=== PATIENT | male | born 1960 | race Caucasian/White ===

== ENCOUNTER 2022-09-03 11:33 | Inpatient (IN) | payer MEDICARE, OTHER ==
[2022-09-03] MEDS ORDERED: IPRATROPIUM-ALBUTEROL 3 ML NEB INHALATION STA (11:47)
--- NOTE | 2022-09-03 11:57 | ED ---
Weakness HPI - General Chief complaint: Weakness Stated complaint: Weakness Time Seen by Provider: 09/03/22 11:39 Source: patient, EMS, RN notes reviewed Mode of arrival: EMS Limitations: no limitations - History of Present Illness Initial comments: This a 61-year-old male presents emergency Department treatment jaundice weakness. Patient states has not felt well for one week. Patient states he's felt short of breath. Patient denies any current chest pain. He is a former smoker history of COPD. Patient states she's also had some mild diarrhea. He states he had constipation prior to that. Denies any localized abdominal pain no focal weakness went headache. - Related Data Home Medications Medication Instructions Recorded Confirmed Aspirin/Acetaminophen/Caffeine 1 - 2 tab PO DAILY PRN 07/04/22 09/03/22 [Excedrin Migraine Caplet] Famotidine [Pepcid] 20 mg PO DAILY 07/04/22 09/03/22 PARoxetine HCL [Paxil] 40 mg PO DAILY 07/04/22 09/03/22 Albuterol Sulfate [Albuterol 2 puff PO RT-TID PRN 09/03/22 09/03/22 Sulfate Hfa] Ezetimibe [Zetia] 10 mg PO DAILY 09/03/22 09/03/22 Naproxen [Naprosyn] 500 mg PO BID PRN 09/03/22 09/03/22 predniSONE 50 mg PO DAILY 09/03/22 09/03/22 Allergies Allergy/AdvReac Type Severity Reaction Status Date / Time No Known Allergies Allergy Verified 09/03/22 13:55 Review of Systems ROS Statement: Those systems with pertinent positive or pertinent negative responses have been documented in the HPI. ROS Other: All systems not noted in ROS Statement are negative. Past Medical History Past Medical History: Hyperlipidemia, Hypertension History of Any Multi-Drug Resistant Organisms: None Reported Past Surgical History: Appendectomy, Cholecystectomy Additional Past Surgical History / Comment(s): left arm, Past Psychological History: No Psychological Hx Reported Smoking Status: Former smoker Past Alcohol Use History: None Reported Past Drug Use History: None Reported General Exam Limitations: no limitations General appearance: alert, in no apparent distress Head exam: Present: atraumatic, normocephalic, normal inspection Eye exam: Present: normal appearance, PERRL, EOMI. Absent: scleral icterus, conjunctival injection, periorbital swelling ENT exam: Present: normal exam, normal oropharynx, mucous membranes moist Neck exam: Present: normal inspection, full ROM. Absent: tenderness, meningismus, lymphadenopathy Respiratory exam: Present: wheezes. Absent: normal lung sounds bilaterally, respiratory distress, rales, rhonchi, stridor Cardiovascular Exam: Present: regular rate, normal rhythm, normal heart sounds. Absent: systolic murmur, diastolic murmur, rubs, gallop, clicks GI/Abdominal exam: Present: soft, normal bowel sounds. Absent: distended, tenderness, guarding, rebound, rigid Neurological exam: Present: alert, oriented X3, CN II-XII intact, reflexes normal. Absent: motor sensory deficit Skin exam: Present: warm, dry, intact, normal color. Absent: rash Course Vital Signs 09/03/22 09/03/22 09/03/22 11:34 12:32 12:41 Temperature 98.4 F Pulse Rate 101 H 96 92 Respiratory 20 Rate Blood Pressure 147/111 O2 Sat by Pulse 97 Oximetry 09/03/22 09/03/22 09/03/22 13:36 13:46 14:00 Temperature 97.4 F L Pulse Rate 96 95 96 Respiratory 18 18 18 Rate Blood Pressure 144/113 147/113 141/112 O2 Sat by Pulse 97 94 L 100 Oximetry 09/03/22 15:00 Temperature Pulse Rate 99 Respiratory 18 Rate Blood Pressure 142/107 O2 Sat by Pulse 100 Oximetry EKG Findings - EKG Comments: EKG Findings:: EKG performed at 11:57 sinus rhythm rate of 97 CT 134 QRS 104 QT/QTC 316/462 - EKG Results: EKG: interpreted by JOSE Medical Decision Making - Medical Decision Making Was pt. sent in by a medical professional or institution (, PA, TRAIN ELECTRONIC TECHNICIAN, urgent care, hospital, or assisted...) When possible be specific @ -[No] Did you speak to anyone other than the patient for history (EMS, parent, family, police, friend...)? What history was obtained from this source @ -[No] Did you review nursing and triage notes (agree or disagree)? Why? @ -[I reviewed and agree with nursing and triage notes] Were old charts reviewed (outside hosp., previous admission, EMS record, old EKG, old radiological studies, urgent care reports/EKG's, assisted records)? Report findings @ -[Reviewed prior to admission included laboratory studies, carotid consult] Differential Diagnosis (chest pain, altered mental status, abdominal pain women, abdominal pain men, vaginal bleeding, weakness, fever, dyspnea, syncope, headache, dizziness, GI bleed, back pain, seizure, CVA, palpatations, mental health, musculoskeletal)? @ -[nDifferential Dyspnea: Coronary syndrome, arrhythmia, tamponade, asthma, COPD, pulmonary embolism, pneumonia, pneumothorax, pulmonary effusion, anaphylaxis, diabetic ketoacidosis, flailed chest, pulmonary contusion, diaphragmatic rupture, anemia, neuromuscular, this is not meant to be an all-inclusive list. licable] EKG interpreted by me (3pts min.). @ -[As above] X-rays interpreted by me (1pt min.). @ -[Chest x-ray shows bilateral effusions] CT interpreted by me (1pt min.). @ -[CT of the chest shows no evidence of PE, there is bilateral pleural effusions noted] U/S interpreted by me (1pt. min.). @ -[None done] What testing was considered but not performed or refused? (CT, X-rays, U/S, labs)? Why? @ -[None] What meds were considered but not given or refused? Why? @ -[None] Did you discuss the management of the patient with other professionals (professionals i.e. , PA, TRAIN ELECTRONIC TECHNICIAN, lab, RT, psych nurse, social work faculty member, dictaphone transcriber, teacher, legal officer, field nurse case manager)? Give summary @ -[Discuss case with Dr. Jamison who recommended admission with IV Lasix, cardiology and pulmonary Was smoking cessation discussed for >3mins.? @ -[No] Was critical care preformed (if so, how long)? @ -[35mins] Were there social determinants of health that impacted care today? How? (Homelessness, low income, unemployed, alcoholism, drug addiction, transportation, low edu. Level, literacy, decrease access to med. care, penitentiary, rehab)? @ -[No] Was there de-escalation of care discussed even if they declined (Discuss DNR or withdrawal of care, Hospice)? DNR status @ -[No] What co-morbidities impacted this encounter? (DM, HTN, Smoking, COPD, CAD, Cancer, CVA, ARF, Chemo, Hep., AIDS, mental health diagnosis, sleep apnea, morbid obesity)? @ -[COPD] Was patient admitted / discharged? Hospital course, mention meds given and route, prescriptions, significant lab abnormalities, going to OR and other pertinent info. @ -[Admitted patient has significant bilateral pleural effusions, metabolic acidosis patient does have a BNP at 19,600 with pulmonary edema type changes. Patient admitted for cardiology and pulmonary patient echocardiogram.] Undiagnosed new problem with uncertain prognosis? @ -[No] Drug Therapy requiring intensive monitoring for toxicity (Heparin, Nitro, Insulin, Cardizem)? @ -[No] Were any procedures done? @ -[No] Diagnosis/symptom? @ -[Pulmonary edema, CHF, bilateral pleural effusions] Acute, or Chronic, or Acute on Chronic? @ -[Acute] Uncomplicated (without systemic symptoms) or Complicated (systemic symptoms)? @ -[ complicated] Side effects of treatment? @ -[No] Exacerbation, Progression, or Severe Exacerbation? @ -[No] Poses a threat to life or bodily function? How? (Chest pain, [place], [place], pneumonia, PE, COPD, DKA, ARF, appy, cholecystitis, CVA, Diverticulitis, Homicidal, Suicidal, threat to staff... and all critical care pts) @ -[yes patient is at risk for respiratory failure] - Lab Data Result diagrams: 09/03/22 12:15 09/03/22 12:15 Lab Results 09/03/22 09/03/22 09/03/22 Range/Units 12:15 12:15 12:15 WBC 11.5 H (3.8-10.6) k/uL RBC 4.28 L (4.30-5.90) m/uL Hgb 12.4 L (13.0-17.5) gm/dL Hct 39.5 (39.0-53.0) % MCV 92.4 (80.0-100.0) fL MCH 29.0 (25.0-35.0) pg MCHC 31.4 (31.0-37.0) g/dL RDW 14.4 (11.5-15.5) % Plt Count 159 (150-450) k/uL MPV 11.0 Neutrophils % 87 % Lymphocytes % 6 % Monocytes % 5 % Eosinophils % 0 % Basophils % 0 % Neutrophils # 10.0 H (1.3-7.7) k/uL Lymphocytes # 0.7 L (1.0-4.8) k/uL Monocytes # 0.6 (0-1.0) k/uL Eosinophils # 0.0 (0-0.7) k/uL Basophils # 0.0 (0-0.2) k/uL Hypochromasia Moderate PT 14.4 H (9.0-12.0) sec INR 1.4 H (<1.2) APTT 24.4 (22.0-30.0) sec D-Dimer 2.20 H (<0.60) mg/L FEU Sodium 136 L (137-145) mmol/L Potassium 4.3 (3.5-5.1) mmol/L Chloride 108 H (98-107) mmol/L Carbon Dioxide 16 L (22-30) mmol/L Anion Gap 12 mmol/L BUN 33 H (9-20) mg/dL Creatinine 1.03 (0.66-1.25) mg/dL Est GFR (CKD-EPI)AfAm 90 (>60 ml/min/1.73 sqM) Est GFR (CKD-EPI)NonAf 78 (>60 ml/min/1.73 sqM) Glucose 113 H (74-99) mg/dL Calcium 7.9 L (8.4-10.2) mg/dL Magnesium 2.0 (1.6-2.3) mg/dL Total Bilirubin 2.6 H (0.2-1.3) mg/dL AST 58 (17-59) U/L ALT 64 H (4-49) U/L Alkaline Phosphatase 80 (38-126) U/L NT-Pro-B Natriuret Pep pg/mL Total Protein 5.7 L (6.3-8.2) g/dL Albumin 3.2 L (3.5-5.0) g/dL 09/03/22 Range/Units 12:15 WBC (3.8-10.6) k/uL RBC (4.30-5.90) m/uL Hgb (13.0-17.5) gm/dL Hct (39.0-53.0) % MCV (80.0-100.0) fL MCH (25.0-35.0) pg MCHC (31.0-37.0) g/dL RDW (11.5-15.5) % Plt Count (150-450) k/uL MPV Neutrophils % % Lymphocytes % % Monocytes % % Eosinophils % % Basophils % % Neutrophils # (1.3-7.7) k/uL Lymphocytes # (1.0-4.8) k/uL Monocytes # (0-1.0) k/uL Eosinophils # (0-0.7) k/uL Basophils # (0-0.2) k/uL Hypochromasia PT (9.0-12.0) sec INR (<1.2) APTT (22.0-30.0) sec D-Dimer (<0.60) mg/L FEU Sodium (137-145) mmol/L Potassium (3.5-5.1) mmol/L Chloride (98-107) mmol/L Carbon Dioxide (22-30) mmol/L Anion Gap mmol/L BUN (9-20) mg/dL Creatinine (0.66-1.25) mg/dL Est GFR (CKD-EPI)AfAm (>60 ml/min/1.73 sqM) Est GFR (CKD-EPI)NonAf (>60 ml/min/1.73 sqM) Glucose (74-99) mg/dL Calcium (8.4-10.2) mg/dL Magnesium (1.6-2.3) mg/dL Total Bilirubin (0.2-1.3) mg/dL AST (17-59) U/L ALT (4-49) U/L Alkaline Phosphatase (38-126) U/L NT-Pro-B Natriuret Pep 68883 pg/mL Total Protein (6.3-8.2) g/dL Albumin (3.5-5.0) g/dL Critical Care Time Critical Care Time: Yes Total Critical Care Time: 35 Disposition Clinical Impression: CHF (congestive heart failure), Pulmonary edema, Bilateral pleural effusion Disposition: ADMITTED IP TO THIS HOSP Condition: Poor Referrals: Bita Parrish MD [Primary Care Provider] - 1-2 days Time of Disposition: 15:15
[2022-09-03 12:29] LABS: Basophils % (A) 0 %; Eosinophils % (A) 0 %; HCT 39.5 % (39.0-53.0); HGB 12.4 gm/dL (13.0-17.5); Hypochromasia Moderate; Lymphocytes # (A) 0.7 k/uL (1.0-4.8); Lymphocytes % (A) 6 %; MCHC 31.4 g/dL (31.0-37.0); MCV 92.4 fL (80.0-100.0); Monocytes # (A) 0.6 k/uL (0-1.0); Monocytes % (A) 5 %; Neutrophils % (A) 87 %; Platelet Count 159 k/uL (150-450); RBC 4.28 m/uL (4.30-5.90); RDW 14.4 % (11.5-15.5); WBC 11.5 k/uL (3.8-10.6)
[2022-09-03 12:36] LABS: ALT 64 U/L (4-49); AST 58 U/L (17-59); African American GFR (CKD) 90 (>60 ml/min/1.73 sqM); Albumin 3.2 g/dL (3.5-5.0); Alkaline Phosphatase 80 U/L (38-126); Anion Gap 12 mmol/L; Blood Urea Nitrogen 33 mg/dL (9-20); Calcium 7.9 mg/dL (8.4-10.2); Carbon Dioxide 16 mmol/L (22-30); Chloride 108 mmol/L (98-107); Glucose 113 mg/dL (74-99); Non-African American GFR(CKD) 78 (>60 ml/min/1.73 sqM); Potassium 4.3 mmol/L (3.5-5.1); Sodium 136 mmol/L (137-145); Total Bilirubin 2.6 mg/dL (0.2-1.3); Total Protein 5.7 g/dL (6.3-8.2)
[2022-09-03 12:38] LABS: INR 1.4 (<1.2); Partial Thromboplastin Time 24.4 sec (22.0-30.0); Prothrombin Time 14.4 sec (9.0-12.0)
--- NOTE | 2022-09-03 12:50 | XR ---
EXAMINATION TYPE: XR chest 2V DATE OF EXAM: 09/03/2022 COMPARISON: 07/04/2022 INDICATION: Weakness TECHNIQUE: Frontal and lateral views of the chest are obtained. FINDINGS: The heart size is normal. The pulmonary vasculature is normal. Bilateral posterior pleural effusions are present.. IMPRESSION: 1. Posterior pleural effusions.
[2022-09-03] MEDS ORDERED: guaiFENesin-Coden 100-10MG/5ML 10 ML CUP PO STA (12:55)
[2022-09-03] MEDS ORDERED: FUROSEMIDE 10 MG/ML 4 ML VIAL IV STA (14:02)
--- NOTE | 2022-09-03 14:28 | CT ---
CT CHEST FOR PULMONARY EMBOLISM. EXAMINATION TYPE: CT chest angio for PE DATE OF EXAM: 09/03/2022 INDICATION: KRYSTAL, elevated dimer CT DLP: 307.6 mGycm, Automated exposure control for dose reduction was used. CONTRAST: Patient injected with 100 mL of Isovue 370. COMPARISON: None TECHNIQUE: CT of the chest is performed on a spiral scan at 2 mm thick sections. Study is performed with intravenous contrast timed for evaluation for pulmonary embolism. This will limit additional po rtions of the evaluation. FINDINGS: No persistent filling defects are evident to suggest an acute pulmonary embolism. No mediastinal or hilar adenopathy enlarged by CT criteria is evident. The ascending aorta diameter at the level of the main pulmonary artery is 3.4 cm. The main pulmonary artery diameter at the bifur cation is 3.2 cm. Reflux into the inferior vena cava is evident. No septal deviation is appreciated. Small left and [id number] right pleural fluid is present. Limited CT section through the upper abdomen are unremarkable. IMPRESSIONS: 1. No acute pulmonary embolism. 2. Bilateral pleural fluid collections
[2022-09-03] MEDS: FUROSEMIDE 10 MG/ML 4 ML VIAL IV SCH (18:33)
[2022-09-03] MEDS ORDERED: LABETALOL 5 MG/ML VIAL MDV IVP STA (21:29)
[2022-09-04] MEDS: FUROSEMIDE 10 MG/ML 4 ML VIAL IV SCH ×2 (03:18→17:16)
[2022-09-04] MEDS ORDERED: IPRATROPIUM-ALBUTEROL 3 ML NEB INHALATION PRN (05:02)
--- NOTE | 2022-09-04 05:12 | P.CNPUL ---
History of Present Illness Consult date: 09/04/22 Requesting physician: Dar Shannon Reason for consult: dyspnea, pleural effusion Chief complaint: Shortness of breath History of present illness: I am seeing this patient in consultation today 09/14/2022 in the emergency room for possible acute CHF exacerbation and bilateral pleural effusions. Patient is a 61-year-old white male with past medical history significant for asthma, hypertension, hyperlipidemia, and is an ex-smoker. He does reportedly follow with his primary care provider Dr. Sunshine. Patient did have a recent hospital stay back in Jul, 2022. He was found to be in acute congestive heart failure, and was diuresed with Lasix. He also was started on a combination of antihype rtensives and lipid lowering medications. He ended up leaving AGAINST MEDICAL ADVICE. Patient presented back to the emergency room yesterday morning complaining of exertional shortness of breath with associated chest pain over the last week. The chest pain was substernal, and subsides with rest. Denies any heart palpitations, syncope, orthopnea, or lower extremity edema. He denies any significant fever, chills, productive cough, hemoptysis. He does report a chronic nonproductive cough worse in the morning. He denies sick contacts. He is currently sitting up in bed, on room air, in no acute distress. Initial chest x-ray showed bilateral small pleural effusions. Follow-up chest CTA drew wed no pulmonary embolism. It did redemonstrated the small to moderate-sized bilateral pleural effusions. CBC on arrival shows a WBC count 11.5, hemoglobin 12.4, hematocrit 39.5, platelets 159. BMP shows sodium 136, potassium 4.3, chloride 108, serum bicarb 16, BUN 33, creatinine 1.03, glucose 113. Troponins have been trending and are elevated at 1.2, 1.14, and then 1.2. NT proBNP was elevated at 19,600. Patient was started on Lasix 40 mg twice a day. He states that he is voiding a lot. There is a documented -3.4 L output over the last 24 hours. Vital signs are stable. Patient will be admitted to cardiac stepdown unit once bed available.. Review of Systems REVIEW OF SYSTEMS: CONSTITUTIONAL: Denies any recent significant weight loss or weight gain. EYES: Denies change in vision. EARS, NOSE, MOUTH, THROAT: Denies headaches, denies sore throat. CARDIOVASCULAR: See HPI RESPIRATORY: See HPI GASTROINTESTINAL: Denies change in appetite, abdominal pain, nausea and vomiting, or diarrhea GENITOURINARY: Denies hematuria, denies infections. MUSKULOSKELETAL: Denies pain, denies swelling. INTEGUMENTARY: Denies rash, denies eczema. NEUROLOGICAL: Denies recent memory loss, no recent seizure activity. PSYCHIATRIC: Denies anxiety, denies depression. HEMATOLOGIC/LYMPHATIC: Denies anemia, denies enlarged lymph node Past Medical History Past Medical History: Hyperlipidemia, Hypertension History of Any Multi-Drug Resistant Organisms: None Reported Past Surgical History: Appendectomy, Cholecystectomy Additional Past Surgical History / Comment(s): left arm, Past Psychological History: No Psychological Hx Reported Smoking Status: Former smoker Past Alcohol Use History: None Reported Past Drug Use History: None Reported Medications and Allergies Home Medications Medication Instructions Recorded Confirmed Type Aspirin/Acetaminophen/Caffeine 1 - 2 tab PO DAILY PRN 07/04/22 09/03/22 History [Excedrin Migraine Caplet] Famotidine [Pepcid] 20 mg PO DAILY 07/04/22 09/03/22 History PARoxetine HCL [Paxil] 40 mg PO DAILY 07/04/22 09/03/22 History Albuterol Sulfate [Albuterol 2 puff PO RT-TID PRN 09/03/22 09/03/22 History Sulfate Hfa] Ezetimibe [Zetia] 10 mg PO DAILY 09/03/22 09/03/22 History Naproxen [Naprosyn] 500 mg PO BID PRN 09/03/22 09/03/22 History predniSONE 50 mg PO DAILY 09/03/22 09/03/22 History Allergies Allergy/AdvReac Type Severity Reaction Status Date / Time No Known Allergies Allergy Verified 09/03/22 13:55 Physical Exam Vitals: Vital Signs Temp Pulse Resp BP Pulse Ox 09/04/22 03:30 82 21 120/99 97 09/04/22 02:30 89 17 122/96 98 09/04/22 02:00 87 18 122/96 09/04/22 00:30 96 14 127/93 09/03/22 23:30 87 17 125/90 97 09/03/22 23:00 87 21 123/91 96 09/03/22 22:30 84 22 127/100 09/03/22 22:00 87 20 140/106 09/03/22 21:43 90 18 98 09/03/22 21:37 107 H 18 150/115 98 09/03/22 21:30 104 H 21 152/115 09/03/22 21:00 101 H 20 159/110 09/03/22 20:30 96 18 152/118 09/03/22 20:00 101 H 17 165/113 09/03/22 19:38 100 18 142/113 09/03/22 19:00 96 20 142/113 09/03/22 18:00 99 20 142/119 99 09/03/22 17:00 99 18 142/119 97 09/03/22 16:00 101 H 18 154/94 99 09/03/22 15:00 99 18 142/107 100 09/03/22 14:00 96 18 141/112 100 09/03/22 13:46 97.4 F L 95 18 147/113 94 L 09/03/22 13:36 96 18 144/113 97 09/03/22 12:41 92 09/03/22 12:32 96 09/03/22 11:34 98.4 F 101 H 20 147/111 97 Intake and Output 09/03/22 09/03/22 09/04/22 14:59 22:59 06:59 Output Total 2430 1000 Balance -2430 -1000 Output: Urine 2430 1000 Other: Weight 58.967 kg GENERAL EXAM: Alert, 61-year-old white male appearing stated age, comfortable in no apparent distress. HEAD: Normocephalic and atraumatic EYES: Normal reaction of pupils, equal size. NOSE: Clear with pink turbinates. THROAT: No erythema or exudates. NECK: No masses, no JVD. CHEST: No chest wall deformity. LUNGS: Equal air entry with diminished bibasilar lung sounds. No crackles, wheezes, rhonchi. On room air. No conversational dyspnea or accessory muscle use.. CVS: S1 and S2 normal with no audible murmur, regular rhythm. No extra heart sounds ABDOMEN: No hepatosplenomegaly, active bowel sounds, no guarding or rigidity. SPINE: No scoliosis or deformity SKIN: No rashes CENTRAL NERVOUS SYSTEM: No focal deficits, tone is normal in all 4 extremities. EXTREMITIES: There is no peripheral edema, clubbing, or cyanosis. Peripheral pulses are intact. Results - Laboratory Findings CBC and BMP: 09/03/22 12:15 09/03/22 12:15 PT/INR, D-dimer PT 14.4 sec (9.0-12.0) H 09/03/22 12:15 INR 1.4 (<1.2) H 09/03/22 12:15 D-Dimer 2.20 mg/L FEU (<0.60) H 09/03/22 12:15 Abnormal lab findings: Abnormal Labs 09/03/22 09/03/22 09/03/22 12:15 12:15 12:15 WBC 11.5 H RBC 4.28 L Hgb 12.4 L Neutrophils # 10.0 H Lymphocytes # 0.7 L PT 14.4 H INR 1.4 H D-Dimer 2.20 H Sodium 136 L Chloride 108 H Carbon Dioxide 16 L BUN 33 H Glucose 113 H Calcium 7.9 L Total Bilirubin 2.6 H ALT 64 H Troponin I Total Protein 5.7 L Albumin 3.2 L 09/03/22 09/03/22 09/03/22 12:15 16:34 19:45 WBC RBC Hgb Neutrophils # Lymphocytes # PT INR D-Dimer Sodium Chloride Carbon Dioxide BUN Glucose Calcium Total Bilirubin ALT Troponin I 1.210 H* 1.140 H* 1.200 H* Total Protein Albumin - Diagnostic Findings Chest x-ray: image reviewed CT scan - chest: image reviewed Assessment and Plan Assessment: Suspected mild CHF exacerbation, chest CTA shows small to moderate size bilateral pleural effusions greater on the right. There is no cardiomegaly or significant pulmonary vascular congestion. NT proBNP was elevated at 19,600. Elevated troponins, possible NSTEMI Benign essential hypertension Hyperlipidemia Reported history of asthma, clinically stable Ex-smoker, quitting approximately 3 years ago Plan: Patient's medications, labs, chest x-ray, chest CTA reviewed On room air Echocardiogram pending for the morning Cardiology was consulted Currently being diuresed with Lasix 40 mg twice a day Documented 3.4 L urinary output over last 24 hours Doubt the need for thoracentesis We will continue to follow I have personally seen and examined the patient, performed the documentation and the assessment and plan as written. Number of minutes spent on the visit:20 Time with Patient: Greater than 30
[2022-09-04] MEDS ORDERED: HEPARIN SODIUM 1,000 UN/ML (10ML VL) IV PRN (08:45)
[2022-09-04] MEDS ORDERED: HEPARIN SODIUM 1,000 UN/ML (10ML VL) IV ONE (08:45)
--- NOTE | 2022-09-04 09:38 | P.CRDCN ---
History of Present Illness Consult date: 09/04/22 Consult reason: congestive heart failure History of present illness: HISTORY OF PRESENT ILLNESS: This is a 61-year-old male with a past medical history significant for former nicotine dependence. 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 We have been asked to see the patient in consultation for CHF. Patient had a recent hospitalization in July at which time his troponins were elevated and he was seen by cardiology but ended up signing out AMA. He did not have any follow-up with cardiology following that. Patient now presents with shortness of breath it's been going on for a couple weeks. He complains of cough with sputum production, no fever or chills. No lower extremity edema. He is complaining of constipation. His initial blood pressure 147/111.Patient is status post 1 dose of IV Lasix. He is seen in the emergency center waiting for a bed on the cardiac stepdown unit. Patient states he quit smoking. He denies alcohol use, illicit drug use. EKG reveals ectopic atrial rhythm, poor R-wave progression,. Chest xray posterior pleural effusions Chest CTA: Negative for pulmonary embolism. Bilateral pleural fluid colle ctions. Laboratory data: WBC 11.5, hemoglobin 12.4, platelets at 159. INR 1.4. D-dimer 2.2. Sodium 136, potassium 4.3, chloride 108, CO2 27, BUN 33, creatinine 1.03. Glucose 113. Magnesium 2. ALT 64. Troponin 1.21, 1.14, 1.2. ProBNP 19,600. Current home cardiac medications include Zetia 10 mg daily REVIEW OF SYSTEMS: At the time of my exam: CONSTITUTIONAL: Denies fever or chills. HEENT: Denies blurred vision, vision changes, or eye pain. Denies hemoptysis CARDIOVASCULAR: Denies chest pain. Denies orthopnea. Denies PND. Denies palpitations RESPIRATORY: Reports shortness of breath. GASTROINTESTINAL: Denies abdominal pain. Denies nausea or vomiting. HEMATOLOGIC: Denies bleeding disorders. GENITOURINARY: Denies any blood in urine. SKIN: Denies pruitis. Denies rash. PHYSICAL EXAM: VITAL SIGNS: Reviewed. 147/108, heart rate in the 80s, pulse ox 90% on room air GENERAL: Well-developed in no acute distress. HEENT: Head is normocephalic. Pupils are equal, round. Sclerae anicteric. Mucous membranes of the mouth are moist. Neck supple. No JVD or thyromegaly LUNGS: Respirations even and unlabored. Lungs diminished bilaterally HEART: Regular rate and rhythm. S1 and S2 heard. ABDOMEN: Soft. Nondistended. Nontender. EXTREMITIES: No clubbing or cyanosis. Peripheral pulses intact. No lower extremity edema NEUROLOGIC: Awake and alert. Oriented x 3. ASSESSMENT: Acute heart failure, type unknown, echo pending Elevated troponins, possible Non-STEMI Hypertension, uncontrolled History of migraines Former nicotine dependence PLAN: Obtain 2-D echo to assess cardiac structure and function Start patient on IV heparin Start patient on aspirin 81 mg daily, Lipitor 80 mg daily, Coreg 6.25 mg twice daily Continue Lasix 40 mg IV every 12 hours, monitor I&O, daily weights electrolytes and renal function Further recommendations pending patient's course Nurse practitioner note has been reviewed by physician. Signing provider agrees with the documented findings, assessment, and plan of care. Past Medical History Past Medical History: Hyperlipidemia, Hypertension History of Any Multi-Drug Resistant Organisms: None Reported Past Surgical History: Appendectomy, Cholecystectomy Additional Past Surgical History / Comment(s): left arm, Past Psychological History: No Psychological Hx Reported Smoking Status: Former smoker Past Alcohol Use History: None Reported Past Drug Use History: None Reported Medications and Allergies Home Medications Medication Instructions Recorded Confirmed Type Aspirin/Acetaminophen/Caffeine 1 - 2 tab PO DAILY PRN 07/04/22 09/03/22 History [Excedrin Migraine Caplet] Famotidine [Pepcid] 20 mg PO DAILY 07/04/22 09/03/22 History PARoxetine HCL [Paxil] 40 mg PO DAILY 07/04/22 09/03/22 History Albuterol Sulfate [Albuterol 2 puff PO RT-TID PRN 09/03/22 09/03/22 History Sulfate Hfa] Ezetimibe [Zetia] 10 mg PO DAILY 09/03/22 09/03/22 History Naproxen [Naprosyn] 500 mg PO BID PRN 09/03/22 09/03/22 History predniSONE 50 mg PO DAILY 09/03/22 09/03/22 History Allergies Allergy/AdvReac Type Severity Reaction Status Date / Time No Known Allergies Allergy Verified 09/03/22 13:55 Physical Exam Vitals: Vital Signs Temp Pulse Resp BP Pulse Ox 09/04/22 07:46 85 18 147/108 98 09/04/22 03:30 82 21 120/99 97 09/04/22 02:30 89 17 122/96 98 09/04/22 02:00 87 18 122/96 09/04/22 00:30 96 14 127/93 09/03/22 23:30 87 17 125/90 97 09/03/22 23:00 87 21 123/91 96 09/03/22 22:30 84 22 127/100 09/03/22 22:00 87 20 140/106 09/03/22 21:43 90 18 98 09/03/22 21:37 107 H 18 150/115 98 09/03/22 21:30 104 H 21 152/115 09/03/22 21:00 101 H 20 159/110 09/03/22 20:30 96 18 152/118 09/03/22 20:00 101 H 17 165/113 09/03/22 19:38 100 18 142/113 09/03/22 19:00 96 20 142/113 09/03/22 18:00 99 20 142/119 99 09/03/22 17:00 99 18 142/119 97 09/03/22 16:00 101 H 18 154/94 99 09/03/22 15:00 99 18 142/107 100 09/03/22 14:00 96 18 141/112 100 09/03/22 13:46 97.4 F L 95 18 147/113 94 L 09/03/22 13:36 96 18 144/113 97 09/03/22 12:41 92 09/03/22 12:32 96 09/03/22 11:34 98.4 F 101 H 20 147/111 97 Intake and Output 09/03/22 09/04/22 09/04/22 22:59 06:59 14:59 Output Total 2429 2049 Balance -2429 -2049 Output: Urine 2429 2049 Results 09/03/22 12:15 09/03/22 12:15 Cardiac Enzymes 09/03/22 09/03/22 09/03/22 Range/Units 12:15 12:15 16:34 AST 58 (17-59) U/L Troponin I 1.210 H* 1.140 H* (0.000-0.034) ng/mL 09/03/22 Range/Units 19:45 AST (17-59) U/L Troponin I 1.200 H* (0.000-0.034) ng/mL Coagulation 09/03/22 Range/Units 12:15 PT 14.4 H (9.0-12.0) sec APTT 24.4 (22.0-30.0) sec CBC 09/03/22 Range/Units 12:15 WBC 11.5 H (3.8-10.6) k/uL RBC 4.28 L (4.30-5.90) m/uL Hgb 12.4 L (13.0-17.5) gm/dL Hct 39.5 (39.0-53.0) % Plt Count 159 (150-450) k/uL Comprehensive Metabolic Panel 09/03/22 Range/Units 12:15 Sodium 136 L (137-145) mmol/L Potassium 4.3 (3.5-5.1) mmol/L Chloride 108 H (98-107) mmol/L Carbon Dioxide 16 L (22-30) mmol/L BUN 33 H (9-20) mg/dL Creatinine 1.03 (0.66-1.25) mg/dL Glucose 113 H (74-99) mg/dL Calcium 7.9 L (8.4-10.2) mg/dL AST 58 (17-59) U/L ALT 64 H (4-49) U/L Alkaline Phosphatase 80 (38-126) U/L Total Protein 5.7 L (6.3-8.2) g/dL Albumin 3.2 L (3.5-5.0) g/dL Current Medications Generic Name Dose Route Start Last Admin Trade Name Freq PRN Reason Stop Dose Admin Albuterol/Ipratropium 3 ml 09/04/22 05:02 Ipratropium-Albuterol 3 Ml Neb INHALATION RT-Q4H PRN Shortness Of Breath Or Wheezing Furosemide 40 mg 09/03/22 15:30 09/04/22 03:18 Furosemide 10 Mg/Ml 4 Ml Vial IV 40 mg Q12H JORGE ALBERTO Administration Intake and Output 09/03/22 09/04/22 09/04/22 22:59 06:59 14:59 Output Total 2429 2049 Balance -2429 Output: Urine 2430 204909/03/22 12:15 09/03/22 12:15
[2022-09-04] MEDS: ATORVASTATIN 80 MG TAB PO SCH (09:52)
[2022-09-04] MEDS: ASPIRIN 81 MG PO SCH (09:52)
[2022-09-04] MEDS: carvediloL 6.25 MG TAB PO SCH ×2 (09:56→17:16)
[2022-09-04] MEDS: HEPARIN SOD,PORK IN 0.45% NACL 25,000 UNIT in 0.45% NACL 1 250ML.BAG IV SCH (10:00)
--- NOTE | 2022-09-04 11:49 | CA ---
Transthoracic Echo Report Name: Smith Zhou Age: 61 Gender: M : 1960 Exam Date: 09/04/2022 07:56 Exam Location: [facility] Ht (in): 66 Wt (lb): 130 Ordering Physician: Dar Shannon Attending/Referring Phys: [id number], Mirtha Senior Analyst Developer Vero Carrillo, LUCAS Procedure CPT: Indications: Heart failure Cardiac Hx: Technical Quality: Good Contrast 1: Total Dose (mL): Contrast 2: Total Dose (mL): MEASUREMENTS (Male / Female) Normal Values 2D ECHO LV Diastolic Diameter PLAX 5.5 cm 4.2 - 5.9 / 3.9 - 5.3 cm LV Systolic Diameter PLAX 5.3 cm IVS Diastolic Thickness 1.3 cm 0.6 - 1.0 / 0.6 - 0.9 cm LVPW Diastolic Thickness 1.2 cm 0.6 - 1.0 / 0.6 - 0.9 cm LV Relative Wall Thickness 0.4 RV Internal Dim ED PLAX 3.4 cm LA Systolic Diameter LX 4.4 cm 3.0 - 4.0 / 2.7 - 3.8 cm LV Diastolic Volume MOD 4C 78.0 cm??? LV Systolic Volume MOD 4C 91.0 cm??? LV Ejection Fraction MOD 4C -16.6 % LV Cardiac Index MOD 4C -719.9 cm???/min???m??? LV Diastolic Length 4C 7.3 cm LV Systolic Length 4C 7.7 cm LA Volume 73.8 cm??? 18 - 58 / 22 - 52 cm??? M-MODE Aortic Root Diameter MM 3.3 cm MV E Point Septal Separation 2.1 cm AV Cusp Separation MM 2.1 cm DOPPLER AV Peak Velocity 120.4 cm/s AV Peak Gradient 5.8 mmHg MV Area PHT 5.4 cm??? Mitral E Point Velocity 120.1 cm/s Mitral A Point Velocity 52.9 cm/s Mitral E to A Ratio 2.3 MV Deceleration Time 139.9 ms TR Peak Velocity 343.2 cm/s TR Peak Gradient 47.1 mmHg Right Ventricular Systolic Press 52.1 mmHg FINDINGS Left Ventricle Left ventricular ejection fraction is estimated at 15-20 %. Left ventricular cavity size normal. Mildly increased septal wall thickness. Severely reduced global left ventricular systolic function. Right Ventricle Mild right ventricular dilatation. Moderate pulmonary hypertension. Right ventricular systolic pressure estimated at 52 mm hg. Moderately reduced right ventricular global systolic function. Right Atrium Normal right atrial size. Left Atrium Mildly increased left atrial diameter. Moderately increased left atrial volume. Mildly increased left atrial area. Mitral Valve Mitral valve thickened. Mild mitral annular calcification. Fbdguxio-be-lvrkxt mitral regurgitation. Aortic Valve Trileaflet aortic valve. Thickened aortic valve without stenosis. Tricuspid Valve Structurally normal tricuspid valve. Mild tricuspid regurgitation. Pulmonic Valve Structurally normal pulmonic valve. Trace to mild pulmonic regurgitation. Pericardium Normal pericardium. No pericardial effusion. Aorta Normal size aortic root and proximal ascending aorta. CONCLUSIONS Severe LV dysfunction Severe RV dysfunction Elevated RVSP Severe mitral regurgitation Dilated IVC Thickened pericardium Previewed by: Dr. Taz Meneses MD (Electronically Signed) Final Date: 04 September 2022 11:48
[2022-09-04 12:00] LABS: Basophils % (A) 0 %; Eosinophils % (A) 0 %; HCT 42.4 % (39.0-53.0); HGB 13.2 gm/dL (13.0-17.5); Hypochromasia Slight; Lymphocytes % (A) 12 %; MCH 28.2 pg (25.0-35.0); MCHC 31.2 g/dL (31.0-37.0); MCV 90.5 fL (80.0-100.0); Mean Platelet Volume 11.3; Monocytes # (A) 0.7 k/uL (0-1.0); Monocytes % (A) 8 %; Neutrophils # (A) 6.9 k/uL (1.3-7.7); Neutrophils % (A) 78 %; Platelet Count 147 k/uL (150-450); RBC 4.69 m/uL (4.30-5.90); RDW 14.5 % (11.5-15.5); WBC 8.8 k/uL (3.8-10.6)
[2022-09-04 12:25] LABS: INR 1.4 (<1.2); Partial Thromboplastin Time 80.9 sec (22.0-30.0); Prothrombin Time 14.3 sec (9.0-12.0)
--- NOTE | 2022-09-04 13:35 | CT ---
EXAMINATION TYPE: CT brain wo con CT DLP: 1099.4 mGycm, Automated exposure control for dose reduction was used. DATE OF EXAM: 09/04/2022 1:30 PM COMPARISON: None. CLINICAL INDICATION:Male, 61 years old with history of stroke??, Change in mentation, Altered mental status TECHNIQUE: Brain: Axial CT images of the brain were obtained with coronal and sagittal reformats created and rev iewed. Contrast used: None. Oral contrast used: None. FINDINGS: Brain: Extra-axial spaces: No abnormal extra-axial fluid collections. Ventricular system: Dilatation in proportion to cerebral atrophy. Cerebral parenchyma: Cerebral atrophy. No acute intraparenchymal hemorrhage or mass effect. The diaz -white junction is well differentiated. Scattered hypoattenuating areas are seen within the white mat ter. Cerebellum: Unremarkable. Mass effect: No evidence of midline shift. Intracranial vasculature: Atherosclerotic calcifications of the intracranial vessels. Soft tissues: Normal. Calvarium/osseous structures: No depressed skull fracture. Paranasal sinuses and mastoid air cells: Mild scattered paranasal sinus disease. Visualized orbits: Orbital contents are intact. IMPRESSION: 1. No acute intracranial process. 2. Nonspecific white matter changes, likely secondary to chronic small vessel ischemic disease.
--- NOTE | 2022-09-04 14:30 | HP ---
HISTORY AND PHYSICAL CHIEF COMPLAINT: Weakness and shortness of breath. HISTORY OF PRESENT ILLNESS: This is a 61-year-old gentleman with a past medical history of multiple medical problems, who was previously admitted to the hospital with shortness of breath and being evaluated for CHF, but apparently, the patient left the hospital against medical advice. Currently, the patient is complaining of lethargy, weakness, and shortness of breath, and the patient had features of possible COPD with some shortness of breath. Troponin is elevated up to 1.2 indicating acute lkz-HS-gfmjsgl-elevation myocardial infarction, and CTA is negative for pulmonary embolism. A 2D echo with Doppler showed severe LV dysfunction and severe RV dysfunction. There is no history of any fever, rigor, or chills at this time. The patient is rather drowsy and unable to give a coherent history. Most of the history is taken by discussion with staff and also review of the chart. PAST MEDICAL HISTORY: History of hypertension. Rest of the history and rest of the chart are also reviewed. HOME MEDICATIONS: Reviewed include Naprosyn. Doses and rest of the medications are noted. ALLERGIES: None. FAMILY HISTORY: Could not be taken because of the patient's change in mental status. SOCIAL HISTORY: Could not be taken because of the patient's change in mental status. REVIEW OF SYSTEMS: Could not be taken because of the patient's change in mental status. PHYSICAL EXAMINATION: VITAL SIGNS: Pulse is 85, blood pressure 147/108, respirations 18. HEENT: Conjunctivae are normal. NECK: No jugular venous distention. CARDIOVASCULAR: S1 and S2 muffled. RESPIRATORY: Few scattered rhonchi and crackles. ABDOMEN: Soft and nontender. LEGS: No edema. NERVOUS SYSTEM: Diffusely weak. SKIN: No ulcers or rashes. JOINTS: No active deforming arthropathy. LABORATORY DATA: Reviewed. IMAGING STUDIES: Chest x-ray reviewed. ASSESSMENT: 1. Shortness of breath, possible congestive heart failure acute exacerbation with feoiw-rr-rvyafqv systolic dysfunction. 2. Possible underlying cardiomyopathy. 3. Troponin of 1.210 indicating possible acute fze-GW-yidddkn-elevation myocardial infarction. 4. Hyponatremia. 5. Increased WBC. 6. Hypertension. 7. Hyperlipidemia. 8. Multiple medical issues. RECOMMENDATIONS AND DISCUSSION: In this 61-year-old gentleman presented with multiple complex medical issues, we will monitor the patient closely. I would recommend to continue the current medications and continue the symptomatic treatment. I would recommend diuretics. Closely follow with Cardiology and Pulmonology. I would also recommend CT of the brain and neuro checks as well. Otherwise, we will monitor the patient closely. There is no evidence of any primary source of infection. The white count is normal. I would obtain cultures and continue to monitor. Prognosis is extremely guarded. Further recommendations to follow. See orders for details. We will check a UA with micro. MMODL / IJN: [id number] /
[2022-09-04 18:14] LABS: Appearance,Urine Clear (Clear); Bilirubin,Urine Negative (Negative); Blood,Urine Negative (Negative); Color,Urine Yellow; Glucose,Urine (UA) Negative (Negative); Ketones,Urine Negative (Negative); Leukocyte Esterase,Urine Negative (Negative); Nitrite,Urine Negative (Negative); Protein,Urine Negative (Negative); Specific Gravity,Urine 1.017 (1.001-1.035)
[2022-09-05 03:05] LABS: Basophils % (A) 0 %; Eosinophils # (A) 0.2 k/uL (0-0.7); Eosinophils % (A) 3 %; HCT 43.3 % (39.0-53.0); HGB 13.7 gm/dL (13.0-17.5); Hypochromasia Slight; Lymphocytes % (A) 11 %; MCH 28.4 pg (25.0-35.0); MCHC 31.6 g/dL (31.0-37.0); MCV 89.9 fL (80.0-100.0); Mean Platelet Volume 11.1; Monocytes # (A) 0.7 k/uL (0-1.0); Monocytes % (A) 8 %; Neutrophils # (A) 7.1 k/uL (1.3-7.7); Neutrophils % (A) 77 %; Platelet Count 153 k/uL (150-450); RBC 4.82 m/uL (4.30-5.90); RDW 14.2 % (11.5-15.5); WBC 9.2 k/uL (3.8-10.6)
[2022-09-05 03:19] LABS: INR 1.3 (<1.2); Partial Thromboplastin Time 43.1 sec (22.0-30.0); Prothrombin Time 12.8 sec (9.0-12.0)
[2022-09-05] MEDS: FUROSEMIDE 10 MG/ML 4 ML VIAL IV SCH ×2 (03:50→16:23)
[2022-09-05] MEDS: carvediloL 6.25 MG TAB PO SCH ×2 (06:31→17:40)
--- NOTE | 2022-09-05 06:45 | P.PN ---
Subjective Progress Note Date: 09/05/22 Principal diagnosis: CHF The patient is a pleasant 59-year-old gentleman with history of smoking who was admitted to the hospital with increasing shortness of breath and bilateral lower extremities edema as well as feeling weak and tired and fatigued. He was ruled in for acute coronary event. The echo revealed severe cardiomyopathy with severe mitral regurgitation. 09/05/2022 The patient was seen and evaluated this morning. He stated that he is feeling better. He is not hypoxic at this point. The edema has improved. Currently he is on Lasix IV and he is on heparin IV. The echo revealed severe cardiomyopathy with EF of 15-20% with severe mitral regurgitation which could be related to cardiomyopathy. He reports no pain in the chest. The patient need to undergo transesophageal echocardiogram and heart catheterization to evaluate the mitral valve apparatus and rule out severe CAD. He is willing to undergo that. We'll consider doing that the next 24 hours. Beside that he is on aspirin and statin and heparin which we will continue and he is on beta paris as well. Beside that point to HEAVEN inhibitor with lisinopril and add Aldactone to the current medical regimen On examination he is euvolemic with stable vital signs and initial breathing sounds bilaterally and regular rate and rhythm and no lower extremity edema Assessment Acute coronary syndrome Severe cardiomyopathy of unknown etiology Severe mitral regurgitation History of smoking Heart failure exacerbation secondary to heart failure with reduced ejection fraction Plan Continue the current medical regimen Continue monitor the kidney function and electrolytes Proceed with DANNY and heart catheterization At HEAVEN inhibitor and Aldactone to the current medical regimen Objective - Vital Signs Vital signs: Vital Signs Temp 97.8 F 09/05/22 03:54 Pulse 70 09/05/22 03:54 Resp 17 09/05/22 03:54 BP 115/80 09/05/22 03:54 Pulse Ox 95 09/05/22 03:54 FiO2 Intake & Output 09/04/22 09/04/22 09/05/22 06:59 18:59 06:59 Intake Total 118 135.129 Output Total 2049 618 1450 Balance -2049 -487 -1314.871 Weight 59.1 kg Intake: Intake, IV Titration 135.129 Amount Heparin Sod,Pork in 0.45% 135.129 NaCl 25,000 unit In 0.45 % NaCl 1 250ml.bag @ 12 UNITS/KG/HR 7.076 mls/hr IV .Q24H JORGE ALBERTO Rx#: [id number] Oral 118 Output: Urine 2050 900 1450 - Labs CBC & Chem 7: 09/05/22 02:14 09/03/22 12:15 Labs: Abnormal Lab Results - Last 24 Hours (Table) 09/04/22 09/04/22 09/04/22 Range/Units 11:41 11:41 15:32 Plt Count 147 L (150-450) k/uL PT 14.3 H (9.0-12.0) sec INR 1.4 H (<1.2) APTT 80.9 H 39.9 H (22.0-30.0) sec 09/05/22 Range/Units 02:14 Plt Count (150-450) k/uL PT 12.8 H (9.0-12.0) sec INR 1.3 H (<1.2) APTT 43.1 H (22.0-30.0) sec
[2022-09-05] MEDS: SPIRONOLACTONE 25 MG TAB PO SCH (09:08)
[2022-09-05] MEDS: ATORVASTATIN 80 MG TAB PO SCH (09:08)
[2022-09-05] MEDS: ASPIRIN 81 MG PO SCH (09:08)
[2022-09-05 12:10] VITALS: BMI 21.0
[2022-09-05 12:24] LABS: African American GFR (CKD) >90 (>60 ml/min/1.73 sqM); Anion Gap 8 mmol/L; Blood Urea Nitrogen 40 mg/dL (9-20); Calcium 8.4 mg/dL (8.4-10.2); Carbon Dioxide 31 mmol/L (22-30); Chloride 92 mmol/L (98-107); Glucose 85 mg/dL (74-99); Non-African American GFR(CKD) 86 (>60 ml/min/1.73 sqM); Potassium 2.9 mmol/L (3.5-5.1); Sodium 131 mmol/L (137-145)
[2022-09-05] MEDS ORDERED: Potassium Replacement Protocol 1 EACH MISC MISCELLANE PRN (12:38)
[2022-09-05] MEDS: HEPARIN SOD,PORK IN 0.45% NACL 25,000 UNIT in 0.45% NACL 1 250ML.BAG IV SCH ×2 (12:51→16:24)
[2022-09-05] MEDS: POTASSIUM CHLORIDE ER 20 MEQ TAB.ER PO SCH ×3 (12:52→17:40)
--- NOTE | 2022-09-05 12:59 | P.PN ---
Subjective Progress Note Date: 09/05/22 Principal diagnosis: Shortness of breath. I am seeing this patient in consultation today 09/14/2022 in the emergency room for possible acute CHF exacerbation and bilateral pleural effusions. Patient is a 61-year-old white male with past medical history significant for asthma, h ypertension, hyperlipidemia, and is an ex-smoker. He does reportedly follow with his primary care provider Dr. Sunshine. Patient did have a recent hospital stay back in Jul, 2022. He was found to be in acute congestive heart failure, and was diuresed with Lasix. He also was started on a combination of antihypertensives and lipid lowering medications. He ended up leaving AGAINST MEDICAL ADVICE. Patient presented back to the emergency room yesterday morning complaining of exertional shortness of breath with associated chest pain over the last week. The chest pain was substernal, and subsides with rest. Denies any heart palpitations, syncope, orthopnea, or lower extremity edema. He denies any significant fever, chills, productive cough, hemoptysis. He does report a chronic nonproductive cough worse in the morning. He denies sick contacts. He is currently sitting up in bed, on room air, in no acute distress. Initial chest x-ray showed bilateral small pleural effusions. Follow-up chest CTA showed no pulmonary embolism. It did redemonstrated the small to moderate-sized bilateral pleural effusions. CBC on arrival shows a WBC count 11.5, hemoglobin 12.4, hematocrit 39.5, platelets 159. BMP shows sodium 136, potassium 4.3, chloride 108, serum bicarb 16, BUN 33, creatinine 1.03, glucose 113. Troponins have been trending and are elevated at 1.2, 1.14, and then 1.2. NT proBNP was elevated at 19,600. Patient was started on Lasix 40 mg twice a day. He states that he is voiding a lot. There is a documented -3.4 L output over the last 24 hours. Vital signs are stable. Patient will be admitted to cardiac stepdown unit once bed available.. Progress note dated 09/05/2022. The patient is seen today in room 374. The patient's currently on room air. He's getting saline at KVO. The patient is also on IV heparin. The patient may be going for a cardiac catheterization, later today, or tomorrow. He denies any worsening chest pain or shortness of breath. Clinically, he appears stable. He is not manifesting any signs or symptoms of respiratory distress, or failure. White count 9.2, hemoglobin 13.7, hematocrit 43.3, and platelet count was normal. PT 12.8, INR 1.3, and PTT is 43.1. Sodium 131, potassium 2.9, chlorides 92, CO2 31, BUN 40, creatinine 0.95. Objective - Vital Signs Vital signs: Vital Signs Temp 97.6 F 09/05/22 08:00 Pulse 67 09/05/22 08:00 Resp 16 09/05/22 08:00 BP 117/69 09/05/22 08:00 Pulse Ox 95 09/05/22 08:00 FiO2 Intake & Output 09/04/22 09/05/22 09/05/22 18:59 06:59 18:59 Intake Total 118 135.129 86.173 Output Total 900 1450 500 Balance -782 -1314.871 -413.827 Weight 59.1 kg 59.1 kg Intake: Intake, IV Titration 135.129 86.173 Amount Heparin Sod,Pork in 0.45% 135.129 86.173 NaCl 25,000 unit In 0.45 % NaCl 1 250ml.bag @ 12 UNITS/KG/HR 7.076 mls/hr IV .Q24H [facility] Rx#: [id number] Oral 118 Output: Urine 900 1450 500 - Exam No acute distress, oriented 3. Currently on room air. Saturations are in the mid 90s. HEENT examination is grossly unremarkable. Mucous membranes are moist. No oral lesions. Neck supple. Full range of motion. No adenopathy thyromegaly or neck vein distention. Cardiovascular examination reveals regular rhythm rate. S1-S2 normal. No S3 or S4. No discernible murmur noted. Heart rate 72 bpm. Lungs reveal clear breath sounds. Breath sounds are equal bilaterally. No adventitious lung sounds including wheezes rhonchi or crackles. Saturations are 95-96%. Abdomen soft bowel sounds are heard. No masses or tenderness. Extremities are intact. No cyanosis clubbing or edema. Skin is without rash or lesion. Neurologic examination is brief but nonfocal. - Labs CBC & Chem 7: 09/05/22 02:14 09/05/22 11:40 Labs: Abnormal Lab Results - Last 24 Hours (Table) 09/04/22 09/05/22 09/05/22 Range/Units 15:32 02:14 11:40 PT 12.8 H (9.0-12.0) sec INR 1.3 H (<1.2) APTT 39.9 H 43.1 H (22.0-30.0) sec Sodium 131 L (137-145) mmol/L Potassium 2.9 L (3.5-5.1) mmol/L Chloride 92 L (98-107) mmol/L Carbon Dioxide 31 H (22-30) mmol/L BUN 40 H (9-20) mg/dL Assessment and Plan Assessment: Suspected mild CHF exacerbation, chest CTA shows small to moderate size bilateral pleural effusions greater on the right. There is no cardiomegaly or significant pulmonary vascular congestion. NT proBNP was elevated at 19,600. Elevated troponins, possible NSTEMI. Benign essential hypertension. Hyperlipidemia. Reported history of asthma, clinically stable. Ex-smoker, quitting approximately 3 years ago. Plan: Plan dated 09/05/2022. The patient may be going for heart catheterization. Apparently there has not yet been determined. He's currently on room air. In addition, he is on IV heparin. Labs, x-rays, and medications are reviewed. Overall prognosis remains guarded. The patient's pleural effusions are small, and did not require thorac entesis. We will continue to follow the patient and make recommendations along the way. Prognosis is guarded. Time with Patient: Less than 30
[2022-09-05] MEDS ORDERED: ALPRAZolam 0.25 MG TAB PO PRN (16:33)
[2022-09-05] MEDS ORDERED: NITROGLYCERIN SL TABS 0.4 MG TAB SUBLINGUAL PRN (16:33)
[2022-09-05] MEDS ORDERED: ALPRAZolam 0.5 MG TAB PO PRN (16:33)
[2022-09-05] MEDS: SODIUM CHLORIDE 0.9% 1,000 ML in EMPTY BAG 1 BAG IV SCH (22:54)
[2022-09-06] MEDS: FUROSEMIDE 10 MG/ML 4 ML VIAL IV SCH (04:12)
[2022-09-06] MEDS: ATORVASTATIN 80 MG TAB PO SCH (06:01)
[2022-09-06] MEDS: carvediloL 6.25 MG TAB PO SCH ×2 (06:01→17:19)
--- NOTE | 2022-09-06 06:39 | P.PN ---
Subjective Progress Note Date: 09/06/22 Principal diagnosis: CHF The patient is a pleasant 59-year-old gentleman with history of smoking who was admitted to the hospital with increasing shortness of breath and bilateral lower extremities edema as well as feeling weak and tired and fatigued. He was ruled in for acute coronary event. The echo revealed severe cardiomyopathy with severe mitral regurgitation. 09/05/2022 The patient was seen and evaluated this morning. He stated that he is feeling better. He is not hypoxic at this point. The edema has improved. Currently he is on Lasix IV and he is on heparin IV. The echo revealed severe cardiomyopathy with EF of 15-20% with severe mitral regurgitation which could be related to cardiomyopathy. He reports no pain in the chest. The patient need to undergo transesophageal echocardiogram and heart catheterization to evaluate the mitral valve apparatus and rule out severe CAD. He is willing to undergo that. We'll consider doing that the next 24 hours. Beside that he is on aspirin and statin and heparin which we will continue and he is on beta paris as well. Beside that point to HEAVEN inhibitor with lisinopril and add Aldactone to the current medical regimen September [id number] The patient was seen and evaluated this morning. He seems to be view point. He is asymptomatic and hemodynamically stable. I'm going to stop the heparin and stop Lasix IV and put him on Lasix by mouth. Beside that he is on beta paris and HEAVEN inhibitor and Aldactone. The echo as a mentioned earlier showed severe cardiomyopathy with severe mitral regurgitation. I'm going to pursue a transesophageal echocardiogram to check the mitral valve apparatus and assess if the mitral regurgitation is primary or secondary and also a heart catheterization. That to be performed later on today. On examination he is euvolemic with stable vital signs and initial breathing s ounds bilaterally and regular rate and rhythm and no lower extremity edema Assessment Acute coronary syndrome Severe cardiomyopathy of unknown etiology Severe mitral regurgitation History of smoking Heart failure exacerbation secondary to heart failure with reduced ejection fraction Plan Continue the current medical regimen Continue monitor the kidney function and electrolytes Proceed with DANNY and heart catheterization Further recommendation to follow Objective - Vital Signs Vital signs: Vital Signs Temp 98.1 F 09/06/22 04:00 Pulse 78 09/06/22 04:00 Resp 19 09/06/22 04:00 BP 132/71 09/06/22 04:00 Pulse Ox 96 09/06/22 04:00 FiO2 Intake & Output 09/05/22 09/05/22 09/06/22 06:59 18:59 06:59 Intake Total 135.129 123.853 38.918 Output Total 1450 500 200 Balance -1314.871 -376.147 -161.082 Weight 59.1 kg 59.1 kg 53.5 kg Intake: Intake, IV Titration 135.129 123.853 38.918 Amount Heparin Sod,Pork in 0.45% 135.129 123.853 38.918 NaCl 25,000 unit In 0.45 % NaCl 1 250ml.bag @ 12 UNITS/KG/HR 7.076 mls/hr IV .Q24H JORGE ALBERTO Rx#: [id number] Output: Urine 1450 500 200 Other: # Voids 2 - Labs CBC & Chem 7: 09/05/22 02:14 09/05/22 19:18 Labs: Abnormal Lab Results - Last 24 Hours (Table) 09/05/22 09/05/22 09/05/22 Range/Units 11:40 11:40 19:18 APTT 59.3 H 94.0 H (22.0-30.0) sec Sodium 131 L (137-145) mmol/L Potassium 2.9 L (3.5-5.1) mmol/L Chloride 92 L (98-107) mmol/L Carbon Dioxide 31 H (22-30) mmol/L BUN 40 H (9-20) mg/dL 09/06/22 Range/Units 01:33 APTT 70.2 H (22.0-30.0) sec Sodium (137-145) mmol/L Potassium (3.5-5.1) mmol/L Chloride (98-107) mmol/L Carbon Dioxide (22-30) mmol/L BUN (9-20) mg/dL Microbiology - Last 24 Hours (Table) 09/04/22 15:32 Blood Culture - Preliminary Blood
[2022-09-06] MEDS ORDERED: HEPARIN SODIUM,PORCINE 2,500 UNIT in SODIUM CHLORIDE 0.9% 250 ML IRRIGATION PRN (07:00)
[2022-09-06] MEDS ORDERED: HEPARIN SODIUM,PORCINE 10,000 UNIT in SODIUM CHLORIDE 0.9% 1,000 ML IRRIGATION PRN (07:00)
[2022-09-06] MEDS: ASPIRIN 81 MG PO SCH (08:09)
[2022-09-06 08:16] LABS: Basophils % (A) 0 %; Eosinophils # (A) 0.2 k/uL (0-0.7); Eosinophils % (A) 3 %; HCT 46.3 % (39.0-53.0); HGB 14.4 gm/dL (13.0-17.5); Hypochromasia Slight; Lymphocytes # (A) 0.8 k/uL (1.0-4.8); Lymphocytes % (A) 11 %; MCH 28.6 pg (25.0-35.0); MCHC 31.1 g/dL (31.0-37.0); MCV 91.9 fL (80.0-100.0); Mean Platelet Volume 10.8; Monocytes # (A) 0.8 k/uL (0-1.0); Monocytes % (A) 11 %; Neutrophils # (A) 5.2 k/uL (1.3-7.7); Neutrophils % (A) 73 %; Platelet Count 162 k/uL (150-450); RBC 5.03 m/uL (4.30-5.90); WBC 7.1 k/uL (3.8-10.6)
[2022-09-06 08:30] LABS: African American GFR (CKD) >90 (>60 ml/min/1.73 sqM); Anion Gap 5 mmol/L; Blood Urea Nitrogen 43 mg/dL (9-20); Calcium 8.3 mg/dL (8.4-10.2); Carbon Dioxide 29 mmol/L (22-30); Chloride 98 mmol/L (98-107); Glucose 94 mg/dL (74-99); Non-African American GFR(CKD) >90 (>60 ml/min/1.73 sqM); Potassium 3.8 mmol/L (3.5-5.1); Sodium 132 mmol/L (137-145)
[2022-09-06] MEDS ORDERED: VERAPAMIL 2.5 MG/ML 2 ML AMP ONE (08:51)
[2022-09-06] MEDS ORDERED: HEPARIN SODIUM 1,000 UN/ML (10ML VL) ONE (08:51)
[2022-09-06] MEDS ORDERED: SODIUM CHLORIDE 0.9% 1,000 ML IV ONE ×2 (09:10→09:20)
[2022-09-06] MEDS ORDERED: BENZOCAINE SPRAY 1 CAN TOPICAL ONE ×3 (09:14→09:23)
[2022-09-06] MEDS ORDERED: fentaNYL (PF) 50 MCG/ML 2 ML AMP ONE (09:22)
[2022-09-06] MEDS: fentaNYL (PF) 50 MCG/ML 2 ML AMP IVP ONE ×4 (09:24→09:26)
[2022-09-06] MEDS ORDERED: MIDAZOLAM 2 MG/2 ML VIAL IVP ONE ×6 (09:24→09:28)
[2022-09-06] MEDS ORDERED: LIDOCAINE 1% INJ 10MG/ML (5 ML VIAL-PF) SQ ONE (09:52)
[2022-09-06] MEDS ORDERED: VERAPAMIL SYRINGE (5 MG/10 ML) INTRAARTER ONE (09:53)
[2022-09-06] MEDS ORDERED: HEPARIN SODIUM 1,000 UN/ML (10ML VL) IVP ONE (09:56)
[2022-09-06] MEDS ORDERED: RX INFO: IV CONTRAST WAS GIVEN 1 EACH MISC MISCELLANE PRN (10:10)
[2022-09-06] MEDS ORDERED: IOPAMIDOL-370 100ML BTL INJ ONE (10:12)
[2022-09-06] MEDS ORDERED: SODIUM CHLORIDE 0.9% 1,000 ML IV SCH (10:15)
--- NOTE | 2022-09-06 10:15 | P.PCN ---
Date of Procedure: 09/06/22 Operative Findings: TRANSESOPHAGEAL ECHOCARDIOGRAM FLOOR WAXER: KEN COATS MD, RPVI INDICATION: Mitral regurgitation SEDATION: Conscious sedation COMPLICATION: None LEVEL OF SEDATION Moderate to sedation length of 8 minutes PROCEDURE DESCRIPTION: After obtaining an informed consent, the patient was brought to transesophageal echocardiogram room. Pulse oximetry and heart monitors were attached to the patient. The patient throat was sprayed using lidocaine. The patient was turned into left lateral position. After that a bite guard was placed. After an appropriate conscious sedation was initiated, the transesophageal echocardiogram was advanced through a bite guard into the mid esophagus. A 2-D echocardiogram images, color Doppler images, continuous wave images, pulse-wave images, of various cardiac structure were performed. After that the transesophageal echocardiogram probe was advanced into the stomach and fixed to obtain transgastric view was. The probe was brought into the mid esophagus. Inter-atrial septum was interrogated using 2D images, color Doppler images, and then contrast study. After that transesophageal echocardiogram was withdrawn out and upon withdrawing the descending thoracic aorta all the way up to the arch was evaluated. FINDING: The left ventricle appeared to be severely dilated. The left ventricular systolic function is severely impaired with EF around 20-25% with global hypokinesia. The right ventricle appeared to be also severely dilated. The left atrium and right atrium are dilated as well. The left atrial appendage appeared to be intact. The interatrial septum appeared to be intact. The aortic valve is trileaflet valve with no stenosis or regurgitation. The mitral valve leaflets appeared to be intact but the annulus appeared to be dilated was evidence of severe mitral regurgitation by quantitative measurements. The proximal eyes a velocity surface area radius was 1 cm and the vena contract also was more than 1 cm in width. The tricuspid valve appears to be severely regurgitant as well. There is a small circumferential pericardial effusion identified CONCLUSION: 1. Dilated LV with severely impaired function and ejection fraction of 20-25% with global hypokinesia 2. Dilated right ventricle as well with global hypokinesia 3. Intact mitral valve leaflets with failure of complication and evidence of severe MR. The PISA radius was 1 cm and the vena contractor with was 1 cm as well. Reversal flow was seen in the left upper pulmonary vein 4. Severe tricuspid regurgitation was identified as well 5. Trileaflet valve was no stenosis or regurgitation 6. Small circumferential pericardial effusion
--- NOTE | 2022-09-06 10:17 | P.PCN ---
Date of Procedure: 09/06/22 Operative Findings: CARDIAC CATHETERIZATION PERFORMING PHYSICIAN: Farshad Manuel MD, RPVI PROCEDURE PERFORMED: 1. Selective right and left coronary angiogram 2. Left heart catheterization 3. Ultrasound-guided access of the right radial artery INDICATION: Cardiomyopathy of unknown etiology COMPLICATION: None APPROACH: Right radial artery LEVEL OF SEDATION: Moderate with a sedation length of 12 minutes PROCEDURE DESCRIPTION: After obtaining an informed consent, the patient was brought to cardiac labor and employment paralegal. Local anesthesia was performed using lidocaine subcutaneously. The right radial artery was cannulated using Seldinger technique, the guidewire passed easily, following that we advanced a 5-Kenyan sheath dilator assembly, the wire and dilator were removed and sheath was flushed. Following that, 2 mg of verapamil along with 5000 unit heparin were given. Selective right and left coronary angiogram using a 6-Kenyan JR4 and JL 3.5 catheters. Following that we did left heart catheterization using 6-Kenyan pigtail catheter. The procedure was completed there was no complication. SELECTIVE CORONARY ANGIOGRAM: The right coronary artery: Is chronically occluded in the proximal portion and fills by collateral from the left coronary system. The RCA is a dominant vessel Left main: Has mild disease only. Bifurcates into an LCx and LAD The left circumflex: Large caliber vessel nondominant vessel. The LCx proximity gives rise into an OM1 which has critical lesion in the proximal portion The left anterior descending artery: Large caliber vessel. The LAD proximally as long tubular lesion appears to be complex involving the bifurcation of a large diagonal branch and the lesion appears to be in the range of 99.9%. HEMODYNAMICS: The LVEDP was 10 mmHg was no significant gradient across aortic valve CONCLUSION: 1. Critical triple-vessel coronary artery disease 2. Normal left-sided filling pressure POSTPROCEDURE MANAGEMENT: Consult surgery for the evaluation of CABG
--- NOTE | 2022-09-06 13:21 | P.GSCN ---
History of Present Illness Consult date: 09/06/22 Reason for Consult: Multivessel coronary artery disease, severe mitral valve and tricuspid valve regurgitation Requesting physician: Farshad Manuel History of present illness: This is a 61-year-old gentleman who follows on an outpatient basis for his primary care service with Dr. Bita Parrish. The patient is a poor historian and is oriented 1 to person at this time. He states that the year is 1982 and he is unsure of where he is at this time. The patient has a past medical history significant for acute on chronic congestive heart failure, uncontrolled hypertension, hyperlipidemia, migraines, asthma, noncompliance with medical care and a remote history of nicotine dependence in which he quit smoking 3 years ago. According to the patient's chart he presented to the emergency department here at [facility] on 07/04/2022 with complaints of difficulty breathing, which was worse with exertion. In July 2022 the patient was treated with Lasix and subsequently left the hospital AGAINST MEDICAL ADVICE. On 09/03/2022 the patient presented back to the emergency department here at [facility] with complaints of shortness of breath, weakness, diarrhea and not feeling well. He denies any recent fever, chills, nausea, vomiting, palpitations, chest pain/pressure, headache, presyncope or syncope. A 12-lead EKG was completed which showed normal sinus rhythm with a heart rate of 97 BPM. Initial laboratory results showed a WBC count of 11.5, hemoglobin 12.4, hematocrit 39.5, platelets 159, PT 14.4, INR 1.4, PTT 24.4, d-dimer 2.20, sodium 136, potassium 4.3, chloride 108, CO2 16, BUN 33, creatinine 1.03, glucose 113, calcium 7.9, magnesium 2.0, total bilirubin 2.6, proBNP 19,600, and elevated serial troponins 1.210, 1.140 and 1.200. A chest x-ray was completed which sh owed posterior pleural effusions and for further evaluation a CTA of the chest was completed which demonstrated no acute pulmonary embolism, and bilateral pleural fluid collections. Subsequently due to the patient's presenting symptoms a consult was placed to cardiology and the patient underwent a transthoracic 2-D echocardiogram which showed a left ventricular ejection fraction estimated at 15-20%, severely reduced global left ventricular systolic function, moderately reduced right ventricular global systolic function, moderate to severe mitral valve regurgitation, a thickened aortic valve without stenosis, mild tricuspid valve regurgitation, trace to mild pulmonic valve regurgitation, no pericardial effusion and a normal size aortic root and proximal ascending aorta. The patient was recommended by cardiology to undergo a transesophageal echocardiogram and cardiac catheterization which were completed today. The transesophageal echocardiogram demonstrated his left ventricular systolic function to be severely impaired with an ejection fraction around 20-25% with global hypokinesis, a dilated right ventricle as well with global hypokinesis, intact mitral valve leaflets, severe mitral valve regurgitation, a PISA radius of 1 cm, severe tricuspid valve regurgitation, a trileaflet aortic valve with no stenosis or regurgitation and a small circumferential pericardial effusion. The patient's heart catheterization demonstrated critical triple vessel coronary artery disease with a chronically occluded right coronary artery proximal portion which fills by collaterals from the left coronary system, his left circumflex coronary artery proximally gives rise to an OM 1 which has a critical lesion in the proximal portion and the LAD proximally has a long tubular lesion which appeared to be complex involving the bifurcation of a large diagonal branch and the lesion appears to be in the range of 99.9%. The LVEDP was 10 mmHg with no significant gradient across the aortic valve. The patient also had a computed tomography scan of the brain without contrast due to his altered mental status which showed no acute intracranial process, nonspecific white matter changes, likely secondary to chronic small vessel ischemic disease. Subsequently, due to the patient's presenting sympt oms, elevated troponins, and findings on his transesophageal echocardiogram and cardiac catheterization results a consult was placed to Dr. Rodrigo Jeronimo from cardiothoracic surgery for further evaluation and treatment recommendations including cardiac surgery. Review of Systems A 14 point review of systems was completed and was negative except as mentioned in the HPI. Past Medical History Past Medical History: Heart Failure, Hyperlipidemia, Hypertension History of Any Multi-Drug Resistant Organisms: None Reported Past Surgical History: Appendectomy, Cholecystectomy Additional Past Surgical History / Comment(s): left arm, Past Anesthesia/Blood Transfusion Reactions: No Reported Reaction Past Psychological History: No Psychological Hx Reported Smoking Status: Former smoker (Quit smoking 3 years ago) Past Alcohol Use History: None Reported Past Drug Use History: None Reported - Past Family History Father Family Medical History: No Reported History Additional Family Medical History / Comment(s): States his dad from old age in his 80s Mother Family Medical History: No Reported History Additional Family Medical History / Comment(s): States his mother at age 101 from old age Medications and Allergies Home Medications Medication Instructions Recorded Confirmed Type Aspirin/Acetaminophen/Caffeine 1 - 2 tab PO DAILY PRN 07/04/22 09/03/22 History [Excedrin Migraine Caplet] Famotidine [Pepcid] 20 mg PO DAILY 07/04/22 09/03/22 History PARoxetine HCL [Paxil] 40 mg PO DAILY 07/04/22 09/03/22 History Albuterol Sulfate [Albuterol 2 puff PO RT-TID PRN 09/03/22 09/03/22 History Sulfate Hfa] Ezetimibe [Zetia] 10 mg PO DAILY 09/03/22 09/03/22 History Naproxen [Naprosyn] 500 mg PO BID PRN 09/03/22 09/03/22 History predniSONE 50 mg PO DAILY 09/03/22 09/03/22 History Allergies Allergy/AdvReac Type Severity Reaction Status Date / Time No Known Allergies Allergy Verified 09/03/22 13:55 Surgical - Exam Vital Signs Temp Pulse Resp BP Pulse Ox 98.4 F 101 H 20 147/111 97 09/03/22 11:34 09/03/22 11:34 09/03/22 11:34 09/03/22 11:34 09/03/22 11:34 The patient was seen and examined at his bedside on the cardiac stepdown unit. The patient is a poor historian, is alert and oriented 1 to person. Denies any complaints of pain or shortness of breath and is in no acute distress. - General no distress, no pain, cachectic - Eyes PERRL, normal ocular movement, no pale, no icteric - ENT Edentulous normal pinna, normal nares, normal mucosa, no hearing loss, no congestion - Neck Neck is supple, no lymphadenopathy. no masses, no bruits, trachea midline, no venous distension - Respiratory Lungs essentially clear throughout, diminished to his bilateral bases. No wheezes, rhonchi or crackles. Respirations are symmetrical and nonlabored. Oxygen saturation is 91% on room air. - Cardiovascular Regular rhythm and rate. S1 and S2 present, negative for S3, gallop or murmur. No edema present. - Abdomen Abdomen is soft, nontender and nondistended. Active bowel sounds present in all 4 abdominal quadrants. No guarding or rigidity. - Genitourinary Deferred - Rectum Deferred - Integumentary Skin is warm and dry. No clubbing or cyanosis is present. no rash, no growths, no abnormal pigmentation - Neurologic No focal deficits. Awake and alert. - Musculoskeletal Moves all 4 extremities with equal strength bilateral. - Psychiatric Disoriented to place and time oriented to person, no memory intact Results - Labs 09/06/22 07:45 09/06/22 07:45 Abnormal Lab Results - Last 24 Hours (Table) 09/05/22 09/05/22 09/06/22 Range/Units 11:40 19:18 01:33 Lymphocytes # (1.0-4.8) k/uL APTT 59.3 H 94.0 H 70.2 H (22.0-30.0) sec Sodium (137-145) mmol/L BUN (9-20) mg/dL Calcium (8.4-10.2) mg/dL 09/06/22 09/06/22 Range/Units 07:45 07:45 Lymphocytes # 0.8 L (1.0-4.8) k/uL APTT (22.0-30.0) sec Sodium 132 L (137-145) mmol/L BUN 43 H (9-20) mg/dL Calcium 8.3 L (8.4-10.2) mg/dL Microbiology - Last 24 Hours (Table) 09/04/22 15:32 Blood Culture - Preliminary Blood Diabetes panel 09/05/22 09/06/22 Range/Units 19:18 07:45 Sodium 132 L (137-145) mmol/L Potassium 3.5 3.8 (3.5-5.1) mmol/L Chloride 98 (98-107) mmol/L Carbon Dioxide 29 (22-30) mmol/L BUN 43 H (9-20) mg/dL Creatinine 0.85 (0.66-1.25) mg/dL Glucose 94 (74-99) mg/dL Calcium 8.3 L (8.4-10.2) mg/dL Calcium panel 09/06/22 Range/Units 07:45 Calcium 8.3 L (8.4-10.2) mg/dL Pituitary panel 09/05/22 09/06/22 Range/Units 19:18 07:45 Sodium 132 L (137-145) mmol/L Potassium 3.5 3.8 (3.5-5.1) mmol/L Chloride 98 (98-107) mmol/L Carbon Dioxide 29 (22-30) mmol/L BUN 43 H (9-20) mg/dL Creatinine 0.85 (0.66-1.25) mg/dL Glucose 94 (74-99) mg/dL Calcium 8.3 L (8.4-10.2) mg/dL Adrenal panel 09/05/22 09/06/22 Range/Units 19:18 07:45 Sodium 132 L (137-145) mmol/L Potassium 3.5 3.8 (3.5-5.1) mmol/L Chloride 98 (98-107) mmol/L Carbon Dioxide 29 (22-30) mmol/L BUN 43 H (9-20) mg/dL Creatinine 0.85 (0.66-1.25) mg/dL Glucose 94 (74-99) mg/dL Calcium 8.3 L (8.4-10.2) mg/dL - Imaging Chest x-ray: report reviewed, image reviewed CT scan - chest: report reviewed, image reviewed EKG: image reviewed Assessment and Plan Assessment: Multivessel coronary artery disease Severe mitral valve regurgitation and severe tricuspid valve regurgitation on transesophageal echocardiogram Acute on chronic congestive heart failure with impaired left ventricular ejection fraction on DANNY showing an ejection fraction of 20-25%, proBNP on admission was 19,600 Non-ST elevated myocardial infarction on admission, elevated serial troponins Shortness of breath on admission, likely secondary to above History of hypertension Hyperlipidemia History of asthma History of migraines History of medical noncompliance Remote history of nicotine dependence quit smoking 3 years ago Altered mental status, alert and oriented 1 to person, CT of the brain shows no acute process Plan: The patient was seen and examined at his bedside on the cardiac stepdown unit. His chart in diagnostics reviewed. His case was discussed in detail with Dr. Rodrigo Jeronimo from cardiothoracic surgery. The patient is a poor historian and has a poor understanding of his chest disease process and is oriented 1 to person at this time. Preoperative teaching and a preoperative testing has been initiated. Once the patient is able to ambulate we will complete a 5 minute walk test. Once this preoperative testing has been obtained with a calculated STS risk score and discussed with the patient. Continue to optimize medical management with aspirin, statin, HEAVEN inhibitor and beta paris. Heparin drip and diuretic management per cardiology recommendations. Medical management and other comorbidities per primary care service. More recommendations to follow based on patient's clinical course and as his preoperative testing has been obtained. Thank you Dr. Manuel for this consult and we look forward to working with you in the care of this patient. I have personally seen and examined the patient, performed the documentation and the assessment and plan as written. 30 minutes spent on the visit . Neil BETHEA Time with Patient: Greater than 30
[2022-09-06 13:36] LABS: ALT 50 U/L (4-49); AST 28 U/L (17-59); African American GFR (CKD) >90 (>60 ml/min/1.73 sqM); Alkaline Phosphatase 63 U/L (38-126); Anion Gap 3 mmol/L; Blood Urea Nitrogen 31 mg/dL (9-20); Carbon Dioxide 24 mmol/L (22-30); Chloride 109 mmol/L (98-107); Glucose 82 mg/dL (74-99); Magnesium 1.7 mg/dL (1.6-2.3); Non-African American GFR(CKD) >90 (>60 ml/min/1.73 sqM); Sodium 136 mmol/L (137-145); Total Protein 4.1 g/dL (6.3-8.2)
[2022-09-06 13:37] LABS: Calcium 5.7 mg/dL (8.4-10.2); Potassium 2.7 mmol/L (3.5-5.1)
[2022-09-06 13:51] LABS: INR 1.5 (<1.2); Prothrombin Time 15.1 sec (9.0-12.0)
[2022-09-06 14:08] LABS: Partial Thromboplastin Time >200.0 sec (22.0-30.0)
--- NOTE | 2022-09-06 14:25 | P.PN ---
Subjective Progress Note Date: 09/06/22 Principal diagnosis: Shortness of breath. I am seeing this patient in consultation today 09/14/2022 in the emergency room for possible acute CHF exacerbation and bilateral pleural effusions. Patient is a 61-year-old white male with past medical history significant for asthma, h ypertension, hyperlipidemia, and is an ex-smoker. He does reportedly follow with his primary care provider Dr. Sunshine. Patient did have a recent hospital stay back in Jul, 2022. He was found to be in acute congestive heart failure, and was diuresed with Lasix. He also was started on a combination of antihypertensives and lipid lowering medications. He ended up leaving AGAINST MEDICAL ADVICE. Patient presented back to the emergency room yesterday morning complaining of exertional shortness of breath with associated chest pain over the last week. The chest pain was substernal, and subsides with rest. Denies any heart palpitations, syncope, orthopnea, or lower extremity edema. He denies any significant fever, chills, productive cough, hemoptysis. He does report a chronic nonproductive cough worse in the morning. He denies sick contacts. He is currently sitting up in bed, on room air, in no acute distress. Initial chest x-ray showed bilateral small pleural effusions. Follow-up chest CTA showed no pulmonary embolism. It did redemonstrated the small to moderate-sized bilateral pleural effusions. CBC on arrival shows a WBC count 11.5, hemoglobin 12.4, hematocrit 39.5, platelets 159. BMP shows sodium 136, potassium 4.3, chloride 108, serum bicarb 16, BUN 33, creatinine 1.03, glucose 113. Troponins have been trending and are elevated at 1.2, 1.14, and then 1.2. NT proBNP was elevated at 19,600. Patient was started on Lasix 40 mg twice a day. He states that he is voiding a lot. There is a documented -3.4 L output over the last 24 hours. Vital signs are stable. Patient will be admitted to cardiac stepdown unit once bed available.. Progress note dated 09/05/2022. The patient is seen today in room 374. The patient's currently on room air. He's getting saline at KVO. The patient is also on IV heparin. The patient may be going for a cardiac catheterization, later today, or tomorrow. He denies any worsening chest pain or shortness of breath. Clinically, he appears stable. He is not manifesting any signs or symptoms of respiratory distress, or failure. White count 9.2, hemoglobin 13.7, hematocrit 43.3, and platelet count was normal. PT 12.8, INR 1.3, and PTT is 43.1. Sodium 131, potassium 2.9, chlorides 92, CO2 31, BUN 40, creatinine 0.95. Progress note dated 09/06/2022. 61-year-old male seen today in room 374. The patient was on a simple mask, at 6 L. He was also receiving IV heparin. He was very lethargic and somnolent, because he just got back from the cardiac catheterization laboratory. There, he was found to have severe triple-vessel coronary disease, and a consult was placed cardiothoracic surgery, for possible bypass grafting. White count was 7.1, with a normal hemoglobin, hematocrit, and platelet count. The patient's P TT was greater than 200. Sodium 136, potassium 2.7, chlorides 109, CO2 24, BUN 31, creatinine 0.75. His calcium was 5.7. TSH was normal. Objective - Vital Signs Vital signs: Vital Signs Temp 97.8 F 09/06/22 08:00 Pulse 69 09/06/22 12:56 Resp 18 09/06/22 12:56 BP 118/68 09/06/22 12:56 Pulse Ox 97 09/06/22 12:56 FiO2 Intake & Output 09/05/22 09/06/22 09/06/22 18:59 06:59 18:59 Intake Total 123.853 38.918 900 Output Total 500 200 500 Balance -376.147 -161.082 400 Weight 59.1 kg 53.5 kg Intake: IV 900 Intake, IV Titration 123.853 38.918 Amount Heparin Sod,Pork in 0.45% 123.853 38.918 NaCl 25,000 unit In 0.45 % NaCl 1 250ml.bag @ 12 UNITS/KG/HR 7.076 mls/hr IV .Q24H [facility] Rx#: [id number] Output: Urine 500 200 500 Other: # Voids 2 - Exam No acute distress, oriented 3. Currently on a simple mask, at 6 L, with saturations of 97%. HEENT examination is grossly unremarkable. Mucous membranes are moist. No oral lesions. Neck supple. Full range of motion. No adenopathy thyromegaly or neck vein distention. Cardiovascular examination reveals regular rhythm rate. S1-S2 normal. No S3 or S4. No discernible murmur noted. Heart rate 69 bpm. Lungs reveal clear breath sounds. Breath sounds are equal bilaterally. No adventitious lung sounds including wheezes rhonchi or crackles. Saturations are 97%. Abdomen soft bowel sounds are heard. No masses or tenderness. Extremities are intact. No cyanosis clubbing or edema. Skin is without rash or lesion. Neurologic examination is brief but nonfocal. - Labs CBC & Chem 7: 09/06/22 07:45 09/06/22 13:03 Labs: Abnormal Lab Results - Last 24 Hours (Table) 09/05/22 09/06/22 09/06/22 Range/Units 19:18 01:33 07:45 Lymphocytes # 0.8 L (1.0-4.8) k/uL PT (9.0-12.0) sec INR (<1.2) APTT 94.0 H 70.2 H (22.0-30.0) sec Sodium (137-145) mmol/L Potassium (3.5-5.1) mmol/L Chloride (98-107) mmol/L BUN (9-20) mg/dL Calcium (8.4-10.2) mg/dL ALT (4-49) U/L Total Protein (6.3-8.2) g/dL Albumin (3.5-5.0) g/dL 09/06/22 09/06/22 09/06/22 Range/Units 07:45 13:03 13:03 Lymphocytes # (1.0-4.8) k/uL PT 15.1 H (9.0-12.0) sec INR 1.5 H (<1.2) APTT >200.0 H* (22.0-30.0) sec Sodium 132 L 136 L (137-145) mmol/L Potassium 2.7 L* (3.5-5.1) mmol/L Chloride 109 H (98-107) mmol/L BUN 43 H 31 H (9-20) mg/dL Calcium 8.3 L 5.7 L* (8.4-10.2) mg/dL ALT 50 H (4-49) U/L Total Protein 4.1 L (6.3-8.2) g/dL Albumin 2.0 L (3.5-5.0) g/dL Microbiology - Last 24 Hours (Table) 09/04/22 15:32 Blood Culture - Preliminary Blood Assessment and Plan Assessment: Suspected mild CHF exacerbation, chest CTA shows small to moderate size bilateral pleural effusions greater on the right. There is no cardiomegaly or significant pulmonary vascular congestion. NT proBNP was elevated at 19,600. Status post cardiac catheterization, 09/06/2022, with severe triple-vessel coronary disease. Elevated troponins, possible NSTEMI. Benign essential hypertension. Hyperlipidemia. Reported history of asthma, clinically stable. Ex-smoker, quitting approximately 3 years ago. Plan: Plan dated 09/05/2022. The patient may be going for heart catheterization. Apparently there has not yet been determined. He's currently on room air. In addition, he is on IV heparin. Labs, x-rays, and medications are reviewed. Overall prognosis remains guarded. The patient's pleural effusions are small, and did not require thoracentesis. We will continue to follow the patient and make recommendations along the way. Prognosis is guarded. Plan dated 09/06/2022. The patient had a cardiac catheterization today which shows severe three-vessel coronary disease. A referral was made to cardiothoracic surgery, for consideration of bypass grafting. The patient was seen by Dr. Jeronimo. Labs, x- rays, and medications are reviewed. The patient's overall prognosis is guarded. We will continue to follow the patient and make recommendations along the way. The patient will need spirometry, before any surgery. Time with Patient: Less than 30
--- NOTE | 2022-09-06 14:35 | US ---
EXAMINATION TYPE: US carotid duplex BILAT DATE OF EXAM: 09/06/2022 Exam done portable COMPARISON: NONE CLINICAL INDICATION: Male, 61 years old with history of Pre-Op Cardiac Surgery; TECHNIQUE: Carotid duplex ultrasound examination. Indirect Doppler criteria was utilized. FINDINGS: EXAM MEASUREMENTS: RIGHT: Peak Systolic Velocity (PSV) cm/sec ----- Right CCA: 55.7 ----- Right ICA: 52.9 ----- Right ECA: 64.1 ICA/CCA ratio: 0.9 RIGHT: End Diastole cm/sec ----- Right CCA: 12.1 ----- Right ICA: 19.6 ----- Right ECA: 8.0 LEFT: Peak Systolic Velocity (PSV) cm/sec ----- Left CCA: 68.0 ----- Left ICA: 61.8 ----- Left ECA: 62.2 ICA/CCA ratio: 0.9 LEFT: End Diastole cm/sec ----- Left CCA: 14.1 ----- Left ICA: 19.3 ----- Left ECA: 7.3 VERTEBRALS (direction of flow): Right Vertebral: Antegrade Left Vertebral: Antegrade Rhythm: Normal No significant stenosis IMPRESSION: Less than 50% stenosis of the bilateral carotid bifurcations. Criteria for Assigning % of Stenosis / Diameter reduction (Estimation based on the indirect measurements of the internal carotid artery velocities (ICA PSV). 1. Normal (no stenosis)=ICA PSV < 125 cm/s: ratio < 2.0: ICA EDV<40 cm/s. 2. Less than 50% stenosis=ICA PSV < 125 cm/s: ratio < 2.0: ICA EDV<40 cm/s. 3. 50 to 69% stenosis=ICA PSV of 125 to 230 cm/s: ration 2.0 ? 4.0: ICA EDV 40-100 cm/s. 4. Greater than 70% stenosis to near occlusion= ICA PSV > 230 cm/s: ratio > 4.0: ICA EDV > 100 cm/s. 5. Near occlusion= ICA PSV velocities may be low or undetectable: variable ratio and ICA EDV. 6. Total occlusion=unable to detect flow.
--- NOTE | 2022-09-06 14:37 | US ---
EXAMINATION TYPE: Pre-Operative Non-Invasive Evaluation of the hand for Potential Radial Artery Herbert wood, Measurements only DATE OF EXAM: 09/06/2022 2:26 PM Exam done portable CLINICAL INDICATION: Male, 61 years old with history of Pre-Op Cardiac Surgery; SIDE PERFORMED: Left TECHNIQUE: Radial artery is measured utilizing real time linear array sonography. Duplex Findings: Radial Artery: Color flow seen Measurements in mm, transverse view: Left Radial: Proximal: 3.4 x 3.6 mm Mid: 2.8 x 3.0 mm Distal: 2.6 x 3.0 mm IMPRESSION: 1. Bilateral GSV measurements listed above. 2. Performing surgeon to determine viability as conduit.
--- NOTE | 2022-09-06 14:39 | US ---
EXAMINATION TYPE: US vein mapping BILAT DATE OF EXAM: 09/06/2022 2:20 PM Exam done portable COMPARISON: NONE CLINICAL INDICATION: Male, 61 years old with history of PreOp Cardiac Surgery; SIDE PERFORMED: Bilateral TECHNIQUE: Lower extremity saphenous vein is examined and measured utilizing real time linear array sonography. DUPLEX FINDINGS: Greater Saphenous: Color flow seen Measurements in mm: Right Greater Saphenous: Groin: 3.7 x 4.6 mm High Thigh: 3.3 x 4.0 mm Mid Thigh: 2.8 x 2.9 mm Above Knee: 2.6 x 2.8 mm Knee: 2.4 x 2.3 mm Below Knee: 2.4 x 2.8 mm Mid Calf: 2.2 x 2.6 mm At Ankle: 2.9 x 3.1 mm Left Greater Saphenous: Groin: 4.9 x 5.3 mm High Thigh: 3.8 x 4.5 mm Mid Thigh: 2.3 x 3.2 mm Above Knee: 2.3 x 2.7 mm Knee: 2.5 x 2.9 mm Below Knee: 2.2 x 2.6 mm Mid Calf: 2.4 x 3.0 mm At Ankle: 2.9 x 3.7 mm IMPRESSION: 1. Bilateral GSV measurements listed above. 2. Performing surgeon to determine viability as conduit.
[2022-09-06 15:32] LABS: African American GFR (CKD) >90 (>60 ml/min/1.73 sqM); Anion Gap 6 mmol/L; Blood Urea Nitrogen 40 mg/dL (9-20); Calcium 7.9 mg/dL (8.4-10.2); Carbon Dioxide 29 mmol/L (22-30); Chloride 100 mmol/L (98-107); Glucose 75 mg/dL (74-99); Non-African American GFR(CKD) 88 (>60 ml/min/1.73 sqM); Potassium 3.5 mmol/L (3.5-5.1); Sodium 135 mmol/L (137-145)
[2022-09-06] MEDS: SPIRONOLACTONE 25 MG TAB PO SCH (17:18)
[2022-09-06] MEDS: FUROSEMIDE 40 MG TAB PO SCH (17:19)
[2022-09-06 17:41] LABS: Hepatitis A Antibody IgM Nonreactive; Hepatitis B Core IgM Nonreactive; Hepatitis B Surface Antigen Nonreactive; Hepatitis C IgG Antibody Nonreactive
--- NOTE | 2022-09-06 17:54 | US ---
EXAMINATION TYPE: US arterial LE multi level DATE OF EXAM: 09/06/2022 3:33 PM CLINICAL INDICATION: Male, 61 years old with history of Ankle Brachial Index (RC) ; open heart surge ry. History of: Smoker: No Hypertension: No Diabetic: No Hyperlipidemia: No TIA/CVA: No Previous Vascular Surgery: No CAD: No [place]: No Vascular Ulcers: No Claudication: No Gangrene: No Multi phasic waveforms throughout the lower extremities. Monophasic within the digits of the feet. Ankle-Brachial Indices: Right: 1.07 Left: 1.06 Toe Brachial Indices: Right: 0.78 Left: 0.73 Vessel hardening > 1.4; Normal 0.9 - 1.4, Moderate 0.7 - 0.9, Severe 0.5-0.7) IMPRESSION: Moderate peripheral vascular disease bilaterally.
[2022-09-06] MEDS: SODIUM CHLORIDE 0.9% 1,000 ML in EMPTY BAG 1 BAG IV SCH (20:41)
--- NOTE | 2022-09-06 21:47 | P.PN ---
Subjective Progress Note Date: 09/05/22 Patient is a 61-year-old male with a past medical history of hypertension, hyperlipidemia, chronic asthma and prior history of smoking presents to ER with complaints of exertional dyspnea and chest pain. Patient has been having symptoms for the past 1 week. Patient does have substernal intermittent chest pain. Denies any leg swelling. No orthopnea no PND. No fever no chills. No cough or sputum production. Chest x-ray showed bilateral pleural small effusions. CTA chest showed no PE. Showed small to moderate sized bilateral pleural effusions. Troponin 1.2, 1.14 and 1.2. proBNP 19,600. 09/05/2022 Patient is currently lying in the bed. Awake alert and oriented but poor historian. No complaints of chest pain. Shortness of breath did improve. No fever no chills. No cough or sputum production. Patient is scheduled for cardiac catheterization tomorrow. Neck remains on Lasix 40 mg twice daily. Laboratory data showed WBC 9.2 hemoglobin 13.7 platelets 153, sodium 131 potassium 2.9 which has been replaced, chloride 92 bicarb is 31 BUN 14 creatinine 0.95 Urinalysis is negative for infection. Current medications reviewed. Objective - Vital Signs Vital signs: Vital Signs Temp 97.6 F 09/05/22 08:00 Pulse 67 09/05/22 08:00 Resp 16 09/05/22 08:00 BP 117/69 09/05/22 08:00 Pulse Ox 95 09/05/22 08:00 FiO2 Intake & Output 09/04/22 09/05/22 09/05/22 18:59 06:59 18:59 Intake Total 118 135.129 86.173 Output Total 900 1450 500 Balance -782 -1314.871 -413.827 Weight 59.1 kg 59.1 kg Intake: Intake, IV Titration 135.129 86.173 Amount Heparin Sod,Pork in 0.45% 135.129 86.173 NaCl 25,000 unit In 0.45 % NaCl 1 250ml.bag @ 12 UNITS/KG/HR 7.076 mls/hr IV .Q24H [facility] Rx#: [id number] Oral 118 Output: Urine 900 1450 500 - Exam PHYSICAL EXAMINATION: Patient is lying in the bed comfortably, no acute distress, awake alert and oriented.. HEENT: Normocephalic. Neck is supple. Pupils reactive. Nostrils clear. Oral cavity is moist. Neck reveals no JVD, carotid bruits, or thyromegaly. CHEST EXAMINATION: Trachea is central. Symmetrical expansion. Lung burger clear to auscultation and percussion. CARDIAC: Normal S1, S2 with no gallops. No murmurs ABDOMEN: Soft. Bowel sounds present. Nontender. No organomegaly. No abdominal bruits. Extremities: reveal no edema. No clubbing or cyanosis Neurologically awake, alert, oriented x3 with well-coordinated movements. No focal deficits noted Skin: No rash or skin lesions. Psychiatric: Coperative. Nonsuicidal, Musculoskeletal: No joint swelling or deformity. Normal range of motion. - Labs CBC & Chem 7: 09/06/22 07:45 09/06/22 14:08 Labs: Abnormal Lab Results - Last 24 Hours (Table) 09/04/22 09/05/22 09/05/22 Range/Units 15:32 02:14 11:40 PT 12.8 H (9.0-12.0) sec INR 1.3 H (<1.2) APTT 39.9 H 43.1 H (22.0-30.0) sec Sodium 131 L (137-145) mmol/L Potassium 2.9 L (3.5-5.1) mmol/L Chloride 92 L (98-107) mmol/L Carbon Dioxide 31 H (22-30) mmol/L BUN 40 H (9-20) mg/dL Assessment and Plan Assessment: Acute CHF. Ejection fraction not known. Patient does have bilateral small pleural effusions and pulmonary vascular congestion. proBNP 19,600. Acute non-ST wave FL with elevated troponin level Hypertension Hyperlipidemia History of asthma Prior history of smoking DVT prophylaxis. Patient is on heparin drip Plan: Patient is being current on telemetry monitoring. Continue with Lasix IV and monitor renal function. Patient is on heparin drip and cardiology is planning for cardiac catheterization tomorrow. Continue with aspirin, statin and Coreg. Spironolactone was added. Cardiology and pulmonary is on board. Time with Patient: Greater than 30
[2022-09-06 22:54] LABS: Chol/HDL Ratio 2.09 Ratio; LDL Cholesterol,Calculated 20.9 mg/dL (0.0-131.0); VLDL Calculation 9.86 mg/dL (5.00-40.00)
[2022-09-07] MEDS: HEPARIN SOD,PORK IN 0.45% NACL 25,000 UNIT in 0.45% NACL 1 250ML.BAG IV SCH (03:44)
[2022-09-07 06:12] LABS: Appearance,Urine Clear (Clear); Bilirubin,Urine Negative (Negative); Blood,Urine Negative (Negative); Color,Urine Yellow; Glucose,Urine (UA) Negative (Negative); Ketones,Urine Negative (Negative); Leukocyte Esterase,Urine Negative (Negative); Nitrite,Urine Negative (Negative); PH, Urine 7.5 (5.0-8.0); Protein,Urine Negative (Negative); Specific Gravity,Urine 1.015 (1.001-1.035)
[2022-09-07] MEDS: carvediloL 6.25 MG TAB PO SCH ×2 (06:29→16:54)
--- NOTE | 2022-09-07 07:12 | P.PN ---
Subjective Progress Note Date: 09/07/22 Principal diagnosis: CHF The patient is a pleasant 59-year-old gentleman with history of smoking who was admitted to the hospital with increasing shortness of breath and bilateral lower extremities edema as well as feeling weak and tired and fatigued. He was ruled in for acute coronary event. The echo revealed severe cardiomyopathy with severe mitral regurgitation. 09/05/2022 The patient was seen and evaluated this morning. He stated that he is feeling better. He is not hypoxic at this point. The edema has improved. Currently he is on Lasix IV and he is on heparin IV. The echo revealed severe cardiomyopathy with EF of 15-20% with severe mitral regurgitation which could be related to cardiomyopathy. He reports no pain in the chest. The patient need to undergo transesophageal echocardiogram and heart catheterization to evaluate the mitral valve apparatus and rule out severe CAD. He is willing to undergo that. We'll consider doing that the next 24 hours. Beside that he is on aspirin and statin and heparin which we will continue and he is on beta paris as well. Beside that point to HEAVEN inhibitor with lisinopril and add Aldactone to the current medical regimen September 062022 The patient was seen and evaluated this morning. He seems to be view point. He is asymptomatic and hemodynamically stable. I'm going to stop the heparin and stop Lasix IV and put him on Lasix by mouth. Beside that he is on beta paris and HEAVEN inhibitor and Aldactone. The echo as a mentioned earlier showed severe cardiomyopathy with severe mitral regurgitation. I'm going to pursue a transesophageal echocardiogram to check the mitral valve apparatus and assess if the mitral regurgitation is primary or secondary and also a heart catheterization. That to be performed later on today. September 072022 The patient was seen and evaluated this morning. He underwent yesterday transesophageal echocardiogram and a heart catheterization. The transesophageal echocardiogram showed evidence of severe mitral regurgitation documented by quantitative measurements as well as by evidence of reversal flow in the pulmonary veins. Beside that he underwent a heart catheterization which revealed severe triple-vessel coronary artery disease with normal left-sided filling pressure. With that I consulted the cardiothoracic surgery service and the patient was seen by Dr. Jeronimo. Today he seems to be asymptomatic and seems to be euvolemic as well. He has been maintaining normal sinus mechanism. He is on maximize medical treatment consistent of aspirin and statin and beta paris and HEAVEN inhibitor as well as aldosterone antagonist. The pressure appeared to be under good control. From a cardiovascular standpoint of view, the patient potentially can be discharged home in the next 24 hours. Also please note that the patient underwent carotid duplex study which showed intermediate disease bilaterally On examination he is euvolemic with stable vital signs and initial breathing sounds bilaterally and regular rate and rhythm and no lower extremity edema Assessment Acute coronary syndrome Severe cardiomyopathy of unknown etiology Severe mitral regurgitation Severe triple-vessel coronary artery disease History of smoking Heart failure exacerbation secondary to heart failure with reduced ejection fraction Plan Continue the current medical regimen The patient is on maximize medical treatment for CAD and cardiomyopathy Follow-up with the patient Objective - Vital Signs Vital signs: Vital Signs Temp 97.9 F 09/07/22 05:00 Pulse 89 09/07/22 05:00 Resp 19 09/07/22 05:00 BP 126/87 09/07/22 05:00 Pulse Ox 96 09/07/22 05:00 FiO2 Intake & Output 09/06/22 09/07/22 09/07/22 18:59 06:59 18:59 Intake Total 1111.082 Output Total 500 2350 Balance 611.082 -2350 Intake: IV 900 Intake, IV Titration 211.082 Amount Heparin Sod,Pork in 0.45% 211.082 NaCl 25,000 unit In 0.45 % NaCl 1 250ml.bag @ 12 UNITS/KG/HR 7.076 mls/hr IV .Q24H [facility] Rx#: [id number] Output: Urine 500 2350 Other: Voiding Method Urinal - Labs CBC & Chem 7: 09/06/22 07:45 09/06/22 14:08 Labs: Abnormal Lab Results - Last 24 Hours (Table) 09/06/22 09/06/22 09/06/22 Range/Units 07:45 07:45 13:03 Lymphocytes # 0.8 L (1.0-4.8) k/uL PT (9.0-12.0) sec INR (<1.2) APTT (22.0-30.0) sec Sodium 132 L 136 L (137-145) mmol/L Potassium 2.7 L* (3.5-5.1) mmol/L Chloride 109 H (98-107) mmol/L BUN 43 H 31 H (9-20) mg/dL Calcium 8.3 L 5.7 L* (8.4-10.2) mg/dL ALT 50 H (4-49) U/L Total Protein 4.1 L (6.3-8.2) g/dL Albumin 2.0 L (3.5-5.0) g/dL HDL Cholesterol 28.20 L (40.00-60.00) mg/dL 09/06/22 09/06/22 09/06/22 Range/Units 13:03 14:08 22:32 Lymphocytes # (1.0-4.8) k/uL PT 15.1 H (9.0-12.0) sec INR 1.5 H (<1.2) APTT >200.0 H* 50.6 H (22.0-30.0) sec Sodium 135 L (137-145) mmol/L Potassium (3.5-5.1) mmol/L Chloride (98-107) mmol/L BUN 40 H (9-20) mg/dL Calcium 7.9 L (8.4-10.2) mg/dL ALT (4-49) U/L Total Protein (6.3-8.2) g/dL Albumin (3.5-5.0) g/dL HDL Cholesterol (40.00-60.00) mg/dL Microbiology - Last 24 Hours (Table) 09/04/22 15:32 Blood Culture - Preliminary Blood
--- NOTE | 2022-09-07 07:16 | XR ---
EXAMINATION TYPE: XR chest 1V portable DATE OF EXAM: 09/07/2022 6:24 AM COMPARISON: Chest radiographs from 09/03/2022 TECHNIQUE: XR chest 1V portable Portable AP radiograph of the chest. CLINICAL INDICATION:Male, 61 years old with history of Preoperative cardiac surgery; FINDINGS: Lungs/Pleura: Similar blunting of the right costophrenic angle with associated atelectasis. Pulmonary vascularity: Unremarkable. Heart/mediastinum: Cardiomediastinal silhouette is unremarkable. Atherosclerotic calcifications are seen in the aorta. Musculoskeletal: No acute osseous pathology. IMPRESSION: Small right pleural effusion with associated atelectasis. Overall similar to prior examination.
--- NOTE | 2022-09-07 09:03 | P.PN ---
Subjective Progress Note Date: 09/07/22 Principal diagnosis: Multivessel coronary artery disease, severe mitral valve and tricuspid valve regurgitation, severe cardiomyopathy of unknown etiology with an ejection fraction per DANNY of 20-25% and acute on chronic congestive heart failure. Past medical history significant for uncontrolled hypertension, hyperlipidemia, migraines, asthma, noncompliance with medical care and a remote history of nicotine dependence in which he quit smoking 3 years ago. The patient was seen and examined in follow-up today 09/07/2022 at his bedside on the third floor cardiac stepdown unit. Currently is lying in bed, is awake, alert, oriented [address]. He reports the year is 2029 in the month is October. A 5 m walk test was completed with the patient with time 1: 4.58 seconds, time 2: 4.70 seconds and time 3: 4.68 seconds. The patient tolerated the walk test well and denied any complaints of shortness of breath or chest pain/pressure. An STS risk score was calculated and discussed with the patient. Preoperative testing has been ordered and a bedside FEV1 was completed yesterday which showed an 87% of predicted value with a base volume of 2.65. A carotid duplex was completed which showed less than 50% stenosis of his bilateral carotid bifurcations. The patient is currently on room air with oxygen saturations 96% and he is achieving 2500 mL on his incentive spirometry with encouragement. Remote telemetry showing normal sinus rhythm heart rate 77 BPM. He has been afebrile the last 24 hours. Preoperative teaching has been reinforced with the patient. Objective - Vital Signs Vital signs: Vital Signs Temp 97.9 F 09/07/22 05:00 Pulse 89 09/07/22 05:00 Resp 19 09/07/22 05:00 BP 126/87 09/07/22 05:00 Pulse Ox 96 09/07/22 05:00 FiO2 Intake & Output 09/06/22 09/07/22 09/07/22 18:59 06:59 18:59 Intake Total 1111.082 Output Total 500 2350 Balance 611.082 -2350 Intake: IV 900 Intake, IV Titration 211.082 Amount Heparin Sod,Pork in 0.45% 211.082 NaCl 25,000 unit In 0.45 % NaCl 1 250ml.bag @ 12 UNITS/KG/HR 7.076 mls/hr IV .Q24H [facility] Rx#: [id number] Output: Urine 500 2350 Other: Voiding Method Urinal - Exam CONSTITUTIONAL: Laying in bed on the cardiac stepdown unit, appears comfortable, cooperative, no apparent acute distress. HEENT: Neck is supple, no JVD, no lymphadenopathy. RESPIRATORY: Lungs sounds essentially clear throughout, diminished to his bilateral bases, few scattered crackles to his bilateral bases. Respirations are symmetrical and nonlabored. Currently on room air with oxygen saturations 96%. Able to achieve 2500 mL on his incentive spirometry. Strong cough. CARDIOVASCULAR: Regular rhythm and rate. S1 and S2 present, negative for S3, gallop or murmur. GASTROINTESTINAL: Abdomen soft, nontender, nondistended. Active bowel sounds present 4 quadrants. Tolerating diet. Passing flatus. No guarding or rigidity. GENITOURINARY: Continues to void. INTEGUMENTARY: Skin is warm and dry with no evidence of clubbing or cyanosis. NEUROLOGIC: Cranial nerves II through XII intact. No focal deficits. MUSKULOSKELETAL: Able to move all extremities, strength equal bilaterally, generalized weakness. PSYCHIATRIC: Alert and oriented to person and place, disoriented to time, states it is the year 2029 and the month is October. Appropriate affect, intact judgment and insight. Periods of forgetfulness - Allied health notes Allied health notes reviewed: nursing - Labs CBC & Chem 7: 09/06/22 07:45 09/06/22 14:08 Labs: Abnormal Lab Results - Last 24 Hours (Table) 09/06/22 09/06/22 09/06/22 Range/Units 13:03 13:03 14:08 PT 15.1 H (9.0-12.0) sec INR 1.5 H (<1.2) APTT >200.0 H* (22.0-30.0) sec Sodium 136 L 135 L (137-145) mmol/L Potassium 2.7 L* (3.5-5.1) mmol/L Chloride 109 H (98-107) mmol/L BUN 31 H 40 H (9-20) mg/dL Calcium 5.7 L* 7.9 L (8.4-10.2) mg/dL ALT 50 H (4-49) U/L Total Protein 4.1 L (6.3-8.2) g/dL Albumin 2.0 L (3.5-5.0) g/dL HDL Cholesterol 28.20 L (40.00-60.00) mg/dL 09/06/22 Range/Units 22:32 PT (9.0-12.0) sec INR (<1.2) APTT 50.6 H (22.0-30.0) sec Sodium (137-145) mmol/L Potassium (3.5-5.1) mmol/L Chloride (98-107) mmol/L BUN (9-20) mg/dL Calcium (8.4-10.2) mg/dL ALT (4-49) U/L Total Protein (6.3-8.2) g/dL Albumin (3.5-5.0) g/dL HDL Cholesterol (40.00-60.00) mg/dL Microbiology - Last 24 Hours (Table) 09/04/22 15:32 Blood Culture - Preliminary Blood Assessment and Plan Assessment: Multivessel coronary artery disease Severe mitral valve regurgitation and severe tricuspid valve regurgitation on transesophageal echocardiogram Acute on chronic congestive heart failure with impaired left ventricular ejection fraction on DANNY showing an ejection fraction of 20-25%, proBNP on admission was 19,600 Non-ST elevated myocardial infarction on admission, elevated serial troponins Shortness of breath on admission, likely secondary to above History of hypertension Hyperlipidemia History of asthma History of migraines History of medical noncompliance Remote history of nicotine dependence quit smoking 3 years ago Altered mental status, alert and oriented 1 to person, CT of the brain shows no acute process Plan: Preoperative testing and teaching in progress. Encourage use of incentive spirometry 10 times every hour while awake. A 5 m walk test was completed with the patient time 1: 4.58 seconds, time 2: 4.70 seconds and time 3: 4.68 seconds. An STS risk score was calculated in a discussed with the patient. Continue to optimize medical management with aspirin, statin, beta paris and HEAVEN inhibitor. Medical management and other comorbidities per primary care service and cardiology service. More recommendations to follow based on patient's clinical course. Time with Patient: Greater than 30
[2022-09-07] MEDS: ASPIRIN 81 MG PO SCH (09:29)
[2022-09-07] MEDS: ATORVASTATIN 80 MG TAB PO SCH (09:29)
[2022-09-07] MEDS: SPIRONOLACTONE 25 MG TAB PO SCH (09:29)
[2022-09-07] MEDS: FUROSEMIDE 40 MG TAB PO SCH (09:29)
[2022-09-07 09:59] LABS: Basophils % (A) 0 %; Eosinophils # (A) 0.3 k/uL (0-0.7); Eosinophils % (A) 4 %; HCT 43.1 % (39.0-53.0); HGB 13.6 gm/dL (13.0-17.5); Hypochromasia Marked; Lymphocytes # (A) 0.7 k/uL (1.0-4.8); Lymphocytes % (A) 9 %; MCH 29.6 pg (25.0-35.0); MCHC 31.6 g/dL (31.0-37.0); MCV 93.8 fL (80.0-100.0); Mean Platelet Volume 10.4; Monocytes # (A) 0.6 k/uL (0-1.0); Monocytes % (A) 8 %; Neutrophils # (A) 5.6 k/uL (1.3-7.7); Neutrophils % (A) 76 %; Platelet Count 155 k/uL (150-450); WBC 7.3 k/uL (3.8-10.6)
[2022-09-07 10:15] LABS: ALT 54 U/L (4-49); AST 34 U/L (17-59); African American GFR (CKD) >90 (>60 ml/min/1.73 sqM); Albumin 2.7 g/dL (3.5-5.0); Alkaline Phosphatase 87 U/L (38-126); Anion Gap 6 mmol/L; Blood Urea Nitrogen 33 mg/dL (9-20); Calcium 8.1 mg/dL (8.4-10.2); Carbon Dioxide 25 mmol/L (22-30); Chloride 101 mmol/L (98-107); Glucose 122 mg/dL (74-99); Magnesium 1.9 mg/dL (1.6-2.3); Non-African American GFR(CKD) >90 (>60 ml/min/1.73 sqM); Potassium 4.2 mmol/L (3.5-5.1); Sodium 132 mmol/L (137-145); Total Bilirubin 0.7 mg/dL (0.2-1.3)
[2022-09-07 10:20] LABS: NT-Pro-B-Type Natriuretic Pept 3330 pg/mL
--- NOTE | 2022-09-07 11:58 | P.PN ---
Subjective Progress Note Date: 09/07/22 Principal diagnosis: Shortness of breath. I am seeing this patient in consultation today 09/14/2022 in the emergency room for possible acute CHF exacerbation and bilateral pleural effusions. Patient is a 61-year-old white male with past medical history significant for asthma, h ypertension, hyperlipidemia, and is an ex-smoker. He does reportedly follow with his primary care provider Dr. Sunshine. Patient did have a recent hospital stay back in Jul, 2022. He was found to be in acute congestive heart failure, and was diuresed with Lasix. He also was started on a combination of antihypertensives and lipid lowering medications. He ended up leaving AGAINST MEDICAL ADVICE. Patient presented back to the emergency room yesterday morning complaining of exertional shortness of breath with associated chest pain over the last week. The chest pain was substernal, and subsides with rest. Denies any heart palpitations, syncope, orthopnea, or lower extremity edema. He denies any significant fever, chills, productive cough, hemoptysis. He does report a chronic nonproductive cough worse in the morning. He denies sick contacts. He is currently sitting up in bed, on room air, in no acute distress. Initial chest x-ray showed bilateral small pleural effusions. Follow-up chest CTA showed no pulmonary embolism. It did redemonstrated the small to moderate-sized bilateral pleural effusions. CBC on arrival shows a WBC count 11.5, hemoglobin 12.4, hematocrit 39.5, platelets 159. BMP shows sodium 136, potassium 4.3, chloride 108, serum bicarb 16, BUN 33, creatinine 1.03, glucose 113. Troponins have been trending and are elevated at 1.2, 1.14, and then 1.2. NT proBNP was elevated at 19,600. Patient was started on Lasix 40 mg twice a day. He states that he is voiding a lot. There is a documented -3.4 L output over the last 24 hours. Vital signs are stable. Patient will be admitted to cardiac stepdown unit once bed available.. Progress note dated 09/05/2022. The patient is seen today in room 374. The patient's currently on room air. He's getting saline at KVO. The patient is also on IV heparin. The patient may be going for a cardiac catheterization, later today, or tomorrow. He denies any worsening chest pain or shortness of breath. Clinically, he appears stable. He is not manifesting any signs or symptoms of respiratory distress, or failure. White count 9.2, hemoglobin 13.7, hematocrit 43.3, and platelet count was normal. PT 12.8, INR 1.3, and PTT is 43.1. Sodium 131, potassium 2.9, chlorides 92, CO2 31, BUN 40, creatinine 0.95. Progress note dated 09/06/2022. 61-year-old male seen today in room 374. The patient was on a simple mask, at 6 L. He was also receiving IV heparin. He was very lethargic and somnolent, because he just got back from the cardiac catheterization laboratory. There, he was found to have severe triple-vessel coronary disease, and a consult was placed cardiothoracic surgery, for possible bypass grafting. White count was 7.1, with a normal hemoglobin, hematocrit, and platelet count. The patient's P TT was greater than 200. Sodium 136, potassium 2.7, chlorides 109, CO2 24, BUN 31, creatinine 0.75. His calcium was 5.7. TSH was normal. Progress note dated 09/07/2022. 61-year-old male seen in room 374. Currently, the patient's on room air. He's not receiving any IV fluids. Cardiac catheterization revealed severe three- vessel coronary disease. The patient is scheduled to meet with cardiothoracic surgery, for consideration of bypass grafting. Clinically he is stable without complaints. White count 7.3, hemoglobin 13.6, hematocrit 43.1, with a normal platelet count. Sodium 132, potassium 4.2, chlorides 101, CO2 25, BUN 33, creatinine 0.72. Chest x-ray shows a very small right-sided pleural effusion. Objective - Vital Signs Vital signs: Vital Signs Temp 98.1 F 09/07/22 09:36 Pulse 74 09/07/22 09:36 Resp 18 09/07/22 09:36 BP 94/53 09/07/22 09:36 Pulse Ox 97 09/07/22 09:36 FiO2 Intake & Output 09/06/22 09/07/22 09/07/22 18:59 06:59 18:59 Intake Total 1111.082 370 Output Total 500 2350 300 Balance 611.082 -2350 70 Intake: IV 900 10 Invasive Line 2 10 Intake, IV Titration 211.082 Amount Heparin Sod,Pork in 0.45% 211.082 NaCl 25,000 unit In 0.45 % NaCl 1 250ml.bag @ 12 UNITS/KG/HR 7.076 mls/hr IV .Q24H [facility] Rx#: [id number] Oral 360 Output: Urine 500 2350 300 Other: Voiding Method Urinal Urinal - Exam No acute distress, oriented 3. Currently on room air with saturations at 97%. HEENT examination is grossly unremarkable. Mucous membranes are moist. No oral lesions. Neck supple. Full range of motion. No adenopathy thyromegaly or neck vein distention. Cardiovascular examination reveals regular rhythm rate. S1-S2 normal. No S3 or S4. No discernible murmur noted. Heart rate 74 bpm. Lungs reveal clear breath sounds. Breath sounds are equal bilaterally. No adventitious lung sounds including wheezes rhonchi or crackles. Saturations are 97%. Abdomen soft bowel sounds are heard. No masses or tenderness. Extremities are intact. No cyanosis clubbing or edema. Skin is without rash or lesion. Neurologic examination is brief but nonfocal. - Labs CBC & Chem 7: 09/07/22 09:31 09/07/22 09:31 Labs: Abnormal Lab Results - Last 24 Hours (Table) 09/06/22 09/06/22 09/06/22 Range/Units 13:03 13:03 14:08 Lymphocytes # (1.0-4.8) k/uL PT 15.1 H (9.0-12.0) sec INR 1.5 H (<1.2) APTT >200.0 H* (22.0-30.0) sec Sodium 136 L 135 L (137-145) mmol/L Potassium 2.7 L* (3.5-5.1) mmol/L Chloride 109 H (98-107) mmol/L BUN 31 H 40 H (9-20) mg/dL Glucose (74-99) mg/dL Calcium 5.7 L* 7.9 L (8.4-10.2) mg/dL ALT 50 H (4-49) U/L Total Protein 4.1 L (6.3-8.2) g/dL Albumin 2.0 L (3.5-5.0) g/dL HDL Cholesterol 28.20 L (40.00-60.00) mg/dL 09/06/22 09/07/22 09/07/22 Range/Units 22:32 09:31 09:31 Lymphocytes # 0.7 L (1.0-4.8) k/uL PT (9.0-12.0) sec INR (<1.2) APTT 50.6 H (22.0-30.0) sec Sodium 132 L (137-145) mmol/L Potassium (3.5-5.1) mmol/L Chloride (98-107) mmol/L BUN 33 H (9-20) mg/dL Glucose 122 H (74-99) mg/dL Calcium 8.1 L (8.4-10.2) mg/dL ALT 54 H (4-49) U/L Total Protein 5.0 L (6.3-8.2) g/dL Albumin 2.7 L (3.5-5.0) g/dL HDL Cholesterol (40.00-60.00) mg/dL Microbiology - Last 24 Hours (Table) 09/04/22 15:32 Blood Culture - Preliminary Blood Assessment and Plan Assessment: Suspected mild CHF exacerbation, chest CTA shows small to moderate size bilateral pleural effusions greater on the right. There is no cardiomegaly or significant pulmonary vascular congestion. NT proBNP was elevated at 19,600. Status post cardiac catheterization, 09/06/2022, with severe triple-vessel coronary disease. Elevated troponins, possible NSTEMI. Benign essential hypertension. Hyperlipidemia. Reported history of asthma, clinically stable. Ex-smoker, quitting approximately 3 years ago. Plan: Plan dated 09/05/2022. The patient may be going for heart catheterization. Apparently there has not yet been determined. He's currently on room air. In addition, he is on IV heparin. Labs, x-rays, and medications are reviewed. Overall prognosis remains guarded. The patient's pleural effusions are small, and did not require thoracentesis. We will continue to follow the patient and make recommendations along the way. Prognosis is guarded. Plan dated 09/06/2022. The patient had a cardiac catheterization today which shows severe three-vessel coronary disease. A referral was made to cardiothoracic surgery, for consideration of bypass grafting. The patient was seen by Dr. Jeronimo. Labs, x- rays, and medications are reviewed. The patient's overall prognosis is guarded. We will continue to follow the patient and make recommendations along the way. The patient will need spirometry, before any surgery. Plan dated 09/07/2022. The patient is awake and alert. The patient's on room air. The patient is not receiving any IV fluids. Labs, x-rays, and medications are all reviewed. The patient was found have significant triple vessel coronary disease, and is being referred to cardiothoracic surgery for possible bypass grafting. The patient's overall prognosis remains guarded. We will continue to follow. Time with Patient: Less than 30
--- NOTE | 2022-09-07 19:40 | P.PN ---
Subjective Progress Note Date: 09/06/22 Patient is a 61-year-old male with a past medical history of hypertension, hyperlipidemia, chronic asthma and prior history of smoking presents to ER with complaints of exertional dyspnea and chest pain. Patient has been having symptoms for the past 1 week. Patient does have substernal intermittent chest pain. Denies any leg swelling. No orthopnea no PND. No fever no chills. No cough or sputum production. Chest x-ray showed bilateral pleural small effusions. CTA chest showed no PE. Showed small to moderate sized bilateral pleural effusions. Troponin 1.2, 1.14 and 1.2. proBNP 19,600. 09/05/2022 Patient is currently lying in the bed. Awake alert and oriented but poor historian. No complaints of chest pain. Shortness of breath did improve. No fever no chills. No cough or sputum production. Patient is scheduled for cardiac catheterization tomorrow. Neck remains on Lasix 40 mg twice daily. Laboratory data showed WBC 9.2 hemoglobin 13.7 platelets 153, sodium 131 potassium 2.9 which has been replaced, chloride 92 bicarb is 31 BUN 14 creatinine 0.95 Urinalysis is negative for infection. 09/06/2022 Patient is currently lying in the bed. Awake and alert. Status post cardiac catheterization showed critical triple-vessel coronary artery disease. Normal left-sided filling pressure. CT surgery was consulted to evaluate for coronary artery bypass graft. Patient was continued on IV Lasix changed to by mouth. Laboratory data showed sodium 132 potassium 3.8 chloride 98 bicarb is 29 BUN 43 and creatinine 0.85 and calcium 8.3 WBC 7.1 hemoglobin 14.4 and platelets 162. Cardiology and pulmonary is on board. Current medications reviewed. Objective - Vital Signs Vital signs: Vital Signs Temp 97.8 F 09/06/22 08:00 Pulse 70 09/06/22 17:12 Resp 18 09/06/22 17:12 BP 119/56 09/06/22 17:12 Pulse Ox 97 09/06/22 17:12 FiO2 Intake & Output 09/06/22 09/06/22 09/07/22 06:59 18:59 06:59 Intake Total 38.918 900 Output Total 200 500 Balance -161.082 400 Weight 53.5 kg Intake: IV 900 Intake, IV Titration 38.918 Amount Heparin Sod,Pork in 0.45% 38.918 NaCl 25,000 unit In 0.45 % NaCl 1 250ml.bag @ 12 UNITS/KG/HR 7.076 mls/hr IV .Q24H [facility] Rx#: [id number] Output: Urine 200 500 - Exam PHYSICAL EXAMINATION: Patient is lying in the bed comfortably, no acute distress, awake alert and oriented.. HEENT: Normocephalic. Neck is supple. Pupils reactive. Nostrils clear. Oral cavity is moist. Neck reveals no JVD, carotid bruits, or thyromegaly. CHEST EXAMINATION: Trachea is central. Symmetrical expansion. Lung burger clear to auscultation and percussion. CARDIAC: Normal S1, S2 with no gallops. No murmurs ABDOMEN: Soft. Bowel sounds present. Nontender. No organomegaly. No abdominal bruits. Extremities: reveal no edema. No clubbing or cyanosis Neurologically awake, alert, oriented x3 with well-coordinated movements. No focal deficits noted Skin: No rash or skin lesions. Psychiatric: Coperative. Nonsuicidal, Musculoskeletal: No joint swelling or deformity. Normal range of motion. - Labs CBC & Chem 7: 09/07/22 09:31 09/07/22 09:31 Labs: Abnormal Lab Results - Last 24 Hours (Table) 09/06/22 09/06/22 09/06/22 Range/Units 01:33 07:45 07:45 Lymphocytes # 0.8 L (1.0-4.8) k/uL PT (9.0-12.0) sec INR (<1.2) APTT 70.2 H (22.0-30.0) sec Sodium 132 L (137-145) mmol/L Potassium (3.5-5.1) mmol/L Chloride (98-107) mmol/L BUN 43 H (9-20) mg/dL Calcium 8.3 L (8.4-10.2) mg/dL ALT (4-49) U/L Total Protein (6.3-8.2) g/dL Albumin (3.5-5.0) g/dL 09/06/22 09/06/22 09/06/22 Range/Units 13:03 13:03 14:08 Lymphocytes # (1.0-4.8) k/uL PT 15.1 H (9.0-12.0) sec INR 1.5 H (<1.2) APTT >200.0 H* (22.0-30.0) sec Sodium 136 L 135 L (137-145) mmol/L Potassium 2.7 L* (3.5-5.1) mmol/L Chloride 109 H (98-107) mmol/L BUN 31 H 40 H (9-20) mg/dL Calcium 5.7 L* 7.9 L (8.4-10.2) mg/dL ALT 50 H (4-49) U/L Total Protein 4.1 L (6.3-8.2) g/dL Albumin 2.0 L (3.5-5.0) g/dL Microbiology - Last 24 Hours (Table) 09/04/22 15:32 Blood Culture - Preliminary Blood Assessment and Plan Assessment: Acute CHF. Ejection fraction 15 to 20%. Severe LV and RV dysfunction. Elevated RVSP. Severe MR. Dilated IVC.. Patient does have bilateral small pleural effusions and pulmonary vascular congestion. proBNP 19,600. Acute non-ST wave WI with elevated troponin level.Status post cardiac catheterization showed critical triple-vessel coronary disease. Hypertension Hyperlipidemia History of asthma Prior history of smoking DVT prophylaxis. Patient is on heparin drip Plan: Patient is being current on telemetry monitoring. Patient was continued on IV Lasix changed to by mouth 40 mg p.o. daily. Continue to monitor renal function. Patient is status post cardiac catheterization which showed critical triple- vessel disease. CT surgery was consulted. Continue with aspirin, statin and Coreg. Spironolactone was added. Cardiology and pulmonary is on board. Time with Patient: Greater than 30
[2022-09-07] MEDS: MUPIROCIN 2% OINT 22 GM TUBE NASAL SCH (21:36)
[2022-09-07] MEDS: SODIUM CHLORIDE 0.9% 1,000 ML in EMPTY BAG 1 BAG IV SCH (22:15)
[2022-09-08] MEDS: carvediloL 6.25 MG TAB PO SCH ×2 (06:56→16:52)
--- NOTE | 2022-09-08 07:30 | P.PN ---
Subjective Progress Note Date: 09/08/22 Principal diagnosis: CHF The patient is a pleasant 59-year-old gentleman with history of smoking who was admitted to the hospital with increasing shortness of breath and bilateral lower extremities edema as well as feeling weak and tired and fatigued. He was ruled in for acute coronary event. The echo revealed severe cardiomyopathy with severe mitral regurgitation. 09/05/2022 The patient was seen and evaluated this morning. He stated that he is feeling better. He is not hypoxic at this point. The edema has improved. Currently he is on Lasix IV and he is on heparin IV. The echo revealed severe cardiomyopathy with EF of 15-20% with severe mitral regurgitation which could be related to cardiomyopathy. He reports no pain in the chest. The patient need to undergo transesophageal echocardiogram and heart catheterization to evaluate the mitral valve apparatus and rule out severe CAD. He is willing to undergo that. We'll consider doing that the next 24 hours. Beside that he is on aspirin and statin and heparin which we will continue and he is on beta paris as well. Beside that point to HEAVEN inhibitor with lisinopril and add Aldactone to the current medical regimen September 062022 The patient was seen and evaluated this morning. He seems to be view point. He is asymptomatic and hemodynamically stable. I'm going to stop the heparin and stop Lasix IV and put him on Lasix by mouth. Beside that he is on beta paris and HEAVEN inhibitor and Aldactone. The echo as a mentioned earlier showed severe cardiomyopathy with severe mitral regurgitation. I'm going to pursue a transesophageal echocardiogram to check the mitral valve apparatus and assess if the mitral regurgitation is primary or secondary and also a heart catheterization. That to be performed later on today. September 072022 The patient was seen and evaluated this morning. He underwent yesterday transesophageal echocardiogram and a heart catheterization. The transesophageal echocardiogram showed evidence of severe mitral regurgitation documented by quantitative measurements as well as by evidence of reversal flow in the pulmonary veins. Beside that he underwent a heart catheterization which revealed severe triple-vessel coronary artery disease with normal left-sided filling pressure. With that I consulted the cardiothoracic surgery service and the patient was seen by Dr. Jeronimo. Today he seems to be asymptomatic and seems to be euvolemic as well. He has been maintaining normal sinus mechanism. He is on maximize medical treatment consistent of aspirin and statin and beta paris and HEAVEN inhibitor as well as aldosterone antagonist. The pressure appeared to be under good control. From a cardiovascular standpoint of view, the patient potentially can be discharged home in the next 24 hours. Also please note that the patient underwent carotid duplex study which showed intermediate disease bilaterally September 082022 The patient was seen and evaluated this morning. He is feeling better. The shortness of breath has improved. No pain in the chest. He is euvolemic on examination. He was seen by the cardiothoracic surgical team and the plan for the patient to be seen as an outpatient for surgery to be done in the next few weeks. Currently the patient is on maximize medical treatment for CAD and cardiomyopathy. The patient would like to go home. On examination he is euvolemic with stable vital signs and initial breathing sounds bilaterally and regular rate and rhythm and no lower extremity edema Assessment Acute coronary syndrome Severe cardiomyopathy of unknown etiology Severe mitral regurgitation Severe triple-vessel coronary artery disease History of smoking Heart failure exacerbation secondary to heart failure with reduced ejection fraction Plan Continue the current medical regimen The patient is on maximize medical treatment for CAD and cardiomyopathy Follow-up with the patient Objective - Vital Signs Vital signs: Vital Signs Temp 98.1 F 09/08/22 04:49 Pulse 76 09/08/22 04:49 Resp 15 09/08/22 04:49 BP 118/72 09/08/22 04:47 Pulse Ox 97 09/08/22 04:49 FiO2 Intake & Output 09/07/22 09/08/22 09/08/22 18:59 06:59 18:59 Intake Total 1640 780 Output Total 2350 1750 Balance -710 -970 Intake: IV 20 Invasive Line 2 20 Oral 1620 780 Output: Urine 2350 1750 Other: Voiding Method Urinal Urinal - Labs CBC & Chem 7: 09/07/22 09:31 09/07/22 09:31 Labs: Abnormal Lab Results - Last 24 Hours (Table) 09/07/22 09/07/22 Range/Units 09:31 09:31 Lymphocytes # 0.7 L (1.0-4.8) k/uL Sodium 132 L (137-145) mmol/L BUN 33 H (9-20) mg/dL Glucose 122 H (74-99) mg/dL Calcium 8.1 L (8.4-10.2) mg/dL ALT 54 H (4-49) U/L Total Protein 5.0 L (6.3-8.2) g/dL Albumin 2.7 L (3.5-5.0) g/dL Microbiology - Last 24 Hours (Table) 09/04/22 15:32 Blood Culture - Preliminary Blood
[2022-09-08] MEDS: ASPIRIN 81 MG PO SCH (08:55)
[2022-09-08] MEDS: ATORVASTATIN 80 MG TAB PO SCH (08:55)
[2022-09-08] MEDS: SPIRONOLACTONE 25 MG TAB PO SCH (08:55)
[2022-09-08] MEDS: FUROSEMIDE 40 MG TAB PO SCH (08:55)
[2022-09-08 08:56] VITALS: TEMP 97.8
--- NOTE | 2022-09-08 11:35 | P.PN ---
Subjective Progress Note Date: 09/08/22 Principal diagnosis: Shortness of breath. I am seeing this patient in consultation today 09/14/2022 in the emergency room for possible acute CHF exacerbation and bilateral pleural effusions. Patient is a 61-year-old white male with past medical history significant for asthma, h ypertension, hyperlipidemia, and is an ex-smoker. He does reportedly follow with his primary care provider Dr. Sunshine. Patient did have a recent hospital stay back in Jul, 2022. He was found to be in acute congestive heart failure, and was diuresed with Lasix. He also was started on a combination of antihypertensives and lipid lowering medications. He ended up leaving AGAINST MEDICAL ADVICE. Patient presented back to the emergency room yesterday morning complaining of exertional shortness of breath with associated chest pain over the last week. The chest pain was substernal, and subsides with rest. Denies any heart palpitations, syncope, orthopnea, or lower extremity edema. He denies any significant fever, chills, productive cough, hemoptysis. He does report a chronic nonproductive cough worse in the morning. He denies sick contacts. He is currently sitting up in bed, on room air, in no acute distress. Initial chest x-ray showed bilateral small pleural effusions. Follow-up chest CTA showed no pulmonary embolism. It did redemonstrated the small to moderate-sized bilateral pleural effusions. CBC on arrival shows a WBC count 11.5, hemoglobin 12.4, hematocrit 39.5, platelets 159. BMP shows sodium 136, potassium 4.3, chloride 108, serum bicarb 16, BUN 33, creatinine 1.03, glucose 113. Troponins have been trending and are elevated at 1.2, 1.14, and then 1.2. NT proBNP was elevated at 19,600. Patient was started on Lasix 40 mg twice a day. He states that he is voiding a lot. There is a documented -3.4 L output over the last 24 hours. Vital signs are stable. Patient will be admitted to cardiac stepdown unit once bed available.. Progress note dated 09/05/2022. The patient is seen today in room 374. The patient's currently on room air. He's getting saline at KVO. The patient is also on IV heparin. The patient may be going for a cardiac catheterization, later today, or tomorrow. He denies any worsening chest pain or shortness of breath. Clinically, he appears stable. He is not manifesting any signs or symptoms of respiratory distress, or failure. White count 9.2, hemoglobin 13.7, hematocrit 43.3, and platelet count was normal. PT 12.8, INR 1.3, and PTT is 43.1. Sodium 131, potassium 2.9, chlorides 92, CO2 31, BUN 40, creatinine 0.95. Progress note dated 09/06/2022. 61-year-old male seen today in room 374. The patient was on a simple mask, at 6 L. He was also receiving IV heparin. He was very lethargic and somnolent, because he just got back from the cardiac catheterization laboratory. There, he was found to have severe triple-vessel coronary disease, and a consult was placed cardiothoracic surgery, for possible bypass grafting. White count was 7.1, with a normal hemoglobin, hematocrit, and platelet count. The patient's P TT was greater than 200. Sodium 136, potassium 2.7, chlorides 109, CO2 24, BUN 31, creatinine 0.75. His calcium was 5.7. TSH was normal. Progress note dated 09/07/2022. 61-year-old male seen in room 374. Currently, the patient's on room air. He's not receiving any IV fluids. Cardiac catheterization revealed severe three- vessel coronary disease. The patient is scheduled to meet with cardiothoracic surgery, for consideration of bypass grafting. Clinically he is stable without complaints. White count 7.3, hemoglobin 13.6, hematocrit 43.1, with a normal platelet count. Sodium 132, potassium 4.2, chlorides 101, CO2 25, BUN 33, creatinine 0.72. Chest x-ray shows a very small right-sided pleural effusion. Progress note dated 09/08/2022. 61-year-old male seen today in room 374. He is currently on room air. He's not receiving any IV fluids. Cardiac catheterization revealed severe three-vessel coronary disease. He is currently being evaluated by cardiothoracic surgery, or bypass. Clinically he stable. No new labs today. No new x-rays today. Objective - Vital Signs Vital signs: Vital Signs Temp 97.8 F 09/08/22 08:55 Pulse 80 09/08/22 08:55 Resp 18 09/08/22 08:55 BP 112/66 09/08/22 08:55 Pulse Ox 97 09/08/22 08:55 FiO2 Intake & Output 09/07/22 09/08/22 09/08/22 18:59 06:59 18:59 Intake Total 1640 780 Output Total 2350 1750 Balance -710 -970 Intake: IV 20 Invasive Line 2 20 Oral 1620 780 Output: Urine 2350 1750 Other: Voiding Method Urinal Urinal Urinal - Exam No acute distress, oriented 3. Currently on room air with saturations at 97%. HEENT examination is grossly unremarkable. Mucous membranes are moist. No oral lesions. Neck supple. Full range of motion. No adenopathy thyromegaly or neck vein distention. Cardiovascular examination reveals regular rhythm rate. S1-S2 normal. No S3 or S4. No discernible murmur noted. Heart rate 80 bpm. Lungs reveal clear breath sounds. Breath sounds are equal bilaterally. No adventitious lung sounds including wheezes rhonchi or crackles. Saturations are 97%. Abdomen soft bowel sounds are heard. No masses or tenderness. Extremities are intact. No cyanosis clubbing or edema. Skin is without rash or lesion. Neurologic examination is brief but nonfocal. - Labs CBC & Chem 7: 09/07/22 09:31 09/07/22 09:31 Labs: Microbiology - Last 24 Hours (Table) 09/04/22 15:32 Blood Culture - Preliminary Blood Assessment and Plan Assessment: Suspected mild CHF exacerbation, chest CTA shows small to moderate size bilateral pleural effusions greater on the right. There is no cardiomegaly or significant pulmonary vascular congestion. NT proBNP was elevated at 19,600. Status post cardiac catheterization, 09/06/2022, with severe triple-vessel coronary disease. Elevated troponins, possible NSTEMI. Benign essential hypertension. Hyperlipidemia. Reported history of asthma, clinically stable. Ex-smoker, quitting approximately 3 years ago. Plan: Plan dated 09/05/2022. The patient may be going for heart catheterization. Apparently there has not yet been determined. He's currently on room air. In addition, he is on IV heparin. Labs, x-rays, and medications are reviewed. Overall prognosis remains guarded. The patient's pleural effusions are small, and did not require thoracentesis. We will continue to follow the patient and make recommendations along the way. Prognosis is guarded. Plan dated 09/06/2022. The patient had a cardiac catheterization today which shows severe three-vessel coronary disease. A referral was made to cardiothoracic surgery, for consideration of bypass grafting. The patient was seen by Dr. Jeronimo. Labs, x- rays, and medications are reviewed. The patient's overall prognosis is guarded. We will continue to follow the patient and make recommendations along the way. The patient will need spirometry, before any surgery. Plan dated 09/07/2022. The patient is awake and alert. The patient's on room air. The patient is not receiving any IV fluids. Labs, x-rays, and medications are all reviewed. The patient was found have significant triple vessel coronary disease, and is being referred to cardiothoracic surgery for possible bypass grafting. The patient's overall prognosis remains guarded. We will continue to follow. Plan dated 09/08/2022. The patient's doing well. He is on room air. He's not on any IV fluids. Labs, x-rays, and medications are reviewed. Cardiac catheterization revealed severe three-vessel coronary disease. He is currently being evaluated by [facility] surgery, for possible bypass. No additional recommendations are made. Time with Patient: Less than 30
[2022-09-08 11:39] LABS: African American GFR (CKD) >90 (>60 ml/min/1.73 sqM); Anion Gap 7 mmol/L; Blood Urea Nitrogen 32 mg/dL (9-20); Calcium 9.1 mg/dL (8.4-10.2); Carbon Dioxide 26 mmol/L (22-30); Chloride 98 mmol/L (98-107); Glucose 70 mg/dL (74-99); Non-African American GFR(CKD) >90 (>60 ml/min/1.73 sqM); Potassium 4.7 mmol/L (3.5-5.1); Sodium 131 mmol/L (137-145)
[2022-09-08 11:41] VITALS: BP 114/70; PULSE 73; RESP 16
[2022-09-08] MEDS: MUPIROCIN 2% OINT 22 GM TUBE NASAL SCH (12:01)
--- NOTE | 2022-09-14 02:30 | P.PN ---
Subjective Progress Note Date: 09/07/22 Patient is a 61-year-old male with a past medical history of hypertension, hyperlipidemia, chronic asthma and prior history of smoking presents to ER with complaints of exertional dyspnea and chest pain. Patient has been having symptoms for the past 1 week. Patient does have substernal intermittent chest pain. Denies any leg swelling. No orthopnea no PND. No fever no chills. No cough or sputum production. Chest x-ray showed bilateral pleural small effusions. CTA chest showed no PE. Showed small to moderate sized bilateral pleural effusions. Troponin 1.2, 1.14 and 1.2. proBNP 19,600. 09/05/2022 Patient is currently lying in the bed. Awake alert and oriented but poor historian. No complaints of chest pain. Shortness of breath did improve. No fever no chills. No cough or sputum production. Patient is scheduled for cardiac catheterization tomorrow. Neck remains on Lasix 40 mg twice daily. Laboratory data showed WBC 9.2 hemoglobin 13.7 platelets 153, sodium 131 potassium 2.9 which has been replaced, chloride 92 bicarb is 31 BUN 14 creatinine 0.95 Urinalysis is negative for infection. 09/06/2022 Patient is currently lying in the bed. Awake and alert. Status post cardiac catheterization showed critical triple-vessel coronary artery disease. Normal left-sided filling pressure. CT surgery was consulted to evaluate for coronary artery bypass graft. Patient was continued on IV Lasix changed to by mouth. Laboratory data showed sodium 132 potassium 3.8 chloride 98 bicarb is 29 BUN 43 and creatinine 0.85 and calcium 8.3 WBC 7.1 hemoglobin 14.4 and platelets 162. Cardiology and pulmonary is on board. 09/07/2022 Patient is currently resting in the bed. Awake alert and oriented. Currently on room air. Patient underwent cardiac catheterization yesterday showing severe triple-vessel coronary artery disease. CT surgery was consulted for possible bypass grafting. Patient underwent lower extremity and upper extremity duplex scan. Carotid duplex study was done as well. Otherwise laboratory data showed WBC 7.3 hemoglobin 13.6 and platelets 145 Sodium 132 potassium 4.2 chloride 101 bicarb is 25 BUN 33 and creatinine 0.72 and blood sugar 122 proBNP is 3330. Current medications reviewed. Objective - Vital Signs Vital signs: Vital Signs Temp 97.8 F 09/07/22 16:55 Pulse 76 09/07/22 16:55 Resp 15 09/07/22 16:55 BP 104/67 09/07/22 16:55 Pulse Ox 96 09/07/22 16:55 FiO2 Intake & Output 09/07/22 09/07/22 09/08/22 06:59 18:59 06:59 Intake Total 1640 Output Total 2350 2350 Balance -2350 -710 Intake: IV 20 Invasive Line 2 20 Oral 1620 Output: Urine 2350 2350 Other: Voiding Method Urinal Urinal - Exam PHYSICAL EXAMINATION: Patient is lying in the bed comfortably, no acute distress, awake alert and oriented.. HEENT: Normocephalic. Neck is supple. Pupils reactive. Nostrils clear. Oral cavity is moist. Neck reveals no JVD, carotid bruits, or thyromegaly. CHEST EXAMINATION: Trachea is central. Symmetrical expansion. Lung burger clear to auscultation and percussion. CARDIAC: Normal S1, S2 with no gallops. No murmurs ABDOMEN: Soft. Bowel sounds present. Nontender. No organomegaly. No abdominal bruits. Extremities: reveal no edema. No clubbing or cyanosis Neurologically awake, alert, oriented x3 with well-coordinated movements. No focal deficits noted Skin: No rash or skin lesions. Psychiatric: Coperative. Nonsuicidal, Musculoskeletal: No joint swelling or deformity. Normal range of motion. - Labs CBC & Chem 7: 09/07/22 09:31 09/08/22 10:50 Labs: Abnormal Lab Results - Last 24 Hours (Table) 09/06/22 09/06/22 09/07/22 Range/Units 13:03 22:32 09:31 Lymphocytes # 0.7 L (1.0-4.8) k/uL APTT 50.6 H (22.0-30.0) sec Sodium (137-145) mmol/L BUN (9-20) mg/dL Glucose (74-99) mg/dL Calcium (8.4-10.2) mg/dL ALT (4-49) U/L Total Protein (6.3-8.2) g/dL Albumin (3.5-5.0) g/dL HDL Cholesterol 28.20 L (40.00-60.00) mg/dL 09/07/22 Range/Units 09:31 Lymphocytes # (1.0-4.8) k/uL APTT (22.0-30.0) sec Sodium 132 L (137-145) mmol/L BUN 33 H (9-20) mg/dL Glucose 122 H (74-99) mg/dL Calcium 8.1 L (8.4-10.2) mg/dL ALT 54 H (4-49) U/L Total Protein 5.0 L (6.3-8.2) g/dL Albumin 2.7 L (3.5-5.0) g/dL HDL Cholesterol (40.00-60.00) mg/dL Microbiology - Last 24 Hours (Table) 09/04/22 15:32 Blood Culture - Preliminary Blood Assessment and Plan Assessment: Acute CHF. Ejection fraction 15 to 20%. Severe LV and RV dysfunction. Elevated RVSP. Severe MR. Dilated IVC.. Patient does have bilateral small pleural effusions and pulmonary vascular congestion. proBNP 19,600-->3330. Acute non-ST wave TX with elevated troponin level.Status post cardiac catheter ization showed critical triple-vessel coronary disease. Hypertension Hyperlipidemia History of asthma Prior history of smoking DVT prophylaxis. Patient is on heparin sq Plan: Patient is being current on telemetry monitoring. Patient was continued on IV Lasix changed to by mouth 40 mg p.o. daily. Continue to monitor renal function. Patient is status post cardiac catheterization which showed critical triple- vessel disease. CT surgery is following. Continue with aspirin, statin and Coreg. Spironolactone was added. Cardiology and pulmonary is on board. Time with Patient: Greater than 30
--- NOTE | 2022-09-14 02:39 | P.DS ---
Providers Date of admission: 09/03/22 15:37 Expected date of discharge: 09/08/22 Attending physician: Mari Jamison Consults: 09/03/22 15:26 Consult Physician Routine Consulting Provider: Elias Curran Consult Reason/Comments: Bilateral pleural effusions Do you want consulting provider notified?: Yes Consult Physician Routine Consulting Provider: Farshad Manuel Consult Reason/Comments: CHF Do you want consulting provider notified?: Yes 09/06/22 10:27 Consult Physician Routine Consulting Provider: Rodrigo Jeronimo Consult Reason/Comments: CAD,severe MVR Do you want consulting provider notified?: Already Contacted Primary care physician: [facility] Course: Discharge diagnosis Acute CHF. Ejection fraction 15 to 20%. Severe LV and RV dysfunction. Elevat ed RVSP. Severe MR. Dilated IVC.. Patient does have bilateral small pleural effusions and pulmonary vascular congestion. proBNP 19,600-->3330. Acute non-ST wave ID with elevated troponin level.Status post cardiac catheterization showed critical triple-vessel coronary disease.Patient was seen by CT surgery. Follow-up outpatient and maximal medical therapy prior to CABG. Hypertension Hyperlipidemia History of asthma Prior history of smoking DVT prophylaxis. Patient is on heparin sq Hospital course Patient is a 61-year-old male with a past medical history of hypertension, hyperlipidemia, chronic asthma and prior history of smoking presents to ER with complaints of exertional dyspnea and chest pain. Patient has been having symptoms for the past 1 week. Patient does have substernal intermittent chest pain. Denies any leg swelling. No orthopnea no PND. No fever no chills. No cough or sputum production. Chest x-ray showed bilateral pleural small effusions. CTA chest showed no PE. Showed small to moderate sized bilateral pleural effusions. Troponin 1.2, 1.14 and 1.2. proBNP 19,600. 09/05/2022 Patient is currently lying in the bed. Awake alert and oriented but poor historian. No complaints of chest pain. Shortness of breath did improve. No fever no chills. No cough or sputum production. Patient is scheduled for cardiac catheterization tomorrow. Neck remains on Las ix 40 mg twice daily. Laboratory data showed WBC 9.2 hemoglobin 13.7 platelets 153, sodium 131 potassium 2.9 which has been replaced, chloride 92 bicarb is 31 BUN 14 creatinine 0.95 Urinalysis is negative for infection. 09/06/2022 Patient is currently lying in the bed. Awake and alert. Status post cardiac catheterization showed critical triple-vessel coronary artery disease. Normal left-sided filling pressure. CT surgery was consulted to evaluate for coronary artery bypass graft. Patient was continued on IV Lasix changed to by mouth. Laboratory data showed sodium 132 potassium 3.8 chloride 98 bicarb is 29 BUN 43 and creatinine 0.85 and calcium 8.3 WBC 7.1 hemoglobin 14.4 and platelets 162. Cardiology and pulmonary is on board. 09/07/2022 Patient is currently resting in the bed. Awake alert and oriented. Currently on room air. Patient underwent cardiac catheterization yesterday showing severe triple-vessel coronary artery disease. CT surgery was consulted for possible bypass grafting. Patient underwent lower extremity and upper extremity duplex scan. Carotid duplex study was done as well. Otherwise laboratory data showed WBC 7.3 hemoglobin 13.6 and platelets 145 Sodium 132 potassium 4.2 chloride 101 bicarb is 25 BUN 33 and creatinine 0.72 and blood sugar 122 proBNP is 3330. 09/08/2022 Patient is currently resting in bed. Awake alert and oriented x3. No complaints of chest pain or shortness of breath. No nausea vomiting abdominal pain or diarrhea. Blood pressure is also controlled. Patient wants to be discharged home today. Currently on room air. Cleared from CT surgery and cardiology standpoint and recommended to follow-up with CV surgery as an outpatient for preoperative work-up. Recommends maximize medical therapy for cardiomyopathy. Patient is being discharged home today. Discharge medications were sent to pharmacy. PHYSICAL EXAMINATION: Patient is lying in the bed comfortably, no acute distress, awake alert and oriented.. HEENT: Normocephalic. Neck is supple. Pupils reactive. Nostrils clear. Oral cavity is moist. Neck reveals no JVD, carotid bruits, or thyromegaly. CHEST EXAMINATION: Trachea is central. Symmetrical expansion. Lung burger clear to auscultation and percussion. CARDIAC: Normal S1, S2 with no gallops. systolic murmur + ABDOMEN: Soft. Bowel sounds present. Nontender. No organomegaly. No abdominal bruits. Extremities: reveal no edema. No clubbing or cyanosis Neurologically awake, alert, oriented x3 with well-coordinated movements. No focal deficits noted Skin: No rash or skin lesions. Psychiatric: Coperative. Nonsuicidal, Musculoskeletal: No joint swelling or deformity. Normal range of motion. Vital signs: Vital Signs Temp 97.8 F 09/08/22 08:55 Pulse 80 09/08/22 08:55 Resp 18 09/08/22 08:55 BP 112/66 09/08/22 08:55 Pulse Ox 97 09/08/22 08:55 FiO2 Intake & Output 09/07/22 09/08/22 09/08/22 18:59 06:59 18:59 Intake Total 1640 780 Output Total 2350 1750 Balance -710 -970 Intake: IV 20 Invasive Line 2 20 Oral 1620 780 Output: Urine 2350 1750 Other: Voiding Method Urinal Urinal Urinal Patient Condition at Discharge: Poor Plan - Discharge Summary Discharge Rx Participant: No New Discharge Prescriptions: New Spironolactone [Aldactone] 25 mg PO DAILY #30 tab Aspirin 81 mg PO DAILY #30 tab Furosemide [Lasix] 40 mg PO DAILY #30 tab Atorvastatin [Lipitor] 80 mg PO DAILY #30 tab lisinopriL [Zestril] 2.5 mg PO DAILY #30 tab carvediloL [Coreg] 6.25 mg PO BID-W/MEALS #60 tab Nitroglycerin Sl Tabs [Nitrostat] 0.4 mg SUBLINGUAL Q5M PRN #30 tab PRN Reason: Chest Pain Continue Ezetimibe [Zetia] 10 mg PO DAILY Albuterol Sulfate [Albuterol Sulfate Hfa] 2 puff PO RT-TID PRN PRN Reason: Shortness Of Breath PARoxetine HCL [Paxil] 40 mg PO DAILY Famotidine [Pepcid] 20 mg PO DAILY Discontinued Aspirin/Acetaminophen/Caffeine [Excedrin Migraine Caplet] 1 - 2 tab PO DAILY PRN PRN Reason: Migraine Headache Naproxen [Naprosyn] 500 mg PO BID PRN PRN Reason: Pain predniSONE 50 mg PO DAILY Discharge Medication List Famotidine [Pepcid] 20 mg PO DAILY 07/04/22 [History] PARoxetine HCL [Paxil] 40 mg PO DAILY 07/04/22 [History] Albuterol Sulfate [Albuterol Sulfate Hfa] 2 puff PO RT-TID PRN 09/03/22 [History] Ezetimibe [Zetia] 10 mg PO DAILY 09/03/22 [History] Aspirin 81 mg PO DAILY #30 tab 09/08/22 [Rx] Atorvastatin [Lipitor] 80 mg PO DAILY #30 tab 09/08/22 [Rx] Furosemide [Lasix] 40 mg PO DAILY #30 tab 09/08/22 [Rx] Nitroglycerin Sl Tabs [Nitrostat] 0.4 mg SUBLINGUAL Q5M PRN #30 tab 09/08/22 [Rx] Spironolactone [Aldactone] 25 mg PO DAILY #30 tab 09/08/22 [Rx] carvediloL [Coreg] 6.25 mg PO BID-W/MEALS #60 tab 09/08/22 [Rx] lisinopriL [Zestril] 2.5 mg PO DAILY #30 tab 09/08/22 [Rx] Follow up Appointment(s)/Referral(s): Rodrigo Jeronimo MD [STAFF PHYSICIAN] - 2 Weeks (Dr. Jeronimo's office will call the patient with a follow-up appointment.) Bita Parrish MD [Primary Care Provider] - 1-2 days (Please call tomorrow to schedule follow up appoitment) Patient Instructions/Handouts: *Surgery [facility] - After Heart Catheterization - [employer] Instructions, Heart Attack (DC), Heart Failure (IP) Discharge Disposition: HOME SELF-CARE
== END 2022-09-08 16:56 | disposition home or self-care (01) | DRG 280 ==
LOC: EC 11:33 → 3SCARD 15:37
PROVIDERS: ADMIT Hospitalist; ATTEND Hospitalist
PROC: B2111ZZ Fluoroscopy of Multiple Coronary Arteries using Low Osmolar Contrast (ICD-10-PCS; 2022-09-06)
PROC: 4A023N7 Measurement of Cardiac Sampling and Pressure, Left Heart, Percutaneous Approach (ICD-10-PCS; 2022-09-06)
PROC: B2111ZZ Fluoroscopy of Multiple Coronary Arteries using Low Osmolar Contrast (ICD-10-PCS; 2022-09-06)
PROC: B24BZZ4 Ultrasonography of Heart with Aorta, Transesophageal (ICD-10-PCS; principal; 2022-09-06 07:30)
PROC: 4A023N7 Measurement of Cardiac Sampling and Pressure, Left Heart, Percutaneous Approach (ICD-10-PCS; 2022-09-06 07:30)
DX: I11.0 Hypertensive heart disease with heart failure (principal); I50.23 Acute on chronic systolic (congestive) heart failure; I21.4 Non-ST elevation (NSTEMI) myocardial infarction; E87.1 Hypo-osmolality and hyponatremia; I42.9 Cardiomyopathy, unspecified; J44.9 Chronic obstructive pulmonary disease, unspecified; I08.1 Rheumatic disorders of both mitral and tricuspid valves; I25.10 Atherosclerotic heart disease of native coronary artery without angina pectoris; E78.5 Hyperlipidemia, unspecified; Z87.891 Personal history of nicotine dependence; Z79.899 Other long term (current) drug therapy; Z91.199 Patient's noncompliance with other medical treatment and regimen due to unspecified reason
CPT/HCPCS: 36415; 70450; 71045; 71046; 71275; 76937; 80048; 80053; 80061; 80074; 81003; 83036; 83735; 83880; 84132; 84443; 84484; 85025; 85379; 85610; 85730; 87040; 87070; 93005; 93306; 93312; 93320; 93325; 93458; 93880; 93923; 93970; 94150; 94640; 94760; 96365; 96366; 96375; 96376; 99291

== ENCOUNTER → 2023-01-28 | Outpatient (CLI) | payer MEDICARE, OTHER ==
[2023-01-28 10:38] LABS: Prothrombin Time 10.6 sec (10.0-12.5)
[2023-01-28 15:58] LABS: HCT 46.5 % (39.6-50.0); HGB 15.3 g/dL (13.0-17.0); MCHC 32.9 g/dL (32.0-37.0); MCV 91.2 FL (80.0-97.0); Mean Platelet Volume 11.6 FL (9.5-12.2); NRBC Per 100 WBC 0 X 10*3/uL (0.00-0.01); Platelet Count 188 X 10*3/uL (140-440); RDW 12.9 % (11.5-14.5)
[2023-01-28 16:07] LABS: ALT 76 U/L (10-49); AST 43 U/L (14-35); Albumin 4.7 g/dL (3.8-4.9); Albumin/Globulin Ratio 1.81 Ratio (1.60-3.17); Alkaline Phosphatase 109 U/L (41-126); BUN/Creat Ratio 20.91 Ratio (12.00-20.00); Calcium 10.1 mg/dL (8.7-10.3); Carbon Dioxide 26.9 mmol/L (21.6-31.8); Chloride 101 mmol/L (96-109); Chol/HDL Ratio 3.32 Ratio; Globulin 2.6 g/dL (1.6-3.3); Glucose 111 mg/dL (70-110); Potassium 4.3 mmol/L (3.5-5.5); Sodium 141 mmol/L (135-145); Total Bilirubin 0.5 mg/dL (0.3-1.2); Total Protein 7.3 g/dL (6.2-8.2)
[2023-01-28 16:39] LABS: Hepatitis A Antibody IgM Nonreactive; Hepatitis B Core IgM Nonreactive; Hepatitis B Surface Antigen Nonreactive; Hepatitis C IgG Antibody Nonreactive
[2023-01-28 17:08] LABS: Appearance,Urine Clear (Clear); Bilirubin,Urine Negative (Negative); Blood,Urine Negative (Negative); Color,Urine Yellow (Yellow); Ketones,Urine Negative (Negative); Nitrite,Urine Negative (Negative); Specific Gravity,Urine 1.008 (1.001-1.030); Urobilinogen,Urine 0.2 E.U./DL
--- NOTE | 2023-01-28 19:53 | XR ---
EXAMINATION TYPE: XR chest 2V DATE OF EXAM: 01/28/2023 COMPARISON: 09/07/2022 INDICATION: Open heart surgery presurgical clearance TECHNIQUE: Frontal and lateral views of the chest are obtained. FINDINGS: The heart size is normal. The pulmonary vasculature is normal. The lungs are clear. There is some hyperinflation in the lateral projection. Some emphysematous spencer e be considered. Mediastinum is visualized is normal. IMPRESSION: 1. No acute pulmonary process. 2. Hyperinflation with some flattening of the diaphragms. Mild emphysematous change be considered.
== END | disposition home or self-care (01) ==
LOC: LABWHC1 09:24
PROVIDERS: ATTEND Thoracic Surgery (Cardiothoracic Vascular Surgery)
DX: I25.10 Atherosclerotic heart disease of native coronary artery without angina pectoris (principal); I34.0 Nonrheumatic mitral (valve) insufficiency
CPT/HCPCS: 36415; 71046; 80053; 80061; 80074; 81003; 83036; 83735; 84443; 85027; 85610; 85730; 86850; 86900; 86901; 86920; 87070; 87086; 93005

== ENCOUNTER 2023-02-06 05:33 | Inpatient (IN) | payer MEDICARE, OTHER ==
[~2023-02-06 05:33] MED LIST: ALBUMIN HUMAN 25% 50 ML IV ONE; ALBUMIN HUMAN 5% 500 ML IVPB ONE; ASPIRIN 325 MG TAB PO ONE; ATORVASTATIN 10 MG TAB PO ONE; CALCIUM CHLORIDE 100 MG/ML 10 ML SYRINGE IV ONE; CARDIOPLEGIC SOLN (K+ 16 MEQ/L 1,000 ML with SODIUM BICARB (1 MEQ/ML) 20 ML, LIDOCAINE ... PERFUSION ONE; CHLORHEXIDINE GLUCONATE 15 ML CUP MUCOUS MEM ONE; CLEVIDIPINE BUTYRATE 25 MG in EMPTY BAG 1 BAG IV ONE; DILTIAZEM 125 MG in SODIUM CHLORIDE 0.9% 100 ML IV ONE; HEPARIN SODIUM 1,000 UN/ML (10ML VL) IV ONE; HEPARIN SODIUM,PORCINE (1 ML) 5,000 UNIT in SODIUM CHLORIDE 0.9% 500 ML 500 ML IV ONE; INSULIN REGULAR 100 UNIT in SODIUM CHLORIDE 0.9% 100 ML IV ONE; LACTATED RINGERS 1,000 ML IV ONE; MAGNESIUM SULFATE 16.24 MEQ in EMPTY SYRINGE 1 SYR IV ONE; MANNITOL 25% 12.5 GM/50 ML VIAL IV ONE; METOPROLOL TARTRATE 12.5 MG TAB PO ONE; NITROGLYCERIN SL TABS 0.4 MG TAB SUBLINGUAL ONE; NITROGLYCERIN-D5W PMX 25 MG/250 ML BTL IV ONE; NITROGLYCERIN-D5W PMX 50 MG in DEXTROSE/WATER 1 250ML.BAG IV ONE; NOREPINEPHRINE 4 MG in SODIUM CHLORIDE 0.9% 250 ML IV ONE; PAPAVERINE 360 MG in SODIUM CHLORIDE 0.9% 90 ML IV ONE; PHENYLEPHRINE 10 MG/ML VIAL IV ONE; PHENYLEPHRINE 40 MG in SODIUM CHLORIDE 0.9% 250 ML IV ONE; PROTAMINE SULFATE 10 MG/ML 25 ML VIAL IV ONE; PROTAMINE SULFATE 250 MG in EMPTY BAG 1 BAG IV ONE; SODIUM BICARB 8.4% 50 ML SYR (1 MEQ/ML) IV ONE; SODIUM CHLORIDE 0.9% 1,000 ML IV ONE; TRANEXAMIC ACID 2,000 MG in SODIUM CHLORIDE 0.9% 80 ML IV ONE; ceFAZolin 1,000 MG in SODIUM CHLORIDE 0.9% IRRIGATIO 1,000 ML IRRIGATION ONE; propofoL 1,000 MG/100 ML VIAL IV ONE
[2023-02-06] MEDS ORDERED: LIDOCAINE 1% (10MG/ML) FOR IV START INTRADERMA ONE (06:10)
[2023-02-06] MEDS ORDERED: MAGNESIUM SULFATE 4 MEQ/ML 10ML VIAL ONE (07:45)
[2023-02-06] MEDS ORDERED: MIDAZOLAM HCL 10 MG/10 ML VIAL ONE (07:45)
[2023-02-06] MEDS ORDERED: MILRINONE 1 MG/ML 20 ML VIAL IV ONE (07:45)
[2023-02-06] MEDS ORDERED: ALBUMIN HUMAN 5% (25gm) 500 ML VIAL IVPB ONE (07:45)
[2023-02-06] MEDS ORDERED: SODIUM CHLORIDE 0.9% IRRIG 1,000 ML BTL IRRIGATION ONE (07:45)
[2023-02-06] MEDS ORDERED: fentaNYL (PF) 50 MCG/ML 50 ML VIAL ONE (07:45)
[2023-02-06] MEDS ORDERED: PROPOFOL 10 MG/ML 20 ML VIAL IV ONE (07:45)
[2023-02-06] MEDS ORDERED: ELECTROLYTE-R (PH 7.4) 1,000 ML IV.SOLN IV ONE (07:45)
[2023-02-06] MEDS ORDERED: ROCURONIUM 10 MG/ML (5 ML VIAL) IV ONE (07:45)
[2023-02-06] MEDS ORDERED: PROTAMINE SULFATE 10 MG/ML 25 ML VIAL IV ONE (07:45)
[2023-02-06] MEDS ORDERED: POTASSIUM CHLORIDE OPEN HEART 20 MEQ/50 ML BAG IVPB ONE (07:45)
[2023-02-06] MEDS ORDERED: TRANEXAMIC 1,000 MG/100ML-NACL PREMIX BAG ONE (07:45)
[2023-02-06] MEDS ORDERED: EPINEPHrine 10 ML SYRINGE (0.1 MG/ML) ONE (07:45)
[2023-02-06] MEDS ORDERED: HEPARIN SODIUM,PORCINE 5,000 UNIT/ML 1 ML VIAL ONE (07:45)
[2023-02-06] MEDS ORDERED: NITROGLYCERIN-D5W PMX 50 MG/250 ML BOTTLE IV ONE (07:45)
[2023-02-06] MEDS ORDERED: PROTAMINE SULFATE 10 MG/ML 5 ML VIAL ONE (07:45)
[2023-02-06] MEDS ORDERED: LIDOCAINE 2% SYG (PF) 100 MG/5 ML ONE (07:45)
[2023-02-06 08:42] LABS: ABG Glucose Whole Blood 52 mg/dL (75-99); ABG HCO3 27 mmol/L (21-25); ABG Hematocrit 39 % (34.0-46.0); ABG Ionized Calcium 4.9 mg/dL (4.5-5.3); ABG Lactic Acid Whole Blood 0.7 mmol/L (0.5-1.6); ABG PCO2 48 mmHg (35-45); ABG PH 7.36 (7.35-7.45); ABG PO2 377 mmHg (83-108); ABG Potassium Whole Blood 3.8 mmol/L (3.4-4.5); ABG Sodium Whole Blood 141 mmol/L (135-146); ABG TCO2 29 mmol/L (19-24)
[2023-02-06 09:00] LABS: Glucose,Whole Blood 47 mg/dL (70-110)
[2023-02-06 09:22] LABS: Glucose,Whole Blood 64 mg/dL (70-110)
[2023-02-06 10:14] LABS: ABG Base Excess 1.2 mmol/L; ABG Glucose Whole Blood 70 mg/dL (75-99); ABG HCO3 27 mmol/L (21-25); ABG Hematocrit 34 % (34.0-46.0); ABG Ionized Calcium 4.8 mg/dL (4.5-5.3); ABG Lactic Acid Whole Blood 1.1 mmol/L (0.5-1.6); ABG Oxygen Saturation 99.4 % (94-97); ABG PCO2 46 mmHg (35-45); ABG PH 7.38 (7.35-7.45); ABG PO2 128 mmHg (83-108); ABG Potassium Whole Blood 3.6 mmol/L (3.4-4.5); ABG Sodium Whole Blood 140 mmol/L (135-146); ABG TCO2 28 mmol/L (19-24)
[2023-02-06] MEDS ORDERED: SODIUM CHLORIDE 0.9% 500 ML 500 ML with HEPARIN SODIUM,PORCINE (1 ML) 5,000 UNIT IV ONE ×2 (10:47)
[2023-02-06 10:48] LABS: ABG Base Excess 1.8 mmol/L; ABG Glucose Whole Blood 73 mg/dL (75-99); ABG HCO3 26 mmol/L (21-25); ABG Ionized Calcium 4.1 mg/dL (4.5-5.3); ABG PCO2 37 mmHg (35-45); ABG PH 7.45 (7.35-7.45); ABG Potassium Whole Blood 4.7 mmol/L (3.4-4.5); ABG Sodium Whole Blood 138 mmol/L (135-146); ABG TCO2 27 mmol/L (19-24)
[2023-02-06] MEDS ORDERED: PAPAVERINE 360 MG in SODIUM CHLORIDE 0.9% 90 ML IV ONE (10:49)
[2023-02-06] MEDS ORDERED: ceFAZolin 1,000 MG in SODIUM CHLORIDE 0.9% 1,000 ML IRRIGATION ONE (10:49)
[2023-02-06 11:11] LABS: ABG Base Excess 2.1 mmol/L; ABG Glucose Whole Blood 100 mg/dL (75-99); ABG HCO3 26 mmol/L (21-25); ABG Ionized Calcium 4.3 mg/dL (4.5-5.3); ABG Lactic Acid Whole Blood 1.9 mmol/L (0.5-1.6); ABG PCO2 35 mmHg (35-45); ABG PH 7.47 (7.35-7.45); ABG Potassium Whole Blood 4.3 mmol/L (3.4-4.5); ABG Sodium Whole Blood 137 mmol/L (135-146); ABG TCO2 27 mmol/L (19-24)
[2023-02-06 11:37] LABS: ABG Hematocrit 24 % (34.0-46.0); ABG PO2 >420 mmHg (83-108)
[2023-02-06 11:38] LABS: ABG Hematocrit 24 % (34.0-46.0); ABG PO2 >420 mmHg (83-108)
[2023-02-06 11:48] LABS: ABG Base Excess 1.6 mmol/L; ABG Glucose Whole Blood 143 mg/dL (75-99); ABG HCO3 26 mmol/L (21-25); ABG Ionized Calcium 4.4 mg/dL (4.5-5.3); ABG Lactic Acid Whole Blood 1.6 mmol/L (0.5-1.6); ABG PCO2 36 mmHg (35-45); ABG PH 7.46 (7.35-7.45); ABG Potassium Whole Blood 4.7 mmol/L (3.4-4.5); ABG Sodium Whole Blood 137 mmol/L (135-146); ABG TCO2 27 mmol/L (19-24)
[2023-02-06 12:18] LABS: ABG Base Excess 1.4 mmol/L; ABG Glucose Whole Blood 135 mg/dL (75-99); ABG HCO3 25 mmol/L (21-25); ABG Ionized Calcium 4.4 mg/dL (4.5-5.3); ABG Lactic Acid Whole Blood 1.3 mmol/L (0.5-1.6); ABG PCO2 34 mmHg (35-45); ABG PH 7.48 (7.35-7.45); ABG PO2 418 mmHg (83-108); ABG Sodium Whole Blood 139 mmol/L (135-146); ABG TCO2 26 mmol/L (19-24)
[2023-02-06 12:28] LABS: ABG Hematocrit 23 % (34.0-46.0); ABG PO2 >420 mmHg (83-108)
[2023-02-06 12:30] LABS: ABG Hematocrit 24 % (34.0-46.0)
[2023-02-06] MEDS ORDERED: NITROGLYCERIN-D5W PMX 50 MG in DEXTROSE/WATER 1 250ML.BAG IV SCH (13:36)
[2023-02-06] MEDS ORDERED: AMIODARONE 360 MG in DEXTROSE 5% IN WATER 200 ML IV PRN ×2 (13:36)
[2023-02-06] MEDS ORDERED: Potassium Replacement Protocol 1 EACH MISC MISCELLANE PRN (13:36)
[2023-02-06] MEDS ORDERED: Phosphorus Replacement Protoco 1 EACH MISC MISCELLANE PRN (13:36)
[2023-02-06] MEDS ORDERED: DEXTROSE 50% SYRINGE 50 ML IVP PRN ×2 (13:36)
[2023-02-06] MEDS ORDERED: AMIODARONE 450 MG in DEXTROSE 5% IN WATER 250 ML IV PRN ×2 (13:36)
[2023-02-06] MEDS ORDERED: ONDANSETRON 4 MG/2 ML VIAL IVP PRN (13:36)
[2023-02-06] MEDS ORDERED: CALCIUM GLUCONATE IN NACL 2 GM in SALINE 1 100ML.BAG IVPB PRN (13:36)
[2023-02-06] MEDS ORDERED: DEXMEDETOMIDINE/0.9% NACL(PMX) 400 MCG in EMPTY BAG 1 BAG IV SCH (13:36)
[2023-02-06] MEDS ORDERED: Magnesium Replacement Protocol 1 EACH MISC MISCELLANE PRN (13:36)
[2023-02-06] MEDS ORDERED: DEXTROSE 5% IN WATER 100 ML with AMIODARONE 150 MG IV PRN (13:36)
[2023-02-06] MEDS ORDERED: BENZOCAINE/MENTHOL LOZENG 1 EACH LOZENGE MUCOUS MEM PRN (13:36)
[2023-02-06] MEDS ORDERED: METOCLOPRAMIDE 5 MG/ML 2 ML VIAL IVP PRN (13:36)
[2023-02-06] MEDS ORDERED: IPRATROPIUM-ALBUTEROL 3 ML NEB INHALATION PRN (13:36)
[2023-02-06] MEDS ORDERED: DILTIAZEM 125 MG in SODIUM CHLORIDE 0.9% 100 ML IV SCH (14:15)
[2023-02-06] MEDS: LACTATED RINGERS 1,000 ML IV SCH (14:20)
[2023-02-06] MEDS ORDERED: INSULIN REGULAR 100 UNIT in SODIUM CHLORIDE 0.9% 100 ML IV SCH (14:30)
--- NOTE | 2023-02-06 14:37 | P.OP ---
Date of Procedure: 02/06/23 Preoperative Diagnosis: Coronary artery disease, mitral regurgitation, tricuspid regurgitation, history of severe heart failure with decreased ejection fraction. Postoperative Diagnosis: Coronary artery disease, mitral regurgitation, history of congestive heart failure with decreased left ventricular ejection fraction Procedure(s) Performed: Coronary artery bypass grafting 4 with sequential SHAFER to diagonal and LAD, left radial artery graft obtuse marginal coronary artery, saphenous vein graft to posterior descending coronary artery, mitral valve annuloplasty with a 26 mm physio-2 ring, ligation of left atrial appendage, endovascular vein harvest of the left greater saphenous vein, endovascular left radial artery harvest, DANNY by anesthesia Implants: 26 mm physio-2 ring Anesthesia: GETA Surgeon: Rodrigo Jeronimo Proof Plate Maker #1: Cosme Thomas Proof Plate Maker #2: Aleksey Acharya Estimated Blood Loss (ml): 500 IV fluids (ml): 2,500 Urine output (ml): 500 Pathology: none sent Condition: stable Disposition: ICU Indications for Procedure: 62-year-old male who initially presented with severe heart failure. Cardiac catheterization showed 2 vessel coronary artery disease. Echocardiography demonstrated severe biventricular failure with significant mitral and tricuspid regurgitation. Surgery was consulted but the patient was felt to be extremely high risk due to his severe biventricular failure. It was decided to give him a course of medical management and then see if his ventricular function would improve. Patient was managed medically and repeat echocardiography demonstrated normal right ventricular function with improved left ventricular ejection fraction of up to 35%. This time it was felt reasonable to consider the patient is a candidate for surgery and elective surgery was scheduled. This time the patient was essentially asymptomatic. Operative Findings: DANNY demonstrated diminished left ventricular ejection fraction of around 35% with inferior wall hypo-kinesis. There was 2-3+ central mitral regurgitation and essentially no tricuspid regurgitation under the loading conditions of general anesthesia in the operating room. Based on this it was decided to proceed with mitral repair and forego tricuspid valve repair. Coronary targets were good as noted below. Patient from cardiopulmonary bypass easily with minimal inotropic requirement an excellent cardiac output. Ventricular ejection fraction appeared improved although the inferior wall still remained somewhat hypokinetic. Description of Procedure: Patient was brought to the operating room and placed supine on the operating table. General anesthesia was induced. Preoperative monitoring lines of been placed in preop holding area including right radial arterial line and a right IJ central line with [place]-Malaika catheter access. Following induction of general anesthesia intubation, the patient was appropriately positioned and Cleaning catheter was placed. Anterior torso and bilateral lower extremities and left upper extremity were sterilely prepped and draped in standard fashion. Left radial artery was harvested with endovascular technique and prepared on the back table. The left greater saphenous vein was harvested from mid calf to groin and was of good quality. It was also prepared on the back table. A right femoral arterial line was placed. Midline sternotomy was performed left hemisternum retracted upwards. The left internal mammary artery was harvested on a vascularized pedicle, left intact on its origin from the subclavian and divided distally. Left pleural space was drained with 32-Cambodian chest tube. Completion of the radial artery harvest the arm was tucked at the side and standard sternal retractor was placed. Midline pericardiotomy was performed. Heart was exposed with pericardial sutures. Epi-aortic ultrasonography was performed in the ascending aorta was noted to be relatively free of atherosclerotic her calcific disease. Patient was systemically heparinized and cannulated for cardiopulmonary bypass. Antegrade and retrograde cardioplegia lines were placed in standard fashion. Patient was placed on cardiopulmonary bypass and stabilized. Aorta was crossclamped and the heart was arrested with a liter of cold crystalloid antegrade cardioplegia followed by retrograde cardioplegia. Inferior wall was exposed and the posterior descending coronary artery was dissected out fairly proximally. It was a relatively small best vessel. It was opened longitudi kayli and accepted a 1.5 mm probe. Saphenous vein was anastomosed in end-to-side fashion with running 7-0 Prolene suture. Please the anastomosis it was tested with cold blood cardioplegia and noted to be patent and to flow well. The vein was cut to appropriately to reach the ascending aorta. The lateral wall the heart was exposed. The obtuse marginal coronary artery was dissected out and opened fairly proximally. It was a large 2 mm plus vessel. Left radial artery was anastomosed in end-to-side fashion with running 7-0 Prolene suture. On completion anastomosis was probed and noted to be patent. Suture was tied with good result and hemostasis and the graft flushed with cold blood cardioplegia and very easily. Next a sequential mammary to diagonal and SHAFER was planned and weight out. Was tunneled into the pericardium through from the pleural space. Coya-bs-bumn anastomosis was first performed from the SHAFER to the diagonal. The diagonal was a 1.5 mm vessel of good quality. The anastomosis was constructed with running 7-0 Prolene suture. On completion anastomosis it was probed and noted to be patent, suture was tied with good result and hemostasis and attention was directed to the distal distal anastomosis of the end of the SHAFER to the side of the LAD was next performed. The LAD was a 2.5 mm vessel. Was opened in the midportion of the LAD and anastomosis performed with running 7-0 Prolene suture. On completion anastomosis it was probed with a 2 mm probe and noted to be patent. Suture was tied the inflow was opened briefly and good hemostasis was noted. The TAMMY pedicle was tacked surrounding epicardium at both anastomoses with 6-0 silk sutures. Next the interatrial groove was developed with electrocautery. The left atrium was opened and the mitral valve exposed with the Stephanie retractor. Base of the left atrial appendage was oversewn with a 2 layer running closure of 3-0 Prolene suture. As we were doing this another 500 mL of retrograde cardioplegia was given. Mitral valve was tested and noted to have central leak. There was no obvious structural abnormality of the leaflets and subvalvular apparatus. Circumferential valve sutures of 2-0 Tycron were placed. Anterior leaflet was sized and a 26 mm physio-2 ring was brought up onto the field. Valve sutures were placed through the ring the ring was seated and the sutures tied and cut. The valve was then tested and noted to be appropriately functional with no evidence of leak. CO2 had been infused into the chest during the open-heart portion of the procedure. Left atrium was closed with running 3- 0 Prolene suture in a single layer. 24 mm punch holes were created in the ascending aorta and the proximal anastomosis constructed with running 6-0 Prolene suture. Completion of proximal anastomoses, patient was placed in steep Trendelenburg and the cross-clamp was removed. Contrast was de-aired with needle holes and the inflow open. The inflow of the SHAFER was also opened. Hem ostasis was checked and all surgical sites and noted to be good. Retrograde cardioplegia line was removed and atrial and ventricular pacing wires were placed and the patient was paced. Heart was reperfused eventually returned to slow sinus rhythm. It was first degree AV block with good AV conduction. After assuring good hemostasis and appropriate de-airing of the heart to the apex of the ventricle and through the aortic vent line, patient was weaned from cardiopulmonary bypass. Half loading dose of Primacor was given and some low- dose epinephrine was used. Patient easily from bypass and his ventricular function appeared improved from preop I DANNY. Cardiac indices started around 2 but improved to well over 3 over the course of time. Patient remained hemodynamically stable throughout. Heparin was reversed with protamine and the stasis was obtained. The patient was decannulated in standard fashion. With good hemostasis and and stable hemodynamics have been verified throughout mediastinum was drained with a 36-Cambodian chest tube, irrigated with antibiotic solution and the sternum was closed with 8 sternal wires. The fascia was closed with 0 Ethibond. Subcutaneous and subcuticular layers in the leg and chest and arm were closed with layers of Vicryl suture. Dry sterile dressings were applied. Patient was transferred to CV ICU in stable hemodynamic condition. He was on low-dose epinephrine and nitroglycerin and had received no blood transfusions.
[2023-02-06 14:41] LABS: Glucose,Whole Blood 141 mg/dL (70-110)
[2023-02-06 14:59] LABS: INR 1.1 (<1.2); Partial Thromboplastin Time 27.7 sec (22.0-30.0); Prothrombin Time 12.2 sec (10.0-12.5)
[2023-02-06 15:01] LABS: Ionized Calcium 4.7 mg/dL (4.5-5.3)
[2023-02-06 15:02] LABS: Basophils % (A) 0 %; Eosinophils # (A) 0.1 k/uL (0-0.7); Eosinophils % (A) 1 %; HCT 29.6 % (39.0-53.0); HGB 10.2 gm/dL (13.0-17.5); Lymphocytes # (A) 0.9 k/uL (1.0-4.8); Lymphocytes % (A) 11 %; MCH 31.4 pg (25.0-35.0); MCHC 34.3 g/dL (31.0-37.0); MCV 91.8 fL (80.0-100.0); Mean Platelet Volume 10.4; Monocytes # (A) 0.7 k/uL (0-1.0); Monocytes % (A) 8 %; Neutrophils # (A) 6.4 k/uL (1.3-7.7); Neutrophils % (A) 79 %; RBC 3.23 m/uL (4.30-5.90); RDW 13.3 % (11.5-15.5); WBC 8.1 k/uL (3.8-10.6)
[2023-02-06 15:04] LABS: ABG Base Excess -0.6 mmol/L; ABG HCO3 25 mmol/L (21-25); ABG Oxygen Saturation >100.0 % (94-97); ABG PCO2 46 mmHg (35-45); ABG PH 7.35 (7.35-7.45); ABG PO2 365 mmHg (83-108); Allen Test Performed? Yes
--- NOTE | 2023-02-06 15:21 | XR ---
EXAMINATION TYPE: XR chest 1V portable DATE OF EXAM: 02/06/2023 HISTORY: Post Op CABG COMPARISON: 01/28/2023 TECHNIQUE: Single view of the chest is submitted. FINDINGS: Endotracheal tube, NG tube, SG catheter, mediastinal drains and chest tubes are appropriately placed. Post operative changes of CABG. Cardiac valvular prosthesis. No sizeable pneumothorax. Scattered Pleural-parenchymal opacities may reflect atelectasis. The heart is not enlarged. IMPRESSION: 1. Post operative changes of CABG.
[2023-02-06 15:25] LABS: ALT 83 U/L (4-49); African American GFR (CKD) >90 (>60 ml/min/1.73 sqM); Anion Gap 6 mmol/L; Blood Urea Nitrogen 22 mg/dL (9-20); Calcium 7.9 mg/dL (8.4-10.2); Carbon Dioxide 23 mmol/L (22-30); Chloride 108 mmol/L (98-107); Glucose 123 mg/dL (74-99); Non-African American GFR(CKD) >90 (>60 ml/min/1.73 sqM); Sodium 137 mmol/L (137-145); Total Bilirubin 1.1 mg/dL (0.2-1.3); Total Protein 4.9 g/dL (6.3-8.2)
[2023-02-06 15:35] LABS: AST 174 U/L (17-59); Alkaline Phosphatase 91 U/L (38-126); Magnesium 3.8 mg/dL (1.6-2.3); Potassium 4.5 mmol/L (3.5-5.1)
[2023-02-06 15:52] LABS: Glucose,Whole Blood 124 mg/dL (70-110)
[2023-02-06] MEDS: CLEVIDIPINE BUTYRATE 25 MG in EMPTY BAG 1 BAG IV SCH (15:52)
[2023-02-06] MEDS ORDERED: IPRATROPIUM-ALBUTEROL 3 ML NEB INHALATION SCH (16:00)
[2023-02-06 16:02] LABS: Platelet Count 76 k/uL (150-450)
[2023-02-06] MEDS: HEPARIN SODIUM,PORCINE 5,000 UNIT/ML 1 ML VIAL SQ SCH (16:53)
[2023-02-06 17:00] LABS: Glucose,Whole Blood 125 mg/dL (70-110)
--- NOTE | 2023-02-06 17:14 | P.CNPUL ---
History of Present Illness Consult date: 02/06/23 Chief complaint: Thoracotomy and bypass surgery and mitral valve repair History of present illness: 59-year-old male patient who underwent a four-vessel coronary artery bypass surgery and mitral valve repair. The patient has a significant history of chronic systolic heart failure, hypertension, hyperlipidemia, asthma, and is a chronic ex-smoker and he quit smoking approximately 3 years ago. The patient was having issues with shortness of breath then he has had previous hospitalizations. Cardiology ventilator the patient. Transthoracic echocardiogram showed a ejection fraction of 15-20% and the patient had a reduced global LV function with moderately reduced RV global systolic function, moderate to severe mitral regurgitation, a thickened aortic valve without stenosis, mild tricuspid regurgitation, no pericardial effusion and normal aortic root. The patient also underwent a DANNY and it showed impairment of LV function with an ejection fraction of 20-25% and global hypokinesis. The patient had dilated RV as well. The patient underwent a cardiac catheterization that showed critical triple-vessel disease with occluded RCA proximal portion and filling by collaterals from the left coronary system along with circumflex giving rise to OM1 with a critical lesion in the proximal vessel and LAD had a proximal long tubular lesion that was in the range of 99%. Based on that, surgery was decided. The patient underwent a four-vessel bypass surgery with SHAFER to LAD and diagonal, left radial graft to obtuse marginal, saphenous vein graft to PDA and the patient also underwent a mitral valve repair. I saw the patient needs after he got today intensive care unit. The patient was sedated on propofol which is running at 30 microvascular kilogram per minute. The patient was on assist-control mode of mechanical ventilation at the rate of 14, tidal volume of 500, FiO2 of 50% with a PEEP of 5. The patient had a blood gas that showed a pH of 7.35 with episodes of 47 and pO2 of 365 and this was done on FiO2 of 100%. Chest x-ray showed some atelectatic change in her left lung. The patient had a adequate positioning of the orotracheal tube. [place]- Malaika catheter had to be pushed him. The patient has a mediastinal and left pleural chest tube. No evidence of any air leak and the output from the mediastinal chest tube is minimal, from the left pleural chest tube is in order of 200 mL. The patient is currently on Cardizem drip at 5 mg an hour, nitroglycerin drip at 5 microvascular minute and the patient is also on clev iprex Drip at 1 mg/h. The patient had a cardiac output of 4 with an index of 2.2. The patient has a pulmonary artery pressures of 40/20. The patient is producing adequate amount of urine output. The patient is afebrile. No blood product has been given. The underlying cardiac rhythm is sinus bradycardia and the patient is currently paced at the rate of 80. Review of Systems ROS unobtainable: due to endotracheal tube Past Medical History Past Medical History: Heart Failure, Hyperlipidemia, Hypertension Additional Past Medical History / Comment(s): Mitral valve regurgitation, multivessel coronary artery disease, systolic heart failure with impaired ejection fraction was up to 35% History of Any Multi-Drug Resistant Organisms: None Reported Past Surgical History: Appendectomy, Cholecystectomy Additional Past Surgical History / Comment(s): left arm, Past Anesthesia/Blood Transfusion Reactions: No Reported Reaction Past Psychological History: No Psychological Hx Reported Smoking Status: Former smoker Past Alcohol Use History: None Reported Past Drug Use History: None Reported - Past Family History Father Family Medical History: No Reported History Additional Family Medical History / Comment(s): States his dad from old age in his 80s. Mother Family Medical History: No Reported History Additional Family Medical History / Comment(s): States his mother at age 101 from old age. Medications and Allergies Home Medications Medication Instructions Recorded Confirmed Type Famotidine [Pepcid] 20 mg PO QAM 07/04/22 01/29/23 History PARoxetine HCL [Paxil] 40 mg PO QAM 07/04/22 01/29/23 History Ezetimibe [Zetia] 10 mg PO QAM 09/03/22 01/29/23 History Aspirin 81 mg PO QAM 01/29/23 01/29/23 History Atorvastatin [Lipitor] 80 mg PO QAM 01/29/23 01/29/23 History Furosemide [Lasix] 40 mg PO QAM 01/29/23 01/29/23 History Mupirocin 2% Oint [Bactroban 2% 1 applic NASAL BID 01/29/23 01/29/23 History Oint] Spironolactone [Aldactone] 25 mg PO QAM 01/29/23 01/29/23 History carvediloL [Coreg] 6.25 mg PO BID 01/29/23 01/29/23 History lisinopriL [Zestril] 2.5 mg PO QAM 01/29/23 01/29/23 History Allergies Allergy/AdvReac Type Severity Reaction Status Date / Time No Known Allergies Allergy Verified 02/06/23 05:51 Physical Exam Vitals: Vital Signs Temp Pulse Pulse Resp BP BP Pulse Ox 02/06/23 17:00 96.8 F L 79 14 100 02/06/23 16:45 79 18 100 02/06/23 16:30 79 14 100 02/06/23 16:15 79 14 100 02/06/23 16:00 97.2 F L 79 14 100 02/06/23 15:45 79 14 100 02/06/23 15:30 75 14 100 02/06/23 15:15 69 14 100 02/06/23 15:11 02/06/23 15:00 66 14 100 02/06/23 14:45 96.1 F L 63 14 100 02/06/23 14:31 81 15 02/06/23 14:30 02/06/23 13:38 02/06/23 06:10 97.9 F 61 16 139/72 128/71 100 FiO2 02/06/23 17:00 50 02/06/23 16:45 02/06/23 16:30 02/06/23 16:15 02/06/23 16:00 50 02/06/23 15:45 02/06/23 15:30 02/06/23 15:15 02/06/23 15:11 50 02/06/23 15:00 100 02/06/23 14:45 100 02/06/23 14:31 02/06/23 14:30 100 02/06/23 13:38 100 02/06/23 06:10 Intake and Output 02/06/23 02/06/23 02/06/23 06:59 14:59 22:59 Intake Total 100 149.5 210.527 Output Total 1215 1100 Balance 100 -1065.5 -889.473 Intake: IV 100 149.5 187.5 Diltiazem 125 mg In 5 15 Sodium Chloride 0.9% 100 ml @ 5 MG/HR 5 mls/hr IV .Q24H [facility] Rx#:[id number] Lactated Ringers 1,000 ml 50 150 @ 50 mls/hr IV .Q20H [facility] Rx#:[id number] Nitroglycerin-D5w Pmx 50 1.5 4.5 mg In Dextrose/Water 1 250ml.bag @ Per Protocol IV ONCE ONE Rx#:[id number] Pressure bag/CO (0.9 39 18 sodium Chloride) Intake, IV Titration 23.027 Amount propofoL 1,000 mg In 23.027 Empty Bag 1 bag @ Titrate IV .Q0M [facility] Rx#: [id number] Output: Chest Tube Drainage 115 225 Chest Tube Left Lateral 5 45 Chest Chest Tube Mediastinal 110 180 Urine 600 875 Estimated Blood Loss 500 Other: Voiding Method Indwelling Catheter Weight 73.1 kg ABP, PAP, CO, CI - Last 8 Hours Arterial Blood Pressure 124/64 Arterial Blood Pressure 140/72 Arterial Blood Pressure 116/59 Arterial Blood Pressure 114/60 Arterial Blood Pressure 116/60 Arterial Blood Pressure 128/67 Arterial Blood Pressure 126/70 Arterial Blood Pressure 147/75 Arterial Blood Pressure 133/72 Arterial Blood Pressure 117/64 Pulmonary Artery Pressure 40/4 Pulmonary Artery Pressure 43/5 Pulmonary Artery Pressure 38/21 Pulmonary Artery Pressure 37/20 Pulmonary Artery Pressure 35/18 Pulmonary Artery Pressure 38/21 Pulmonary Artery Pressure 41/23 Pulmonary Artery Pressure 41/19 Pulmonary Artery Pressure 41/23 Pulmonary Artery Pressure 35/19 Cardiac Output 4.3 Cardiac Output 4 Cardiac Index 2.3 Cardiac Index 2.2 Patient is currently intubated on mechanical ventilator. Orogastric and orotracheal tube are both in place. Head exam was generally normal. There was no scleral icterus or corneal arcus. Mucous membranes were moist. Neck was supple and without jugular venous distension, thyromegaly, or carotid bruits. Carotids were easily palpable bilaterally. There was no adenopathy. The patient has a right IJ Cordis and a [place]-Malaika catheter is also in place. Lungs were clear to auscultation and percussion, and with normal diaphragmatic excursion. No wheezes or rales were noted. Heart sounds are within normal limits. Positive S1 and S2 and the patient's heart Rhythm. Sternum is stable clean and intact. The patient has a med iastinal and left lower chest tube. No evidence of any air leak. Abdominal exam revealed normal bowel sounds. The abdomen was soft, non-tender, and without masses, organomegaly, or appreciable enlargement of the abdominal aorta. Examination of the extremities revealed easily palpable radial, femoral and pedal pulses. There was no cyanosis, clubbing or edema. Examination of the skin revealed no evidence of significant rashes, suspicious appearing nevi or other concerning lesions. Neurologically, the patient is sedated at this point in time Results - Laboratory Findings CBC and BMP: 02/06/23 14:39 02/06/23 14:39 ABG ABG pH 7.35 (7.35-7.45) 02/06/23 14:59 ABG pCO2 46 mmHg (35-45) H 02/06/23 14:59 ABG pO2 365 mmHg (83-108) H 02/06/23 14:59 ABG O2 Saturation >100.0 % (94-97) H 02/06/23 14:59 PT/INR, D-dimer PT 12.2 sec (10.0-12.5) 02/06/23 14:39 INR 1.1 (<1.2) 02/06/23 14:39 Abnormal lab findings: Abnormal Labs 01/28/23 02/06/23 02/06/23 10:04 08:42 08:54 RBC Hgb Hct Plt Count Lymphocytes # ABG pH ABG pCO2 48 H ABG pO2 377 H ABG HCO3 27 H ABG Total CO2 29 H ABG O2 Saturation 100.0 H ABG Hematocrit ABG Potassium ABG Ionized Calcium ABG Glucose 52 L ABG Lactic Acid Hemoglobin 12.8 L Chloride BUN Glucose POC Glucose (mg/dL) 47 L Calcium Magnesium AST ALT Total Protein Albumin Arterial Blood Potassium Arterial Blood Glucose 52 L Crossmatch See Detail 02/06/23 02/06/23 02/06/23 09:21 10:13 10:47 RBC Hgb Hct Plt Count Lymphocytes # ABG pH ABG pCO2 46 H ABG pO2 128 H >420 H ABG HCO3 27 H 26 H ABG Total CO2 28 H 27 H ABG O2 Saturation 99.4 H 100.0 H ABG Hematocrit 24 L ABG Potassium 4.7 H ABG Ionized Calcium 4.1 L ABG Glucose 70 L 73 L ABG Lactic Acid Hemoglobin 11.2 L 7.7 L Chloride BUN Glucose POC Glucose (mg/dL) 64 L Calcium Magnesium AST ALT Total Protein Albumin Arterial Blood Potassium 4.7 H Arterial Blood Glucose 70 L 73 L Crossmatch 02/06/23 02/06/23 02/06/23 11:11 11:48 12:17 RBC Hgb Hct Plt Count Lymphocytes # ABG pH 7.47 H 7.46 H 7.48 H ABG pCO2 34 L ABG pO2 >420 H >420 H 418 H ABG HCO3 26 H 26 H ABG Total CO2 27 H 27 H 26 H ABG O2 Saturation 100.0 H 100.0 H 100.0 H ABG Hematocrit 24 L 23 L 24 L ABG Potassium 4.7 H ABG Ionized Calcium 4.3 L 4.4 L 4.4 L ABG Glucose 100 H 143 H 135 H ABG Lactic Acid 1.9 H Hemoglobin 7.7 L 7.6 L 7.8 L Chloride BUN Glucose POC Glucose (mg/dL) Calcium Magnesium AST ALT Total Protein Albumin Arterial Blood Potassium 4.7 H Arterial Blood Glucose 100 H 143 H 135 H Crossmatch 02/06/23 02/06/23 02/06/23 14:39 14:39 14:39 RBC 3.23 L Hgb 10.2 L Hct 29.6 L Plt Count 76 L Lymphocytes # 0.9 L ABG pH ABG pCO2 ABG pO2 ABG HCO3 ABG Total CO2 ABG O2 Saturation ABG Hematocrit ABG Potassium ABG Ionized Calcium ABG Glucose ABG Lactic Acid Hemoglobin Chloride 108 H BUN 22 H Glucose 123 H POC Glucose (mg/dL) 141 H Calcium 7.9 L Magnesium 3.8 H AST 174 H ALT 83 H Total Protein 4.9 L Albumin 3.0 L Arterial Blood Potassium Arterial Blood Glucose Crossmatch 02/06/23 02/06/23 02/06/23 14:59 15:50 16:58 RBC Hgb Hct Plt Count Lymphocytes # ABG pH ABG pCO2 46 H ABG pO2 365 H ABG HCO3 ABG Total CO2 ABG O2 Saturation >100.0 H ABG Hematocrit ABG Potassium ABG Ionized Calcium ABG Glucose ABG Lactic Acid Hemoglobin Chloride BUN Glucose POC Glucose (mg/dL) 124 H 125 H Calcium Magnesium AST ALT Total Protein Albumin Arterial Blood Potassium Arterial Blood Glucose Crossmatch - Diagnostic Findings Chest x-ray: image reviewed Assessment and Plan Plan: Coronary artery disease and mitral valve regurgitation along with systolic heart failure with decreased ejection fraction. The patient is post 4 vessel bypass surgery and mitral valve repair. The patient is currently postop day #0 the patient is currently on a combination of Cardizem drip and nitroglycerin drip. The patient is also on Cleviprex drip for blood pressure control. The patient is hemodynamically stable at this point in time with adequate cardiac output and index and adequate urine output. Postthoracotomy, currently intubated on a mechanical ventilator. Chest tubes are in place. The patient remains intubated on a mechanical ventilator. Chest x-ray showing atelectatic changes in the left lung base. Adequate blood gases. Sinus bradycardia, currently paced at the rate of 80 Chronic systolic heart failure with impaired ejection fraction of 35% Hypertension, currently on Cleviprex drip for blood pressure control Hyperlipidemia History of migraines History of bronchial asthma History of smoking quit approximately 3 years ago Plan Continue ventilator support Wean down FiO2 to maintain saturation above 90% Monitor the blood gases Monitor the output from the chest tube Continue the drips including Cardizem and nitroglycerin Hemodynamically stable. Likely will get extubated over the next few hours We'll check blood work Keep the patient paced at the rate of 80 this point in time We'll collaborate with the surgical team regarding postoperative care
[2023-02-06 17:24] LABS: Basophils % (A) 0 %; Eosinophils # (A) 0.1 k/uL (0-0.7); Eosinophils % (A) 1 %; HGB 10.9 gm/dL (13.0-17.5); Lymphocytes # (A) 0.7 k/uL (1.0-4.8); Lymphocytes % (A) 8 %; MCH 31.7 pg (25.0-35.0); MCHC 34.1 g/dL (31.0-37.0); MCV 92.9 fL (80.0-100.0); Mean Platelet Volume 9.8; Monocytes # (A) 0.7 k/uL (0-1.0); Monocytes % (A) 9 %; Neutrophils # (A) 6.8 k/uL (1.3-7.7); Neutrophils % (A) 81 %; RBC 3.44 m/uL (4.30-5.90); RDW 13.1 % (11.5-15.5); WBC 8.4 k/uL (3.8-10.6)
[2023-02-06 17:34] LABS: Platelet Count 87 k/uL (150-450)
[2023-02-06] MEDS: ACETAMINOPHEN IV (For NPO) 1,000 MG in EMPTY BAG 1 BAG IVPB SCH ×2 (17:36→23:31)
[2023-02-06 17:58] LABS: Glucose,Whole Blood 128 mg/dL (70-110)
[2023-02-06 18:58] LABS: ABG Base Excess 1.7 mmol/L; ABG HCO3 27 mmol/L (21-25); ABG Oxygen Saturation 99.9 % (94-97); ABG PCO2 49 mmHg (35-45); ABG PH 7.35 (7.35-7.45); ABG PO2 182 mmHg (83-108); ABG TCO2 29 mmol/L (19-24)
[2023-02-06 18:59] LABS: Allen Test Performed? no
--- NOTE | 2023-02-06 19:01 | P.ANPRN ---
Procedure Note - Anesthesia - Invasive Line Right Dolores Malaika Time Out Performed: Yes Date of Procedure: 02/06/23 Time of Procedure: 07:42 Location of Patient: PreOp Preparation: Sterile Prep, Sterile Dressing Central Line Location: Internal Jugular Ultrasound Used: No Purpose - Visualization and Identification of Vasculature: No Image Stored and Saved: No Narrative: Central line placement per sterile protocol utilized.
--- NOTE | 2023-02-06 19:01 | P.ANPRN ---
Procedure Note - Anesthesia - Invasive Line Right Central Line Time Out Performed: Yes Date of Procedure: 02/06/23 Time of Procedure: 07:37 Location of Patient: PreOp Preparation: Sterile Prep, Sterile Dressing Central Line Location: Internal Jugular Ultrasound Used: No Purpose - Visualization and Identification of Vasculature: No Narrative: Central line placement per sterile protocol utilized.
[2023-02-06 19:07] LABS: Glucose,Whole Blood 123 mg/dL (70-110)
[2023-02-06] MEDS: IPRATROPIUM-ALBUTEROL 3 ML NEB INHALATION SCH (19:25)
[2023-02-06] MEDS ORDERED: MUPIROCIN 2% OINT 22 GM TUBE NASAL ONE (19:45)
[2023-02-06 19:55] LABS: ABG Base Excess 0.6 mmol/L; ABG HCO3 27 mmol/L (21-25); ABG Oxygen Saturation 96.9 % (94-97); ABG PCO2 53 mmHg (35-45); ABG PH 7.31 (7.35-7.45); ABG PO2 91 mmHg (83-108); ABG TCO2 29 mmol/L (19-24); Allen Test Performed? Yes
[2023-02-06 19:57] LABS: Glucose,Whole Blood 127 mg/dL (70-110)
[2023-02-06 20:15] LABS: Basophils % (A) 0 %; Eosinophils # (A) 0.1 k/uL (0-0.7); Eosinophils % (A) 1 %; HCT 30.6 % (39.0-53.0); HGB 10.2 gm/dL (13.0-17.5); Lymphocytes # (A) 0.6 k/uL (1.0-4.8); Lymphocytes % (A) 7 %; MCH 31.1 pg (25.0-35.0); MCHC 33.3 g/dL (31.0-37.0); MCV 93.4 fL (80.0-100.0); Mean Platelet Volume 10.1; Monocytes # (A) 0.6 k/uL (0-1.0); Monocytes % (A) 7 %; Neutrophils % (A) 84 %; Platelet Count 100 k/uL (150-450); RBC 3.28 m/uL (4.30-5.90); RDW 13.1 % (11.5-15.5); WBC 8.3 k/uL (3.8-10.6)
[2023-02-06] MEDS: ALBUMIN HUMAN 5% 250 ML in EMPTY BAG 1 BAG IVPB PRN ×2 (20:22→20:55)
[2023-02-06 21:01] LABS: Glucose,Whole Blood 132 mg/dL (70-110)
[2023-02-06 21:01] LABS: ABG Base Excess 0.2 mmol/L; ABG HCO3 26 mmol/L (21-25); ABG Oxygen Saturation 96.6 % (94-97); ABG PCO2 47 mmHg (35-45); ABG PH 7.35 (7.35-7.45); ABG PO2 81 mmHg (83-108); ABG TCO2 27 mmol/L (19-24); Allen Test Performed? Yes
[2023-02-06 22:12] LABS: Glucose,Whole Blood 132 mg/dL (70-110)
[2023-02-06 23:05] LABS: Glucose,Whole Blood 132 mg/dL (70-110)
[2023-02-07] MEDS: HEPARIN SODIUM,PORCINE 5,000 UNIT/ML 1 ML VIAL SQ SCH ×4 (00:03→23:55)
[2023-02-07 00:56] LABS: Glucose,Whole Blood 126 mg/dL (70-110)
[2023-02-07 02:05] LABS: ABG HCO3 26 mmol/L (21-25); ABG Oxygen Saturation 99.2 % (94-97); ABG PCO2 46 mmHg (35-45); ABG PH 7.37 (7.35-7.45); ABG PO2 148 mmHg (83-108); ABG TCO2 28 mmol/L (19-24); Allen Test Performed? Yes
[2023-02-07 02:07] LABS: Glucose,Whole Blood 124 mg/dL (70-110)
[2023-02-07 04:09] LABS: Glucose,Whole Blood 124 mg/dL (70-110)
[2023-02-07 04:58] LABS: Glucose,Whole Blood 123 mg/dL (70-110)
[2023-02-07] MEDS: HYDROcodone/APAP 5-325MG 1 EACH TAB PO PRN ×5 (05:05→23:55)
[2023-02-07 05:28] LABS: Basophils % (A) 0 %; Eosinophils % (A) 0 %; HCT 26.7 % (39.0-53.0); HGB 9.1 gm/dL (13.0-17.5); Lymphocytes # (A) 0.6 k/uL (1.0-4.8); Lymphocytes % (A) 9 %; MCH 31.8 pg (25.0-35.0); MCV 93.5 fL (80.0-100.0); Mean Platelet Volume 9.7; Monocytes # (A) 0.6 k/uL (0-1.0); Monocytes % (A) 9 %; Neutrophils # (A) 5.8 k/uL (1.3-7.7); Neutrophils % (A) 80 %; RBC 2.86 m/uL (4.30-5.90); RDW 13.1 % (11.5-15.5); WBC 7.2 k/uL (3.8-10.6)
[2023-02-07 05:34] LABS: Ionized Calcium 4.5 mg/dL (4.5-5.3)
[2023-02-07 05:35] LABS: Platelet Count 88 k/uL (150-450)
[2023-02-07 05:43] LABS: ALT 58 U/L (4-49); AST 106 U/L (17-59); African American GFR (CKD) >90 (>60 ml/min/1.73 sqM); Albumin 3.2 g/dL (3.5-5.0); Alkaline Phosphatase 69 U/L (38-126); Anion Gap 6 mmol/L; Blood Urea Nitrogen 23 mg/dL (9-20); Calcium 7.8 mg/dL (8.4-10.2); Carbon Dioxide 25 mmol/L (22-30); Chloride 106 mmol/L (98-107); Glucose 103 mg/dL (74-99); Magnesium 2.6 mg/dL (1.6-2.3); Non-African American GFR(CKD) >90 (>60 ml/min/1.73 sqM); Potassium 4.3 mmol/L (3.5-5.1); Sodium 137 mmol/L (137-145); Total Bilirubin 0.9 mg/dL (0.2-1.3)
[2023-02-07 06:03] LABS: Glucose,Whole Blood 135 mg/dL (70-110)
[2023-02-07 06:59] LABS: Glucose,Whole Blood 137 mg/dL (70-110)
[2023-02-07 08:11] LABS: Glucose,Whole Blood 146 mg/dL (70-110)
--- NOTE | 2023-02-07 08:20 | XR ---
EXAMINATION TYPE: XR chest 1V portable DATE OF EXAM: 02/07/2023 Comparison: 02/06/2023 Clinical History: 62-year-old male Post Operative Cardiac Surgery Findings: [place]-Malaika catheter tip at the main pulmonary outflow tract. Mediastinal drain is noted as well as lef t-sided chest tube. No appreciable pneumothorax. Median sternotomy wires with annuloplasty ring. Hear t upper limits of normal in size. Interstitial density persists. Patchy retrocardiac opacity slightly increased. Impression: Postoperative changes. There may be mild pulmonary vascular congestion. Patchy retrocardiac atelectas is slightly increased.
[2023-02-07] MEDS ORDERED: MAGNESIUM HYDROXIDE 2,400 MG/30 ML CUP PO PRN (09:00)
[2023-02-07] MEDS ORDERED: bisacodyL 10 MG SUPP RECTAL PRN (09:00)
[2023-02-07] MEDS: EZETIMIBE 10 MG TAB PO SCH (09:01)
[2023-02-07] MEDS: PARoxetine 20 MG TAB PO SCH (09:01)
[2023-02-07] MEDS: ASPIRIN 325 MG TAB PO SCH (09:01)
[2023-02-07] MEDS: METOPROLOL TARTRATE 12.5 MG TAB PO SCH ×2 (09:01→20:02)
[2023-02-07] MEDS: CLOPIDOGREL 75 MG TAB PO SCH (09:01)
[2023-02-07] MEDS: PANTOPRAZOLE 40 MG/10 ML VIAL IVP SCH (09:01)
[2023-02-07] MEDS: ATORVASTATIN 40 MG TAB PO SCH (09:01)
[2023-02-07] MEDS: KETOROLAC 15 MG/ML 1 ML VIAL IVP SCH ×4 (09:19→23:54)
[2023-02-07] MEDS: LACTATED RINGERS 1,000 ML IV SCH (09:29)
[2023-02-07 09:34] LABS: Glucose,Whole Blood 177 mg/dL (70-110)
[2023-02-07] MEDS: IPRATROPIUM-ALBUTEROL 3 ML NEB INHALATION SCH ×4 (09:35→21:36)
[2023-02-07 10:14] LABS: Glucose,Whole Blood 187 mg/dL (70-110)
--- NOTE | 2023-02-07 10:22 | P.PN ---
Subjective Progress Note Date: 02/07/23 59-year-old male patient who underwent a four-vessel coronary artery bypass surgery and mitral valve repair. The patient has a significant history of chronic systolic heart failure, hypertension, hyperlipidemia, asthma, and is a chronic ex-smoker and he quit smoking approximately 3 years ago. The patient was having issues with shortness of breath then he has had previous hospitalizations. Cardiology ventilator the patient. Transthoracic echocardiogram showed a ejection fraction of 15-20% and the patient had a reduced global LV function with moderately reduced RV global systolic function, moderate to severe mitral regurgitation, a thickened aortic valve without stenosis, mild tricuspid regurgitation, no pericardial effusion and normal aortic root. The patient also underwent a DANNY and it showed impairment of LV function with an ejection fraction of 20-25% and global hypokinesis. The patie nt had dilated RV as well. The patient underwent a cardiac catheterization that showed critical triple-vessel disease with occluded RCA proximal portion and filling by collaterals from the left coronary system along with circumflex giving rise to OM1 with a critical lesion in the proximal vessel and LAD had a proximal long tubular lesion that was in the range of 99%. Based on that, surgery was decided. The patient underwent a four-vessel bypass surgery with SHAFER to LAD and diagonal, left radial graft to obtuse marginal, saphenous vein graft to PDA and the patient also underwent a mitral valve repair. I saw the patient needs after he got today intensive care unit. The patient was sedated on propofol which is running at 30 microvascular kilogram per minute. The patient was on assist-control mode of mechanical ventilation at the rate of 14, tidal volume of 500, FiO2 of 50% with a PEEP of 5. The patient had a blood gas that showed a pH of 7.35 with episodes of 47 and pO2 of 365 and this was done on FiO2 of 100%. Chest x-ray showed some atelectatic change in her left lung. The patient had a adequate positioning of the orotracheal tube. [place] catheter had to be pushed him. The patient has a mediastinal and left pleural chest tube. No evidence of any air leak and the output from the mediastinal chest tube is minimal, from the left pleural chest tube is in order of 200 mL. The patient is currently on Cardizem drip at 5 mg an hour, nitroglycerin drip at 5 microvascular minute and the patient is also on cleviprex Drip at 1 mg/h. The patient had a cardiac output of 4 with an index of 2.2. The patient has a pulmonary artery pressures of 40/20. The patient is producing adequate amount of urine output. The patient is afebrile. No blood product has been given. The underlying cardiac rhythm is sinus bradycardia and the patient is currently paced at the rate of 80. On today's evaluation of 02/07/2023, the patient is being seen for a follow-up. The patient was weaned off the mechanical ventilator and he was extubated. Post extubation, the patient was felt to be lethargic with diminished level of consciousness. He was taken off the sedation. He was placed on a BiPAP at a pressure of 10/5 cm of water. He was kept on a BiPAP throughout the night and earlier this morning while on the BiPAP with an FiO2 of 40%, his speech was at 7.37 with a pCO2 of 46 and pO2 of 148. He was taken off the BiPAP and he was switched to oxygen by nasal cannula 2 L. His chest x-ray from today showing some atelectatic changes in the left lung base. No evidence of any pneumothorax. The [place] catheter obviously is not a good location. This will be removed. There is a mediastinal left pleural chest tube. Some atelectatic changes in the left lung base. The patient otherwise is awake and alert. He is following commands and answering questions. He is aware of time and place. His cardiac output is at 4.9 with an index of 2.7. PA pressures are 33/12. His cardiac rhythm is improved and the patient is currently has an intrinsic normal sinus rhythm. He is on no pressors for now. He is off the nitroglycerin drip. He is off the Cardizem drip. As for the Cleviprex, this was also discontinued. His chest tubes are in good location. No evidence of a [place] air leak. Output from the chest tube is minimal. The lab shows a sodium level CXXXVII, BUN is at 23 with a creatinine of 0.87. The meniscal 7.2, hemoglobin is 9.1 and a platelet count of 88. He is currently on aspirin. Is also on Plavix. Metoprolol was also started at a dose of 12.5 mg by mouth twice a day. He is on insulin drip which is running at 3 units an hour. Objective - Vital Signs Vital signs: Vital Signs Temp 99.9 F H 02/07/23 08:30 Pulse 74 02/07/23 10:00 Resp 14 02/07/23 10:00 BP 104/56 02/07/23 10:00 Pulse Ox 94 L 02/07/23 10:00 FiO2 40 02/07/23 09:36 Intake & Output 02/06/23 02/07/23 02/07/23 18:59 06:59 18:59 Intake Total 446.259 850.301 686.808 Output Total 2635 1030 243 Balance -2188.741 -179.699 443.808 Weight 74.3 kg Intake: IV 422.5 814.5 426 CO/CI 100 Diltiazem 125 mg In 25 5 Sodium Chloride 0.9% 100 ml @ 5 MG/HR 5 mls/hr IV .Q24H [facility] Rx#:[id number] Lactated Ringers 1,000 ml 250 600 190 @ 20 mls/hr IV .Q24H [facility] Rx#:[id number] Nitroglycerin-D5w Pmx 50 7.5 1.5 mg In Dextrose/Water 1 250ml.bag @ Per Protocol IV ONCE ONE Rx#:[id number] ceFAZolin 2 gm In Sodium 200 Chloride 0.9% 50 ml @ 100 mls/hr IVPB Q8HR [facility] Rx# :[id number] pressure bags 86 108 36 Intake, IV Titration 23.759 35.801 10.808 Amount Diltiazem 125 mg In 31.5 Sodium Chloride 0.9% 100 ml @ 5 MG/HR 5 mls/hr IV .Q24H [facility] Rx#:[id number] Insulin Regular 100 unit 0.732 4.301 10.808 In Sodium Chloride 0.9% 100 ml @ Per Protocol IV .Q0M [facility] Rx#:[id number] propofoL 1,000 mg In 23.027 Empty Bag 1 bag @ Titrate IV .Q0M [facility] Rx#: [id number] Oral 250 Output: Chest Tube Drainage 380 510 60 Chest Tube Left Lateral 60 200 10 Chest Chest Tube Mediastinal 320 310 50 Urine 1755 520 183 Estimated Blood Loss 500 Other: Voiding Method Indwelling Catheter Indwelling Catheter Indwelling Catheter ABP, PAP, CO, CI - Last Documented Arterial Blood Pressure 90/44 Pulmonary Artery Pressure 30/14 Cardiac Output 4.9 Cardiac Index 2.7 - Exam Patient is currently on oxygen by nasal cannula, awake and alert and communicating. Head exam was generally normal. There was no scleral icterus or corneal arcus. Mucous membranes were moist. Neck was supple and without jugular venous distension, thyromegaly, or carotid bruits. Carotids were easily palpable bilaterally. There was no adenopathy. The patient has a right IJ Cordis and a [place] catheter is also in place. Lungs were clear to auscultation and percussion, and with normal diaphragmatic excursion. No wheezes or rales were noted. Heart sounds are within normal limits. Positive S1 and S2 and the patient's heart Rhythm. Sternum is stable clean and intact. The patient has a mediastinal and left lower chest tube. No evidence of any air leak. Abdominal exam revealed normal bowel sounds. The abdomen was soft, non-tender, and without masses, organomegaly, or appreciable enlargement of the abdominal aorta. Examination of the extremities revealed easily palpable radial, femoral and pedal pulses. There was no cyanosis, clubbing or edema. Examination of the skin revealed no evidence of significant rashes, suspicious appearing nevi or other concerning lesions. Neurologically, the patient is sedated at this point in time - Labs CBC & Chem 7: 02/07/23 04:58 02/07/23 04:58 Labs: Abnormal Lab Results - Last 24 Hours (Table) 01/28/23 02/06/23 02/06/23 Range/Units 10:04 08:42 10:13 RBC (4.30-5.90) m/uL Hgb (13.0-17.5) gm/dL Hct (39.0-53.0) % Plt Count (150-450) k/uL Lymphocytes # (1.0-4.8) k/uL ABG pH (7.35-7.45) ABG pCO2 48 H 46 H (35-45) mmHg ABG pO2 377 H 128 H (83-108) mmHg ABG HCO3 27 H 27 H (21-25) mmol/L ABG Total CO2 29 H 28 H (19-24) mmol/L ABG O2 Saturation 100.0 H 99.4 H (94-97) % ABG Hematocrit (34.0-46.0) % ABG Potassium (3.4-4.5) mmol/L ABG Ionized Calcium (4.5-5.3) mg/dL ABG Glucose 52 L 70 L (75-99) mg/dL ABG Lactic Acid (0.5-1.6) mmol/L Hemoglobin 12.8 L 11.2 L (13.0-17.5) gm/dL Chloride (98-107) mmol/L BUN (9-20) mg/dL Glucose (74-99) mg/dL POC Glucose (mg/dL) (70-110) mg/dL Calcium (8.4-10.2) mg/dL Magnesium (1.6-2.3) mg/dL AST (17-59) U/L ALT (4-49) U/L Total Protein (6.3-8.2) g/dL Albumin (3.5-5.0) g/dL Arterial Blood Potassium (3.4-4.5) mmol/L Arterial Blood Glucose 52 L 70 L (75-99) mg/dL Crossmatch See Detail 02/06/23 02/06/23 02/06/23 Range/Units 10:47 11:11 11:48 RBC (4.30-5.90) m/uL Hgb (13.0-17.5) gm/dL Hct (39.0-53.0) % Plt Count (150-450) k/uL Lymphocytes # (1.0-4.8) k/uL ABG pH 7.47 H 7.46 H (7.35-7.45) ABG pCO2 (35-45) mmHg ABG pO2 >420 H >420 H >420 H (83-108) mmHg ABG HCO3 26 H 26 H 26 H (21-25) mmol/L ABG Total CO2 27 H 27 H 27 H (19-24) mmol/L ABG O2 Saturation 100.0 H 100.0 H 100.0 H (94-97) % ABG Hematocrit 24 L 24 L 23 L (34.0-46.0) % ABG Potassium 4.7 H 4.7 H (3.4-4.5) mmol/L ABG Ionized Calcium 4.1 L 4.3 L 4.4 L (4.5-5.3) mg/dL ABG Glucose 73 L 100 H 143 H (75-99) mg/dL ABG Lactic Acid 1.9 H (0.5-1.6) mmol/L Hemoglobin 7.7 L 7.7 L 7.6 L (13.0-17.5) gm/dL Chloride (98-107) mmol/L BUN (9-20) mg/dL Glucose (74-99) mg/dL POC Glucose (mg/dL) (70-110) mg/dL Calcium (8.4-10.2) mg/dL Magnesium (1.6-2.3) mg/dL AST (17-59) U/L ALT (4-49) U/L Total Protein (6.3-8.2) g/dL Albumin (3.5-5.0) g/dL Arterial Blood Potassium 4.7 H 4.7 H (3.4-4.5) mmol/L Arterial Blood Glucose 73 L 100 H 143 H (75-99) mg/dL Crossmatch 02/06/23 02/06/23 02/06/23 Range/Units 12:17 14:39 14:39 RBC 3.23 L (4.30-5.90) m/uL Hgb 10.2 L (13.0-17.5) gm/dL Hct 29.6 L (39.0-53.0) % Plt Count 76 L (150-450) k/uL Lymphocytes # 0.9 L (1.0-4.8) k/uL ABG pH 7.48 H (7.35-7.45) ABG pCO2 34 L (35-45) mmHg ABG pO2 418 H (83-108) mmHg ABG HCO3 (21-25) mmol/L ABG Total CO2 26 H (19-24) mmol/L ABG O2 Saturation 100.0 H (94-97) % ABG Hematocrit 24 L (34.0-46.0) % ABG Potassium (3.4-4.5) mmol/L ABG Ionized Calcium 4.4 L (4.5-5.3) mg/dL ABG Glucose 135 H (75-99) mg/dL ABG Lactic Acid (0.5-1.6) mmol/L Hemoglobin 7.8 L (13.0-17.5) gm/dL Chloride 108 H (98-107) mmol/L BUN 22 H (9-20) mg/dL Glucose 123 H (74-99) mg/dL POC Glucose (mg/dL) (70-110) mg/dL Calcium 7.9 L (8.4-10.2) mg/dL Magnesium 3.8 H (1.6-2.3) mg/dL AST 174 H (17-59) U/L ALT 83 H (4-49) U/L Total Protein 4.9 L (6.3-8.2) g/dL Albumin 3.0 L (3.5-5.0) g/dL Arterial Blood Potassium (3.4-4.5) mmol/L Arterial Blood Glucose 135 H (75-99) mg/dL Crossmatch 02/06/23 02/06/23 02/06/23 Range/Units 14:39 14:59 15:50 RBC (4.30-5.90) m/uL Hgb (13.0-17.5) gm/dL Hct (39.0-53.0) % Plt Count (150-450) k/uL Lymphocytes # (1.0-4.8) k/uL ABG pH (7.35-7.45) ABG pCO2 46 H (35-45) mmHg ABG pO2 365 H (83-108) mmHg ABG HCO3 (21-25) mmol/L ABG Total CO2 (19-24) mmol/L ABG O2 Saturation >100.0 H (94-97) % ABG Hematocrit (34.0-46.0) % ABG Potassium (3.4-4.5) mmol/L ABG Ionized Calcium (4.5-5.3) mg/dL ABG Glucose (75-99) mg/dL ABG Lactic Acid (0.5-1.6) mmol/L Hemoglobin (13.0-17.5) gm/dL Chloride (98-107) mmol/L BUN (9-20) mg/dL Glucose (74-99) mg/dL POC Glucose (mg/dL) 141 H 124 H (70-110) mg/dL Calcium (8.4-10.2) mg/dL Magnesium (1.6-2.3) mg/dL AST (17-59) U/L ALT (4-49) U/L Total Protein (6.3-8.2) g/dL Albumin (3.5-5.0) g/dL Arterial Blood Potassium (3.4-4.5) mmol/L Arterial Blood Glucose (75-99) mg/dL Crossmatch 02/06/23 02/06/23 02/06/23 Range/Units 16:58 16:59 17:57 RBC 3.44 L (4.30-5.90) m/uL Hgb 10.9 L (13.0-17.5) gm/dL Hct 32.0 L (39.0-53.0) % Plt Count 87 L (150-450) k/uL Lymphocytes # 0.7 L (1.0-4.8) k/uL ABG pH (7.35-7.45) ABG pCO2 (35-45) mmHg ABG pO2 (83-108) mmHg ABG HCO3 (21-25) mmol/L ABG Total CO2 (19-24) mmol/L ABG O2 Saturation (94-97) % ABG Hematocrit (34.0-46.0) % ABG Potassium (3.4-4.5) mmol/L ABG Ionized Calcium (4.5-5.3) mg/dL ABG Glucose (75-99) mg/dL ABG Lactic Acid (0.5-1.6) mmol/L Hemoglobin (13.0-17.5) gm/dL Chloride (98-107) mmol/L BUN (9-20) mg/dL Glucose (74-99) mg/dL POC Glucose (mg/dL) 125 H 128 H (70-110) mg/dL Calcium (8.4-10.2) mg/dL Magnesium (1.6-2.3) mg/dL AST (17-59) U/L ALT (4-49) U/L Total Protein (6.3-8.2) g/dL Albumin (3.5-5.0) g/dL Arterial Blood Potassium (3.4-4.5) mmol/L Arterial Blood Glucose (75-99) mg/dL Crossmatch 02/06/23 02/06/23 02/06/23 Range/Units 18:54 19:06 19:53 RBC (4.30-5.90) m/uL Hgb (13.0-17.5) gm/dL Hct (39.0-53.0) % Plt Count (150-450) k/uL Lymphocytes # (1.0-4.8) k/uL ABG pH 7.31 L (7.35-7.45) ABG pCO2 49 H 53 H (35-45) mmHg ABG pO2 182 H (83-108) mmHg ABG HCO3 27 H 27 H (21-25) mmol/L ABG Total CO2 29 H 29 H (19-24) mmol/L ABG O2 Saturation 99.9 H (94-97) % ABG Hematocrit (34.0-46.0) % ABG Potassium (3.4-4.5) mmol/L ABG Ionized Calcium (4.5-5.3) mg/dL ABG Glucose (75-99) mg/dL ABG Lactic Acid (0.5-1.6) mmol/L Hemoglobin (13.0-17.5) gm/dL Chloride (98-107) mmol/L BUN (9-20) mg/dL Glucose (74-99) mg/dL POC Glucose (mg/dL) 123 H (70-110) mg/dL Calcium (8.4-10.2) mg/dL Magnesium (1.6-2.3) mg/dL AST (17-59) U/L ALT (4-49) U/L Total Protein (6.3-8.2) g/dL Albumin (3.5-5.0) g/dL Arterial Blood Potassium (3.4-4.5) mmol/L Arterial Blood Glucose (75-99) mg/dL Crossmatch 02/06/23 02/06/23 02/06/23 Range/Units 19:55 20:03 20:59 RBC 3.28 L (4.30-5.90) m/uL Hgb 10.2 L (13.0-17.5) gm/dL Hct 30.6 L (39.0-53.0) % Plt Count 100 L (150-450) k/uL Lymphocytes # 0.6 L (1.0-4.8) k/uL ABG pH (7.35-7.45) ABG pCO2 47 H (35-45) mmHg ABG pO2 81 L (83-108) mmHg ABG HCO3 26 H (21-25) mmol/L ABG Total CO2 27 H (19-24) mmol/L ABG O2 Saturation (94-97) % ABG Hematocrit (34.0-46.0) % ABG Potassium (3.4-4.5) mmol/L ABG Ionized Calcium (4.5-5.3) mg/dL ABG Glucose (75-99) mg/dL ABG Lactic Acid (0.5-1.6) mmol/L Hemoglobin (13.0-17.5) gm/dL Chloride (98-107) mmol/L BUN (9-20) mg/dL Glucose (74-99) mg/dL POC Glucose (mg/dL) 127 H (70-110) mg/dL Calcium (8.4-10.2) mg/dL Magnesium (1.6-2.3) mg/dL AST (17-59) U/L ALT (4-49) U/L Total Protein (6.3-8.2) g/dL Albumin (3.5-5.0) g/dL Arterial Blood Potassium (3.4-4.5) mmol/L Arterial Blood Glucose (75-99) mg/dL Crossmatch 02/06/23 02/06/23 02/06/23 Range/Units 21:00 22:11 23:04 RBC (4.30-5.90) m/uL Hgb (13.0-17.5) gm/dL Hct (39.0-53.0) % Plt Count (150-450) k/uL Lymphocytes # (1.0-4.8) k/uL ABG pH (7.35-7.45) ABG pCO2 (35-45) mmHg ABG pO2 (83-108) mmHg ABG HCO3 (21-25) mmol/L ABG Total CO2 (19-24) mmol/L ABG O2 Saturation (94-97) % ABG Hematocrit (34.0-46.0) % ABG Potassium (3.4-4.5) mmol/L ABG Ionized Calcium (4.5-5.3) mg/dL ABG Glucose (75-99) mg/dL ABG Lactic Acid (0.5-1.6) mmol/L Hemoglobin (13.0-17.5) gm/dL Chloride (98-107) mmol/L BUN (9-20) mg/dL Glucose (74-99) mg/dL POC Glucose (mg/dL) 132 H 132 H 132 H (70-110) mg/dL Calcium (8.4-10.2) mg/dL Magnesium (1.6-2.3) mg/dL AST (17-59) U/L ALT (4-49) U/L Total Protein (6.3-8.2) g/dL Albumin (3.5-5.0) g/dL Arterial Blood Potassium (3.4-4.5) mmol/L Arterial Blood Glucose (75-99) mg/dL Crossmatch 02/07/23 02/07/23 02/07/23 Range/Units 00:54 02:01 02:04 RBC (4.30-5.90) m/uL Hgb (13.0-17.5) gm/dL Hct (39.0-53.0) % Plt Count (150-450) k/uL Lymphocytes # (1.0-4.8) k/uL ABG pH (7.35-7.45) ABG pCO2 46 H (35-45) mmHg ABG pO2 148 H (83-108) mmHg ABG HCO3 26 H (21-25) mmol/L ABG Total CO2 28 H (19-24) mmol/L ABG O2 Saturation 99.2 H (94-97) % ABG Hematocrit (34.0-46.0) % ABG Potassium (3.4-4.5) mmol/L ABG Ionized Calcium (4.5-5.3) mg/dL ABG Glucose (75-99) mg/dL ABG Lactic Acid (0.5-1.6) mmol/L Hemoglobin (13.0-17.5) gm/dL Chloride (98-107) mmol/L BUN (9-20) mg/dL Glucose (74-99) mg/dL POC Glucose (mg/dL) 126 H 124 H (70-110) mg/dL Calcium (8.4-10.2) mg/dL Magnesium (1.6-2.3) mg/dL AST (17-59) U/L ALT (4-49) U/L Total Protein (6.3-8.2) g/dL Albumin (3.5-5.0) g/dL Arterial Blood Potassium (3.4-4.5) mmol/L Arterial Blood Glucose (75-99) mg/dL Crossmatch 02/07/23 02/07/23 02/07/23 Range/Units 04:08 04:56 04:58 RBC 2.86 L (4.30-5.90) m/uL Hgb 9.1 L (13.0-17.5) gm/dL Hct 26.7 L (39.0-53.0) % Plt Count 88 L (150-450) k/uL Lymphocytes # 0.6 L (1.0-4.8) k/uL ABG pH (7.35-7.45) ABG pCO2 (35-45) mmHg ABG pO2 (83-108) mmHg ABG HCO3 (21-25) mmol/L ABG Total CO2 (19-24) mmol/L ABG O2 Saturation (94-97) % ABG Hematocrit (34.0-46.0) % ABG Potassium (3.4-4.5) mmol/L ABG Ionized Calcium (4.5-5.3) mg/dL ABG Glucose (75-99) mg/dL ABG Lactic Acid (0.5-1.6) mmol/L Hemoglobin (13.0-17.5) gm/dL Chloride (98-107) mmol/L BUN (9-20) mg/dL Glucose (74-99) mg/dL POC Glucose (mg/dL) 124 H 123 H (70-110) mg/dL Calcium (8.4-10.2) mg/dL Magnesium (1.6-2.3) mg/dL AST (17-59) U/L ALT (4-49) U/L Total Protein (6.3-8.2) g/dL Albumin (3.5-5.0) g/dL Arterial Blood Potassium (3.4-4.5) mmol/L Arterial Blood Glucose (75-99) mg/dL Crossmatch 02/07/23 02/07/23 02/07/23 Range/Units 04:58 06:02 06:58 RBC (4.30-5.90) m/uL Hgb (13.0-17.5) gm/dL Hct (39.0-53.0) % Plt Count (150-450) k/uL Lymphocytes # (1.0-4.8) k/uL ABG pH (7.35-7.45) ABG pCO2 (35-45) mmHg ABG pO2 (83-108) mmHg ABG HCO3 (21-25) mmol/L ABG Total CO2 (19-24) mmol/L ABG O2 Saturation (94-97) % ABG Hematocrit (34.0-46.0) % ABG Potassium (3.4-4.5) mmol/L ABG Ionized Calcium (4.5-5.3) mg/dL ABG Glucose (75-99) mg/dL ABG Lactic Acid (0.5-1.6) mmol/L Hemoglobin (13.0-17.5) gm/dL Chloride (98-107) mmol/L BUN 23 H (9-20) mg/dL Glucose 103 H (74-99) mg/dL POC Glucose (mg/dL) 135 H 137 H (70-110) mg/dL Calcium 7.8 L (8.4-10.2) mg/dL Magnesium 2.6 H (1.6-2.3) mg/dL AST 106 H (17-59) U/L ALT 58 H (4-49) U/L Total Protein 5.0 L (6.3-8.2) g/dL Albumin 3.2 L (3.5-5.0) g/dL Arterial Blood Potassium (3.4-4.5) mmol/L Arterial Blood Glucose (75-99) mg/dL Crossmatch 02/07/23 02/07/23 02/07/23 Range/Units 08:09 09:33 10:13 RBC (4.30-5.90) m/uL Hgb (13.0-17.5) gm/dL Hct (39.0-53.0) % Plt Count (150-450) k/uL Lymphocytes # (1.0-4.8) k/uL ABG pH (7.35-7.45) ABG pCO2 (35-45) mmHg ABG pO2 (83-108) mmHg ABG HCO3 (21-25) mmol/L ABG Total CO2 (19-24) mmol/L ABG O2 Saturation (94-97) % ABG Hematocrit (34.0-46.0) % ABG Potassium (3.4-4.5) mmol/L ABG Ionized Calcium (4.5-5.3) mg/dL ABG Glucose (75-99) mg/dL ABG Lactic Acid (0.5-1.6) mmol/L Hemoglobin (13.0-17.5) gm/dL Chloride (98-107) mmol/L BUN (9-20) mg/dL Glucose (74-99) mg/dL POC Glucose (mg/dL) 146 H 177 H 187 H (70-110) mg/dL Calcium (8.4-10.2) mg/dL Magnesium (1.6-2.3) mg/dL AST (17-59) U/L ALT (4-49) U/L Total Protein (6.3-8.2) g/dL Albumin (3.5-5.0) g/dL Arterial Blood Potassium (3.4-4.5) mmol/L Arterial Blood Glucose (75-99) mg/dL Crossmatch Assessment and Plan Plan: Coronary artery disease and mitral valve regurgitation along with systolic heart failure with decreased ejection fraction. The patient is post 4 vessel bypass surgery and mitral valve repair. The patient is currently postop day #1 The patient is hemodynamically stable at this point in time with adequate cardiac output and index and adequate urine output. The patient is currently off nitroglycerin, Cardizem and he is also off the Cleviprex drip. Postthoracotomy, currently extubated on 2 L of oxygen by nasal cannula. Chest tubes are in place. No pneumothorax Sinus bradycardia, improved and the patient is an interesting cardiac rhythm which is normal sinus at this point in time Chronic systolic heart failure with impaired ejection fraction of 35% Hypertension, currently off Cleviprex drip Hyperlipidemia History of migraines History of bronchial asthma History of smoking quit approximately 3 years ago Plan Incentive spirometer Wean down FiO2 to maintain saturation above 90%, currently on 2 L Remote the [place] catheter Keep the chest tube in place Off Cardizem and nitroglycerin Hemodynamically stable. Chest x-ray was reviewed Blood work was reviewed monitor the hemoglobin We'll collaborate with the surgical team regarding postoperative care
[2023-02-07] MEDS: ALBUMIN HUMAN 5% 250 ML in EMPTY BAG 1 BAG IVPB PRN ×3 (11:06→19:56)
[2023-02-07 11:19] LABS: Glucose,Whole Blood 156 mg/dL (70-110)
[2023-02-07 11:26] VITALS: BMI 26.4
[2023-02-07 12:02] LABS: Glucose,Whole Blood 115 mg/dL (70-110)
[2023-02-07 13:14] LABS: Glucose,Whole Blood 98 mg/dL (70-110)
--- NOTE | 2023-02-07 13:47 | P.CRDCN ---
History of Present Illness Consult date: 02/07/23 History of present illness: History of Present Illness: The patient is a 62-year-old male who underwent mitral valve repair and coronary bypass grafting yesterday. He has a known history of ischemic cardiac myopathy, severe mitral regurgitation and severe obstructive disease. His cardiac catheterization has shown occluded RCA, severe LAD and left circumflex obstruct weston disease. His echocardiogram showed severe impairment in the systolic function with severe mitral regurgitation. He underwent surgery yesterday by Dr. Jeronimo and received a SHAFER to the LAD and left radial to the OM and SVG to the PDA with occlusion of the left atrial appendage and mitral valve annuloplasty, size 26. He has underwent cardiac catheterization in August of this year but because of his severe CHF his medical regimen was optimized and stabilized to undergo intervention. He is extubated, sitting up in the chair, complaining of soreness in the chest. He is mildly dyspneic in sinus mechanism and hemodynamically stable. He has no episodes of atrial fibrillation or ventricular tachycardia. He has a prior history of hyper-lipidemia, prior history of smoking he is nondiabetic. Medications: As an outpatient he was on Lipitor 80 mg daily, aspirin, carvedilol 6.25 mg twice a day, spironolactone 25 mg daily, Lasix 40 mg daily, Paxil, Ezetimibe 10 milligrams daily. Review of Systems: Respiratory: He has dyspnea on exertion but no recent wheezing GI: No nausea or vomiting . No history of peptic ulcer disease. No recent GI bleed. : No hematuria or dysuria. Nervous System: No stroke or seizure. Physical Examination: 62-year-old male, alert oriented no apparent distress ,Blood pressure 103/50, Heart rate 70 Head: Normocephalic. Eyes: Sclerae nonicteric. Neck: Good carotid upstroke, no bruit, no jugular venous distention. [place] catheter noted in the right IJ Lungs: Decreased breath sounds at the bases Heart: Regular rate and rhythm, S1-S2, no S3, no rub. Systolic murmur at the base, rub noted. Abdomen: Soft nontender, positive bowel sounds no organomegaly. Extremities: No edema, intact distal pulses. Labs: Hemoglobin 9.1, BUN 23, creatinine 0.87 EKG: Sinus mechanism with LVH and nonspecific ST-T wave changes Impression: 1. Status post CABG and mitral valve repair with occlusion of the left atrial appendage 2. History of severe cardiomyopathy preoperatively 3. History of hyperlipidemia 4. Prior history of smoking Plan: 1. Continue present therapy 2. Incentive spirometry 3. Follow blood pressure and adjust treatment for the cardiomyopathy 4. Follow renal functions 5. Thank you for this consult we will follow with you Past Medical History Past Medical History: Heart Failure, Hyperlipidemia, Hypertension Additional Past Medical History / Comment(s): Mitral valve regurgitation, multivessel coronary artery disease, systolic heart failure with impaired ejection fraction was up to 35% History of Any Multi-Drug Resistant Organisms: None Reported Past Surgical History: Appendectomy, Cholecystectomy Additional Past Surgical History / Comment(s): left arm, Past Anesthesia/Blood Transfusion Reactions: No Reported Reaction Past Psychological History: No Psychological Hx Reported Smoking Status: Former smoker Past Alcohol Use History: None Reported Past Drug Use History: None Reported - Past Family History Father Family Medical History: No Reported History Additional Family Medical History / Comment(s): States his dad from old age in his 80s. Mother Family Medical History: No Reported History Additional Family Medical History / Comment(s): States his mother at age 101 from old age. Medications and Allergies Home Medications Medication Instructions Recorded Confirmed Type Famotidine [Pepcid] 20 mg PO QAM 07/04/22 01/29/23 History PARoxetine HCL [Paxil] 40 mg PO QAM 07/04/22 01/29/23 History Ezetimibe [Zetia] 10 mg PO QAM 09/03/22 01/29/23 History Aspirin 81 mg PO QAM 01/29/23 01/29/23 History Atorvastatin [Lipitor] 80 mg PO QAM 01/29/23 01/29/23 History Furosemide [Lasix] 40 mg PO QAM 01/29/23 01/29/23 History Mupirocin 2% Oint [Bactroban 2% 1 applic NASAL BID 01/29/23 01/29/23 History Oint] Spironolactone [Aldactone] 25 mg PO QAM 01/29/23 01/29/23 History carvediloL [Coreg] 6.25 mg PO BID 01/29/23 01/29/23 History lisinopriL [Zestril] 2.5 mg PO QAM 01/29/23 01/29/23 History Allergies Allergy/AdvReac Type Severity Reaction Status Date / Time No Known Allergies Allergy Verified 02/06/23 05:51 Physical Exam Vitals: Vital Signs Temp Pulse Resp BP Pulse Ox FiO2 02/07/23 13:00 74 12 96 02/07/23 12:30 98.8 F 75 10 L 97/56 95 02/07/23 12:00 76 19 96 02/07/23 11:57 79 16 02/07/23 11:43 77 16 02/07/23 11:31 80 20 99/55 98 02/07/23 11:00 73 18 96 02/07/23 10:30 75 14 104/56 97 02/07/23 10:00 74 14 104/56 94 L 02/07/23 09:48 77 16 02/07/23 09:36 75 16 96 40 02/07/23 09:30 76 14 96 02/07/23 09:00 75 15 96 02/07/23 08:30 99.9 F H 76 24 98 02/07/23 08:00 76 14 115/71 92 L 02/07/23 07:30 74 12 103/67 96 02/07/23 07:00 76 13 114/67 97 02/07/23 06:30 75 12 114/67 95 02/07/23 06:00 77 16 105/66 94 L 02/07/23 05:30 81 35 H 105/66 98 02/07/23 05:00 79 88 H 02/07/23 04:30 79 25 H 02/07/23 04:00 99.3 F 79 27 H 95/64 96 02/07/23 03:30 79 10 L 95/64 02/07/23 03:00 79 7 L 91/36 97 02/07/23 02:30 79 5 L 91/36 97 02/07/23 02:00 79 11 L 100/68 98 02/07/23 01:30 79 26 H 100/68 97 02/07/23 01:00 79 13 99/59 97 02/07/23 00:53 40 02/07/23 00:30 79 9 L 99/59 97 02/07/23 00:00 98.4 F 76 9 L 97 40 02/06/23 23:30 79 28 H 97 02/06/23 23:07 79 22 103/64 97 02/06/23 23:00 79 9 L 103/64 97 02/06/23 22:30 79 8 L 99/63 98 02/06/23 22:00 79 11 L 95/57 98 02/06/23 21:30 79 9 L 95/57 98 02/06/23 21:03 40 02/06/23 21:00 79 10 L 91/63 95 40 02/06/23 20:30 79 9 L 93/65 91 L 02/06/23 20:15 79 10 L 97/64 92 L 28 02/06/23 20:01 28 02/06/23 20:00 98.1 F 75 9 L 93/62 95 02/06/23 19:45 79 9 L 96 02/06/23 19:30 79 11 L 101/72 100 02/06/23 19:28 79 02/06/23 19:15 79 10 L 97 02/06/23 19:00 70 12 99 50 02/06/23 18:30 79 16 118/76 100 02/06/23 18:20 100 20 02/06/23 18:00 98.1 F 79 16 99 50 02/06/23 17:30 77 14 106/72 100 100 02/06/23 17:00 96.8 F L 79 14 100 50 02/06/23 16:45 79 18 100 02/06/23 16:30 79 14 100 02/06/23 16:15 79 14 100 02/06/23 16:00 97.2 F L 79 14 100 50 02/06/23 15:45 79 14 100 02/06/23 15:30 75 14 100 02/06/23 15:15 69 14 100 02/06/23 15:11 50 02/06/23 15:00 66 14 100 100 02/06/23 14:45 96.1 F L 63 14 100 100 02/06/23 14:31 81 15 02/06/23 14:30 100 Intake and Output 02/06/23 02/07/23 02/07/23 22:59 06:59 14:59 Intake Total 623.385 523.675 999.842 Output Total 1215 565 363 Balance -1261.615 -41.325 636.842 Intake: IV 565.5 522 723 Albumin Human 5% 250 ml 250 In Empty Bag 1 bag @ 250 mls/hr IVPB Q1HR PRN Rx#: [id number] CO/CI 50 50 Diltiazem 125 mg In 25 Sodium Chloride 0.9% 100 ml @ 5 MG/HR 5 mls/hr IV .Q24H [facility] Rx#:[id number] Lactated Ringers 1,000 ml 400 400 310 @ 20 mls/hr IV .Q24H [facility] Rx#:[id number] Nitroglycerin-D5w Pmx 50 7.5 mg In Dextrose/Water 1 250ml.bag @ Per Protocol IV ONCE ONE Rx#:[id number] ceFAZolin 2 gm In Sodium 100 Chloride 0.9% 50 ml @ 100 mls/hr IVPB Q8HR [facility] Rx# :[id number] pressure bags 83 72 63 Intake, IV Titration 57.885 1.675 26.842 Amount Diltiazem 125 mg In 31.5 Sodium Chloride 0.9% 100 ml @ 5 MG/HR 5 mls/hr IV .Q24H [facility] Rx#:[id number] Insulin Regular 100 unit 3.358 1.675 26.842 In Sodium Chloride 0.9% 100 ml @ Per Protocol IV .Q0M [facility] Rx#:[id number] propofoL 1,000 mg In 23.027 Empty Bag 1 bag @ Titrate IV .Q0M [facility] Rx#: [id number] Oral 250 Output: Chest Tube Drainage 495 280 140 Chest Tube Left Lateral 105 150 40 Chest Chest Tube Mediastinal 390 130 100 Urine 1390 285 223 Other: Voiding Method Indwelling Catheter Indwelling Catheter Indwelling Catheter Weight 74.3 kg 74.3 kg ABP, PAP, CO, CI - Last 8 Hours Arterial Blood Pressure 93/43 Arterial Blood Pressure 103/44 Arterial Blood Pressure 82/38 Arterial Blood Pressure 120/60 Arterial Blood Pressure 82/42 Arterial Blood Pressure 102/48 Arterial Blood Pressure 90/44 Arterial Blood Pressure 111/52 Arterial Blood Pressure 115/55 Arterial Blood Pressure 127/60 Arterial Blood Pressure 119/56 Arterial Blood Pressure 104/51 Arterial Blood Pressure 111/54 Arterial Blood Pressure 110/53 Arterial Blood Pressure 118/50 Pulmonary Artery Pressure 30/14 Pulmonary Artery Pressure 36/8 Pulmonary Artery Pressure 34/14 Pulmonary Artery Pressure 37/15 Pulmonary Artery Pressure 36/15 Pulmonary Artery Pressure 32/13 Pulmonary Artery Pressure 32/11 Pulmonary Artery Pressure 32/14 Pulmonary Artery Pressure 24/9 Cardiac Output 4.9 Cardiac Output 4.9 Cardiac Output 4.9 Cardiac Output 4.8 Cardiac Index 2.7 Cardiac Index 2.7 Cardiac Index 2.7 Cardiac Index 2.6 Results 02/07/23 04:58 02/07/23 04:58 Cardiac Enzymes 02/06/23 02/07/23 Range/Units 14:39 04:58 AST 174 H 106 H (17-59) U/L Coagulation 02/06/23 Range/Units 14:39 PT 12.2 (10.0-12.5) sec APTT 27.7 (22.0-30.0) sec CBC 02/06/23 02/06/23 02/06/23 Range/Units 14:39 16:59 20:03 WBC 8.1 8.4 8.3 (3.8-10.6) k/uL RBC 3.23 L 3.44 L 3.28 L (4.30-5.90) m/uL Hgb 10.2 L 10.9 L 10.2 L (13.0-17.5) gm/dL Hct 29.6 L 32.0 L 30.6 L (39.0-53.0) % Plt Count 76 L 87 L 100 L (150-450) k/uL 02/07/23 Range/Units 04:58 WBC 7.2 (3.8-10.6) k/uL RBC 2.86 L (4.30-5.90) m/uL Hgb 9.1 L (13.0-17.5) gm/dL Hct 26.7 L (39.0-53.0) % Plt Count 88 L (150-450) k/uL Comprehensive Metabolic Panel 02/06/23 02/07/23 Range/Units 14:39 04:58 Sodium 137 137 (137-145) mmol/L Potassium 4.5 4.3 (3.5-5.1) mmol/L Chloride 108 H 106 (98-107) mmol/L Carbon Dioxide 23 25 (22-30) mmol/L BUN 22 H 23 H (9-20) mg/dL Creatinine 0.69 0.87 (0.66-1.25) mg/dL Glucose 123 H 103 H (74-99) mg/dL Calcium 7.9 L 7.8 L (8.4-10.2) mg/dL AST 174 H 106 H (17-59) U/L ALT 83 H 58 H (4-49) U/L Alkaline Phosphatase 91 69 (38-126) U/L Total Protein 4.9 L 5.0 L (6.3-8.2) g/dL Albumin 3.0 L 3.2 L (3.5-5.0) g/dL Current Medications Generic Name Dose Route Start Last Admin Trade Name Freq PRN Reason Stop Dose Admin Hydrocodone Bitart/Acetaminophen 1 each 02/07/23 04:00 02/07/23 09:00 Hydrocodone/Apap 5-325mg 1 Each Tab PO 1 each Q4HR PRN Administration Moderate Pain (Scale 4 to 6) Albuterol/Ipratropium 3 ml 02/06/23 13:36 Ipratropium-Albuterol 3 Ml Neb INHALATION RT-Q2H PRN Shortness Of Breath Or Wheezing Albuterol/Ipratropium 3 ml 02/06/23 20:00 02/07/23 11:43 Ipratropium-Albuterol 3 Ml Neb INHALATION 3 ml RT-QID [facility] Administration Aspirin 325 mg 02/07/23 09:00 02/07/23 09:01 Aspirin 325 Mg Tab PO 325 mg DAILY [facility] Administration Atorvastatin Calcium 40 mg 02/07/23 09:00 02/07/23 09:01 Atorvastatin 40 Mg Tab PO 40 mg DAILY [facility] Administration Benzocaine/Menthol 1 each 02/06/23 13:36 Benzocaine/Menthol Lozeng 1 Each Lozenge MUCOUS MEM Q2H PRN Sore Throat Bisacodyl 10 mg 02/07/23 09:00 Bisacodyl 10 Mg Supp RECTAL DAILY PRN Constipation Clopidogrel Bisulfate 75 mg 02/07/23 09:00 02/07/23 09:01 Clopidogrel 75 Mg Tab PO 75 mg DAILY [facility] Administration Dextrose/Water 25 ml 02/06/23 13:36 Dextrose 50% Syringe 50 Ml IVP PER PROTOCOL PRN Hypoglycemia Protocol Dextrose/Water 50 ml 02/06/23 13:36 Dextrose 50% Syringe 50 Ml IVP PER PROTOCOL PRN Hypoglycemia Protocol Ezetimibe 10 mg 02/07/23 09:00 02/07/23 09:01 Ezetimibe 10 Mg Tab PO 10 mg QAM [facility] Administration Heparin Sodium (Porcine) 5,000 unit 02/06/23 16:00 02/07/23 09:01 Heparin Sodium,Porcine 5,000 Unit/Ml 1 Ml Vial SQ 5,000 unit Q8HR [facility] Administration Albumin Human 250 ml/ IV 250 mls @ 250 mls/hr 02/06/23 13:36 02/07/23 13:23 Solution IVPB 02/08/23 13:37 250 mls/hr Q1HR PRN Administration For Volume Protocol Lactated Ringer's 1,000 mls @ 20 mls/hr 02/06/23 13:36 02/07/23 09:29 Lactated Ringers IV 20 mls/hr .Q24H [facility] Administration Propofol 1,000 mg/ IV Solution 100 mls @ 0 mls/hr 02/06/23 13:36 02/06/23 16:30 IV 0 mcg/kg/min .Q0M [facility] 0 mls/hr Titration Protocol Titrate Calcium Gluconate/Sodium 100 mls @ 100 mls/hr 02/06/23 13:36 Chloride 2 gm/ IV Solution IVPB 02/08/23 13:37 ONCE PRN Ionized Calcium less than 4.4 Amiodarone HCl 150 mg/ 103 mls @ 618 mls/hr 02/06/23 13:36 Dextrose/Water IV .Q10M PRN A.FIB/FLUTTER Protocol Amiodarone HCl 360 mg/ 207.2 mls @ 34.533 mls/hr 02/06/23 13:36 Dextrose/Water IV .Q6H PRN A.FIB/FLUTTER Protocol 1 MG/MIN Amiodarone HCl 450 mg/ 250 mls @ 16.667 mls/hr 02/06/23 13:36 Dextrose/Water IV .Q15H PRN A.FIB/FLUTTER Protocol 0.5 MG/MIN Insulin Human Regular 100 unit 101 mls @ 0 mls/hr 02/06/23 14:30 02/07/23 13:20 / Sodium Chloride IV 0 unit/hr .Q0M [facility] 0 mls/hr Titration Protocol Per Protocol Clevidipine 25 mg/ IV Solution 50 mls @ 2 mls/hr 02/06/23 15:30 02/06/23 15:52 IV Not Given .Q24H [facility] Protocol 1 MG/HR Ketorolac Tromethamine 15 mg 12/08/23 08:00 02/07/23 13:00 Ketorolac 15 Mg/Ml 1 Ml Vial IVP 02/12/23 07:53 15 mg Q6HR [facility] Administration Magnesium Hydroxide 2,400 mg 02/07/23 09:00 Magnesium Hydroxide 2,400 Mg/30 Ml Cup PO BID PRN Constipation Metoclopramide HCl 10 mg 02/06/23 13:36 Metoclopramide 5 Mg/Ml 2 Ml Vial IVP Q4H PRN Nausea And Vomiting Metoprolol Tartrate 12.5 mg 02/07/23 09:00 02/07/23 09:01 Metoprolol Tartrate 12.5 Mg Tab PO 12.5 mg BID [facility] Administration Miscellaneous Information 1 each 02/06/23 13:36 Potassium Replacement Protocol 1 Each Mis MISCELLANE DAILY PRN Per Protocol Protocol Miscellaneous Information 1 each 02/06/23 13:36 Magnesium Replacement Protocol 1 Each Mis MISCELLANE DAILY PRN Per Protocol Protocol Miscellaneous Information 1 each 02/06/23 13:36 Phosphorus Replacement Protoco 1 Each Misc MISCELLANE DAILY PRN Per Protocol Protocol Ondansetron HCl 4 mg 02/06/23 13:36 Ondansetron 4 Mg/2 Ml Vial IVP Q6HR PRN Nausea And Vomiting Pantoprazole Sodium 40 mg 02/07/23 09:00 02/07/23 09:01 Pantoprazole 40 Mg/10 Ml Vial IVP 40 mg DAILY [facility] Administration Paroxetine HCl 40 mg 02/07/23 09:00 02/07/23 09:01 Paroxetine 20 Mg Tab PO 40 mg QAM [facility] Administration Senna/Docusate Sodium 2 each 02/07/23 21:00 Sennosides-Docusate Sodium 1 Each Tab PO HS [facility] Sodium Chloride 10 ml 02/06/23 21:00 02/07/23 10:39 Sodium Chloride 0.9% Flush 10 Ml Syringe IV Not Given BID [facility] Intake and Output 02/06/23 02/07/23 02/07/23 22:59 06:59 14:59 Intake Total 623.385 523.675 999.842 Output Total 6015 565 363 Balance -1261.615 -41.325 636.842 Intake: IV 565.5 522 723 Albumin Human 5% 250 ml 250 In Empty Bag 1 bag @ 250 mls/hr IVPB Q1HR PRN Rx#: [id number] CO/CI 50 50 Diltiazem 125 mg In 25 Sodium Chloride 0.9% 100 ml @ 5 MG/HR 5 mls/hr IV .Q24H [facility] Rx#:[id number] Lactated Ringers 1,000 ml 400 400 310 @ 20 mls/hr IV .Q24H [facility] Rx#:[id number] Nitroglycerin-D5w Pmx 50 7.5 mg In Dextrose/Water 1 250ml.bag @ Per Protocol IV ONCE ONE Rx#:[id number] ceFAZolin 2 gm In Sodium 100 Chloride 0.9% 50 ml @ 100 mls/hr IVPB Q8HR [facility] Rx# :[id number] pressure bags 83 72 63 Intake, IV Titration 57.885 1.675 26.842 Amount Diltiazem 125 mg In 31.5 Sodium Chloride 0.9% 100 ml @ 5 MG/HR 5 mls/hr IV .Q24H [facility] Rx#:[id number] Insulin Regular 100 unit 3.358 1.675 26.842 In Sodium Chloride 0.9% 100 ml @ Per Protocol IV .Q0M [facility] Rx#:[id number] propofoL 1,000 mg In 23.027 Empty Bag 1 bag @ Titrate IV .Q0M [facility] Rx#: [id number] Oral 250 Output: Chest Tube Drainage 495 280 140 Chest Tube Left Lateral 105 150 40 Chest Chest Tube Mediastinal 390 130 100 Urine 1390 285 223 Other: Voiding Method Indwelling Catheter Indwelling Catheter Indwelling Catheter Weight 74.3 kg 74.3 kg Patient Weight 02/08/23 06:59 Weight 74.3 kg 02/07/23 04:58 02/07/23 04:58
[2023-02-07 14:10] LABS: Glucose,Whole Blood 159 mg/dL (70-110)
[2023-02-07] MEDS: CLEVIDIPINE BUTYRATE 25 MG in EMPTY BAG 1 BAG IV SCH (14:24)
[2023-02-07 15:12] LABS: Glucose,Whole Blood 187 mg/dL (70-110)
--- NOTE | 2023-02-07 15:34 | P.CONS ---
History of Present Illness - Reason for Consult Consult date: 02/07/23 Medical management - Chief Complaint Four-vessel coronary artery disease - History of Present Illness 59-year-old male patient with history of vessel coronary artery disease, CHF, hypertension, hyperlipidemia, asthma, Transthoracic echocardiogram showed a ejection fraction of 15-20% and the patient had a reduced global LV function with moderately reduced RV global systolic function, moderate to severe mitral regurgitation, a thickened aortic valve without stenosis, mild tricuspid regurgitation, no pericardial effusion and normal aortic root. The patient also underwent a DANNY and it showed impairment of LV function with an ejection fraction of 20-25% and global hypokinesis. The patient had dilated RV as well. The patient underwent a cardiac catheterization that showed critical triple-v essel disease with occluded RCA proximal portion and filling by collaterals from the left coronary system along with circumflex giving rise to OM1 with a critical lesion in the proximal vessel and LAD had a proximal long tubular lesion that was in the range of 99%. --The patient underwent a four-vessel bypass surgery with SHAFER to LAD and diagonal, left radial graft to obtuse marginal, saphenous vein graft to PDA and the patient also underwent a mitral valve repair. Post surgery patient was intubated and mechanically ventilated; stabilized in ICU and extubated. The lab shows a sodium level 137, BUN is at 23 with a creatinine of 0.87. The WBC 7.2, hemoglobin is 9.1 and a platelet count of 88. He is currently on aspirin. Is also on Plavix. Metoprolol was also started at a dose of 12.5 mg by mouth twice a day. He is on insulin drip which is running at 3 units an hour. Review of Systems REVIEW OF SYSTEMS: CONSTITUTIONAL: No fever, no malaise, no fatigue. HEENT: No recent visual problems or hearing problems. Denied any sore throat. CARDIOVASCULAR: No chest pain, orthopnea, PND, no palpitations, no syncope. PULMONARY: No shortness of breath, no cough, no hemoptysis. GASTROINTESTINAL: No diarrhea, no nausea, no vomiting, no abdominal pain. NEUROLOGICAL: No headaches, no weakness, no numbness. HEMATOLOGICAL: Denies any bleeding or petechiae. GENITOURINARY: Denies any burning micturition, frequency, or urgency. MUSCULOSKELETAL/RHEUMATOLOGICAL: Denies any joint pain, swelling, or any muscle pain. ENDOCRINE: Denies any polyuria or polydipsia. The rest of the 14-point review of systems is negative. Past Medical History Past Medical History: Heart Failure, Hyperlipidemia, Hypertension Additional Past Medical History / Comment(s): Mitral valve regurgitation, multivessel coronary artery disease, systolic heart failure with impaired ejec tion fraction was up to 35% History of Any Multi-Drug Resistant Organisms: None Reported Past Surgical History: Appendectomy, Cholecystectomy Additional Past Surgical History / Comment(s): left arm, Past Anesthesia/Blood Transfusion Reactions: No Reported Reaction Past Psychological History: No Psychological Hx Reported Smoking Status: Former smoker Past Alcohol Use History: None Reported Past Drug Use History: None Reported - Past Family History Father Family Medical History: No Reported History Additional Family Medical History / Comment(s): States his dad from old age in his 80s. Mother Family Medical History: No Reported History Additional Family Medical History / Comment(s): States his mother at age 101 from old age. Medications and Allergies Home Medications Medication Instructions Recorded Confirmed Type Famotidine [Pepcid] 20 mg PO QAM 07/04/22 01/29/23 History PARoxetine HCL [Paxil] 40 mg PO QAM 07/04/22 01/29/23 History Ezetimibe [Zetia] 10 mg PO QAM 09/03/22 01/29/23 History Aspirin 81 mg PO QAM 01/29/23 01/29/23 History Atorvastatin [Lipitor] 80 mg PO QAM 01/29/23 01/29/23 History Furosemide [Lasix] 40 mg PO QAM 01/29/23 01/29/23 History Mupirocin 2% Oint [Bactroban 2% 1 applic NASAL BID 01/29/23 01/29/23 History Oint] Spironolactone [Aldactone] 25 mg PO QAM 01/29/23 01/29/23 History carvediloL [Coreg] 6.25 mg PO BID 01/29/23 01/29/23 History lisinopriL [Zestril] 2.5 mg PO QAM 01/29/23 01/29/23 History Allergies Allergy/AdvReac Type Severity Reaction Status Date / Time No Known Allergies Allergy Verified 02/06/23 05:51 Physical Exam Vitals: Vital Signs Temp Pulse Resp BP Pulse Ox FiO2 02/07/23 12:00 76 19 96 02/07/23 11:57 79 16 02/07/23 11:43 77 16 02/07/23 11:31 80 20 99/55 98 02/07/23 11:00 73 18 96 02/07/23 10:30 75 14 104/56 97 02/07/23 10:00 74 14 104/56 94 L 02/07/23 09:48 77 16 02/07/23 09:36 75 16 96 40 02/07/23 09:30 76 14 96 02/07/23 09:00 75 15 96 02/07/23 08:30 99.9 F H 76 24 98 02/07/23 08:00 76 14 115/71 92 L 02/07/23 07:30 74 12 103/67 96 02/07/23 07:00 76 13 114/67 97 02/07/23 06:30 75 12 114/67 95 02/07/23 06:00 77 16 105/66 94 L 02/07/23 05:30 81 35 H 105/66 98 02/07/23 05:00 79 88 H 02/07/23 04:30 79 25 H 02/07/23 04:00 99.3 F 79 27 H 95/64 96 02/07/23 03:30 79 10 L 95/64 02/07/23 03:00 79 7 L 91/36 97 02/07/23 02:30 79 5 L 91/36 97 02/07/23 02:00 79 11 L 100/68 98 02/07/23 01:30 79 26 H 100/68 97 02/07/23 01:00 79 13 99/59 97 02/07/23 00:53 40 02/07/23 00:30 79 9 L 99/59 97 02/07/23 00:00 98.4 F 76 9 L 97 40 02/06/23 23:30 79 28 H 97 02/06/23 23:07 79 22 103/64 97 02/06/23 23:00 79 9 L 103/64 97 02/06/23 22:30 79 8 L 99/63 98 02/06/23 22:00 79 11 L 95/57 98 02/06/23 21:30 79 9 L 95/57 98 02/06/23 21:03 40 02/06/23 21:00 79 10 L 91/63 95 40 02/06/23 20:30 79 9 L 93/65 91 L 02/06/23 20:15 79 10 L 97/64 92 L 28 02/06/23 20:01 28 02/06/23 20:00 98.1 F 75 9 L 93/62 95 02/06/23 19:45 79 9 L 96 02/06/23 19:30 79 11 L 101/72 100 02/06/23 19:28 79 02/06/23 19:15 79 10 L 97 02/06/23 19:00 70 12 99 50 02/06/23 18:30 79 16 118/76 100 02/06/23 18:20 100 20 02/06/23 18:00 98.1 F 79 16 99 50 02/06/23 17:30 77 14 106/72 100 100 02/06/23 17:00 96.8 F L 79 14 100 50 02/06/23 16:45 79 18 100 02/06/23 16:30 79 14 100 02/06/23 16:15 79 14 100 02/06/23 16:00 97.2 F L 79 14 100 50 02/06/23 15:45 79 14 100 02/06/23 15:30 75 14 100 02/06/23 15:15 69 14 100 02/06/23 15:11 50 02/06/23 15:00 66 14 100 100 02/06/23 14:45 96.1 F L 63 14 100 100 02/06/23 14:31 81 15 02/06/23 14:30 100 02/06/23 13:38 100 Intake and Output 02/06/23 02/07/23 02/07/23 22:59 06:59 14:59 Intake Total 623.385 523.675 936.980 Output Total 1885 565 348 Balance -1261.615 -41.325 588.980 Intake: IV 565.5 522 674 Albumin Human 5% 250 ml 250 In Empty Bag 1 bag @ 250 mls/hr IVPB Q1HR PRN Rx#: [id number] CO/CI 50 50 Diltiazem 125 mg In 25 Sodium Chloride 0.9% 100 ml @ 5 MG/HR 5 mls/hr IV .Q24H [facility] Rx#:[id number] Lactated Ringers 1,000 ml 400 400 270 @ 20 mls/hr IV .Q24H [facility] Rx#:[id number] Nitroglycerin-D5w Pmx 50 7.5 mg In Dextrose/Water 1 250ml.bag @ Per Protocol IV ONCE ONE Rx#:[id number] ceFAZolin 2 gm In Sodium 100 Chloride 0.9% 50 ml @ 100 mls/hr IVPB Q8HR [facility] Rx# :[id number] pressure bags 83 72 54 Intake, IV Titration 57.885 1.675 12.980 Amount Diltiazem 125 mg In 31.5 Sodium Chloride 0.9% 100 ml @ 5 MG/HR 5 mls/hr IV .Q24H [facility] Rx#:[id number] Insulin Regular 100 unit 3.358 1.675 12.980 In Sodium Chloride 0.9% 100 ml @ Per Protocol IV .Q0M [facility] Rx#:[id number] propofoL 1,000 mg In 23.027 Empty Bag 1 bag @ Titrate IV .Q0M [facility] Rx#: [id number] Oral 250 Output: Chest Tube Drainage 495 280 140 Chest Tube Left Lateral 105 150 40 Chest Chest Tube Mediastinal 390 130 100 Urine 1390 285 208 Other: Voiding Method Indwelling Catheter Indwelling Catheter Indwelling Catheter Weight 74.3 kg 74.3 kg ABP, PAP, CO, CI - Last 8 Hours Arterial Blood Pressure 82/38 Arterial Blood Pressure 120/60 Arterial Blood Pressure 82/42 Arterial Blood Pressure 102/48 Arterial Blood Pressure 90/44 Arterial Blood Pressure 111/52 Arterial Blood Pressure 115/55 Arterial Blood Pressure 127/60 Arterial Blood Pressure 119/56 Arterial Blood Pressure 104/51 Arterial Blood Pressure 111/54 Arterial Blood Pressure 110/53 Arterial Blood Pressure 118/50 Arterial Blood Pressure 147/70 Arterial Blood Pressure 105/48 Pulmonary Artery Pressure 30/14 Pulmonary Artery Pressure 36/8 Pulmonary Artery Pressure 34/14 Pulmonary Artery Pressure 37/15 Pulmonary Artery Pressure 36/15 Pulmonary Artery Pressure 32/13 Pulmonary Artery Pressure 32/11 Pulmonary Artery Pressure 32/14 Pulmonary Artery Pressure 24/9 Pulmonary Artery Pressure 54/16 Pulmonary Artery Pressure 38/14 Cardiac Output 4.9 Cardiac Output 4.9 Cardiac Output 4.9 Cardiac Output 4.8 Cardiac Index 2.7 Cardiac Index 2.7 Cardiac Index 2.7 Cardiac Index 2.6 Patient is currently on oxygen by nasal cannula, awake and alert and communicating. Head exam was generally normal. There was no scleral icterus or corneal arcus. Mucous membranes were moist. Neck was supple and without jugular venous distension, thyromegaly, or carotid bruits. Carotids were easily palpable bilaterally. There was no adenopathy. The patient has a right IJ Cordis and a [place] catheter is also in place. Lungs were clear to auscultation and percussion, and with normal diaphragmatic excursion. No wheezes or rales were noted. Heart sounds are within normal limits. Positive S1 and S2 and the patient's heart Rhythm. Sternum is stable clean and intact. The patient has a mediastinal and left lower chest tube. No evidence of any air leak. Abdominal exam revealed normal bowel sounds. The abdomen was soft, non-tender, and without masses, organomegaly, or appreciable enlargement of the abdominal aorta. Extremities revealed easily palpable radial, femoral and pedal pulses. There was no cyanosis, clubbing or edema. Results CBC & Chem 7: 02/07/23 04:58 02/07/23 04:58 Labs: Abnormal Lab Results - Last 24 Hours (Table) 01/28/23 02/06/23 02/06/23 Range/Units 10:04 14:39 14:39 RBC 3.23 L (4.30-5.90) m/uL Hgb 10.2 L (13.0-17.5) gm/dL Hct 29.6 L (39.0-53.0) % Plt Count 76 L (150-450) k/uL Lymphocytes # 0.9 L (1.0-4.8) k/uL ABG pH (7.35-7.45) ABG pCO2 (35-45) mmHg ABG pO2 (83-108) mmHg ABG HCO3 (21-25) mmol/L ABG Total CO2 (19-24) mmol/L ABG O2 Saturation (94-97) % Chloride 108 H (98-107) mmol/L BUN 22 H (9-20) mg/dL Glucose 123 H (74-99) mg/dL POC Glucose (mg/dL) (70-110) mg/dL Calcium 7.9 L (8.4-10.2) mg/dL Magnesium 3.8 H (1.6-2.3) mg/dL AST 174 H (17-59) U/L ALT 83 H (4-49) U/L Total Protein 4.9 L (6.3-8.2) g/dL Albumin 3.0 L (3.5-5.0) g/dL Crossmatch See Detail 02/06/23 02/06/23 02/06/23 Range/Units 14:39 14:59 15:50 RBC (4.30-5.90) m/uL Hgb (13.0-17.5) gm/dL Hct (39.0-53.0) % Plt Count (150-450) k/uL Lymphocytes # (1.0-4.8) k/uL ABG pH (7.35-7.45) ABG pCO2 46 H (35-45) mmHg ABG pO2 365 H (83-108) mmHg ABG HCO3 (21-25) mmol/L ABG Total CO2 (19-24) mmol/L ABG O2 Saturation >100.0 H (94-97) % Chloride (98-107) mmol/L BUN (9-20) mg/dL Glucose (74-99) mg/dL POC Glucose (mg/dL) 141 H 124 H (70-110) mg/dL Calcium (8.4-10.2) mg/dL Magnesium (1.6-2.3) mg/dL AST (17-59) U/L ALT (4-49) U/L Total Protein (6.3-8.2) g/dL Albumin (3.5-5.0) g/dL Crossmatch 02/06/23 02/06/23 02/06/23 Range/Units 16:58 16:59 17:57 RBC 3.44 L (4.30-5.90) m/uL Hgb 10.9 L (13.0-17.5) gm/dL Hct 32.0 L (39.0-53.0) % Plt Count 87 L (150-450) k/uL Lymphocytes # 0.7 L (1.0-4.8) k/uL ABG pH (7.35-7.45) ABG pCO2 (35-45) mmHg ABG pO2 (83-108) mmHg ABG HCO3 (21-25) mmol/L ABG Total CO2 (19-24) mmol/L ABG O2 Saturation (94-97) % Chloride (98-107) mmol/L BUN (9-20) mg/dL Glucose (74-99) mg/dL POC Glucose (mg/dL) 125 H 128 H (70-110) mg/dL Calcium (8.4-10.2) mg/dL Magnesium (1.6-2.3) mg/dL AST (17-59) U/L ALT (4-49) U/L Total Protein (6.3-8.2) g/dL Albumin (3.5-5.0) g/dL Crossmatch 02/06/23 02/06/23 02/06/23 Range/Units 18:54 19:06 19:53 RBC (4.30-5.90) m/uL Hgb (13.0-17.5) gm/dL Hct (39.0-53.0) % Plt Count (150-450) k/uL Lymphocytes # (1.0-4.8) k/uL ABG pH 7.31 L (7.35-7.45) ABG pCO2 49 H 53 H (35-45) mmHg ABG pO2 182 H (83-108) mmHg ABG HCO3 27 H 27 H (21-25) mmol/L ABG Total CO2 29 H 29 H (19-24) mmol/L ABG O2 Saturation 99.9 H (94-97) % Chloride (98-107) mmol/L BUN (9-20) mg/dL Glucose (74-99) mg/dL POC Glucose (mg/dL) 123 H (70-110) mg/dL Calcium (8.4-10.2) mg/dL Magnesium (1.6-2.3) mg/dL AST (17-59) U/L ALT (4-49) U/L Total Protein (6.3-8.2) g/dL Albumin (3.5-5.0) g/dL Crossmatch 02/06/23 02/06/23 02/06/23 Range/Units 19:55 20:03 20:59 RBC 3.28 L (4.30-5.90) m/uL Hgb 10.2 L (13.0-17.5) gm/dL Hct 30.6 L (39.0-53.0) % Plt Count 100 L (150-450) k/uL Lymphocytes # 0.6 L (1.0-4.8) k/uL ABG pH (7.35-7.45) ABG pCO2 47 H (35-45) mmHg ABG pO2 81 L (83-108) mmHg ABG HCO3 26 H (21-25) mmol/L ABG Total CO2 27 H (19-24) mmol/L ABG O2 Saturation (94-97) % Chloride (98-107) mmol/L BUN (9-20) mg/dL Glucose (74-99) mg/dL POC Glucose (mg/dL) 127 H (70-110) mg/dL Calcium (8.4-10.2) mg/dL Magnesium (1.6-2.3) mg/dL AST (17-59) U/L ALT (4-49) U/L Total Protein (6.3-8.2) g/dL Albumin (3.5-5.0) g/dL Crossmatch 02/06/23 02/06/23 02/06/23 Range/Units 21:00 22:11 23:04 RBC (4.30-5.90) m/uL Hgb (13.0-17.5) gm/dL Hct (39.0-53.0) % Plt Count (150-450) k/uL Lymphocytes # (1.0-4.8) k/uL ABG pH (7.35-7.45) ABG pCO2 (35-45) mmHg ABG pO2 (83-108) mmHg ABG HCO3 (21-25) mmol/L ABG Total CO2 (19-24) mmol/L ABG O2 Saturation (94-97) % Chloride (98-107) mmol/L BUN (9-20) mg/dL Glucose (74-99) mg/dL POC Glucose (mg/dL) 132 H 132 H 132 H (70-110) mg/dL Calcium (8.4-10.2) mg/dL Magnesium (1.6-2.3) mg/dL AST (17-59) U/L ALT (4-49) U/L Total Protein (6.3-8.2) g/dL Albumin (3.5-5.0) g/dL Crossmatch 02/07/23 02/07/23 02/07/23 Range/Units 00:54 02:01 02:04 RBC (4.30-5.90) m/uL Hgb (13.0-17.5) gm/dL Hct (39.0-53.0) % Plt Count (150-450) k/uL Lymphocytes # (1.0-4.8) k/uL ABG pH (7.35-7.45) ABG pCO2 46 H (35-45) mmHg ABG pO2 148 H (83-108) mmHg ABG HCO3 26 H (21-25) mmol/L ABG Total CO2 28 H (19-24) mmol/L ABG O2 Saturation 99.2 H (94-97) % Chloride (98-107) mmol/L BUN (9-20) mg/dL Glucose (74-99) mg/dL POC Glucose (mg/dL) 126 H 124 H (70-110) mg/dL Calcium (8.4-10.2) mg/dL Magnesium (1.6-2.3) mg/dL AST (17-59) U/L ALT (4-49) U/L Total Protein (6.3-8.2) g/dL Albumin (3.5-5.0) g/dL Crossmatch 02/07/23 02/07/23 02/07/23 Range/Units 04:08 04:56 04:58 RBC 2.86 L (4.30-5.90) m/uL Hgb 9.1 L (13.0-17.5) gm/dL Hct 26.7 L (39.0-53.0) % Plt Count 88 L (150-450) k/uL Lymphocytes # 0.6 L (1.0-4.8) k/uL ABG pH (7.35-7.45) ABG pCO2 (35-45) mmHg ABG pO2 (83-108) mmHg ABG HCO3 (21-25) mmol/L ABG Total CO2 (19-24) mmol/L ABG O2 Saturation (94-97) % Chloride (98-107) mmol/L BUN (9-20) mg/dL Glucose (74-99) mg/dL POC Glucose (mg/dL) 124 H 123 H (70-110) mg/dL Calcium (8.4-10.2) mg/dL Magnesium (1.6-2.3) mg/dL AST (17-59) U/L ALT (4-49) U/L Total Protein (6.3-8.2) g/dL Albumin (3.5-5.0) g/dL Crossmatch 02/07/23 02/07/23 02/07/23 Range/Units 04:58 06:02 06:58 RBC (4.30-5.90) m/uL Hgb (13.0-17.5) gm/dL Hct (39.0-53.0) % Plt Count (150-450) k/uL Lymphocytes # (1.0-4.8) k/uL ABG pH (7.35-7.45) ABG pCO2 (35-45) mmHg ABG pO2 (83-108) mmHg ABG HCO3 (21-25) mmol/L ABG Total CO2 (19-24) mmol/L ABG O2 Saturation (94-97) % Chloride (98-107) mmol/L BUN 23 H (9-20) mg/dL Glucose 103 H (74-99) mg/dL POC Glucose (mg/dL) 135 H 137 H (70-110) mg/dL Calcium 7.8 L (8.4-10.2) mg/dL Magnesium 2.6 H (1.6-2.3) mg/dL AST 106 H (17-59) U/L ALT 58 H (4-49) U/L Total Protein 5.0 L (6.3-8.2) g/dL Albumin 3.2 L (3.5-5.0) g/dL Crossmatch 02/07/23 02/07/23 02/07/23 Range/Units 08:09 09:33 10:13 RBC (4.30-5.90) m/uL Hgb (13.0-17.5) gm/dL Hct (39.0-53.0) % Plt Count (150-450) k/uL Lymphocytes # (1.0-4.8) k/uL ABG pH (7.35-7.45) ABG pCO2 (35-45) mmHg ABG pO2 (83-108) mmHg ABG HCO3 (21-25) mmol/L ABG Total CO2 (19-24) mmol/L ABG O2 Saturation (94-97) % Chloride (98-107) mmol/L BUN (9-20) mg/dL Glucose (74-99) mg/dL POC Glucose (mg/dL) 146 H 177 H 187 H (70-110) mg/dL Calcium (8.4-10.2) mg/dL Magnesium (1.6-2.3) mg/dL AST (17-59) U/L ALT (4-49) U/L Total Protein (6.3-8.2) g/dL Albumin (3.5-5.0) g/dL Crossmatch 02/07/23 02/07/23 Range/Units 11:17 12:01 RBC (4.30-5.90) m/uL Hgb (13.0-17.5) gm/dL Hct (39.0-53.0) % Plt Count (150-450) k/uL Lymphocytes # (1.0-4.8) k/uL ABG pH (7.35-7.45) ABG pCO2 (35-45) mmHg ABG pO2 (83-108) mmHg ABG HCO3 (21-25) mmol/L ABG Total CO2 (19-24) mmol/L ABG O2 Saturation (94-97) % Chloride (98-107) mmol/L BUN (9-20) mg/dL Glucose (74-99) mg/dL POC Glucose (mg/dL) 156 H 115 H (70-110) mg/dL Calcium (8.4-10.2) mg/dL Magnesium (1.6-2.3) mg/dL AST (17-59) U/L ALT (4-49) U/L Total Protein (6.3-8.2) g/dL Albumin (3.5-5.0) g/dL Crossmatch Assessment and Plan Assessment: 1. Four-vessel coronary artery disease and mitral valve regurgitation; patient is status post four-vessel bypass surgery and mitral valve repair; POD #1 - Patient has been extubated and remains hemodynamically stable - Patient is currently on aspirin and Plavix 2. Sinus bradycardia; resolved; currently normal sinus rhythm 3. Chronic systolic CHF; echocardiogram reveals LVEF of 35% 4. Hypertension; treated with Cleviprex which has now been discontinued and patient is placed on metoprolol 12.5 mg twice a day 5. Hyperlipidemia; Lipitor 40 mg daily, Zetia 10 mg daily 6. Asthma; not in exacerbation; continue with home inhaler therapy 7. History of migraine headaches DVT prophylaxis; subcu heparin CODE STATUS; full code
[2023-02-07 16:14] LABS: Glucose,Whole Blood 136 mg/dL (70-110)
--- NOTE | 2023-02-07 16:41 | P.PN ---
Subjective Progress Note Date: 02/07/23 Principal diagnosis: Coronary artery disease, 2-3+ central mitral valve regurgitation, tricuspid regurgitation, history of severe heart failure with decreased ejection fraction. Past medical history significant for acute on chronic congestive heart failure, hypertension, hyperlipidemia, migraine headaches, asthma, noncompliance with medical care and a remote history of nicotine dependence and which he quit smoking 3 years ago. POD #1 Coronary artery bypass grafting 4 with sequential SHAFER to diagonal and LAD, left radial artery graft obtuse marginal coronary artery, saphenous vein graft to posterior descending coronary artery, mitral valve annuloplasty with a 26 mm physio-2 ring, ligation of left atrial appendage, endovascular vein harvest of the left greater saphenous vein, endovascular left radial artery harvest, DANNY by anesthesia Postoperative acute blood loss anemia, expected given hemodilution and cardiopulmonary bypass. The patient was seen and examined in follow-up today 02/07/2023 at his bedside in the intensive care unit. The patient was successfully extubated at 7:05 PM last evening, is currently on 2 L nasal cannula with oxygen saturations 98% and is achieving 1500 mL on her incentive spirometry. He remains hemodynamically stable and is currently on no inotropic or pressor support. Bedside telemetry showing normal sinus rhythm heart rate 74 BPM. Right IJ cordis and [place]-Malaika cath remains in place with current hemodynamic showing cardiac output of 4.8, cardiac index 2.6, PA pressures 33/13 and CVP of 6 mmHg. Mediastinal left pleural chest tubes remain in place to low continuous wall suction -20 cm H2O. No air leak is present. Chest tubes are draining thin serosanguineous drainage. Denies any complaints of shortness of breath at this time although is complaining of some surgical type pain to his chest tube insertion sites, alth ough reports pain is controlled with current pain medication regimen. Laboratory and chest x-ray results reviewed. Currently sitting up to the bedside chair, is awake, alert, oriented 3 and is in no acute apparent distress. Objective - Vital Signs Vital signs: Vital Signs Temp 98.8 F 02/07/23 12:30 Pulse 74 02/07/23 15:00 Resp 19 02/07/23 15:00 BP 89/51 02/07/23 15:00 Pulse Ox 97 02/07/23 15:00 FiO2 40 02/07/23 09:36 Intake & Output 12/09/2202/07/23 02/07/23 18:59 06:59 18:59 Intake Total 446.259 572.450 7525.535 Output Total 2635 1030 443 Balance -2188.741 -179.699 892.535 Weight 74.3 kg 74.3 kg Intake: IV 422.5 814.5 1056 Albumin Human 5% 250 ml 500 In Empty Bag 1 bag @ 250 mls/hr IVPB Q1HR PRN Rx#: [id number] CO/CI 100 Diltiazem 125 mg In 25 5 Sodium Chloride 0.9% 100 ml @ 5 MG/HR 5 mls/hr IV .Q24H [facility] Rx#:[id number] Lactated Ringers 1,000 ml 250 600 390 @ 20 mls/hr IV .Q24H [facility] Rx#:[id number] Nitroglycerin-D5w Pmx 50 7.5 1.5 mg In Dextrose/Water 1 250ml.bag @ Per Protocol IV ONCE ONE Rx#:[id number] ceFAZolin 2 gm In Sodium 100 Chloride 0.9% 50 ml @ 100 mls/hr IVPB Q8HR [facility] Rx# :[id number] pressure bags 86 108 66 Intake, IV Titration 23.759 35.801 29.535 Amount Diltiazem 125 mg In 31.5 Sodium Chloride 0.9% 100 ml @ 5 MG/HR 5 mls/hr IV .Q24H [facility] Rx#:[id number] Insulin Regular 100 unit 0.732 4.301 29.535 In Sodium Chloride 0.9% 100 ml @ Per Protocol IV .Q0M [facility] Rx#:[id number] propofoL 1,000 mg In 23.027 Empty Bag 1 bag @ Titrate IV .Q0M [facility] Rx#: [id number] Oral 250 Output: Chest Tube Drainage 380 510 190 Chest Tube Left Lateral 60 200 40 Chest Chest Tube Mediastinal 320 310 150 Urine 1755 520 253 Estimated Blood Loss 500 Other: Voiding Method Indwelling Catheter Indwelling Catheter Indwelling Catheter ABP, PAP, CO, CI - Last Documented Arterial Blood Pressure 101/45 Pulmonary Artery Pressure 30/14 Cardiac Output 4.9 Cardiac Index 2.7 - Exam CONSTITUTIONAL: Sitting up to the bedside chair in the intensive care unit, appears comfortable, cooperative, no apparent acute distress. HEENT: Neck is supple, no JVD, no lymphadenopathy. Right IJ Cordis and [place]- Malaika catheter in place and functioning. RESPIRATORY: Lungs sounds essentially clear throughout, diminished to his bilateral bases. Respirations are symmetrical and nonlabored. Currently on 2 L nasal cannula with oxygen saturations 98%. Able to achieve 1500 mL on his incentive spirometry. Strong cough. CARDIOVASCULAR: Regular rhythm and rate. S1 and S2 present, negative for S3, gallop or murmur. Sternum is stable. Palpable peripheral pulses bilaterally, trace edema to his bilateral lower extremities. No calf pain or tenderness noted. Heart hugger in place with patient demonstrating appropriate use. Knee- high MARISOL hose and sequential compression devices in place to his bilateral lower extremities. GASTROINTESTINAL: Abdomen soft, nontender, nondistended. Hypoactive bowel sounds present 4 quadrants. Tolerating diet. Passing flatus. No guarding or rigidity. GENITOURINARY: Cleaning present draining clear, yellow urine. Urine output 335 mL in the last 8 hours INTEGUMENTARY: Skin is warm and dry with no evidence of clubbing or cyanosis. Midline sternal incision clean dry and well approximated, covered with dry intact dressing. Left lower extremity EVH sites well approximated without redness or drainage. Left arm radial artery harvest sites clean, dry and approximated. No drainage or redness is present. NEUROLOGIC: Cranial nerves II through XII intact. No focal deficits. MUSKULOSKELETAL: Able to move all extremities, strength equal bilaterally, generalized weakness. PSYCHIATRIC: Alert and oriented to person place and time, appropriate affect, intact judgment and insight. INVASIVE LINES AND TUBES: Mediastinal/left pleural chest tubes present and connected to low continuous wall suction, no air leaks present. Mediastinal tube with 130 mL of thin serosanguineous drainage overnight, 650 mL output in the last 24 hours. Left pleural chest tube with 150 mL of thin serosanguineous drainage overnight, 250 mL output in the last 24 hours. Atrial and ventricular epicardial pacemaker wires present, connected to generator, VVI backup rate 50 bpm. Right internal jugular [place]/Cordis, right radial arterial line present. Last CO 4.8, CI 2.6, PA 33/13 and CVP 6 mmHg. - Allied health notes Allied health notes reviewed: nursing - Labs CBC & Chem 7: 02/07/23 04:58 02/07/23 04:58 Labs: Abnormal Lab Results - Last 24 Hours (Table) 01/28/23 02/06/23 02/06/23 Range/Units 10:04 14:39 16:58 RBC (4.30-5.90) m/uL Hgb (13.0-17.5) gm/dL Hct (39.0-53.0) % Plt Count 76 L (150-450) k/uL Lymphocytes # 0.9 L (1.0-4.8) k/uL ABG pH (7.35-7.45) ABG pCO2 (35-45) mmHg ABG pO2 (83-108) mmHg ABG HCO3 (21-25) mmol/L ABG Total CO2 (19-24) mmol/L ABG O2 Saturation (94-97) % BUN (9-20) mg/dL Glucose (74-99) mg/dL POC Glucose (mg/dL) 125 H (70-110) mg/dL Calcium (8.4-10.2) mg/dL Magnesium (1.6-2.3) mg/dL AST (17-59) U/L ALT (4-49) U/L Total Protein (6.3-8.2) g/dL Albumin (3.5-5.0) g/dL Crossmatch See Detail 02/06/23 02/06/23 02/06/23 Range/Units 16:59 17:57 18:54 RBC 3.44 L (4.30-5.90) m/uL Hgb 10.9 L (13.0-17.5) gm/dL Hct 32.0 L (39.0-53.0) % Plt Count 87 L (150-450) k/uL Lymphocytes # 0.7 L (1.0-4.8) k/uL ABG pH (7.35-7.45) ABG pCO2 49 H (35-45) mmHg ABG pO2 182 H (83-108) mmHg ABG HCO3 27 H (21-25) mmol/L ABG Total CO2 29 H (19-24) mmol/L ABG O2 Saturation 99.9 H (94-97) % BUN (9-20) mg/dL Glucose (74-99) mg/dL POC Glucose (mg/dL) 128 H (70-110) mg/dL Calcium (8.4-10.2) mg/dL Magnesium (1.6-2.3) mg/dL AST (17-59) U/L ALT (4-49) U/L Total Protein (6.3-8.2) g/dL Albumin (3.5-5.0) g/dL Crossmatch 02/06/23 02/06/23 02/06/23 Range/Units 19:06 19:53 19:55 RBC (4.30-5.90) m/uL Hgb (13.0-17.5) gm/dL Hct (39.0-53.0) % Plt Count (150-450) k/uL Lymphocytes # (1.0-4.8) k/uL ABG pH 7.31 L (7.35-7.45) ABG pCO2 53 H (35-45) mmHg ABG pO2 (83-108) mmHg ABG HCO3 27 H (21-25) mmol/L ABG Total CO2 29 H (19-24) mmol/L ABG O2 Saturation (94-97) % BUN (9-20) mg/dL Glucose (74-99) mg/dL POC Glucose (mg/dL) 123 H 127 H (70-110) mg/dL Calcium (8.4-10.2) mg/dL Magnesium (1.6-2.3) mg/dL AST (17-59) U/L ALT (4-49) U/L Total Protein (6.3-8.2) g/dL Albumin (3.5-5.0) g/dL Crossmatch 02/06/23 02/06/23 02/06/23 Range/Units 20:03 20:59 21:00 RBC 3.28 L (4.30-5.90) m/uL Hgb 10.2 L (13.0-17.5) gm/dL Hct 30.6 L (39.0-53.0) % Plt Count 100 L (150-450) k/uL Lymphocytes # 0.6 L (1.0-4.8) k/uL ABG pH (7.35-7.45) ABG pCO2 47 H (35-45) mmHg ABG pO2 81 L (83-108) mmHg ABG HCO3 26 H (21-25) mmol/L ABG Total CO2 27 H (19-24) mmol/L ABG O2 Saturation (94-97) % BUN (9-20) mg/dL Glucose (74-99) mg/dL POC Glucose (mg/dL) 132 H (70-110) mg/dL Calcium (8.4-10.2) mg/dL Magnesium (1.6-2.3) mg/dL AST (17-59) U/L ALT (4-49) U/L Total Protein (6.3-8.2) g/dL Albumin (3.5-5.0) g/dL Crossmatch 02/06/23 02/06/23 02/07/23 Range/Units 22:11 23:04 00:54 RBC (4.30-5.90) m/uL Hgb (13.0-17.5) gm/dL Hct (39.0-53.0) % Plt Count (150-450) k/uL Lymphocytes # (1.0-4.8) k/uL ABG pH (7.35-7.45) ABG pCO2 (35-45) mmHg ABG pO2 (83-108) mmHg ABG HCO3 (21-25) mmol/L ABG Total CO2 (19-24) mmol/L ABG O2 Saturation (94-97) % BUN (9-20) mg/dL Glucose (74-99) mg/dL POC Glucose (mg/dL) 132 H 132 H 126 H (70-110) mg/dL Calcium (8.4-10.2) mg/dL Magnesium (1.6-2.3) mg/dL AST (17-59) U/L ALT (4-49) U/L Total Protein (6.3-8.2) g/dL Albumin (3.5-5.0) g/dL Crossmatch 02/07/23 02/07/23 02/07/23 Range/Units 02:01 02:04 04:08 RBC (4.30-5.90) m/uL Hgb (13.0-17.5) gm/dL Hct (39.0-53.0) % Plt Count (150-450) k/uL Lymphocytes # (1.0-4.8) k/uL ABG pH (7.35-7.45) ABG pCO2 46 H (35-45) mmHg ABG pO2 148 H (83-108) mmHg ABG HCO3 26 H (21-25) mmol/L ABG Total CO2 28 H (19-24) mmol/L ABG O2 Saturation 99.2 H (94-97) % BUN (9-20) mg/dL Glucose (74-99) mg/dL POC Glucose (mg/dL) 124 H 124 H (70-110) mg/dL Calcium (8.4-10.2) mg/dL Magnesium (1.6-2.3) mg/dL AST (17-59) U/L ALT (4-49) U/L Total Protein (6.3-8.2) g/dL Albumin (3.5-5.0) g/dL Crossmatch 02/07/23 02/07/23 02/07/23 Range/Units 04:56 04:58 04:58 RBC 2.86 L (4.30-5.90) m/uL Hgb 9.1 L (13.0-17.5) gm/dL Hct 26.7 L (39.0-53.0) % Plt Count 88 L (150-450) k/uL Lymphocytes # 0.6 L (1.0-4.8) k/uL ABG pH (7.35-7.45) ABG pCO2 (35-45) mmHg ABG pO2 (83-108) mmHg ABG HCO3 (21-25) mmol/L ABG Total CO2 (19-24) mmol/L ABG O2 Saturation (94-97) % BUN 23 H (9-20) mg/dL Glucose 103 H (74-99) mg/dL POC Glucose (mg/dL) 123 H (70-110) mg/dL Calcium 7.8 L (8.4-10.2) mg/dL Magnesium 2.6 H (1.6-2.3) mg/dL AST 106 H (17-59) U/L ALT 58 H (4-49) U/L Total Protein 5.0 L (6.3-8.2) g/dL Albumin 3.2 L (3.5-5.0) g/dL Crossmatch 02/07/23 02/07/23 02/07/23 Range/Units 06:02 06:58 08:09 RBC (4.30-5.90) m/uL Hgb (13.0-17.5) gm/dL Hct (39.0-53.0) % Plt Count (150-450) k/uL Lymphocytes # (1.0-4.8) k/uL ABG pH (7.35-7.45) ABG pCO2 (35-45) mmHg ABG pO2 (83-108) mmHg ABG HCO3 (21-25) mmol/L ABG Total CO2 (19-24) mmol/L ABG O2 Saturation (94-97) % BUN (9-20) mg/dL Glucose (74-99) mg/dL POC Glucose (mg/dL) 135 H 137 H 146 H (70-110) mg/dL Calcium (8.4-10.2) mg/dL Magnesium (1.6-2.3) mg/dL AST (17-59) U/L ALT (4-49) U/L Total Protein (6.3-8.2) g/dL Albumin (3.5-5.0) g/dL Crossmatch 02/07/23 02/07/23 02/07/23 Range/Units 09:33 10:13 11:17 RBC (4.30-5.90) m/uL Hgb (13.0-17.5) gm/dL Hct (39.0-53.0) % Plt Count (150-450) k/uL Lymphocytes # (1.0-4.8) k/uL ABG pH (7.35-7.45) ABG pCO2 (35-45) mmHg ABG pO2 (83-108) mmHg ABG HCO3 (21-25) mmol/L ABG Total CO2 (19-24) mmol/L ABG O2 Saturation (94-97) % BUN (9-20) mg/dL Glucose (74-99) mg/dL POC Glucose (mg/dL) 177 H 187 H 156 H (70-110) mg/dL Calcium (8.4-10.2) mg/dL Magnesium (1.6-2.3) mg/dL AST (17-59) U/L ALT (4-49) U/L Total Protein (6.3-8.2) g/dL Albumin (3.5-5.0) g/dL Crossmatch 02/07/23 02/07/23 02/07/23 Range/Units 12:01 14:08 15:10 RBC (4.30-5.90) m/uL Hgb (13.0-17.5) gm/dL Hct (39.0-53.0) % Plt Count (150-450) k/uL Lymphocytes # (1.0-4.8) k/uL ABG pH (7.35-7.45) ABG pCO2 (35-45) mmHg ABG pO2 (83-108) mmHg ABG HCO3 (21-25) mmol/L ABG Total CO2 (19-24) mmol/L ABG O2 Saturation (94-97) % BUN (9-20) mg/dL Glucose (74-99) mg/dL POC Glucose (mg/dL) 115 H 159 H 187 H (70-110) mg/dL Calcium (8.4-10.2) mg/dL Magnesium (1.6-2.3) mg/dL AST (17-59) U/L ALT (4-49) U/L Total Protein (6.3-8.2) g/dL Albumin (3.5-5.0) g/dL Crossmatch - Imaging and Cardiology Chest x-ray: report reviewed, image reviewed Assessment and Plan Assessment: Multivessel coronary artery disease status post coronary artery bypass grafting surgery 4 vessels Severe mitral valve regurgitation , status post mitral valve repair using a 26 mm physio-2 ring Acute on chronic congestive heart failure with impaired left ventricular ejection fraction on DANNY showing an ejection fraction of 35% History of hypertension Hyperlipidemia History of asthma History of migraines History of medical noncompliance Remote history of nicotine dependence quit smoking 3 years ago Postoperative acute blood loss anemia, expected given hemodilution and cardiopulmonary bypass Plan: Continue to maximize medical therapy with aspirin, statin, Plavix, beta paris. Will increase beta paris therapy as tolerated. Discontinue IV nitro and Cardizem. Will start oral calcium channel paris with hold parameters for radial artery spasm prophylaxis, when blood pressure is able to tolerate. Wean O2 as tolerated. Encourage incentive spirometry use 10 times every hour while awake. Bronchodilators per pulmonology Increase activity, ambulate as tolerated. PT/OT/cardiac rehab consulted. Will monitor daily labs and chest x-rays. Electrolyte replacement per protocol. GI/DVT prophylaxis. Pain control per current medication regimen. Toradol added for better pain control. Insulin management per internal medicine service. Patient is not diabetic, hemoglobin A1c 5.5%. Needs to remain on insulin drip for 48 hours, then may transition to subcutaneous per protocol Discontinue Wil[place]. Cannot Cordis to continuous CVP monitoring Continue mediastinal/left pleural chest tube for another 24 hours, monitor output Continue Cleaning catheter for another 24 hours, continue to record strict accurate intake and output Daily weights. More recommendations to follow based on patient's clinical course. Time with Patient: Greater than 30
[2023-02-07 17:07] LABS: Glucose,Whole Blood 130 mg/dL (70-110)
[2023-02-07 18:08] LABS: Glucose,Whole Blood 97 mg/dL (70-110)
[2023-02-07 19:04] LABS: Glucose,Whole Blood 143 mg/dL (70-110)
[2023-02-07 19:52] LABS: Glucose,Whole Blood 138 mg/dL (70-110)
[2023-02-07] MEDS: SENNOSIDES-DOCUSATE SODIUM 1 EACH TAB PO SCH (19:56)
[2023-02-07 21:00] LABS: Glucose,Whole Blood 138 mg/dL (70-110)
[2023-02-07] MEDS ORDERED: FUROSEMIDE 10 MG/ML 2 ML VIAL IV STA (21:22)
[2023-02-07] MEDS: DEXTROSE/WATER 1 250ML.BAG with DOPamine DRIP 800 MG IV SCH (21:30)
[2023-02-07 22:06] LABS: Glucose,Whole Blood 141 mg/dL (70-110)
[2023-02-07 23:00] LABS: Glucose,Whole Blood 121 mg/dL (70-110)
[2023-02-08 00:01] LABS: Glucose,Whole Blood 141 mg/dL (70-110)
[2023-02-08 01:02] LABS: Glucose,Whole Blood 103 mg/dL (70-110)
[2023-02-08 02:02] LABS: Glucose,Whole Blood 116 mg/dL (70-110)
[2023-02-08 03:04] LABS: Glucose,Whole Blood 125 mg/dL (70-110)
[2023-02-08 04:04] LABS: Glucose,Whole Blood 127 mg/dL (70-110)
[2023-02-08 05:04] LABS: Glucose,Whole Blood 128 mg/dL (70-110)
[2023-02-08] MEDS: HYDROcodone/APAP 5-325MG 1 EACH TAB PO PRN ×3 (05:08→19:55)
[2023-02-08 06:07] LABS: Glucose,Whole Blood 74 mg/dL (70-110)
[2023-02-08] MEDS: KETOROLAC 15 MG/ML 1 ML VIAL IVP SCH ×3 (06:10→18:21)
[2023-02-08 06:20] LABS: Basophils % (A) 0 %; Eosinophils # (A) 0.1 k/uL (0-0.7); Eosinophils % (A) 2 %; HCT 23.7 % (39.0-53.0); HGB 7.8 gm/dL (13.0-17.5); Lymphocytes # (A) 1.2 k/uL (1.0-4.8); Lymphocytes % (A) 15 %; MCH 31.4 pg (25.0-35.0); MCHC 32.8 g/dL (31.0-37.0); MCV 95.7 fL (80.0-100.0); Mean Platelet Volume 10.2; Monocytes # (A) 0.7 k/uL (0-1.0); Monocytes % (A) 9 %; Neutrophils # (A) 5.6 k/uL (1.3-7.7); Neutrophils % (A) 71 %; RBC 2.48 m/uL (4.30-5.90); RDW 13.4 % (11.5-15.5); WBC 7.9 k/uL (3.8-10.6)
[2023-02-08 06:26] LABS: Platelet Count 73 k/uL (150-450)
[2023-02-08 06:33] LABS: Ionized Calcium 4.8 mg/dL (4.5-5.3)
[2023-02-08 06:48] LABS: Glucose,Whole Blood 128 mg/dL (70-110)
[2023-02-08 07:21] LABS: ALT 33 U/L (4-49); AST 69 U/L (17-59); African American GFR (CKD) 78 (>60 ml/min/1.73 sqM); Albumin 3.4 g/dL (3.5-5.0); Alkaline Phosphatase 77 U/L (38-126); Anion Gap 9 mmol/L; Blood Urea Nitrogen 32 mg/dL (9-20); Calcium 8.5 mg/dL (8.4-10.2); Carbon Dioxide 26 mmol/L (22-30); Chloride 104 mmol/L (98-107); Glucose 102 mg/dL (74-99); Non-African American GFR(CKD) 67 (>60 ml/min/1.73 sqM); Sodium 139 mmol/L (137-145); Total Bilirubin 0.7 mg/dL (0.2-1.3); Total Protein 5.3 g/dL (6.3-8.2)
[2023-02-08] MEDS: IPRATROPIUM-ALBUTEROL 3 ML NEB INHALATION SCH ×4 (08:01→21:00)
[2023-02-08 08:20] LABS: Glucose,Whole Blood 209 mg/dL (70-110)
[2023-02-08 09:02] LABS: Glucose,Whole Blood 215 mg/dL (70-110)
--- NOTE | 2023-02-08 09:22 | XR ---
EXAMINATION TYPE: XR chest 1V portable DATE OF EXAM: 02/08/2023 Comparison: 02/07/2023 Clinical History: 62-year-old male Post Operative Cardiac Surgery Findings: Median sternotomy wires are present with post-CABG clips. Annuloplasty ring. Retained epicardial pac er leads. Heart upper limits of normal in size. Left-sided chest tube in place. No appreciable pneumo thorax. Interstitial changes persist. Some patchy retrocardiac opacity remains. Right IJ sheath with removal of prior [place]-Malaika catheter. Impression: Postoperative changes. There may be mild pulmonary vascular congestion. Similar patchy postoperative atelectasis at the left base.
--- NOTE | 2023-02-08 09:57 | P.PN ---
Subjective Progress Note Date: 02/08/23 PROGRESS NOTE The patient is a 62-year-old male who underwent mitral valve repair and coronary bypass grafting yesterday. He has a known history of ischemic cardiac myopathy, severe mitral regurgitation and severe obstructive disease. His cardiac catheterization has shown occluded RCA, severe LAD and left circumflex obstructive disease. His echocardiogram showed severe impairment in the systolic function with severe mitral regurgitation. He underwent surgery yesterday by Dr. Jeronimo and received a SHAFER to the LAD and left radial to the OM and SVG to the PDA with occlusion of the left atrial appendage and mitral valve annuloplasty, size 26. He has underwent cardiac catheterization in August of this year but because of his severe CHF his medical regimen was optimized and stabilized to undergo intervention. He is extubated, sitting up in the chair, complaining of soreness in the chest. He is mildly dyspneic in sinus mechanism and hemodynamically stable. He has no episodes of atrial fibrillation or ventricular tachycardia. He has a prior history of hyper-lipidemia, prior history of smoking he is nondiabetic. February 08: The patient feels better today, he is sitting up in the chair, hemodynamically stable. He denies any chest discomfort, dizziness or palpitations. He continues to be in sinus mechanism. He denies any nausea or vomiting. He had a drop in his urinary output and was started on renal dose dopamine by the surgical team. Medications: Aspirin, Plavix 75 mg daily, insulin, metoprolol 12.5 mg twice a day, Lipitor 40 mg daily, Ezetimibe 10 mg daily PHYSICAL EXAMINATION: Blood pressure 113/60 heart rate 70 LUNGS:. Crackles at the bases HEART: Regular rate and rhythm, S1, S2. No S3. Systolic ejection murmur ABDOMEN: Soft, nontender, no organomegaly EXTREMETIES: No edema LAB: BUN 32, creatinine 1.16 IMPRESSION: 1. Status post CABG and mitral valve repair 2. History of ischemic cardiomyopathy 3. Diabetes 4. Hyperlipidemia PLAN: 1. Increase physical activity 2. Follow blood pressure and if stable add HEAVEN inhibitor 3. Depending on the heart rate increased the dose of beta paris 4. Depending on his progress further recommendations will be made Objective - Vital Signs Vital signs: Vital Signs Temp 98 F 02/08/23 04:00 Pulse 70 02/08/23 08:15 Resp 20 02/08/23 07:00 BP 113/62 02/08/23 07:00 Pulse Ox 98 02/08/23 07:00 FiO2 40 02/07/23 09:36 Intake & Output 02/07/23 02/08/23 02/08/23 18:59 06:59 18:59 Intake Total 1488.264 841.591 3.611 Output Total 603 740 Balance 885.264 101.591 3.611 Weight 74.3 kg 77 kg Intake: IV 1194 818 Albumin Human 5% 250 ml 500 250 In Empty Bag 1 bag @ 250 mls/hr IVPB Q1HR PRN Rx#: [id number] Lactated Ringers 1,000 ml 510 520 @ 20 mls/hr IV .Q24H [facility] Rx#:[id number] ceFAZolin 2 gm In Sodium 100 Chloride 0.9% 50 ml @ 100 mls/hr IVPB Q8HR [facility] Rx# :[id number] pressure bags 84 48 Intake, IV Titration 44.264 23.591 3.611 Amount Insulin Regular 100 unit 44.264 23.591 3.611 In Sodium Chloride 0.9% 100 ml @ Per Protocol IV .Q0M [facility] Rx#:[id number] Oral 250 Output: Chest Tube Drainage 280 210 Chest Tube Left Lateral 80 50 Chest Chest Tube Mediastinal 200 160 Urine 323 530 Other: Voiding Method Indwelling Catheter Indwelling Catheter ABP, PAP, CO, CI - Last Documented Arterial Blood Pressure 83/43 Pulmonary Artery Pressure 30/14 Cardiac Output 4.9 Cardiac Index 2.7 - Labs CBC & Chem 7: 02/08/23 05:32 02/08/23 05:32 Labs: Abnormal Lab Results - Last 24 Hours (Table) 02/07/23 02/07/23 02/07/23 Range/Units 10:13 11:17 12:01 RBC (4.30-5.90) m/uL Hgb (13.0-17.5) gm/dL Hct (39.0-53.0) % Plt Count (150-450) k/uL BUN (9-20) mg/dL Glucose (74-99) mg/dL POC Glucose (mg/dL) 187 H 156 H 115 H (70-110) mg/dL AST (17-59) U/L Total Protein (6.3-8.2) g/dL Albumin (3.5-5.0) g/dL 02/07/23 02/07/23 02/07/23 Range/Units 14:08 15:10 16:13 RBC (4.30-5.90) m/uL Hgb (13.0-17.5) gm/dL Hct (39.0-53.0) % Plt Count (150-450) k/uL BUN (9-20) mg/dL Glucose (74-99) mg/dL POC Glucose (mg/dL) 159 H 187 H 136 H (70-110) mg/dL AST (17-59) U/L Total Protein (6.3-8.2) g/dL Albumin (3.5-5.0) g/dL 02/07/23 02/07/23 02/07/23 Range/Units 17:05 19:03 19:51 RBC (4.30-5.90) m/uL Hgb (13.0-17.5) gm/dL Hct (39.0-53.0) % Plt Count (150-450) k/uL BUN (9-20) mg/dL Glucose (74-99) mg/dL POC Glucose (mg/dL) 130 H 143 H 138 H (70-110) mg/dL AST (17-59) U/L Total Protein (6.3-8.2) g/dL Albumin (3.5-5.0) g/dL 02/07/23 02/07/23 02/07/23 Range/Units 20:59 22:04 22:58 RBC (4.30-5.90) m/uL Hgb (13.0-17.5) gm/dL Hct (39.0-53.0) % Plt Count (150-450) k/uL BUN (9-20) mg/dL Glucose (74-99) mg/dL POC Glucose (mg/dL) 138 H 141 H 121 H (70-110) mg/dL AST (17-59) U/L Total Protein (6.3-8.2) g/dL Albumin (3.5-5.0) g/dL 02/08/23 02/08/23 02/08/23 Range/Units 00:00 02:00 03:03 RBC (4.30-5.90) m/uL Hgb (13.0-17.5) gm/dL Hct (39.0-53.0) % Plt Count (150-450) k/uL BUN (9-20) mg/dL Glucose (74-99) mg/dL POC Glucose (mg/dL) 141 H 116 H 125 H (70-110) mg/dL AST (17-59) U/L Total Protein (6.3-8.2) g/dL Albumin (3.5-5.0) g/dL 02/08/23 02/08/23 02/08/23 Range/Units 04:02 05:02 05:32 RBC 2.48 L (4.30-5.90) m/uL Hgb 7.8 L (13.0-17.5) gm/dL Hct 23.7 L (39.0-53.0) % Plt Count 73 L (150-450) k/uL BUN (9-20) mg/dL Glucose (74-99) mg/dL POC Glucose (mg/dL) 127 H 128 H (70-110) mg/dL AST (17-59) U/L Total Protein (6.3-8.2) g/dL Albumin (3.5-5.0) g/dL 02/08/23 02/08/23 02/08/23 Range/Units 05:32 06:46 08:19 RBC (4.30-5.90) m/uL Hgb (13.0-17.5) gm/dL Hct (39.0-53.0) % Plt Count (150-450) k/uL BUN 32 H (9-20) mg/dL Glucose 102 H (74-99) mg/dL POC Glucose (mg/dL) 128 H 209 H (70-110) mg/dL AST 69 H (17-59) U/L Total Protein 5.3 L (6.3-8.2) g/dL Albumin 3.4 L (3.5-5.0) g/dL 02/08/23 Range/Units 09:00 RBC (4.30-5.90) m/uL Hgb (13.0-17.5) gm/dL Hct (39.0-53.0) % Plt Count (150-450) k/uL BUN (9-20) mg/dL Glucose (74-99) mg/dL POC Glucose (mg/dL) 215 H (70-110) mg/dL AST (17-59) U/L Total Protein (6.3-8.2) g/dL Albumin (3.5-5.0) g/dL
[2023-02-08 10:05] LABS: Glucose,Whole Blood 136 mg/dL (70-110)
[2023-02-08] MEDS: ASPIRIN 325 MG TAB PO SCH (10:14)
[2023-02-08] MEDS: CLOPIDOGREL 75 MG TAB PO SCH (10:14)
[2023-02-08] MEDS: METOPROLOL TARTRATE 12.5 MG TAB PO SCH ×2 (10:14→19:55)
[2023-02-08] MEDS: EZETIMIBE 10 MG TAB PO SCH (10:14)
[2023-02-08] MEDS: ATORVASTATIN 40 MG TAB PO SCH (10:14)
[2023-02-08] MEDS: PARoxetine 20 MG TAB PO SCH (10:14)
[2023-02-08] MEDS: HEPARIN SODIUM,PORCINE 5,000 UNIT/ML 1 ML VIAL SQ SCH ×2 (10:19→16:34)
[2023-02-08] MEDS: PANTOPRAZOLE 40 MG/10 ML VIAL IVP SCH (10:25)
[2023-02-08] MEDS: INSULIN DETEMIR (LEVEMIR) 100 UNIT/ML SYR SQ SCH (10:27)
[2023-02-08] MEDS: FUROSEMIDE 10 MG/ML 2 ML VIAL IV SCH ×2 (10:40→16:34)
--- NOTE | 2023-02-08 11:14 | P.PN ---
Subjective Progress Note Date: 02/08/23 59-year-old male patient who underwent a four-vessel coronary artery bypass surgery and mitral valve repair. The patient has a significant history of chronic systolic heart failure, hypertension, hyperlipidemia, asthma, and is a chronic ex-smoker and he quit smoking approximately 3 years ago. The patient was having issues with shortness of breath then he has had previous hospitalizations. Cardiology ventilator the patient. Transthoracic echocardiogram showed a ejection fraction of 15-20% and the patient had a reduced global LV function with moderately reduced RV global systolic function, moderate to severe mitral regurgitation, a thickened aortic valve without stenosis, mild tricuspid regurgitation, no pericardial effusion and normal aortic root. The patient also underwent a DANNY and it showed impairment of LV function with an ejection fraction of 20-25% and global hypokinesis. The patie nt had dilated RV as well. The patient underwent a cardiac catheterization that showed critical triple-vessel disease with occluded RCA proximal portion and filling by collaterals from the left coronary system along with circumflex giving rise to OM1 with a critical lesion in the proximal vessel and LAD had a proximal long tubular lesion that was in the range of 99%. Based on that, surgery was decided. The patient underwent a four-vessel bypass surgery with SHAFER to LAD and diagonal, left radial graft to obtuse marginal, saphenous vein graft to PDA and the patient also underwent a mitral valve repair. I saw the patient needs after he got today intensive care unit. The patient was sedated on propofol which is running at 30 microvascular kilogram per minute. The patient was on assist-control mode of mechanical ventilation at the rate of 14, tidal volume of 500, FiO2 of 50% with a PEEP of 5. The patient had a blood gas that showed a pH of 7.35 with episodes of 47 and pO2 of 365 and this was done on FiO2 of 100%. Chest x-ray showed some atelectatic change in her left lung. The patient had a adequate positioning of the orotracheal tube. Echo- Malaika catheter had to be pushed him. The patient has a mediastinal and left pleural chest tube. No evidence of any air leak and the output from the mediastinal chest tube is minimal, from the left pleural chest tube is in order of 200 mL. The patient is currently on Cardizem drip at 5 mg an hour, nitroglycerin drip at 5 microvascular minute and the patient is also on cleviprex Drip at 1 mg/h. The patient had a cardiac output of 4 with an index of 2.2. The patient has a pulmonary artery pressures of 40/20. The patient is producing adequate amount of urine output. The patient is afebrile. No blood product has been given. The underlying cardiac rhythm is sinus bradycardia and the patient is currently paced at the rate of 80. On today's evaluation of 02/07/2023, the patient is being seen for a follow-up. The patient was weaned off the mechanical ventilator and he was extubated. Post extubation, the patient was felt to be lethargic with diminished level of consciousness. He was taken off the sedation. He was placed on a BiPAP at a pressure of 10/5 cm of water. He was kept on a BiPAP throughout the night and earlier this morning while on the BiPAP with an FiO2 of 40%, his speech was at 7.37 with a pCO2 of 46 and pO2 of 148. He was taken off the BiPAP and he was switched to oxygen by nasal cannula 2 L. His chest x-ray from today showing some atelectatic changes in the left lung base. No evidence of any pneumothorax. The Echo-Malaika catheter obviously is not a good location. This will be removed. There is a mediastinal left pleural chest tube. Some atelectatic changes in the left lung base. The patient otherwise is awake and alert. He is following commands and answering questions. He is aware of time and place. His cardiac output is at 4.9 with an index of 2.7. PA pressures are 33/12. His cardiac rhythm is improved and the patient is currently has an intrinsic normal sinus rhythm. He is on no pressors for now. He is off the nitroglycerin drip. He is off the Cardizem drip. As for the Cleviprex, this was also discontinued. His chest tubes are in good location. No evidence of a ny air leak. Output from the chest tube is minimal. The lab shows a sodium level CXXXVII, BUN is at 23 with a creatinine of 0.87. The meniscal 7.2, hemoglobin is 9.1 and a platelet count of 88. He is currently on aspirin. Is also on Plavix. Metoprolol was also started at a dose of 12.5 mg by mouth twice a day. He is on insulin drip which is running at 3 units an hour. Evaluation of 02/08/2023, the patient is postop day #2. Patient is calm and comfortable and the patient is also ambulating. Chest tubes are still in place. The mediastinal chest tube will be removed today. The chest x-ray from today shows no evidence of any pneumothorax. Adequate expansion of both lungs. Postthoracotomy changes. Otherwise no other acute abnormalities noted. The WBC count is 7.9, hemoglobin is at 7.8, BUN is at 33 with a creatinine of 1.1 and his sodium levels of 139. The patient is awake and alert and communicating. Cleaning catheter is in place. Cardiac rhythm was sinus rhythm at this point in time. Echo-Malaika catheter has been removed. Insulin drip is discontinued Objective - Vital Signs Vital signs: Vital Signs Temp 98.7 F 02/08/23 08:00 Pulse 71 02/08/23 10:30 Resp 15 02/08/23 10:30 BP 106/57 02/08/23 10:30 Pulse Ox 97 02/08/23 10:30 FiO2 40 02/07/23 09:36 Intake & Output 02/07/23 02/08/23 02/08/23 18:59 06:59 18:59 Intake Total 1488.264 841.591 7.777 Output Total 603 740 Balance 885.264 101.591 7.777 Weight 74.3 kg 77 kg Intake: IV 1194 818 Albumin Human 5% 250 ml 500 250 In Empty Bag 1 bag @ 250 mls/hr IVPB Q1HR PRN Rx#: [id number] Lactated Ringers 1,000 ml 510 520 @ 20 mls/hr IV .Q24H [facility] Rx#:[id number] ceFAZolin 2 gm In Sodium 100 Chloride 0.9% 50 ml @ 100 mls/hr IVPB Q8HR [facility] Rx# :[id number] pressure bags 84 48 Intake, IV Titration 44.264 23.591 7.777 Amount Insulin Regular 100 unit 44.264 23.591 7.777 In Sodium Chloride 0.9% 100 ml @ Per Protocol IV .Q0M [facility] Rx#:[id number] Oral 250 Output: Chest Tube Drainage 280 210 Chest Tube Left Lateral 80 50 Chest Chest Tube Mediastinal 200 160 Urine 323 530 Other: Voiding Method Indwelling Catheter Indwelling Catheter ABP, PAP, CO, CI - Last Documented Arterial Blood Pressure 83/43 Pulmonary Artery Pressure 30/14 Cardiac Output 4.9 Cardiac Index 2.7 - Exam Patient is currently on oxygen by nasal cannula, awake and alert and communicating. Head exam was generally normal. There was no scleral icterus or corneal arcus. Mucous membranes were moist. Neck was supple and without jugular venous distension, thyromegaly, or carotid bruits. Carotids were easily palpable bilaterally. There was no adenopathy. The patient has a right IJ Cordis and a Echo-Malaika catheter is removed Lungs were clear to auscultation and percussion, and with normal diaphragmatic excursion. No wheezes or rales were noted. Heart sounds are within normal limits. Positive S1 and S2 and the patient's heart Rhythm. Sternum is stable clean and intact. The patient has a mediastinal and left lower chest tube. No evidence of any air leak. Abdominal exam revealed normal bowel sounds. The abdomen was soft, non-tender, and without masses, organomegaly, or appreciable enlargement of the abdominal aorta. Examination of the extremities revealed easily palpable radial, femoral and pedal pulses. There was no cyanosis, clubbing or edema. Examination of the skin revealed no evidence of significant rashes, suspicious appearing nevi or other concerning lesions. Neurologically, the patient is sedated at this point in time - Labs CBC & Chem 7: 02/08/23 05:32 02/08/23 05:32 Labs: Abnormal Lab Results - Last 24 Hours (Table) 02/07/23 02/07/23 02/07/23 Range/Units 11:17 12:01 14:08 RBC (4.30-5.90) m/uL Hgb (13.0-17.5) gm/dL Hct (39.0-53.0) % Plt Count (150-450) k/uL BUN (9-20) mg/dL Glucose (74-99) mg/dL POC Glucose (mg/dL) 156 H 115 H 159 H (70-110) mg/dL AST (17-59) U/L Total Protein (6.3-8.2) g/dL Albumin (3.5-5.0) g/dL 02/07/23 02/07/23 02/07/23 Range/Units 15:10 16:13 17:05 RBC (4.30-5.90) m/uL Hgb (13.0-17.5) gm/dL Hct (39.0-53.0) % Plt Count (150-450) k/uL BUN (9-20) mg/dL Glucose (74-99) mg/dL POC Glucose (mg/dL) 187 H 136 H 130 H (70-110) mg/dL AST (17-59) U/L Total Protein (6.3-8.2) g/dL Albumin (3.5-5.0) g/dL 02/07/23 02/07/23 02/07/23 Range/Units 19:03 19:51 20:59 RBC (4.30-5.90) m/uL Hgb (13.0-17.5) gm/dL Hct (39.0-53.0) % Plt Count (150-450) k/uL BUN (9-20) mg/dL Glucose (74-99) mg/dL POC Glucose (mg/dL) 143 H 138 H 138 H (70-110) mg/dL AST (17-59) U/L Total Protein (6.3-8.2) g/dL Albumin (3.5-5.0) g/dL 02/07/23 02/07/23 02/08/23 Range/Units 22:04 22:58 00:00 RBC (4.30-5.90) m/uL Hgb (13.0-17.5) gm/dL Hct (39.0-53.0) % Plt Count (150-450) k/uL BUN (9-20) mg/dL Glucose (74-99) mg/dL POC Glucose (mg/dL) 141 H 121 H 141 H (70-110) mg/dL AST (17-59) U/L Total Protein (6.3-8.2) g/dL Albumin (3.5-5.0) g/dL 02/08/23 02/08/23 02/08/23 Range/Units 02:00 03:03 04:02 RBC (4.30-5.90) m/uL Hgb (13.0-17.5) gm/dL Hct (39.0-53.0) % Plt Count (150-450) k/uL BUN (9-20) mg/dL Glucose (74-99) mg/dL POC Glucose (mg/dL) 116 H 125 H 127 H (70-110) mg/dL AST (17-59) U/L Total Protein (6.3-8.2) g/dL Albumin (3.5-5.0) g/dL 02/08/23 02/08/23 02/08/23 Range/Units 05:02 05:32 05:32 RBC 2.48 L (4.30-5.90) m/uL Hgb 7.8 L (13.0-17.5) gm/dL Hct 23.7 L (39.0-53.0) % Plt Count 73 L (150-450) k/uL BUN 32 H (9-20) mg/dL Glucose 102 H (74-99) mg/dL POC Glucose (mg/dL) 128 H (70-110) mg/dL AST 69 H (17-59) U/L Total Protein 5.3 L (6.3-8.2) g/dL Albumin 3.4 L (3.5-5.0) g/dL 02/08/23 02/08/23 02/08/23 Range/Units 06:46 08:19 09:00 RBC (4.30-5.90) m/uL Hgb (13.0-17.5) gm/dL Hct (39.0-53.0) % Plt Count (150-450) k/uL BUN (9-20) mg/dL Glucose (74-99) mg/dL POC Glucose (mg/dL) 128 H 209 H 215 H (70-110) mg/dL AST (17-59) U/L Total Protein (6.3-8.2) g/dL Albumin (3.5-5.0) g/dL 02/08/23 Range/Units 10:04 RBC (4.30-5.90) m/uL Hgb (13.0-17.5) gm/dL Hct (39.0-53.0) % Plt Count (150-450) k/uL BUN (9-20) mg/dL Glucose (74-99) mg/dL POC Glucose (mg/dL) 136 H (70-110) mg/dL AST (17-59) U/L Total Protein (6.3-8.2) g/dL Albumin (3.5-5.0) g/dL Assessment and Plan Plan: Coronary artery disease and mitral valve regurgitation along with systolic heart failure with decreased ejection fraction. The patient is post 4 vessel bypass surgery and mitral valve repair. The patient is currently postop day #2 The patient is hemodynamically stable Postthoracotomy, currently extubated on 2 L of oxygen by nasal cannula. Chest tubes are in place. No pneumothorax Sinus bradycardia, improved and the patient is an interesting cardiac rhythm which is normal sinus at this point in time Chronic systolic heart failure with impaired ejection fraction of 35% Hypertension, currently off Cleviprex drip Hyperlipidemia History of migraines History of bronchial asthma History of smoking quit approximately 3 years ago Plan Incentive spirometer Wean down FiO2 to maintain saturation above 90%, currently on 2 L Remove the mediastinal right chest tube History of drip has been discontinued. The patient is being monitored. Metoprolol 12.5 mg by mouth twice a day Aspirin and Plavix Hemodynamically stable. Chest x-ray was reviewed Blood work was reviewed monitor the hemoglobin We'll collaborate with the surgical team regarding postoperative care
[2023-02-08 12:17] LABS: Glucose,Whole Blood 141 mg/dL (70-110)
[2023-02-08] MEDS: INSULIN ASPART (NovoLOG) 100 UNIT/ML VIAL SQ SCH ×3 (12:17→19:55)
--- NOTE | 2023-02-08 12:54 | P.PN ---
Subjective Progress Note Date: 02/08/23 Principal diagnosis: Coronary artery disease, 2-3+ central mitral valve regurgitation, tricuspid regurgitation, history of severe heart failure with decreased ejection fraction. Past medical history significant for acute on chronic congestive heart failure, hypertension, hyperlipidemia, migraine headaches, asthma, noncompliance with medical care and a remote history of nicotine dependence and which he quit smoking 3 years ago. POD #2 Coronary artery bypass grafting 4 with sequential SHAFER to diagonal and LAD, left radial artery graft obtuse marginal coronary artery, saphenous vein graft to posterior descending coronary artery, mitral valve annuloplasty with a 26 mm physio-2 ring, ligation of left atrial appendage, endovascular vein harvest of the left greater saphenous vein, endovascular left radial artery harvest, DANNY by anesthesia Postoperative acute blood loss anemia, expected given hemodilution and cardiopulmonary bypass. The patient was seen and examined in follow-up today 02/18/2023 at bedside in the intensive care unit. He is currently sitting up to bedside chair, is awake, alert, oriented 3 and is in no acute distress. Patient denies any complaints of shortness of breath at this time, although was complaining of some surgical type pain to his chest tube insertion sites currently rating his pain 3-4 out of 10 on the pain scale. He was started on dopamine drip at 3 mcg/kg/m for decreased urine output throughout the night. Oxygen saturation are 95% on 2 L nasal cannula and he is achieving 1500 mL to 2000 mL on his incentive spirometry with encouragement. Bedside telemetry showing normal sinus rhythm heart rate 72 BPM. He is been up ambulating in the intensive care in the hallway with standby assistance from nursing and therapy staff tolerating well. Mediastinal and left pleural chest tube to remain in place to low continuous wall suction -20 cm H2O. No air leak is present. Draining thin serosanguineous drainage. Mediastinal chest tubes drained 100 mL output in the last 8 hours and 350 mL output in the last 24 hours. Left pleural chest tube drained 50 mL of thin serosanguineous drainage last 8 hours and 130 mL output in the last 24 hours. Laboratory and chest x-ray results were reviewed. Objective - Vital Signs Vital signs: Vital Signs Temp 98 F 02/08/23 12:00 Pulse 76 02/08/23 12:00 Resp 21 02/08/23 12:00 BP 119/60 02/08/23 12:00 Pulse Ox 93 L 02/08/23 12:00 FiO2 40 02/07/23 09:36 Intake & Output 02/07/23 02/08/23 02/08/23 18:59 06:59 18:59 Intake Total 1488.264 841.591 7.777 Output Total 603 740 Balance 885.264 101.591 7.777 Weight 74.3 kg 77 kg Intake: IV 1194 818 Albumin Human 5% 250 ml 500 250 In Empty Bag 1 bag @ 250 mls/hr IVPB Q1HR PRN Rx#: [id number] Lactated Ringers 1,000 ml 510 520 @ 20 mls/hr IV .Q24H [facility] Rx#:[id number] ceFAZolin 2 gm In Sodium 100 Chloride 0.9% 50 ml @ 100 mls/hr IVPB Q8HR [facility] Rx# :[id number] pressure bags 84 48 Intake, IV Titration 44.264 23.591 7.777 Amount Insulin Regular 100 unit 44.264 23.591 7.777 In Sodium Chloride 0.9% 100 ml @ Per Protocol IV .Q0M [facility] Rx#:[id number] Oral 250 Output: Chest Tube Drainage 280 210 Chest Tube Left Lateral 80 50 Chest Chest Tube Mediastinal 200 160 Urine 323 530 Other: Voiding Method Indwelling Catheter Indwelling Catheter ABP, PAP, CO, CI - Last Documented Arterial Blood Pressure 83/43 Pulmonary Artery Pressure 30/14 Cardiac Output 4.9 Cardiac Index 2.7 - Exam CONSTITUTIONAL: Sitting up to the bedside chair in the intensive care unit, appears comfortable, cooperative, no apparent acute distress. HEENT: Neck is supple, no JVD, no lymphadenopathy. Right IJ Cordis in place and functioning. RESPIRATORY: Lungs sounds essentially clear throughout, diminished to his bilateral bases. Respirations are symmetrical and nonlabored. Currently on 2 L nasal cannula with oxygen saturations 9%. Able to achieve 1500 mL on his incentive spirometry. Strong cough. CARDIOVASCULAR: Regular rhythm and rate. S1 and S2 present, negative for S3, gallop or murmur. Sternum is stable. Palpable peripheral pulses bilaterally, trace edema to his bilateral lower extremities. No calf pain or tenderness noted. Heart hugger in place with patient demonstrating appropriate use. Knee- high MARISOL hose and sequential compression devices in place to his bilateral lower extremities. GASTROINTESTINAL: Abdomen soft, nontender, nondistended. Active bowel sounds present 4 quadrants. Tolerating diet. Passing flatus. No guarding or rigidity. GENITOURINARY: Cleaning present draining clear, yellow urine. Urine output 445 mL in the last 8 hours INTEGUMENTARY: Skin is warm and dry with no evidence of clubbing or cyanosis. Midline sternal incision clean dry and well approximated, covered with dry intact dressing. Left lower extremity EVH sites well approximated without redness or drainage. Left arm radial artery harvest sites clean, dry and approximated. No drainage or redness is present. NEUROLOGIC: Cranial nerves II through XII intact. No focal deficits. MUSKULOSKELETAL: Able to move all extremities, strength equal bilaterally, generalized weakness. PSYCHIATRIC: Alert and oriented to person place and time, appropriate affect, intact judgment and insight. INVASIVE LINES AND TUBES: Mediastinal/left pleural chest tubes present and connected to low continuous wall suction, no air leaks present. Mediastinal tube with 100 mL of thin serosanguineous drainage overnight, 350 mL output in the last 24 hours. Left pleural chest tube with 50 mL of thin serosanguineous drainage overnight, 130 mL output in the last 24 hours. Atrial and ventricular epicardial pacemaker wires present, connected to generator, VVI backup rate 50 bpm. Right internal jugular [place]/Cordis, right radial arterial line present. Last CVP 10 mmHg. - Allied health notes Allied health notes reviewed: nursing - Labs CBC & Chem 7: 02/08/23 05:32 02/08/23 05:32 Labs: Abnormal Lab Results - Last 24 Hours (Table) 02/07/23 02/07/23 02/07/23 Range/Units 14:08 15:10 16:13 RBC (4.30-5.90) m/uL Hgb (13.0-17.5) gm/dL Hct (39.0-53.0) % Plt Count (150-450) k/uL BUN (9-20) mg/dL Glucose (74-99) mg/dL POC Glucose (mg/dL) 159 H 187 H 136 H (70-110) mg/dL AST (17-59) U/L Total Protein (6.3-8.2) g/dL Albumin (3.5-5.0) g/dL 02/07/23 02/07/23 02/07/23 Range/Units 17:05 19:03 19:51 RBC (4.30-5.90) m/uL Hgb (13.0-17.5) gm/dL Hct (39.0-53.0) % Plt Count (150-450) k/uL BUN (9-20) mg/dL Glucose (74-99) mg/dL POC Glucose (mg/dL) 130 H 143 H 138 H (70-110) mg/dL AST (17-59) U/L Total Protein (6.3-8.2) g/dL Albumin (3.5-5.0) g/dL 02/07/23 02/07/23 02/07/23 Range/Units 20:59 22:04 22:58 RBC (4.30-5.90) m/uL Hgb (13.0-17.5) gm/dL Hct (39.0-53.0) % Plt Count (150-450) k/uL BUN (9-20) mg/dL Glucose (74-99) mg/dL POC Glucose (mg/dL) 138 H 141 H 121 H (70-110) mg/dL AST (17-59) U/L Total Protein (6.3-8.2) g/dL Albumin (3.5-5.0) g/dL 02/08/23 02/08/23 02/08/23 Range/Units 00:00 02:00 03:03 RBC (4.30-5.90) m/uL Hgb (13.0-17.5) gm/dL Hct (39.0-53.0) % Plt Count (150-450) k/uL BUN (9-20) mg/dL Glucose (74-99) mg/dL POC Glucose (mg/dL) 141 H 116 H 125 H (70-110) mg/dL AST (17-59) U/L Total Protein (6.3-8.2) g/dL Albumin (3.5-5.0) g/dL 02/08/23 02/08/23 02/08/23 Range/Units 04:02 05:02 05:32 RBC 2.48 L (4.30-5.90) m/uL Hgb 7.8 L (13.0-17.5) gm/dL Hct 23.7 L (39.0-53.0) % Plt Count 73 L (150-450) k/uL BUN (9-20) mg/dL Glucose (74-99) mg/dL POC Glucose (mg/dL) 127 H 128 H (70-110) mg/dL AST (17-59) U/L Total Protein (6.3-8.2) g/dL Albumin (3.5-5.0) g/dL 02/08/23 02/08/23 02/08/23 Range/Units 05:32 06:46 08:19 RBC (4.30-5.90) m/uL Hgb (13.0-17.5) gm/dL Hct (39.0-53.0) % Plt Count (150-450) k/uL BUN 32 H (9-20) mg/dL Glucose 102 H (74-99) mg/dL POC Glucose (mg/dL) 128 H 209 H (70-110) mg/dL AST 69 H (17-59) U/L Total Protein 5.3 L (6.3-8.2) g/dL Albumin 3.4 L (3.5-5.0) g/dL 02/08/23 02/08/23 02/08/23 Range/Units 09:00 10:04 12:16 RBC (4.30-5.90) m/uL Hgb (13.0-17.5) gm/dL Hct (39.0-53.0) % Plt Count (150-450) k/uL BUN (9-20) mg/dL Glucose (74-99) mg/dL POC Glucose (mg/dL) 215 H 136 H 141 H (70-110) mg/dL AST (17-59) U/L Total Protein (6.3-8.2) g/dL Albumin (3.5-5.0) g/dL - Imaging and Cardiology Chest x-ray: report reviewed, image reviewed Assessment and Plan Assessment: Multivessel coronary artery disease status post coronary artery bypass grafting surgery 4 vessels Severe mitral valve regurgitation , status post mitral valve repair using a 26 mm physio-2 ring Acute on chronic congestive heart failure with impaired left ventricular ejection fraction on DANNY showing an ejection fraction of 35% History of hypertension Hyperlipidemia History of asthma History of migraines History of medical noncompliance Remote history of nicotine dependence quit smoking 3 years ago Postoperative acute blood loss anemia, expected given hemodilution and cardiopulmonary bypass Plan: Continue to maximize medical therapy with aspirin, statin, Plavix, beta paris. Will increase beta paris therapy as tolerated. Discontinue IV nitro and Cardizem. Will start oral calcium channel paris with hold parameters for radial artery spasm prophylaxis, when blood pressure is able to tolerate. Wean O2 as tolerated. Encourage incentive spirometry use 10 times every hour while awake. Bronchodilators per pulmonology Increase activity, ambulate as tolerated. PT/OT/cardiac rehab consulted. Will monitor daily labs and chest x-rays. Electrolyte replacement per protocol. GI/DVT prophylaxis. Pain control per current medication regimen. Insulin management per internal medicine service. Patient is not diabetic, hemoglobin A1c 5.5%. Needs to remain on insulin drip for 48 hours, then may transition to subcutaneous per protocol. Continue right IJ Cordis with continuous CVP monitoring. Removal mediastinal chest tube and keep left pleural chest tube for another 24 hours, monitor output. Continue Cleaning catheter for another 24 hours, continue to record strict accurate intake and output Daily weights. Start Lasix 20 mg IV every 8 hours and potassium chloride 10 mEq by mouth twice a day More recommendations to follow based on patient's clinical course. Time with Patient: Greater than 30
[2023-02-08] MEDS: POTASSIUM CHLORIDE ER 10 MEQ TAB.ER.PRT PO SCH ×2 (13:57→19:55)
[2023-02-08 16:18] LABS: Glucose,Whole Blood 121 mg/dL (70-110)
--- NOTE | 2023-02-08 16:30 | P.PN ---
Subjective Progress Note Date: 02/08/23 59-year-old male patient with history of vessel coronary artery disease, CHF, hypertension, hyperlipidemia, asthma, Transthoracic echocardiogram showed a ejection fraction of 15-20% and the patient had a reduced global LV function with moderately reduced RV global systolic function, moderate to severe mitral regurgitation, a thickened aortic valve without stenosis, mild tricuspid regurgitation, no pericardial effusion and normal aortic root. The patient also underwent a DANNY and it showed impairment of LV function with an ejection fraction of 20-25% and global hypokinesis. The patient had dilated RV as well. The patient underwent a cardiac catheterization that showed critical triple- vessel disease with occluded RCA proximal portion and filling by collaterals from the left coronary system along with circumflex giving rise to OM1 with a critical lesion in the proximal vessel and LAD had a proximal long tubular lesion that was in the range of 99%. --The patient underwent a four-vessel bypass surgery with SHAFER to LAD and diagonal, left radial graft to obtuse marginal, saphenous vein graft to PDA and the patient also underwent a mitral valve repair. Post surgery patient was intubated and mechanically ventilated; stabilized in ICU and extubated. The lab shows a sodium level 137, BUN is at 23 with a creatinine of 0.87. The WBC 7.2, hemoglobin is 9.1 and a platelet count of 88. He is currently on aspirin. Is also on Plavix. Metoprolol was also started at a dose of 12.5 mg by mouth twice a day. He is on insulin drip which is running at 3 units an hour. Patient has been initiated on oral intake and is able to tolerate diet well; patient has required 25 units of short-acting insulin in 12 hours; we will start patient on Lantus 25 mg every morning along with insulin sliding scale; plan to make further adjustments as needed Objective - Vital Signs Vital signs: Vital Signs Temp 98 F 02/08/23 04:00 Pulse 70 02/08/23 08:15 Resp 20 02/08/23 07:00 BP 113/62 02/08/23 07:00 Pulse Ox 98 02/08/23 07:00 FiO2 40 02/07/23 09:36 Intake & Output 02/07/23 02/08/23 02/08/23 18:59 06:59 18:59 Intake Total 1488.264 841.591 3.611 Output Total 603 740 Balance 885.264 101.591 3.611 Weight 74.3 kg 77 kg Intake: IV 1194 818 Albumin Human 5% 250 ml 500 250 In Empty Bag 1 bag @ 250 mls/hr IVPB Q1HR PRN Rx#: [id number] Lactated Ringers 1,000 ml 510 520 @ 20 mls/hr IV .Q24H [facility] Rx#:[id number] ceFAZolin 2 gm In Sodium 100 Chloride 0.9% 50 ml @ 100 mls/hr IVPB Q8HR [facility] Rx# :[id number] pressure bags 84 48 Intake, IV Titration 44.264 23.591 3.611 Amount Insulin Regular 100 unit 44.264 23.591 3.611 In Sodium Chloride 0.9% 100 ml @ Per Protocol IV .Q0M [facility] Rx#:[id number] Oral 250 Output: Chest Tube Drainage 280 210 Chest Tube Left Lateral 80 50 Chest Chest Tube Mediastinal 200 160 Urine 323 530 Other: Voiding Method Indwelling Catheter Indwelling Catheter ABP, PAP, CO, CI - Last Documented Arterial Blood Pressure 83/43 Pulmonary Artery Pressure 30/14 Cardiac Output 4.9 Cardiac Index 2.7 - Exam Patient is currently on oxygen by nasal cannula, awake and alert and communicating. Head exam was generally normal. There was no scleral icterus or corneal arcus. Mucous membranes were moist. Neck was supple and without jugular venous distension, thyromegaly, or carotid bruits. Carotids were easily palpable bilaterally. There was no adenopathy. The patient has a right IJ Cordis and a [place]-Malaika catheter is also in place. Lungs were clear to auscultation and percussion, and with normal diaphragmatic excursion. No wheezes or rales were noted. Heart sounds are within normal limits. Positive S1 and S2 and the patient's heart Rhythm. Sternum is stable clean and intact. The patient has a mediastinal and left lower chest tube. No evidence of any air leak. Abdominal exam revealed normal bowel sounds. The abdomen was soft, non-tender, and without masses, organomegaly, or appreciable enlargement of the abdominal aorta. Extremities revealed easily palpable radial, femoral and pedal pulses. There was no cyanosis, clubbing or edema. - Labs CBC & Chem 7: 02/08/23 05:32 02/08/23 05:32 Labs: Abnormal Lab Results - Last 24 Hours (Table) 02/07/23 02/07/23 02/07/23 Range/Units 09:33 10:13 11:17 RBC (4.30-5.90) m/uL Hgb (13.0-17.5) gm/dL Hct (39.0-53.0) % Plt Count (150-450) k/uL BUN (9-20) mg/dL Glucose (74-99) mg/dL POC Glucose (mg/dL) 177 H 187 H 156 H (70-110) mg/dL AST (17-59) U/L Total Protein (6.3-8.2) g/dL Albumin (3.5-5.0) g/dL 02/07/23 02/07/23 02/07/23 Range/Units 12:01 14:08 15:10 RBC (4.30-5.90) m/uL Hgb (13.0-17.5) gm/dL Hct (39.0-53.0) % Plt Count (150-450) k/uL BUN (9-20) mg/dL Glucose (74-99) mg/dL POC Glucose (mg/dL) 115 H 159 H 187 H (70-110) mg/dL AST (17-59) U/L Total Protein (6.3-8.2) g/dL Albumin (3.5-5.0) g/dL 02/07/23 02/07/23 02/07/23 Range/Units 16:13 17:05 19:03 RBC (4.30-5.90) m/uL Hgb (13.0-17.5) gm/dL Hct (39.0-53.0) % Plt Count (150-450) k/uL BUN (9-20) mg/dL Glucose (74-99) mg/dL POC Glucose (mg/dL) 136 H 130 H 143 H (70-110) mg/dL AST (17-59) U/L Total Protein (6.3-8.2) g/dL Albumin (3.5-5.0) g/dL 02/07/23 02/07/23 02/07/23 Range/Units 19:51 20:59 22:04 RBC (4.30-5.90) m/uL Hgb (13.0-17.5) gm/dL Hct (39.0-53.0) % Plt Count (150-450) k/uL BUN (9-20) mg/dL Glucose (74-99) mg/dL POC Glucose (mg/dL) 138 H 138 H 141 H (70-110) mg/dL AST (17-59) U/L Total Protein (6.3-8.2) g/dL Albumin (3.5-5.0) g/dL 02/07/23 02/08/23 02/08/23 Range/Units 22:58 00:00 02:00 RBC (4.30-5.90) m/uL Hgb (13.0-17.5) gm/dL Hct (39.0-53.0) % Plt Count (150-450) k/uL BUN (9-20) mg/dL Glucose (74-99) mg/dL POC Glucose (mg/dL) 121 H 141 H 116 H (70-110) mg/dL AST (17-59) U/L Total Protein (6.3-8.2) g/dL Albumin (3.5-5.0) g/dL 02/08/23 02/08/23 02/08/23 Range/Units 03:03 04:02 05:02 RBC (4.30-5.90) m/uL Hgb (13.0-17.5) gm/dL Hct (39.0-53.0) % Plt Count (150-450) k/uL BUN (9-20) mg/dL Glucose (74-99) mg/dL POC Glucose (mg/dL) 125 H 127 H 128 H (70-110) mg/dL AST (17-59) U/L Total Protein (6.3-8.2) g/dL Albumin (3.5-5.0) g/dL 02/08/23 02/08/23 02/08/23 Range/Units 05:32 05:32 06:46 RBC 2.48 L (4.30-5.90) m/uL Hgb 7.8 L (13.0-17.5) gm/dL Hct 23.7 L (39.0-53.0) % Plt Count 73 L (150-450) k/uL BUN 32 H (9-20) mg/dL Glucose 102 H (74-99) mg/dL POC Glucose (mg/dL) 128 H (70-110) mg/dL AST 69 H (17-59) U/L Total Protein 5.3 L (6.3-8.2) g/dL Albumin 3.4 L (3.5-5.0) g/dL 02/08/23 02/08/23 Range/Units 08:19 09:00 RBC (4.30-5.90) m/uL Hgb (13.0-17.5) gm/dL Hct (39.0-53.0) % Plt Count (150-450) k/uL BUN (9-20) mg/dL Glucose (74-99) mg/dL POC Glucose (mg/dL) 209 H 215 H (70-110) mg/dL AST (17-59) U/L Total Protein (6.3-8.2) g/dL Albumin (3.5-5.0) g/dL Assessment and Plan Assessment: 1. Four-vessel coronary artery disease and mitral valve regurgitation; patient is status post four-vessel bypass surgery and mitral valve repair; POD #1 - Patient has been extubated and remains hemodynamically stable - Patient is currently on aspirin and Plavix 2. Sinus bradycardia; resolved; currently normal sinus rhythm 3. Chronic systolic CHF; echocardiogram reveals LVEF of 35% 4. Hypertension; treated with Cleviprex which has now been discontinued and patient is placed on metoprolol 12.5 mg twice a day 5. Hyperlipidemia; Lipitor 40 mg daily, Zetia 10 mg daily 6. Asthma; not in exacerbation; continue with home inhaler therapy 7. History of migraine headaches DVT prophylaxis; subcu heparin CODE STATUS; full code
[2023-02-08] MEDS: LACTATED RINGERS 1,000 ML IV SCH (18:19)
[2023-02-08 19:50] LABS: Glucose,Whole Blood 159 mg/dL (70-110)
[2023-02-08] MEDS: SENNOSIDES-DOCUSATE SODIUM 1 EACH TAB PO SCH (19:54)
[2023-02-08] MEDS: DEXTROSE/WATER 1 250ML.BAG with DOPamine DRIP 800 MG IV SCH (21:32)
[2023-02-09] MEDS: KETOROLAC 15 MG/ML 1 ML VIAL IVP SCH ×5 (00:24→23:07)
[2023-02-09] MEDS: HEPARIN SODIUM,PORCINE 5,000 UNIT/ML 1 ML VIAL SQ SCH ×4 (00:25→23:07)
[2023-02-09] MEDS: FUROSEMIDE 10 MG/ML 2 ML VIAL IV SCH ×2 (00:25→08:19)
[2023-02-09] MEDS: HYDROcodone/APAP 5-325MG 1 EACH TAB PO PRN ×2 (01:32→21:44)
[2023-02-09 05:50] LABS: Basophils % (A) 0 %; Eosinophils # (A) 0.3 k/uL (0-0.7); Eosinophils % (A) 4 %; HCT 22.4 % (39.0-53.0); HGB 7.6 gm/dL (13.0-17.5); Lymphocytes # (A) 1.4 k/uL (1.0-4.8); Lymphocytes % (A) 18 %; MCH 31.7 pg (25.0-35.0); MCHC 33.8 g/dL (31.0-37.0); Mean Platelet Volume 9.5; Monocytes # (A) 0.7 k/uL (0-1.0); Monocytes % (A) 9 %; Neutrophils # (A) 5.1 k/uL (1.3-7.7); Neutrophils % (A) 67 %; Platelet Count 101 k/uL (150-450); RBC 2.38 m/uL (4.30-5.90); RDW 13.2 % (11.5-15.5); WBC 7.7 k/uL (3.8-10.6)
[2023-02-09 05:57] LABS: ALT 25 U/L (4-49); AST 46 U/L (17-59); African American GFR (CKD) >90 (>60 ml/min/1.73 sqM); Alkaline Phosphatase 75 U/L (38-126); Anion Gap 8 mmol/L; Blood Urea Nitrogen 38 mg/dL (9-20); Calcium 8.5 mg/dL (8.4-10.2); Carbon Dioxide 26 mmol/L (22-30); Chloride 103 mmol/L (98-107); Glucose 87 mg/dL (74-99); Non-African American GFR(CKD) 80 (>60 ml/min/1.73 sqM); Potassium 4.3 mmol/L (3.5-5.1); Sodium 137 mmol/L (137-145); Total Bilirubin 0.6 mg/dL (0.2-1.3)
[2023-02-09 06:27] LABS: Glucose,Whole Blood 98 mg/dL (70-110)
[2023-02-09] MEDS: INSULIN DETEMIR (LEVEMIR) 100 UNIT/ML SYR SQ SCH (06:40)
[2023-02-09] MEDS: PANTOPRAZOLE 40 MG TABLET PO SCH (06:41)
[2023-02-09] MEDS: INSULIN ASPART (NovoLOG) 100 UNIT/ML VIAL SQ SCH ×4 (06:45→21:43)
[2023-02-09] MEDS: ASPIRIN 325 MG TAB PO SCH (08:17)
[2023-02-09] MEDS: ATORVASTATIN 40 MG TAB PO SCH (08:17)
[2023-02-09] MEDS: EZETIMIBE 10 MG TAB PO SCH (08:18)
[2023-02-09] MEDS: CLOPIDOGREL 75 MG TAB PO SCH (08:18)
[2023-02-09] MEDS: POTASSIUM CHLORIDE ER 10 MEQ TAB.ER.PRT PO SCH (08:18)
[2023-02-09] MEDS: PARoxetine 20 MG TAB PO SCH (08:19)
[2023-02-09] MEDS: METOPROLOL TARTRATE 12.5 MG TAB PO SCH ×2 (08:31→21:43)
[2023-02-09] MEDS: IPRATROPIUM-ALBUTEROL 3 ML NEB INHALATION SCH ×4 (09:19→20:58)
--- NOTE | 2023-02-09 09:43 | P.PN ---
Subjective Progress Note Date: 02/09/23 59-year-old male patient who underwent a four-vessel coronary artery bypass surgery and mitral valve repair. The patient has a significant history of chronic systolic heart failure, hypertension, hyperlipidemia, asthma, and is a chronic ex-smoker and he quit smoking approximately 3 years ago. The patient was having issues with shortness of breath then he has had previous hospitalizations. Cardiology ventilator the patient. Transthoracic echocardiogram showed a ejection fraction of 15-20% and the patient had a reduced global LV function with moderately reduced RV global systolic function, moderate to severe mitral regurgitation, a thickened aortic valve without stenosis, mild tricuspid regurgitation, no pericardial effusion and normal aortic root. The patient also underwent a DANNY and it showed impairment of LV function with an ejection fraction of 20-25% and global hypokinesis. The patie nt had dilated RV as well. The patient underwent a cardiac catheterization that showed critical triple-vessel disease with occluded RCA proximal portion and filling by collaterals from the left coronary system along with circumflex giving rise to OM1 with a critical lesion in the proximal vessel and LAD had a proximal long tubular lesion that was in the range of 99%. Based on that, surgery was decided. The patient underwent a four-vessel bypass surgery with SHAFER to LAD and diagonal, left radial graft to obtuse marginal, saphenous vein graft to PDA and the patient also underwent a mitral valve repair. I saw the patient needs after he got today intensive care unit. The patient was sedated on propofol which is running at 30 microvascular kilogram per minute. The patient was on assist-control mode of mechanical ventilation at the rate of 14, tidal volume of 500, FiO2 of 50% with a PEEP of 5. The patient had a blood gas that showed a pH of 7.35 with episodes of 47 and pO2 of 365 and this was done on FiO2 of 100%. Chest x-ray showed some atelectatic change in her left lung. The patient had a adequate positioning of the orotracheal tube. [place]- Malaika catheter had to be pushed him. The patient has a mediastinal and left pleural chest tube. No evidence of any air leak and the output from the mediastinal chest tube is minimal, from the left pleural chest tube is in order of 200 mL. The patient is currently on Cardizem drip at 5 mg an hour, nitroglycerin drip at 5 microvascular minute and the patient is also on cleviprex Drip at 1 mg/h. The patient had a cardiac output of 4 with an index of 2.2. The patient has a pulmonary artery pressures of 40/20. The patient is producing adequate amount of urine output. The patient is afebrile. No blood product has been given. The underlying cardiac rhythm is sinus bradycardia and the patient is currently paced at the rate of 80. On today's evaluation of 02/07/2023, the patient is being seen for a follow-up. The patient was weaned off the mechanical ventilator and he was extubated. Post extubation, the patient was felt to be lethargic with diminished level of consciousness. He was taken off the sedation. He was placed on a BiPAP at a pressure of 10/5 cm of water. He was kept on a BiPAP throughout the night and earlier this morning while on the BiPAP with an FiO2 of 40%, his speech was at 7.37 with a pCO2 of 46 and pO2 of 148. He was taken off the BiPAP and he was switched to oxygen by nasal cannula 2 L. His chest x-ray from today showing some atelectatic changes in the left lung base. No evidence of any pneumothorax. The [place]-Malaika catheter obviously is not a good location. This will be removed. There is a mediastinal left pleural chest tube. Some atelectatic changes in the left lung base. The patient otherwise is awake and alert. He is following commands and answering questions. He is aware of time and place. His cardiac output is at 4.9 with an index of 2.7. PA pressures are 33/12. His cardiac rhythm is improved and the patient is currently has an intrinsic normal sinus rhythm. He is on no pressors for now. He is off the nitroglycerin drip. He is off the Cardizem drip. As for the Cleviprex, this was also discontinued. His chest tubes are in good location. No evidence of a [place] air leak. Output from the chest tube is minimal. The lab shows a sodium level CXXXVII, BUN is at 23 with a creatinine of 0.87. The meniscal 7.2, hemoglobin is 9.1 and a platelet count of 88. He is currently on aspirin. Is also on Plavix. Metoprolol was also started at a dose of 12.5 mg by mouth twice a day. He is on insulin drip which is running at 3 units an hour. Evaluation of 02/08/2023, the patient is postop day #2. Patient is calm and comfortable and the patient is also ambulating. Chest tubes are still in place. The mediastinal chest tube will be removed today. The chest x-ray from today shows no evidence of any pneumothorax. Adequate expansion of both lungs. Postthoracotomy changes. Otherwise no other acute abnormalities noted. The WBC count is 7.9, hemoglobin is at 7.8, BUN is at 33 with a creatinine of 1.1 and his sodium levels of 139. The patient is awake and alert and communicating. Cleaning catheter is in place. Cardiac rhythm was sinus rhythm at this point in time. [place]-Malaika catheter has been removed. Insulin drip is discontinued On 02/07/2023, the patient is postop day #3. He is on room air oxygen. Doing extremely well. Ambulating. Mental status is normal. Patient is in normal sinus rhythm. Hemodynamically stable on no pressors. The chest x-ray from today shows adequate expansion of both lungs. No evidence of any pneumothorax. He continues to have a left-sided chest tube in place. Output from the chest tube is in order of 300 mL over the past 8 hours. No evidence of any air leak. No evidence of any pneumothorax. The chest tube In place for another 24 hours. Rest of the labs shows of the limbus, 7.7, hemoglobin 7.6, BUN is at 38 with a creatinine of 1.0 and a sodium level is at 137. Objective - Vital Signs Vital signs: Vital Signs Temp 98.2 F 02/09/23 08:00 Pulse 80 02/09/23 09:31 Resp 22 02/09/23 09:00 BP 111/61 02/09/23 09:00 Pulse Ox 96 02/09/23 09:00 FiO2 40 02/07/23 09:36 Intake & Output 02/08/23 02/09/23 02/09/23 18:59 06:59 18:59 Intake Total 480.777 296 69 Output Total 1300 1215 100 Balance -819.223 -919 -31 Weight 78.8 kg Intake: IV 473 296 69 Lactated Ringers 1,000 ml 440 260 60 @ 20 mls/hr IV .Q24H [facility] Rx#:[id number] pressure bags 33 36 9 Intake, IV Titration 7.777 Amount Insulin Regular 100 unit 7.777 In Sodium Chloride 0.9% 100 ml @ Per Protocol IV .Q0M [facility] Rx#:[id number] Output: Chest Tube Drainage 250 300 30 Chest Tube Left Lateral 100 300 30 Chest Chest Tube Mediastinal 150 Urine 1050 915 70 Other: Voiding Method Indwelling Catheter Indwelling Catheter ABP, PAP, CO, CI - Last Documented Arterial Blood Pressure 83/43 Pulmonary Artery Pressure 30/14 Cardiac Output 4.9 Cardiac Index 2.7 - Exam Patient is currently on oxygen by nasal cannula, awake and alert and communicating. Head exam was generally normal. There was no scleral icterus or corneal arcus. Mucous membranes were moist. Neck was supple and without jugular venous distension, thyromegaly, or carotid bruits. Carotids were easily palpable bilaterally. There was no adenopathy. The patient has a right IJ Cordis and a [place]-Malaika catheter is removed Lungs were clear to auscultation and percussion, and with normal diaphragmatic excursion. No wheezes or rales were noted. Heart sounds are within normal limits. Positive S1 and S2 and the patient's heart Rhythm. Sternum is stable clean and intact. The patient has a mediastinal and left lower chest tube. No evidence of any air leak. Abdominal exam revealed normal bowel sounds. The abdomen was soft, non-tender, and without masses, organomegaly, or appreciable enlargement of the abdominal aorta. Examination of the extremities revealed easily palpable radial, femoral and pedal pulses. There was no cyanosis, clubbing or edema. Examination of the skin revealed no evidence of significant rashes, suspicious appearing nevi or other concerning lesions. Neurologically, the patient is sedated at this point in time - Labs CBC & Chem 7: 02/09/23 05:06 02/09/23 05:06 Labs: Abnormal Lab Results - Last 24 Hours (Table) 02/08/23 02/08/23 02/08/23 Range/Units 10:04 12:16 16:17 RBC (4.30-5.90) m/uL Hgb (13.0-17.5) gm/dL Hct (39.0-53.0) % Plt Count (150-450) k/uL BUN (9-20) mg/dL POC Glucose (mg/dL) 136 H 141 H 121 H (70-110) mg/dL Total Protein (6.3-8.2) g/dL Albumin (3.5-5.0) g/dL 02/08/23 02/09/23 02/09/23 Range/Units 19:49 05:06 05:06 RBC 2.38 L (4.30-5.90) m/uL Hgb 7.6 L (13.0-17.5) gm/dL Hct 22.4 L (39.0-53.0) % Plt Count 101 L (150-450) k/uL BUN 38 H (9-20) mg/dL POC Glucose (mg/dL) 159 H (70-110) mg/dL Total Protein 5.0 L (6.3-8.2) g/dL Albumin 3.0 L (3.5-5.0) g/dL Assessment and Plan Plan: Coronary artery disease and mitral valve regurgitation along with systolic heart failure with decreased ejection fraction. The patient is post 4 vessel bypass surgery and mitral valve repair. The patient is currently postop day #3 The patient is hemodynamically stable Postthoracotomy, currently extubated on RA oxygen by nasal cannula. Chest tubes are in place. No pneumothorax Sinus bradycardia, improved and the patient is an interesting cardiac rhythm which is normal sinus at this point in time Chronic systolic heart failure with impaired ejection fraction of 35% Hypertension, currently off Cleviprex drip Hyperlipidemia History of migraines History of bronchial asthma History of smoking quit approximately 3 years ago Plan Incentive spirometer Wean down FiO2 to maintain saturation above 90%, currently on RA Remove the mediastinal right chest tube , we'll keep the left lower chest tube in place. Metoprolol 12.5 mg by mouth twice a day Aspirin and Plavix Hemodynamically stable. Chest x-ray was reviewed Blood work was reviewed monitor the hemoglobin We'll collaborate with the surgical team regarding postoperative care
--- NOTE | 2023-02-09 11:04 | P.PN ---
Subjective Progress Note Date: 02/09/23 PROGRESS NOTE The patient is a 62-year-old male who underwent mitral valve repair and coronary bypass grafting yesterday. He has a known history of ischemic cardiac myopathy, severe mitral regurgitation and severe obstructive disease. His cardiac catheterization has shown occluded RCA, severe LAD and left circumflex obstructive disease. His echocardiogram showed severe impairment in the systolic function with severe mitral regurgitation. He underwent surgery yesterday by Dr. Jeronimo and received a SHAFER to the LAD and left radial to the OM and SVG to the PDA with occlusion of the left atrial appendage and mitral valve annuloplasty, size 26. He has underwent cardiac catheterization in August of this year but because of his severe CHF his medical regimen was optimized and stabilized to undergo intervention. He is extubated, sitting up in the chair, complaining of soreness in the chest. He is mildly dyspneic in sinus mechanism and hemodynamically stable. He has no episodes of atrial fibrillation or ventricular tachycardia. He has a prior history of hyper-lipidemia, prior history of smoking he is nondiabetic. February 08: The patient feels better today, he is sitting up in the chair, hemodynamically stable. He denies any chest discomfort, dizziness or palpitations. He continues to be in sinus mechanism. He denies any nausea or vomiting. He had a drop in his urinary output and was started on renal dose dopamine by the surgical team. February 09: The patient feels well this morning. He denies any chest discomfort or dizziness. He is off dopamine and his urinary output is good. He continues to be in sinus mechanism. He has ambulated and feels well. He denies any nausea or vomiting. There is no episodes of atrial fibrillation or ventricular ectopic activity. Medications: Aspirin, Plavix 75 mg daily, insulin, metoprolol 12.5 mg twice a day, Lipitor 40 mg daily, Ezetimibe 10 mg daily PHYSICAL EXAMINATION: Blood pressure 120/70 heart rate 73 LUNGS:. Crackles at the bases HEART: Regular rate and rhythm, S1, S2. No S3. Systolic ejection murmur ABDOMEN: Soft, nontender, no organomegaly EXTREMETIES: No edema LAB: BUN 38, creatinine 1.0, potassium 4.3, hemoglobin 7.6., Chest x-ray with no evidence of pneumothorax IMPRESSION: 1. Status post CABG and mitral valve repair 2. History of ischemic cardiomyopathy 3. Diabetes 4. Hyperlipidemia PLAN: 1. Increase physical activity 2. Follow blood pressure and if stable add HEAVEN inhibitor 3. Depending on the heart rate increased the dose of beta paris 4. Depending on his progress further recommendations will be made Objective - Vital Signs Vital signs: Vital Signs Temp 98.2 F 02/09/23 08:00 Pulse 73 02/09/23 10:30 Resp 18 02/09/23 10:30 BP 120/67 02/09/23 10:30 Pulse Ox 94 L 02/09/23 10:30 FiO2 40 02/07/23 09:36 Intake & Output 02/08/23 02/09/23 02/09/23 18:59 06:59 18:59 Intake Total 480.777 296 89 Output Total 1300 1215 140 Balance -819.223 -919 -51 Weight 78.8 kg Intake: IV 473 296 89 Lactated Ringers 1,000 ml 440 260 80 @ 20 mls/hr IV .Q24H [facility] Rx#:[id number] pressure bags 33 36 9 Intake, IV Titration 7.777 Amount Insulin Regular 100 unit 7.777 In Sodium Chloride 0.9% 100 ml @ Per Protocol IV .Q0M [facility] Rx#:[id number] Output: Chest Tube Drainage 250 300 70 Chest Tube Left Lateral 100 300 70 Chest Chest Tube Mediastinal 150 Urine 1050 915 70 Other: Voiding Method Indwelling Catheter Indwelling Catheter ABP, PAP, CO, CI - Last Documented Arterial Blood Pressure 83/43 Pulmonary Artery Pressure 30/14 Cardiac Output 4.9 Cardiac Index 2.7 - Labs CBC & Chem 7: 02/09/23 05:06 02/09/23 05:06 Labs: Abnormal Lab Results - Last 24 Hours (Table) 02/08/23 02/08/23 02/08/23 Range/Units 12:16 16:17 19:49 RBC (4.30-5.90) m/uL Hgb (13.0-17.5) gm/dL Hct (39.0-53.0) % Plt Count (150-450) k/uL BUN (9-20) mg/dL POC Glucose (mg/dL) 141 H 121 H 159 H (70-110) mg/dL Total Protein (6.3-8.2) g/dL Albumin (3.5-5.0) g/dL 02/09/23 02/09/23 Range/Units 05:06 05:06 RBC 2.38 L (4.30-5.90) m/uL Hgb 7.6 L (13.0-17.5) gm/dL Hct 22.4 L (39.0-53.0) % Plt Count 101 L (150-450) k/uL BUN 38 H (9-20) mg/dL POC Glucose (mg/dL) (70-110) mg/dL Total Protein 5.0 L (6.3-8.2) g/dL Albumin 3.0 L (3.5-5.0) g/dL
--- NOTE | 2023-02-09 11:26 | XR ---
EXAMINATION TYPE: XR chest 1V portable DATE OF EXAM: 02/09/2023 Comparison: 02/08/2023 Clinical History: 62-year-old male Postop CABG Findings: Heart normal size. Median sternotomy wires and post-CABG clips and annuloplasty ring. Left-sided ches t tube in place. There is a small left apical pneumothorax measuring 1.2 cm, not well seen previously . Some strandy atelectasis at the left base. Right IJ sheath in place. Impression: Left-sided chest tube in place. Visualization of a small 1.2 cm left apical pneumothorax now.
[2023-02-09 11:51] LABS: Glucose,Whole Blood 93 mg/dL (70-110)
--- NOTE | 2023-02-09 11:58 | P.PN ---
Subjective Progress Note Date: 02/09/23 Principal diagnosis: Coronary artery disease, 2-3+ central mitral valve regurgitation, tricuspid regurgitation, history of severe heart failure with decreased ejection fraction. Past medical history significant for acute on chronic congestive heart failure, hypertension, hyperlipidemia, migraine headaches, asthma, noncompliance with medical care and a remote history of nicotine dependence and which he quit smoking 3 years ago. POD #3 Coronary artery bypass grafting 4 with sequential SHAFER to diagonal and LAD, left radial artery graft obtuse marginal coronary artery, saphenous vein graft to posterior descending coronary artery, mitral valve annuloplasty with a 26 mm physio-2 ring, ligation of left atrial appendage, endovascular vein harvest of the left greater saphenous vein, endovascular left radial artery harvest, DANNY by anesthesia Postoperative acute blood loss anemia, expected given hemodilution and cardiopulmonary bypass. The patient was seen and examined in follow-up today 02/09/2023 at bedside in the intensive care unit. He is currently sitting up to bedside chair, is awake, alert, oriented 3 and is in no acute distress. Patient denies any complaints of shortness of breath at this time, or pain at this time. Dopamine drip remains infusing at 3 mcg/kg/m for renal dose. Oxygen saturation are 9% on room air and he is achieving 2500 mL on his incentive spirometry with encouragement. Bedside telemetry showing normal sinus rhythm heart rate 71 BPM. He is been up ambulating in the intensive care in the [place] with standby assistance from nursing and therapy staff tolerating well. Left pleural chest tube to remain in place to low continuous wall suction -20 cm H2O. No air leak is present. Draining thin serosanguineous drainage. Left pleural chest tube drained 270 mL of thin serosanguineous drainage last 8 hours and 450 mL output in the last 24 hours. Laboratory and chest x-ray results were reviewed. Objective - Vital Signs Vital signs: Vital Signs Temp 98.2 F 02/09/23 08:00 Pulse 78 02/09/23 11:39 Resp 18 02/09/23 10:30 BP 120/67 02/09/23 10:30 Pulse Ox 94 L 02/09/23 10:30 FiO2 40 02/07/23 09:36 Intake & Output 02/08/23 02/09/23 02/09/23 18:59 06:59 18:59 Intake Total 480.777 296 89 Output Total 1300 1215 140 Balance -819.223 -919 -51 Weight 78.8 kg Intake: IV 473 296 89 Lactated Ringers 1,000 ml 440 260 80 @ 20 mls/hr IV .Q24H [facility] Rx#:[id number] pressure bags 33 36 9 Intake, IV Titration 7.777 Amount Insulin Regular 100 unit 7.777 In Sodium Chloride 0.9% 100 ml @ Per Protocol IV .Q0M [facility] Rx#:[id number] Output: Chest Tube Drainage 250 300 70 Chest Tube Left Lateral 100 300 70 Chest Chest Tube Mediastinal 150 Urine 1050 915 70 Other: Voiding Method Indwelling Catheter Indwelling Catheter ABP, PAP, CO, CI - Last Documented Arterial Blood Pressure 83/43 Pulmonary Artery Pressure 30/14 Cardiac Output 4.9 Cardiac Index 2.7 - Exam CONSTITUTIONAL: Sitting up to the bedside chair in the intensive care unit, appe ars comfortable, cooperative, no apparent acute distress. HEENT: Neck is supple, no JVD, no lymphadenopathy. Right IJ Cordis in place and functioning. RESPIRATORY: Lungs sounds essentially clear throughout, diminished to his bilateral bases. Respirations are symmetrical and nonlabored. Currently on room air with oxygen saturations 94%. Able to achieve 2500 mL on his incentive spirometry. Strong cough. CARDIOVASCULAR: Regular rhythm and rate. S1 and S2 present, negative for S3, gallop or murmur. Sternum is stable. Palpable peripheral pulses bilaterally, trace edema to his bilateral lower extremities. No calf pain or tenderness noted. Heart hugger in place with patient demonstrating appropriate use. Knee- high MARISOL hose and sequential compression devices in place to his bilateral lower extremities. GASTROINTESTINAL: Abdomen soft, nontender, nondistended. Active bowel sounds p resent 4 quadrants. Tolerating diet. Passing flatus. No guarding or rigidity. GENITOURINARY: Celaning present draining clear, yellow urine. Urine output 710 mL in the last 8 hours. INTEGUMENTARY: Skin is warm and dry with no evidence of clubbing or cyanosis. Midline sternal incision clean dry and well approximated, covered with dry intact dressing. Left lower extremity EVH sites well approximated without redness or drainage. Left arm radial artery harvest sites clean, dry and approximated. No drainage or redness is present. NEUROLOGIC: Cranial nerves II through XII intact. No focal deficits. MUSKULOSKELETAL: Able to move all extremities, strength equal bilaterally, generalized weakness. PSYCHIATRIC: Alert and oriented to person place and time, appropriate affect, intact judgment and insight. INVASIVE LINES AND TUBES: Left pleural chest tubes present and connected to low continuous wall suction, no air leaks present. Left pleural chest tube with 270 mL of thin serosanguineous drainage overnight, 450 mL output in the last 24 hours. Atrial and ventricular epicardial pacemaker wires present, connected to generator, VVI backup rate 50 bpm. Right internal jugular Cordis, right radial arterial line present. Last CVP 8 mmHg. - Allied health notes Allied health notes reviewed: nursing - Labs CBC & Chem 7: 02/09/23 05:06 02/09/23 05:06 Labs: Abnormal Lab Results - Last 24 Hours (Table) 02/08/23 02/08/23 02/08/23 Range/Units 12:16 16:17 19:49 RBC (4.30-5.90) m/uL Hgb (13.0-17.5) gm/dL Hct (39.0-53.0) % Plt Count (150-450) k/uL BUN (9-20) mg/dL POC Glucose (mg/dL) 141 H 121 H 159 H (70-110) mg/dL Total Protein (6.3-8.2) g/dL Albumin (3.5-5.0) g/dL 02/09/23 02/09/23 Range/Units 05:06 05:06 RBC 2.38 L (4.30-5.90) m/uL Hgb 7.6 L (13.0-17.5) gm/dL Hct 22.4 L (39.0-53.0) % Plt Count 101 L (150-450) k/uL BUN 38 H (9-20) mg/dL POC Glucose (mg/dL) (70-110) mg/dL Total Protein 5.0 L (6.3-8.2) g/dL Albumin 3.0 L (3.5-5.0) g/dL - Imaging and Cardiology Chest x-ray: report reviewed, image reviewed Assessment and Plan Assessment: Multivessel coronary artery disease status post coronary artery bypass grafting surgery 4 vessels Severe mitral valve regurgitation , status post mitral valve repair using a 26 mm physio-2 ring Acute on chronic congestive heart failure with impaired left ventricular ejection fraction on DANNY showing an ejection fraction of 35% History of hypertension Hyperlipidemia History of asthma History of migraines History of medical noncompliance Remote history of nicotine dependence quit smoking 3 years ago Postoperative acute blood loss anemia, expected given hemodilution and cardiopulmonary bypass Plan: Continue to maximize medical therapy with aspirin, statin, Plavix, beta paris. Will increase beta paris therapy as tolerated. Will start oral calcium channel paris with hold parameters for radial artery spasm prophylaxis, when blood pressure is able to tolerate. Wean O2 as tolerated. Encourage incentive spirometry use 10 times every hour while awake. Bronchodilators per pulmonology Increase activity, ambulate as tolerated. PT/OT/cardiac rehab following. Will monitor daily labs and chest x-rays. Electrolyte replacement per protocol. GI/DVT prophylaxis. Pain control per current medication regimen. Insulin management per internal medicine service. Patient is not diabetic, hemoglobin A1c 5.5%. Needs to remain on insulin drip for 48 hours, then may transition to subcutaneous per protocol. Remove right IJ Cordis. Keep left pleural chest tube for another 24 hours, monitor output. Removal Cleaning catheter, continue to record strict accurate intake and output. Bladder scan every 6 hours and when necessary postvoid residual, greater than or equal to 300 mL of urine may straight cath. Start Flomax 0.4 mg by mouth daily. Daily weights. Discontinue Lasix and potassium. Discontinue dopamine drip. Transfer orders for the third for cardiac stepdown unit were put in place, transfer when bed available. More recommendations to follow based on patient's clinical course. Time with Patient: Greater than 30
[2023-02-09] MEDS: TAMSULOSIN 0.4 MG CAP.ER.24H PO SCH (14:08)
[2023-02-09 17:48] LABS: Glucose,Whole Blood 160 mg/dL (70-110)
[2023-02-09 20:16] LABS: Glucose,Whole Blood 106 mg/dL (70-110)
[2023-02-09] MEDS: SENNOSIDES-DOCUSATE SODIUM 1 EACH TAB PO SCH (21:43)
[2023-02-10 04:49] LABS: Basophils % (A) 1 %; Eosinophils # (A) 0.3 k/uL (0-0.7); Eosinophils % (A) 5 %; HCT 25.3 % (39.0-53.0); HGB 8.4 gm/dL (13.0-17.5); Lymphocytes # (A) 1.4 k/uL (1.0-4.8); Lymphocytes % (A) 24 %; MCH 31.5 pg (25.0-35.0); MCHC 33.1 g/dL (31.0-37.0); Mean Platelet Volume 9.8; Monocytes # (A) 0.4 k/uL (0-1.0); Monocytes % (A) 7 %; Neutrophils # (A) 3.7 k/uL (1.3-7.7); Neutrophils % (A) 61 %; Platelet Count 132 k/uL (150-450); RBC 2.67 m/uL (4.30-5.90); RDW 13.7 % (11.5-15.5); WBC 6.1 k/uL (3.8-10.6)
[2023-02-10] MEDS: HYDROcodone/APAP 5-325MG 1 EACH TAB PO PRN (04:50)
[2023-02-10 05:13] LABS: African American GFR (CKD) 76 (>60 ml/min/1.73 sqM); Anion Gap 10 mmol/L; Blood Urea Nitrogen 50 mg/dL (9-20); Calcium 8.9 mg/dL (8.4-10.2); Carbon Dioxide 25 mmol/L (22-30); Chloride 104 mmol/L (98-107); Glucose 82 mg/dL (74-99); Non-African American GFR(CKD) 65 (>60 ml/min/1.73 sqM); Potassium 4.3 mmol/L (3.5-5.1); Sodium 139 mmol/L (137-145)
--- NOTE | 2023-02-10 05:32 | P.PN ---
Subjective Progress Note Date: 02/09/23 59-year-old male patient with history of vessel coronary artery disease, CHF, hypertension, hyperlipidemia, asthma, Transthoracic echocardiogram showed a ejection fraction of 15-20% and the patient had a reduced global LV function with moderately reduced RV global systolic function, moderate to severe mitral regurgitation, a thickened aortic valve without stenosis, mild tricuspid regurgitation, no pericardial effusion and normal aortic root. The patient also underwent a DANNY and it showed impairment of LV function with an ejection fraction of 20-25% and global hypokinesis. The patient had dilated RV as well. The patient underwent a cardiac catheterization that showed critical triple- vessel disease with occluded RCA proximal portion and filling by collaterals from the left coronary system along with circumflex giving rise to OM1 with a critical lesion in the proximal vessel and LAD had a proximal long tubular lesion that was in the range of 99%. --The patient underwent a four-vessel bypass surgery with SHAFER to LAD and diagonal, left radial graft to obtuse marginal, saphenous vein graft to PDA and the patient also underwent a mitral valve repair. Post surgery patient was intubated and mechanically ventilated; stabilized in ICU and extubated. The lab shows a sodium level 137, BUN is at 23 with a creatinine of 0.87. The WBC 7.2, hemoglobin is 9.1 and a platelet count of 88. He is currently on aspirin. Is also on Plavix. Metoprolol was also started at a dose of 12.5 mg by mouth twice a day. He is on insulin drip which is running at 3 units an hour. Patient has been initiated on oral intake and is able to tolerate diet well; patient has required 25 units of short-acting insulin in 12 hours; we will start patient on Lantus 25 mg every morning along with insulin sliding scale; plan to make further adjustments as needed 02/07/2023 the patient is seen and evaluated in room at bedside; postop day #3. He is on room air oxygen. Doing extremely well. Ambulating. Mental status is normal. Patient is in normal sinus rhythm. Hemodynamically stable on no pressors. The chest x-ray from today shows adequate expansion of both lungs. No evidence of any pneumothorax. He continues to have a left-sided chest tube in place. Output from the chest tube is in order of 300 mL over the past 8 hours. No evidence of any air leak. No evidence of any pneumothorax. The chest tube In place for another 24 hours. Rest of the labs shows of the limbus, 7.7, hemoglobin 7.6, BUN is at 38 with a creatinine of 1.0 and a sodium level is at 137. Objective - Vital Signs Vital signs: Vital Signs Temp 98.2 F 02/09/23 08:00 Pulse 80 02/09/23 09:31 Resp 22 02/09/23 09:00 BP 111/61 02/09/23 09:00 Pulse Ox 96 02/09/23 09:00 FiO2 40 02/07/23 09:36 Intake & Output 02/08/23 02/09/23 02/09/23 18:59 06:59 18:59 Intake Total 480.777 296 69 Output Total 1300 1215 100 Balance -819.223 -919 -31 Weight 78.8 kg Intake: IV 473 296 69 Lactated Ringers 1,000 ml 440 260 60 @ 20 mls/hr IV .Q24H [facility] Rx#:[id number] pressure bags 33 36 9 Intake, IV Titration 7.777 Amount Insulin Regular 100 unit 7.777 In Sodium Chloride 0.9% 100 ml @ Per Protocol IV .Q0M [facility] Rx#:[id number] Output: Chest Tube Drainage 250 300 30 Chest Tube Left Lateral 100 300 30 Chest Chest Tube Mediastinal 150 Urine 1050 915 70 Other: Voiding Method Indwelling Catheter Indwelling Catheter ABP, PAP, CO, CI - Last Documented Arterial Blood Pressure 83/43 Pulmonary Artery Pressure 30/14 Cardiac Output 4.9 Cardiac Index 2.7 - Exam Patient is currently on oxygen by nasal cannula, awake and alert and c ommunicating. Head exam was generally normal. There was no scleral icterus or corneal arcus. Mucous membranes were moist. Neck was supple and without jugular venous distension, thyromegaly, or carotid bruits. Carotids were easily palpable bilaterally. There was no adenopathy. The patient has a right IJ Cordis and a Logan-Malaika catheter is also in place. Lungs were clear to auscultation and percussion, and with normal diaphragmatic excursion. No wheezes or rales were noted. Heart sounds are within normal limits. Positive S1 and S2 and the patient's heart Rhythm. Sternum is stable clean and intact. The patient has a mediastinal and left lower chest tube. No evidence of any air leak. Abdominal exam revealed normal bowel sounds. The abdomen was soft, non-tender, and without masses, organomegaly, or appreciable enlargement of the abdominal aorta. Extremities revealed easily palpable radial, femoral and pedal pulses. There was no cyanosis, clubbing or edema. - Labs CBC & Chem 7: 02/10/23 04:13 02/10/23 04:13 Labs: Abnormal Lab Results - Last 24 Hours (Table) 02/08/23 02/08/23 02/08/23 Range/Units 10:04 12:16 16:17 RBC (4.30-5.90) m/uL Hgb (13.0-17.5) gm/dL Hct (39.0-53.0) % Plt Count (150-450) k/uL BUN (9-20) mg/dL POC Glucose (mg/dL) 136 H 141 H 121 H (70-110) mg/dL Total Protein (6.3-8.2) g/dL Albumin (3.5-5.0) g/dL 02/08/23 02/09/23 02/09/23 Range/Units 19:49 05:06 05:06 RBC 2.38 L (4.30-5.90) m/uL Hgb 7.6 L (13.0-17.5) gm/dL Hct 22.4 L (39.0-53.0) % Plt Count 101 L (150-450) k/uL BUN 38 H (9-20) mg/dL POC Glucose (mg/dL) 159 H (70-110) mg/dL Total Protein 5.0 L (6.3-8.2) g/dL Albumin 3.0 L (3.5-5.0) g/dL Assessment and Plan Assessment: 1. Four-vessel coronary artery disease and mitral valve regurgitation; patient is status post four-vessel bypass surgery and mitral valve repair; POD #1 - Patient has been extubated and remains hemodynamically stable - Patient is currently on aspirin and Plavix 2. Sinus bradycardia; resolved; currently normal sinus rhythm 3. Chronic systolic CHF; echocardiogram reveals LVEF of 35% 4. Hypertension; treated with Cleviprex which has now been discontinued and patient is placed on metoprolol 12.5 mg twice a day 5. Hyperlipidemia; Lipitor 40 mg daily, Zetia 10 mg daily 6. Asthma; not in exacerbation; continue with home inhaler therapy 7. History of migraine headaches DVT prophylaxis; subcu heparin CODE STATUS; full code
[2023-02-10 06:31] LABS: Glucose,Whole Blood 106 mg/dL (70-110)
[2023-02-10] MEDS: INSULIN DETEMIR (LEVEMIR) 100 UNIT/ML SYR SQ SCH (07:00)
[2023-02-10] MEDS: INSULIN ASPART (NovoLOG) 100 UNIT/ML VIAL SQ SCH ×4 (07:00→21:20)
[2023-02-10] MEDS: PANTOPRAZOLE 40 MG TABLET PO SCH (07:00)
[2023-02-10] MEDS: KETOROLAC 15 MG/ML 1 ML VIAL IVP SCH (07:00)
[2023-02-10] MEDS: EZETIMIBE 10 MG TAB PO SCH (08:11)
[2023-02-10] MEDS: CLOPIDOGREL 75 MG TAB PO SCH (08:11)
[2023-02-10] MEDS: METOPROLOL TARTRATE 12.5 MG TAB PO SCH ×2 (08:11→21:19)
[2023-02-10] MEDS: ATORVASTATIN 40 MG TAB PO SCH (08:11)
[2023-02-10] MEDS: TAMSULOSIN 0.4 MG CAP.ER.24H PO SCH (08:11)
[2023-02-10] MEDS: ASPIRIN 325 MG TAB PO SCH (08:11)
[2023-02-10] MEDS: PARoxetine 20 MG TAB PO SCH (08:12)
[2023-02-10] MEDS: HEPARIN SODIUM,PORCINE 5,000 UNIT/ML 1 ML VIAL SQ SCH ×3 (08:12→23:41)
[2023-02-10] MEDS: ACETAMINOPHEN TAB 500 MG TAB PO PRN ×2 (08:21→21:19)
--- NOTE | 2023-02-10 08:32 | XR ---
EXAMINATION TYPE: XR chest 1V portable DATE OF EXAM: 02/10/2023 Comparison: 02/09/2023 Clinical History: 62-year-old male Postoperative cardiac surgery Findings: Median sternotomy wires with postoperative clips and annuloplasty ring. Retained epicardial pacer danielito ds. Left basilar chest tube remains in place. Some mild patchy atelectasis left mid and lower lung re taya. Overlying external artifact left suprahilar region. There is a small left apical pneumothorax which remains measuring 1.1 cm versus 1.2 cm, previously. Heart upper limits of normal in size. Impression: 1. Left-sided chest tube in place with a similar small left apical pneumothorax at 1.1 cm versus 1.2 cm, previously. 2. Some patchy atelectasis left mid and lower lung.
[2023-02-10] MEDS: IPRATROPIUM-ALBUTEROL 3 ML NEB INHALATION SCH ×4 (08:53→21:25)
[2023-02-10] MEDS ORDERED: METOPROLOL TARTRATE 25 MG TAB PO SCH (09:00)
--- NOTE | 2023-02-10 11:24 | P.PN ---
Subjective Progress Note Date: 02/10/23 Principal diagnosis: Coronary artery disease, 2-3+ central mitral valve regurgitation, tricuspid regurgitation, history of severe heart failure with decreased ejection fraction. Past medical history significant for acute on chronic congestive heart failure, hypertension, hyperlipidemia, migraine headaches, asthma, noncompliance with medical care and a remote history of nicotine dependence and which he quit smoking 3 years ago. POD #4 Coronary artery bypass grafting 4 with sequential SHAFER to diagonal and LAD, left radial artery graft obtuse marginal coronary artery, saphenous vein graft to posterior descending coronary artery, mitral valve annuloplasty with a 26 mm physio-2 ring, ligation of left atrial appendage, endovascular vein harvest of the left greater saphenous vein, endovascular left radial artery harvest, DANNY by anesthesia Postoperative acute blood loss anemia, expected given hemodilution and cardiopulmonary bypass. The patient was seen and examined in follow-up today 02/10/2023 at bedside in the intensive care unit. He is currently sitting up to bedside chair, is awake, alert, oriented 3 and is in no acute distress. The patient denies any compla ints of shortness of breath at this time, or pain at this time. He has been up ambulating in the intensive care unit hallway with standby assistance of nursing and therapy staff and tolerating well. Dopamine drip was discontinued yesterday. He continues to have adequate urine output with 250 mL output in the last 8 hours. Oxygen saturation are 96% on room air and he is achieving 3000 mL on his incentive spirometry with encouragement. Bedside telemetry showing normal sinus rhythm heart rate 74 BPM. Left pleural chest tube to remain in place to low continuous wall suction -20 cm H2O. No air leak is present. Draining thin serosanguineous drainage. Left pleural chest tube drained 40 mL of thin serosanguineous drainage last 8 hours and 310 mL output in the last 24 hours. Laboratory and chest x-ray results were reviewed. Objective - Vital Signs Vital signs: Vital Signs Temp 98.5 F 02/10/23 08:00 Pulse 73 02/10/23 08:53 Resp 12 02/10/23 08:00 BP 95/57 02/10/23 08:00 Pulse Ox 94 L 02/10/23 08:00 FiO2 40 02/07/23 09:36 Intake & Output 02/09/23 02/10/23 02/10/23 18:59 06:59 18:59 Intake Total 189 240 Output Total 540 250 40 Balance -351 -10 -40 Weight 75.6 kg Intake: IV 189 Lactated Ringers 1,000 ml 180 @ 20 mls/hr IV .Q24H [facility] Rx#:[id number] pressure bags 9 Oral 240 Output: Chest Tube Drainage 190 40 Chest Tube Left Lateral 190 40 Chest Urine 350 250 Post Void Residual 0 Other: Voiding Method Indwelling Catheter Urinal Urinal # Bowel Movements 1 ABP, PAP, CO, CI - Last Documented Arterial Blood Pressure 83/43 Pulmonary Artery Pressure 30/14 Cardiac Output 4.9 Cardiac Index 2.7 - Exam CONSTITUTIONAL: Sitting up to the bedside chair in the intensive care unit, appears comfortable, cooperative, no apparent acute distress. HEENT: Neck is supple, no JVD, no lymphadenopathy. RESPIRATORY: Lungs sounds essentially clear throughout, diminished to his bilateral bases. Respirations are symmetrical and nonlabored. Currently on room air with oxygen saturations 96%. Able to achieve 3000 mL on his incentive spirometry. Strong cough. CARDIOVASCULAR: Regular rhythm and rate. S1 and S2 present, negative for S3, gallop or murmur. Sternum is stable. Palpable peripheral pulses bilaterally, trace edema to his bilateral lower extremities. No calf pain or tenderness noted. Heart hugger in place with patient demonstrating appropriate use. Knee- high MARISOL hose and sequential compression devices in place to his bilateral lower extremities. GASTROINTESTINAL: Abdomen soft, nontender, nondistended. Active bowel sounds present 4 quadrants. Tolerating diet. Passing flatus. No guarding or rigidity. GENITOURINARY: Continues to void clear yellow urine. Urine output 250 mL in the last 8 hours. INTEGUMENTARY: Skin is warm and dry with no evidence of clubbing or cyanosis. Midline sternal incision clean dry and well approximated, covered with dry intact dressing. Left lower extremity EVH sites well approximated without redness or drainage. Left arm radial artery harvest sites clean, dry and approximated. No drainage or redness is present. NEUROLOGIC: Cranial nerves II through XII intact. No focal deficits. MUSKULOSKELETAL: Able to move all extremities, strength equal bilaterally. PSYCHIATRIC: Alert and oriented to person place and time, appropriate affect, intact judgment and insight. INVASIVE LINES AND TUBES: Left pleural chest tubes present and connected to low continuous wall suction, no air leaks present. Left pleural chest tube with 40 mL of thin serosanguineous drainage overnight, 310 mL output in the last 24 hours. Atrial and ventricular epicardial pacemaker wires present, connected to generator, VVI backup rate 50 bpm. - Allied health notes Allied health notes reviewed: nursing - Labs CBC & Chem 7: 02/10/23 04:13 02/10/23 04:13 Labs: Abnormal Lab Results - Last 24 Hours (Table) 02/09/23 02/10/23 02/10/23 Range/Units 17:47 04:13 04:13 RBC 2.67 L (4.30-5.90) m/uL Hgb 8.4 L (13.0-17.5) gm/dL Hct 25.3 L (39.0-53.0) % Plt Count 132 L (150-450) k/uL BUN 50 H (9-20) mg/dL POC Glucose (mg/dL) 160 H (70-110) mg/dL - Imaging and Cardiology Chest x-ray: report reviewed, image reviewed Assessment and Plan Assessment: Multivessel coronary artery disease status post coronary artery bypass grafting surgery 4 vessels Severe mitral valve regurgitation , status post mitral valve repair using a 26 mm physio-2 ring Acute on chronic congestive heart failure with impaired left ventricular ejection fraction on DANNY showing an ejection fraction of 35% History of hypertension Hyperlipidemia History of asthma History of migraines History of medical noncompliance Remote history of nicotine dependence quit smoking 3 years ago Postoperative acute blood loss anemia, expected given hemodilution and car diopulmonary bypass Plan: Continue to maximize medical therapy with aspirin, statin, Plavix, beta paris. Will increase his metoprolol tartrate 25 mg by mouth twice a day. Start Norvasc 2.5 mg by mouth daily at noon for radial artery spasm prophylaxis, hold for systolic blood pressure less than or equal to 100 mmHg. Wean O2 as tolerated. Encourage incentive spirometry use 10 times every hour while awake. Bronchodilators per pulmonology Increase activity, ambulate as tolerated. PT/OT/cardiac rehab following. Will monitor daily labs and chest x-rays. Electrolyte replacement per protocol. GI/DVT prophylaxis. Pain control per current medication regimen. Insulin management per internal medicine service. Patient is not diabetic, hemoglobin A1c 5.5%. Needs to remain on insulin drip for 48 hours, then may transition to subcutaneous per protocol. We will remove his atrial and ventricular epicardial pacemaker wires today, bed rest for 1 hour post pacemaker wire removal. We will discontinue his left pleural chest tube. Continue to record strict accurate intake and output. Bladder scan every 6 hours and when necessary postvoid residual, greater than or equal to 300 mL of urine may straight cath. Continue Flomax 0.4 mg by mouth daily. Daily weights. Transfer orders for the third for cardiac stepdown unit were put in place, transfer when bed available. Anticipate discharge home within the next 24 hours with home health care. More recommendations to follow based on patient's clinical course. Time with Patient: Greater than 30
[2023-02-10 12:03] LABS: Glucose,Whole Blood 124 mg/dL (70-110)
--- NOTE | 2023-02-10 14:55 | P.PN ---
Subjective Progress Note Date: 02/10/23 Principal diagnosis: POD #4 Coronary artery bypass grafting 4 with sequential SHAFER to diagonal and LAD, left radial artery graft obtuse marginal coronary artery, saphenous vein gr aft to posterior descending coronary artery, mitral valve annuloplasty with a 26 mm physio-2 ring, ligation of left atrial appendage, endovascular vein harvest of the left greater saphenous vein, endovascular left radial artery harvest, DANNY by anesthesia 59-year-old male patient who underwent a four-vessel coronary artery bypass surgery and mitral valve repair. The patient has a significant history of chronic systolic heart failure, hypertension, hyperlipidemia, asthma, and is a chronic ex-smoker and he quit smoking approximately 3 years ago. The patient was having issues with shortness of breath then he has had previous hospitalizations. Cardiology ventilator the patient. Transthoracic echocardiogram showed a ejection fraction of 15-20% and the patient had a reduced global LV function with moderately reduced RV global systolic function, moderate to severe mitral regurgitation, a thickened aortic valve without stenosis, mild tricuspid regurgitation, no pericardial effusion and normal aortic root. The patient also underwent a DANNY and it showed impairment of LV function with an ejection fraction of 20-25% and global hypokinesis. The patient had dilated RV as well. The patient underwent a cardiac catheterization that showed critical triple-vessel disease with occluded RCA proximal portion and filling by collaterals from the left coronary system along with circumflex giving rise to OM1 with a critical lesion in the proximal vessel and LAD had a proximal long tubular lesion that was in the range of 99%. Based on that, surgery was decided. The patient underwent a four-vessel bypass surgery with SHAFER to LAD and diagonal, left radial graft to obtuse marginal, saphenous vein graft to PDA and the patient also underwent a mitral valve repair. I saw the patient needs after he got today intensive care unit. The patient was sedated on propofol which is running at 30 microvascular kilogram per minute. The patient was on assist-control mode of mechanical ventilation at the rate of 14, tidal volume of 500, FiO2 of 50% with a PEEP of 5. The patient had a blood gas that showed a pH of 7.35 with episodes of 47 and pO2 of 365 and this was done on FiO2 of 100%. Chest x-ray showed some atelectatic change in her left lung. The patient had a adequate positioning of the orotracheal tube. Laurel- Malaika catheter had to be pushed him. The patient has a mediastinal and left pleural chest tube. No evidence of any air leak and the output from the mediastinal chest tube is minimal, from the left pleural chest tube is in order of 200 mL. The patient is currently on Cardizem drip at 5 mg an hour, nitroglycerin drip at 5 microvascular minute and the patient is also on cleviprex Drip at 1 mg/h. The patient had a cardiac output of 4 with an index of 2.2. The patient has a pulmonary artery pressures of 40/20. The patient is producing adequate amount of urine output. The patient is afebrile. No blood product has been given. The underlying cardiac rhythm is sinus bradycardia and the patient is currently paced at the rate of 80. On today's evaluation of 02/07/2023, the patient is being seen for a follow-up. The patient was weaned off the mechanical ventilator and he was extubated. Post extubation, the patient was felt to be lethargic with diminished level of consciousness. He was taken off the sedation. He was placed on a BiPAP at a pressure of 10/5 cm of water. He was kept on a BiPAP throughout the night and earlier this morning while on the BiPAP with an FiO2 of 40%, his speech was at 7.37 with a pCO2 of 46 and pO2 of 148. He was taken off the BiPAP and he was switched to oxygen by nasal cannula 2 L. His chest x-ray from today showing so me atelectatic changes in the left lung base. No evidence of any pneumothorax. The Laurel-Malaika catheter obviously is not a good location. This will be removed. There is a mediastinal left pleural chest tube. Some atelectatic changes in the left lung base. The patient otherwise is awake and alert. He is following commands and answering questions. He is aware of time and place. His cardiac output is at 4.9 with an index of 2.7. PA pressures are 33/12. His cardiac rhythm is improved and the patient is currently has an intrinsic normal sinus rhythm. He is on no pressors for now. He is off the nitroglycerin drip. He is off the Cardizem drip. As for the Cleviprex, this was also discontinued. His chest tubes are in good location. No evidence of any air leak. Output from the chest tube is minimal. The lab shows a sodium level CXXXVII, BUN is at 23 with a creatinine of 0.87. The meniscal 7.2, hemoglobin is 9.1 and a platelet count of 88. He is currently on aspirin. Is also on Plavix. Metoprolol was also started at a dose of 12.5 mg by mouth twice a day. He is on insulin drip which is running at 3 units an hour. Evaluation of 02/08/2023, the patient is postop day #2. Patient is calm and comfortable and the patient is also ambulating. Chest tubes are still in place. The mediastinal chest tube will be removed today. The chest x-ray from today shows no evidence of any pneumothorax. Adequate expansion of both lungs. Postthoracotomy changes. Otherwise no other acute abnormalities noted. The WBC count is 7.9, hemoglobin is at 7.8, BUN is at 33 with a creatinine of 1.1 and his sodium levels of 139. The patient is awake and alert and communicating. Cleaning catheter is in place. Cardiac rhythm was sinus rhythm at this point in time. Laurel-Malaika catheter has been removed. Insulin drip is discontinued On 02/09/2023, the patient is postop day #3. He is on room air oxygen. Doing extremely well. Ambulating. Mental status is normal. Patient is in normal sinus rhythm. Hemodynamically stable on no pressors. The chest x-ray from today shows adequate expansion of both lungs. No evidence of any pneumothorax. He continues to have a left-sided chest tube in place. Output from the chest tube is in order of 300 mL over the past 8 hours. No evidence of any air leak. No evidence of any pneumothorax. The chest tube In place for another 24 hours. Rest of the labs shows of the limbus, 7.7, hemoglobin 7.6, BUN is at 38 with a creatinine of 1.0 and a sodium level is at 137. Reevaluated today on 02/10/2023, patient is now postoperative day #4. Patient is doing great, he is on room air, asymptomatic, not in any distress, denies any shortness of breath or pain, ambulating fine, patient is off dopamine and this was discontinued yesterday. Continues to have excellent urine output, O2 saturation 96% on room air, achieving about 3 L with his incentive spirometry. Left pleural chest tube remains in place, no air leak noted, 310 output in the last 24 hours. Small apical left tiny pneumothorax is noted, and again the chest tube remains in place. WBC count is 6.1 hemoglobin is 8.4 basic metabolic profile is normal BUN is 50 creatinine 1.1 Objective - Vital Signs Vital signs: Vital Signs Temp 98.5 F 02/10/23 11:29 Pulse 70 02/10/23 13:23 Resp 16 02/10/23 11:29 BP 92/74 02/10/23 11:29 Pulse Ox 94 L 02/10/23 11:29 FiO2 40 02/07/23 09:36 Intake & Output 02/09/23 02/10/23 02/10/23 18:59 06:59 18:59 Intake Total 189 240 Output Total 540 250 40 Balance -351 -10 -40 Weight 75.6 kg Intake: IV 189 Lactated Ringers 1,000 ml 180 @ 20 mls/hr IV .Q[facility]H [facility] Rx#:[id number] pressure bags 9 Oral 240 Output: Chest Tube Drainage 190 40 Chest Tube Left Lateral 190 40 Chest Urine 350 250 Post Void Residual 0 Other: Voiding Method Indwelling Catheter Urinal Toilet Urinal # Bowel Movements 1 ABP, PAP, CO, CI - Last Documented Arterial Blood Pressure 83/43 Pulmonary Artery Pressure 30/14 Cardiac Output 4.9 Cardiac Index 2.7 - Exam Physical Exam: Revealed a 62-year-old white male in no distress Head: Atraumatic, normocephalic. HEENT:[Neck is supple.] [No neck masses.] [No thyromegaly.] [No JVD.] Chest: [Good breath sound bilaterally no crackles or rhonchi or wheezes Cardiac Exam: [Normal S1 and S2, no S3 gallop, no murmur.] Abdomen: [Soft, nontender, no megaly, no rebound, no guarding, normal bowel sounds.] Extremities: [No clubbing, no edema, no cyanosis.] Neurological Exam: [No focal neurologic deficit.] Alert and oriented 3 Psychiatric: Normal mood affect and normal mental status examination Skin: No rash - Labs CBC & Chem 7: 02/10/23 04:13 02/10/23 04:13 Labs: Abnormal Lab Results - Last 24 Hours (Table) 02/09/23 02/10/23 02/10/23 Range/Units 17:47 04:13 04:13 RBC 2.67 L (4.30-5.90) m/uL Hgb 8.4 L (13.0-17.5) gm/dL Hct 25.3 L (39.0-53.0) % Plt Count 132 L (150-450) k/uL BUN 50 H (9-20) mg/dL POC Glucose (mg/dL) 160 H (70-110) mg/dL 02/10/23 Range/Units 12:02 RBC (4.30-5.90) m/uL Hgb (13.0-17.5) gm/dL Hct (39.0-53.0) % Plt Count (150-450) k/uL BUN (9-20) mg/dL POC Glucose (mg/dL) 124 H (70-110) mg/dL Assessment and Plan Assessment: Impression: status post coronary artery bypass grafting surgery 4 vessels, postoperative day #4 Severe mitral valve regurgitation , status post mitral valve repair using a 26 mm physio-2 ring, postoperative day #4 Postoperative tiny apical left-sided pneumothorax, expected Acute on chronic systolic congestive heart failure with ejection fraction of 35% Benign essential hypertension Hyperlipidemia History of asthma History of migraines Ex-smoker Postoperative acute blood loss anemia, expected Recommendation: Continue incentive spirometry Ambulate Discontinue on necessary catheters and lines as clinically indicated Chest x-ray was reviewed Blood work was reviewed, hemoglobin today is 8.4, did not require blood transfusion Continue to monitor electrolytes Consider transfer to a monitor bed on selective/stepdown unit We will continue to follow Time with Patient: Less than 30
[2023-02-10 16:59] LABS: Glucose,Whole Blood 118 mg/dL (70-110)
[2023-02-10 19:41] LABS: Glucose,Whole Blood 171 mg/dL (70-110)
--- NOTE | 2023-02-10 21:10 | P.PN ---
Subjective Progress Note Date: 02/10/23 Patient is evaluated today resting in bed in the intensive care unit. He is postoperative day#4 triple vessel CABG. Complaints of back pain and incisional pain. Chest xray today reveals left sided chest tube in place with similar left apical pneumothorax 1.1 cm vs. 1.2 Some patchy atelectasis left mid and lower lung. left chest tube to be removed today. Labs reveal white count 6.1 stable hemoglobin at 8.4, BUN 50, creatinine 1.18. On room air, blood glucose controlled. Review of Systems Constitutional: Denied any fatigue denied any fever. Cardio vascular: denied any chest pain, palpitations Gastrointestinal: denied any nausea, vomiting, diarrhea Pulmonary: Denied any shortness of breath cough Neurologic denied any new focal deficits All inpatient medications were reviewed and appropriate changes in these medications as dictated in the interval history and assessment and plan. PHYSICAL EXAMINATION: GENERAL: The patient is alert and oriented x3, not in any acute distress. Well developed, well nourished. HEENT: Pupils are round and equally reacting to light. EOMI. No scleral icterus. No conjunctival pallor. Normocephalic, atraumatic. No pharyngeal erythema. No thyromegaly. CARDIOVASCULAR: S1 and S2 present. No murmurs, rubs, or gallops. Post surgical chest midline incision, left chest tube in place. PULMONARY: Chest is clear to auscultation, no wheezing or crackles. ABDOMEN: Soft, nontender, nondistended, normoactive bowel sounds. No palpable organomegaly. MUSCULOSKELETAL: No joint swelling or deformity. EXTREMITIES: No cyanosis, clubbing, or pedal edema. NEUROLOGICAL: Gross neurological examination did not reveal any focal deficits. SKIN: No rashes. Assessment and Plan -Four-vessel coronary artery disease and mitral valve regurgitation; patient is status post four-vessel bypass surgery and mitral valve repair; POD #4, remaining left sided chest tube to be removed today, patient remains on dual antiplatelet therapy. -Hyperglycemia continues with sliding scale insulin and ACHS accuchecks, patient is also receiving levemir HS. Preoperative hgbA1C 5.5. -Sinus bradycardia; resolved; currently normal sinus rhythm -Chronic systolic CHF; echocardiogram reveals LVEF of 35% -Hypertension; treated with Cleviprex which has now been discontinued and patient is placed on metoprolol 12.5 mg twice a day -Hyperlipidemia; Lipitor 40 mg daily, Zetia 10 mg daily -Asthma; not in exacerbation; continue with home inhaler therapy -History of migraine headaches -History of nicotinue use DVT prophylaxis; subcu heparin CODE STATUS; full code Plan Continue to encourage ambulation 4 times a day and incentive spirometer 10 x an hour, plan for removal of left sided chest tube today and repeat chest xray in AM. Patient is being considered for DC home in the next 24 hours. The impression and plan of care has been dictated by Nurse Jude Parra as directed. Dr. Taz MD I have performed a history and physical examination and medical decision making of this patient, discussed the same with the dictator, and agree with the dict ators assessment and plan as written, documented as a scribe. Based on total visit time, I have performed more than 50% of this visit. Objective - Vital Signs Vital signs: Vital Signs Temp 98.5 F 02/10/23 11:29 Pulse 70 02/10/23 11:29 Resp 16 02/10/23 11:29 BP 92/74 02/10/23 11:29 Pulse Ox 94 L 02/10/23 11:29 FiO2 40 02/07/23 09:36 Intake & Output 02/09/23 02/10/23 02/10/23 18:59 06:59 18:59 Intake Total 189 240 Output Total 540 250 40 Balance -351 -10 -40 Weight 75.6 kg Intake: IV 189 Lactated Ringers 1,000 ml 180 @ 20 mls/hr IV .Q24H [facility] Rx#:[id number] pressure bags 9 Oral 240 Output: Chest Tube Drainage 190 40 Chest Tube Left Lateral 190 40 Chest Urine 350 250 Post Void Residual 0 Other: Voiding Method Indwelling Catheter Urinal Urinal # Bowel Movements 1 ABP, PAP, CO, CI - Last Documented Arterial Blood Pressure 83/43 Pulmonary Artery Pressure 30/14 Cardiac Output 4.9 Cardiac Index 2.7 - Labs CBC & Chem 7: 02/10/23 04:13 02/10/23 04:13 Labs: Abnormal Lab Results - Last 24 Hours (Table) 02/09/23 02/10/23 02/10/23 Range/Units 17:47 04:13 04:13 RBC 2.67 L (4.30-5.90) m/uL Hgb 8.4 L (13.0-17.5) gm/dL Hct 25.3 L (39.0-53.0) % Plt Count 132 L (150-450) k/uL BUN 50 H (9-20) mg/dL POC Glucose (mg/dL) 160 H (70-110) mg/dL 02/10/23 Range/Units 12:02 RBC (4.30-5.90) m/uL Hgb (13.0-17.5) gm/dL Hct (39.0-53.0) % Plt Count (150-450) k/uL BUN (9-20) mg/dL POC Glucose (mg/dL) 124 H (70-110) mg/dL Assessment and Plan Time with Patient: Less than 30
[2023-02-10] MEDS: SENNOSIDES-DOCUSATE SODIUM 1 EACH TAB PO SCH (21:19)
[2023-02-11] MEDS: ACETAMINOPHEN TAB 500 MG TAB PO PRN ×2 (02:18→08:26)
[2023-02-11 06:14] LABS: Glucose,Whole Blood 107 mg/dL (70-110)
[2023-02-11] MEDS: PANTOPRAZOLE 40 MG TABLET PO SCH (06:54)
[2023-02-11] MEDS: INSULIN DETEMIR (LEVEMIR) 100 UNIT/ML SYR SQ SCH (06:54)
[2023-02-11] MEDS: INSULIN ASPART (NovoLOG) 100 UNIT/ML VIAL SQ SCH (06:55)
--- NOTE | 2023-02-11 06:57 | XR ---
EXAMINATION TYPE: XR chest 2V DATE OF EXAM: 02/11/2023 COMPARISON: 02/10/2023 INDICATION: Postop CABG TECHNIQUE: Single frontal view of the chest is obtained. FINDINGS: The heart size is normal. The pulmonary vasculature is normal. Some minimal infiltrates at the right costophrenic angle. Some blunting and infiltrates at the left costophrenic angle. IMPRESSION: 1. Costophrenic angle atelectasis
[2023-02-11] MEDS: ATORVASTATIN 40 MG TAB PO SCH (08:25)
[2023-02-11] MEDS: PARoxetine 20 MG TAB PO SCH (08:26)
[2023-02-11] MEDS: METOPROLOL TARTRATE 12.5 MG TAB PO SCH (08:26)
[2023-02-11] MEDS: TAMSULOSIN 0.4 MG CAP.ER.24H PO SCH (08:26)
[2023-02-11] MEDS: ASPIRIN 325 MG TAB PO SCH (08:26)
[2023-02-11] MEDS: EZETIMIBE 10 MG TAB PO SCH (08:26)
[2023-02-11] MEDS: CLOPIDOGREL 75 MG TAB PO SCH (08:26)
[2023-02-11] MEDS: HEPARIN SODIUM,PORCINE 5,000 UNIT/ML 1 ML VIAL SQ SCH (08:26)
[2023-02-11] MEDS: IPRATROPIUM-ALBUTEROL 3 ML NEB INHALATION SCH ×2 (09:13→12:27)
[2023-02-11 09:51] VITALS: BP 132/94; PULSE 76; RESP 18; TEMP 97.4
[2023-02-11 10:22] LABS: HGB 7.9 gm/dL (13.0-17.5); MCH 31.3 pg (25.0-35.0); MCHC 32.9 g/dL (31.0-37.0); MCV 95.4 fL (80.0-100.0); Platelet Count 170 k/uL (150-450); RBC 2.52 m/uL (4.30-5.90); RDW 13.9 % (11.5-15.5); WBC 6.3 k/uL (3.8-10.6)
[2023-02-11 10:30] LABS: African American GFR (CKD) >90 (>60 ml/min/1.73 sqM); Anion Gap 7 mmol/L; Blood Urea Nitrogen 31 mg/dL (9-20); Calcium 8.7 mg/dL (8.4-10.2); Carbon Dioxide 23 mmol/L (22-30); Chloride 108 mmol/L (98-107); Glucose 106 mg/dL (74-99); Non-African American GFR(CKD) >90 (>60 ml/min/1.73 sqM); Potassium 4.1 mmol/L (3.5-5.1); Sodium 138 mmol/L (137-145)
[2023-02-11] MEDS ORDERED: FUROSEMIDE 20 MG TAB PO ONE (11:29)
[2023-02-11 11:35] LABS: Glucose,Whole Blood 102 mg/dL (70-110)
--- NOTE | 2023-02-11 11:55 | P.DS ---
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 Consult: post cardiac surgery Do you want consulting provider notified?: Yes Primary care physician: Bita Parrish [facility] Course: FINAL DIAGNOSIS: Multivessel coronary artery disease status post coronary artery bypass grafting surgery 4 vessels Severe mitral valve regurgitation , status post mitral valve repair using a 26 mm physio-2 ring Acute on chronic congestive heart failure with impaired left ventricular ejection fraction on DANNY showing an ejection fraction of 35% History of hypertension Hyperlipidemia History of asthma History of migraines History of medical noncompliance Remote history of nicotine dependence quit smoking 3 years ago Postoperative acute blood loss anemia, expected given hemodilution and cardiopulmonary bypass PRINCIPAL PROCEDURE: 1. Coronary artery bypass grafting 4 with sequential SHAFER to diagonal and LAD, left radial artery graft obtuse marginal coronary artery, saphenous vein graft to posterior descending coronary artery 2. Mitral valve annuloplasty with a 26 mm physio-2 ring 3. Ligation of left atrial appendage 4. Endovascular vein harvest of the left greater saphenous vein 5. Endovascular left radial artery harvest 6. Intraoperative transesophageal cardiogram performed by anesthesia HISTORY OF PRESENT ILLNESS: This is a 62-year-old gentleman who follows in our outpatient basis for his primary care with Dr. Bita Odom and with Dr. Manuel for his cardiology care. Recently, the patient has had complaints of difficulty breathing, worse on exertion, weakness and just an overall not feeling well. Due to these symptoms he was admitted to the hospital in August 2022 and underwent a transthoracic 2-D echocardiogram which showed a left ventricular ejection fraction estimated at 15-20%, severely reduced global left ventricular systolic function, moderately reduced right ventricular global systolic function, moderate to severe mitral valve regurgitation, a thickened aortic valve without stenosis, mild tricuspid valve regurgitation, trace to mild pulmonic valve regurgitation, no pericardial effusion and a normal size aortic root and proximal ascending aorta. Due to the findings on the transthoracic 2-D echocardiogram he was recommended to undergo a transesophageal echocardiogram and cardiac catheterization. The DANNY demonstrated his left ventricular systolic function to be severely impaired with an ejection fraction of around 20-25% with global hypokinesia, a dilated right ventricle, intact mitral valve leaflets, severe mitral valve regurgitation, a PISA radius of 1 cm, severe tricuspid valve regurgitation, a trileaflet aortic valve with no stenosis or regurgitation and a small circumferential pericardial effusion. His heart cath demonstrated critical triple vessel coronary artery disease with chronically occluded right coronary artery with the proximal portion filling by collaterals from the left coronary system, his left circumflex coronary artery proximally gives rise to an obtuse marginal 1 which has a critical lesion in the proximal portion and the LAD proximally has a long tubular lesion which appeared to be complex involving the bifurcation of a large diagonal branch and the lesion appears to be in the range of 99.9%. Also during heart catheterization the LVEDP was 10 mmHg with no significant gradient across the aortic valve. The patient was seen and examined at that time by cardiothoracic surgery with recommendations for optimized medical management and follow-up as an outpatient. Subsequently in January 2023 he followed up with Dr. Jeronimo as an outpatient after having a repeat transthoracic 2-D echocardiogram completed which demonstrated normal right ventricular function with improved left ventricular function with an ejection fraction at 40-45%, diastolic dysfunction of grade 1, moderate mitral valve regurgitation and moderate tricuspid valve regurgitation. Given the patient's overall improvement of his biventricular heart failure, Dr. Jeronimo discussed treatment options with the patient including myocardial revascularization with mitral valve repair or possible replacement and tricuspid valve repair surgery. Risks and benefits of the surgery were discussed with the patient by Dr. Jeronimo and knowing and understanding the risks the patient wished to proceed with the surgical option. HOSPITAL COURSE: The patient was brought to the preoperative area on 02/06/2023, prepared in the usual fashion and subsequently taken to the operating room where Dr. Rodrigo Jeronimo performed a coronary artery bypass grafting 4 with sequential SHAFER to diagonal and LAD, left radial artery graft obtuse marginal coronary artery, saphenous vein graft to posterior descending coronary artery, and a mitral valve annuloplasty with a 26 mm physio-2 ring. Upon completion of the surgery the patient was transferred to the cardiovascular intensive care unit where he was recovered and monitored hemodynamically. He was subsequently extubated, all lines, tubes and supportive drips were discontinued when appropriate and he was transferred to the cardiac stepdown unit for further monitoring and rehabilitation. His oxygen was titrated down, he continued to work with physical/occupational therapy, cardiac rehabilitation, he was tolerating an oral diet, his pain was well controlled without narcotics and he was ready to be discharged home with a Critical access hospital care on postoperative day #5. The patient has received verbal and written instructions regarding his medications, activity restrictions, signs and symptoms requiring physician notification and his follow-up appointments. Plan - Discharge Summary Discharge Rx Participant: Yes New Discharge Prescriptions: New Aspirin 325 mg PO DAILY #30 tab Tamsulosin [Flomax] 0.4 mg PO PC-BRKFST #30 cap Potassium Chloride ER [K-Dur 10] 10 meq PO DAILY #7 tab Furosemide [Lasix] 20 mg PO DAILY #7 tab Sennosides-Docusate Sodium [Senokot-S] 2 each PO HS #14 tab Acetaminophen Tab [Tylenol] 1,000 mg PO Q6HR PRN tab PRN Reason: Fever And/ Or Pain Metoprolol Tartrate [Lopressor] 12.5 mg PO BID #60 tab Clopidogrel [Plavix] 75 mg PO DAILY #30 tab Continue Ezetimibe [Zetia] 10 mg PO QAM Atorvastatin [Lipitor] 80 mg PO QAM PARoxetine HCL [Paxil] 40 mg PO QAM Famotidine [Pepcid] 20 mg PO QAM Discontinued lisinopriL [Zestril] 2.5 mg PO QAM Spironolactone [Aldactone] 25 mg PO QAM Mupirocin 2% Oint [Bactroban 2% Oint] 1 applic NASAL BID carvediloL [Coreg] 6.25 mg PO BID Furosemide [Lasix] 40 mg PO QAM Aspirin 81 mg PO QAM Discharge Medication List Famotidine [Pepcid] 20 mg PO QAM 07/04/22 [History] PARoxetine HCL [Paxil] 40 mg PO QAM 07/04/22 [History] Ezetimibe [Zetia] 10 mg PO QAM 09/03/22 [History] Atorvastatin [Lipitor] 80 mg PO QAM 01/29/23 [History] Acetaminophen Tab [Tylenol] 1,000 mg PO Q6HR PRN tab 02/11/23 [Rx] Aspirin 325 mg PO DAILY #30 tab 02/11/23 [Rx] Clopidogrel [Plavix] 75 mg PO DAILY #30 tab 02/11/23 [Rx] Furosemide [Lasix] 20 mg PO DAILY #7 tab 02/11/23 [Rx] Metoprolol Tartrate [Lopressor] 12.5 mg PO BID #60 tab 02/11/23 [Rx] Potassium Chloride ER [K-Dur 10] 10 meq PO DAILY #7 tab 02/11/23 [Rx] Sennosides-Docusate Sodium [Senokot-S] 2 each PO HS #14 tab 02/11/23 [Rx] Tamsulosin [Flomax] 0.4 mg PO PC-BRKFST #30 cap 02/11/23 [Rx] Follow up Appointment(s)/Referral(s): Ana Oneal NPC [Nurse Practitioner] - 02/18/23 11:30 am [facility] [NON-STAFF] - 4 Weeks [facility] [NON-STAFF] - 1 Week ([facility] will call you to arrange a visit) Farshad Manuel MD [STAFF PHYSICIAN] - 02/21/23 4:45 pm Rodrigo Jeronimo MD [STAFF PHYSICIAN] - 03/06/23 10:00 am () Elias Curran DO [Doctor of Osteopathic Medicine] - 02/25/23 1:30 pm Bita Parrish MD [Primary Care Provider] - 02/19/23 10:30 am Ambulatory/Diagnostic Orders: Complete Blood Count w/diff [LAB.AMB] Time Frame: 02/14/23, Facility: [facility], Location: [facility] Comprehensive Metabolic Panel [LAB.AMB] Time Frame: 02/14/23, Facility: [facility], Location: [facility] Activity/Diet/Wound Care/Special Instructions: DISCHARGE INSTRUCTIONS: 1. No driving for 4 weeks, or until physician gives their ok. 2. The patient should sleep in their own bed, no medical bed needed. 3. Stairs are not an issue. If the bedroom is upstairs, it is advised that the patient go up at night and down in the morning for the first week. Go slowly, using handrail and take 1 step at a time. 4. MARISOL hose are to be worn for 30 days or until physician discontinues. 5. Heart hugger is to be worn 100% of the time until physician discontinues.(except when showering) 6. No lifting, pushing, or pulling more than 10 pounds for 12 weeks. The physician will advise of any restriction changes. 7. The patient is expected to continue the prescribed walking program. 8. Continue pain control per as needed orders. 9. Continue with incentive spirometry and splinting/heart hugger until otherwise directed by the physician. 10. Must shower daily using liquid antibacterial soap and a separate white washcloth for each individual incision. 11. Routine sternal incision care, no ointments, lotions or powders on the incisions. 12. Please notify surgeon/nurse practitioner for temperature greater than 101F or purulent drainage from incisions 13. Prescriptions for first 30 days given per cardiac surgery service. After 30 days, all prescription refills obtained through cardiology/primary care physician. 14. A red arm and has been placed on this patient it should be worn for 30 days post surgery and will be removed by the cardiothoracic surgeons. If an ER visit is necessary, please make sure the number on the red arm band is called. HOME HEALTH SERVICES TO PROVIDE: RN SKILLED HOME CARE SERVICES FOR POST-OP SURGICAL PATIENTS WITH THE FOLLOWING: Coronary Artery Bypass Surgery (CABG), Mitral Valve Replacement/Repair ( MVR), Aortic Valve Replacement/Repair (AVR) RN TO CONTINUE EDUCATION FROM ``ROAD TO A HEALTH HEART PATIENT EDUCATION MANUAL" (GIVEN TO PATIENT IN THE HOSPITAL) MEDICATION RECONCILIATION WITH EDUCATION NEEDED ON FIRST HOME VISIT EMPHASIZE IMPORTANCE OF WEARING BREAST SUPPORT/HEART HUGGER ENCOURAGE USE OF INCENTIVE SPIROMETER 10 X EVERY HOUR WHILE AWAKE ENCOURAGE UTILIZATION OF LOWER EXTREMITY COMPRESSION STOCKINGS/MARISOL HOSE and ELEVATE LEGS ABOVE LEVEL OF HEART WHILE AT REST. ENCOURAGE AMBULATION 3-5x/day INCREASING TOLERATES, WHILE AVOID EXTREMES IN TEMPERATURE FREQUENCY: RN TO OPEN THE PATIENT WITHIN 24 HOURS OF DISCHARGE FROM THE HOSPITAL WITH TELEHEALTH INSTALLED AT [facility], RN TO VISIT 2-3 X A WEEK FOR 4 WEEKS ESTABLISHED BY PATIENT NEEDS. REMOVAL OF SUTURES: NURSING SERVICES TO REMOVE SUTURES TWO WEEKS POST SURGICAL DATE [ default ]. If any questions regarding suture removal please call the office at [phone]. LABORATORY: CBC, CMP TO BE DRAWN ON THE THIRD DAY HOME, (RAN STAT) FAX RESULTS TO [phone]. TELEHEALTH PARAMETERS: WEIGHT: NOTIFY MD OF WEIGHT GAIN OF 2 LBS IN 24 HOURS OR 5 LBS IN ONE WEEK HR: NOTIFY MD OF HR <55 BPM OR HR>100 BPM BP: NOTIFY MD IF BP <90/55 OR BP>140/100 O2 SAT: NOTIFY MD IF PO2<93% ON ROOM AIR SEND TELEHEALTH REPORT TO CUSTOMER EXPERIENCE RETAIL CLERK AND CARDIOVASCULAR SURGEON THE FIRST WEEK OF CARE AND THEN BI-WEEKLY. PLEASE ADDITIONALLY COMMUNICATE ANY ABNORMALS AND NEW FINDINGS TO THE SURGEONS OFFICE. Discharge Disposition: HOME WITH HOME HEALTH SERVICES
--- NOTE | 2023-02-11 12:44 | P.PN ---
Subjective Progress Note Date: 02/11/23 59-year-old male patient who underwent a four-vessel coronary artery bypass surgery and mitral valve repair. The patient has a significant history of chronic systolic heart failure, hypertension, hyperlipidemia, asthma, and is a chronic ex-smoker and he quit smoking approximately 3 years ago. The patient was having issues with shortness of breath then he has had previous hospitalizations. Cardiology ventilator the patient. Transthoracic echocardiogram showed a ejection fraction of 15-20% and the patient had a reduced global LV function with moderately reduced RV global systolic function, moderate to severe mitral regurgitation, a thickened aortic valve without stenosis, mild tricuspid regurgitation, no pericardial effusion and normal aortic root. The patient also underwent a DANNY and it showed impairment of LV function with an ejection fraction of 20-25% and global hypokinesis. The patien t had dilated RV as well. The patient underwent a cardiac catheterization that showed critical triple-vessel disease with occluded RCA proximal portion and filling by collaterals from the left coronary system along with circumflex giving rise to OM1 with a critical lesion in the proximal vessel and LAD had a proximal long tubular lesion that was in the range of 99%. Based on that, surgery was decided. The patient underwent a four-vessel bypass surgery with SHAFER to LAD and diagonal, left radial graft to obtuse marginal, saphenous vein graft to PDA and the patient also underwent a mitral valve repair. I saw the patient needs after he got today intensive care unit. The patient was sedated on propofol which is running at 30 microvascular kilogram per minute. The patient was on assist-control mode of mechanical ventilation at the rate of 14, tidal volume of 500, FiO2 of 50% with a PEEP of 5. The patient had a blood gas that showed a pH of 7.35 with episodes of 47 and pO2 of 365 and this was done on FiO2 of 100%. Chest x-ray showed some atelectatic change in her left lung. The patient had a adequate positioning of the orotracheal tube. Lafe- Malaika catheter had to be pushed him. The patient has a mediastinal and left pleural chest tube. No evidence of any air leak and the output from the mediastinal chest tube is minimal, from the left pleural chest tube is in order of 200 mL. The patient is currently on Cardizem drip at 5 mg an hour, nitroglycerin drip at 5 microvascular minute and the patient is also on cleviprex Drip at 1 mg/h. The patient had a cardiac output of 4 with an index of 2.2. The patient has a pulmonary artery pressures of 40/20. The patient is producing adequate amount of urine output. The patient is afebrile. No blood product has been given. The underlying cardiac rhythm is sinus bradycardia and the patient is currently paced at the rate of 80. On today's evaluation of 02/07/2023, the patient is being seen for a follow-up. The patient was weaned off the mechanical ventilator and he was extubated. Post extubation, the patient was felt to be lethargic with diminished level of consciousness. He was taken off the sedation. He was placed on a BiPAP at a pressure of 10/5 cm of water. He was kept on a BiPAP throughout the night and e arlier this morning while on the BiPAP with an FiO2 of 40%, his speech was at 7.37 with a pCO2 of 46 and pO2 of 148. He was taken off the BiPAP and he was switched to oxygen by nasal cannula 2 L. His chest x-ray from today showing some atelectatic changes in the left lung base. No evidence of any pneumothorax. The Lafe-Malaika catheter obviously is not a good location. This will be removed. There is a mediastinal left pleural chest tube. Some atelectatic changes in the left lung base. The patient otherwise is awake and alert. He is following commands and answering questions. He is aware of time and place. His cardiac output is at 4.9 with an index of 2.7. PA pressures are 33/12. His cardiac rhythm is improved and the patient is currently has an intrinsic normal sinus rhythm. He is on no pressors for now. He is off the nitroglycerin drip. He is off the Cardizem drip. As for the Cleviprex, this was also discontinued. His chest tubes are in good location. No evidence of an y air leak. Output from the chest tube is minimal. The lab shows a sodium level CXXXVII, BUN is at 23 with a creatinine of 0.87. The meniscal 7.2, hemoglobin is 9.1 and a platelet count of 88. He is currently on aspirin. Is also on Plavix. Metoprolol was also started at a dose of 12.5 mg by mouth twice a day. He is on insulin drip which is running at 3 units an hour. Evaluation of 02/08/2023, the patient is postop day #2. Patient is calm and comfortable and the patient is also ambulating. Chest tubes are still in place. The mediastinal chest tube will be removed today. The chest x-ray from today shows no evidence of any pneumothorax. Adequate expansion of both lungs. Postthoracotomy changes. Otherwise no other acute abnormalities noted. The WBC count is 7.9, hemoglobin is at 7.8, BUN is at 33 with a creatinine of 1.1 and his sodium levels of 139. The patient is awake and alert and communicating. Cleaning catheter is in place. Cardiac rhythm was sinus rhythm at this point in time. Lafe-Malaika catheter has been removed. Insulin drip is discontinued On 02/09/2023, the patient is postop day #3. He is on room air oxygen. Doing extremely well. Ambulating. Mental status is normal. Patient is in normal sinus rhythm. Hemodynamically stable on no pressors. The chest x-ray from today shows adequate expansion of both lungs. No evidence of any pneumothorax. He continues to have a left-sided chest tube in place. Output from the chest tube is in order of 300 mL over the past 8 hours. No evidence of any air leak. No evidence of any pneumothorax. The chest tube In place for another 24 hours. Rest of the labs shows of the limbus, 7.7, hemoglobin 7.6, BUN is at 38 with a creatinine of 1.0 and a sodium level is at 137. Reevaluated today on 02/10/2023, patient is now postoperative day #4. Patient is doing great, he is on room air, asymptomatic, not in any distress, denies any shortness of breath or pain, ambulating fine, patient is off dopamine and this was discontinued yesterday. Continues to have excellent urine output, O2 saturation 96% on room air, achieving about 3 L with his incentive spirometry. Left pleural chest tube remains in place, no air leak noted, 310 output in the last 24 hours. Small apical left tiny pneumothorax is noted, and again the chest tube remains in place. WBC count is 6.1 hemoglobin is 8.4 basic metabolic profile is normal BUN is 50 creatinine 1.1 The patient is seen today 02/11/2023 in follow-up on the selective care unit. Postoperative day #5. He sitting up in a chair at the bedside. Awake and alert in no acute distress. He is maintaining good O2 saturations in the 90s on room air. He's afebrile. Hemodynamically stable. Denies any worsening shortness of breath, cough or congestion. Continues to work well with the incentive spirometer. Chest x-ray reveals minimal blunting at the costophrenic angles otherwise clear. White count 6.3. Hemoglobin 7.9. Platelets 170. Sodium 138. Potassium 4.1. BUN 31. Creatinine 0.86. Glucose 106. He is continued on DuoNeb inhalations. Heparin for DVT prophylaxis. Remains on oral diuretics. Currently in a -1.2 L balance. Objective - Vital Signs Vital signs: Vital Signs Temp 97.4 F L 02/11/23 08:00 Pulse 68 02/11/23 09:24 Resp 18 02/11/23 08:00 BP 132/94 02/11/23 08:00 Pulse Ox 98 02/11/23 08:00 FiO2 40 02/07/23 09:36 Intake & Output 02/10/23 02/11/23 02/11/23 18:59 06:59 18:59 Intake Total 225 Output Total 540 900 Balance -315 -900 Weight 74.7 kg Intake: Oral 225 Output: Chest Tube Drainage 40 Chest Tube Left Lateral 40 Chest Urine 500 900 Other: Voiding Method Toilet Toilet Toilet Urinal Urinal Urinal ABP, PAP, CO, CI - Last Documented Arterial Blood Pressure 83/43 Pulmonary Artery Pressure 30/14 Cardiac Output 4.9 Cardiac Index 2.7 - Exam GENERAL EXAM: Alert, active, very pleasant 62-year-old male, on room air, comfortable in no apparent distress. HEAD: Normocephalic. EYES: Normal reaction of pupils, equal size. NOSE: Clear with pink turbinates. THROAT: No erythema or exudates. NECK: No masses, no JVD. CHEST: Sternal dressing dry and intact. Heart hugger in place. LUNGS: Equal air entry with no crackles, wheeze, rhonchi or dullness. CVS: S1 and S2 normal with no audible murmur, regular rhythm. ABDOMEN: No hepatosplenomegaly, normal bowel sounds, no guarding or rigidity. SPINE: No scoliosis or deformity SKIN: No rashes CENTRAL NERVOUS SYSTEM: No focal deficits, tone is normal in all 4 extremities. EXTREMITIES: There is no peripheral edema. No clubbing, no cyanosis. Peripheral pulses are intact. - Labs CBC & Chem 7: 02/11/23 09:55 02/11/23 09:55 Labs: Abnormal Lab Results - Last 24 Hours (Table) 02/10/23 02/10/23 02/11/23 Range/Units 16:58 19:39 09:55 RBC 2.52 L (4.30-5.90) m/uL Hgb 7.9 L (13.0-17.5) gm/dL Hct 24.0 L (39.0-53.0) % Chloride (98-107) mmol/L BUN (9-20) mg/dL Glucose (74-99) mg/dL POC Glucose (mg/dL) 118 H 171 H (70-110) mg/dL 02/11/23 Range/Units 09:55 RBC (4.30-5.90) m/uL Hgb (13.0-17.5) gm/dL Hct (39.0-53.0) % Chloride 108 H (98-107) mmol/L BUN 31 H (9-20) mg/dL Glucose 106 H (74-99) mg/dL POC Glucose (mg/dL) (70-110) mg/dL Assessment and Plan Assessment: Status post coronary artery bypass grafting surgery 4 vessels, postoperative day #5 Severe mitral valve regurgitation , status post mitral valve repair using a 26 mm physio-2 ring, postoperative day #5 Postoperative tiny apical left-sided pneumothorax, expected, resolved Acute on chronic systolic congestive heart failure with ejection fraction of 35% Benign essential hypertension Hyperlipidemia History of asthma History of migraines Ex-smoker Postoperative acute blood loss anemia, expected Plan: The patient was seen and evaluated Chest x-ray, labs and medications reviewed Currently stable and on room air Continues to work well with the incentive spirometer Plan is for possible discharge today Follow-up in our office in 1 week This patient was seen independently by the nurse practitioner who performed the medical decision-making I have personally seen and examined the patient, performed the documentation and the assessment and plan as written. Number of minutes spent on the visit: 22.
--- NOTE | 2023-02-11 21:36 | P.PN ---
Subjective Progress Note Date: 02/11/23 Patient is evaluated today resting in bed in the intensive care unit. He is postoperative day#4 triple vessel CABG. Complaints of back pain and incisional pain. Chest xray today reveals left sided chest tube in place with similar left apical pneumothorax 1.1 cm vs. 1.2 Some patchy atelectasis left mid and lower lung. left chest tube to be removed today. Labs reveal white count 6.1 stable hemoglobin at 8.4, BUN 50, creatinine 1.18. On room air, blood glucose controlled. 02/11/2023 Patient has been downgraded from ICU to the stepdown unit. Left sided chest tube has been removed without incident. Follow up chest xray today reveals costophrenic angle atelectasis, patient is reaching 3000 on his IS. Reports chronic pain, states the incisional surgical pain has improved. He has been up ambulating. Plan is for DC home today. He will not require insulin on discharge preoperative hgba1c of 5.5 and his blood glucose has been in normal range requiring 1 unit of insulin per shift. Labs today reveal white count 6.3, hgb 7.9, sodium 138, potassium 4.1, BUN 31, creatinine 0.86. Review of Systems Constitutional: Denied any fatigue denied any fever. Cardio vascular: denied any chest pain, palpitations Gastrointestinal: denied any nausea, vomiting, diarrhea Pulmonary: Denied any shortness of breath cough Neurologic denied any new focal deficits All inpatient medications were reviewed and appropriate changes in these medications as dictated in the interval history and assessment and plan. PHYSICAL EXAMINATION: GENERAL: The patient is alert and oriented x3, not in any acute distress. Well developed, well nourished. HEENT: Pupils are round and equally reacting to light. EOMI. No scleral icterus. No conjunctival pallor. Normocephalic, atraumatic. No pharyngeal erythema. No thyromegaly. CARDIOVASCULAR: S1 and S2 present. No murmurs, rubs, or gallops. Post surgical chest midline incision, left chest tube in place. PULMONARY: Chest is clear to auscultation, no wheezing or crackles. ABDOMEN: Soft, nontender, nondistended, normoactive bowel sounds. No palpable organomegaly. MUSCULOSKELETAL: No joint swelling or deformity. EXTREMITIES: No cyanosis, clubbing, or pedal edema. NEUROLOGICAL: Gross neurological examination did not reveal any focal deficits. SKIN: No rashes. Assessment and Plan -Four-vessel coronary artery disease and mitral valve regurgitation; patient is status post four-vessel bypass surgery and mitral valve repair; POD #5, remaining left sided chest tube has been removed, patient remains on dual antiplatelet therapy. -Hyperglycemia continues with sliding scale insulin and ACHS accuchecks, patient is also receiving levemir HS. Preoperative hgbA1C 5.5. -Sinus bradycardia; resolved; currently normal sinus rhythm -Chronic systolic CHF; echocardiogram reveals LVEF of 35% -Hypertension; treated with Cleviprex which has now been discontinued and patient is placed on metoprolol 12.5 mg twice a day -Hyperlipidemia; Lipitor 40 mg daily, Zetia 10 mg daily -Asthma; not in exacerbation; continue with home inhaler therapy -History of migraine headaches -History of nicotinue use DVT prophylaxis; subcu heparin CODE STATUS; full code Plan Continue to encourage ambulation 4 times a day and incentive spirometer 10 x an hour. Will not require insulin on discharge. Remains on dual antiplatelet therapy, discharged on oral lasix daily for the next 7 days with cardiothoracic follow up scheduled on 02/18/2023. Patient to continue on beta paris BID. On stool softeners. Patient to repeat labs in 3 days. He will be discharged home today per cardiothoracic. The impression and plan of care has been dictated by Nurse Fidel Prac titioner as directed. Dr. Taz MD I have performed a history and physical examination and medical decision making of this patient, discussed the same with the dictator, and agree with the dictators assessment and plan as written, documented as a scribe. Based on total visit time, I have performed more than 50% of this visit. Objective - Vital Signs Vital signs: Vital Signs Temp 98.1 F 02/11/23 03:32 Pulse 69 02/11/23 03:32 Resp 16 02/11/23 03:32 BP 110/63 02/11/23 03:32 Pulse Ox 97 02/11/23 03:32 FiO2 40 02/07/23 09:36 Intake & Output 02/10/23 02/11/23 02/11/23 18:59 06:59 18:59 Intake Total 225 Output Total 540 900 Balance -315 -900 Weight 74.7 kg Intake: Oral 225 Output: Chest Tube Drainage 40 Chest Tube Left Lateral 40 Chest Urine 500 900 Other: Voiding Method Toilet Toilet Urinal Urinal ABP, PAP, CO, CI - Last Documented Arterial Blood Pressure 83/43 Pulmonary Artery Pressure 30/14 Cardiac Output 4.9 Cardiac Index 2.7 - Labs CBC & Chem 7: 02/11/23 09:55 02/11/23 09:55 Labs: Abnormal Lab Results - Last 24 Hours (Table) 02/10/23 02/10/23 02/10/23 Range/Units 12:02 16:58 19:39 POC Glucose (mg/dL) 124 H 118 H 171 H (70-110) mg/dL Assessment and Plan Time with Patient: Less than 30
[2023-02-12] MEDS ORDERED: FUROSEMIDE 20 MG TAB PO SCH (09:00)
[2023-02-12] MEDS ORDERED: POTASSIUM CHLORIDE ER 10 MEQ TAB.ER.PRT PO SCH (09:00)
--- NOTE | 2023-02-12 17:23 | CDI ---
Documentation Clarification Form Date: 02/12/2023 04:54:07 PM From: Airam Elizondo Phone: Admit Date: 02/06/2023 05:33:00 AM Patient Name: Smith Zhou Visit Number: [id number] Discharge Date: 02/11/2023 12:40:00 PM ATTENTION: The Clinical Documentation Specialists (CDI) and [facility] Coding Staff appreciate your assistance in clarifying documentation. Please respond to the clarification below the line at the bottom and electronically sign. The CDI & [facility] Coding staff will review the response and follow-up if needed. Please note: Queries are made part of the Legal Health Record. If you have any questions, please contact the author of this message via ITS. Dr. Kelly Sanchez Conflicting documentation has been found in the medical record. As attending physician, please provide clarification. Nondiabetic per Cardiology Consult Note Diabetes with hyperglycemia per Progress Note 02/10 History/Risk Factors: 62yo M, CAD, MR/TR s/p CABG & valve replacement, ACSHF, HTN, HLD, asthma, former smoker Clinical Indicators: Preoperative hgbA1C 5.5 Glucose: 02/06 123 02/07 103 02/08 102 02/09 87 02/10 82 02/11 106 Treatment: continues with sliding scale insulin and ACHS accuchecks, patient is also receiving Levemir HS Please clarify which diagnosis is most appropriate: [ ] Nondiabetic with hyperglycemia [ ] Diabetes with hyperglycemia [ ] Other (please specify) [ x ] Unable to determine (Template Last Revised: May 2020) MTDD
== END 2023-02-11 12:40 | disposition home health service (06) | DRG 219 ==
LOC: 2ORMAIN 05:33 → 2SICU 14:15 → 3SCARD 02-10 17:33
PROVIDERS: ADMIT Thoracic Surgery (Cardiothoracic Vascular Surgery); ATTEND Thoracic Surgery (Cardiothoracic Vascular Surgery)
PROC: 021009W Bypass Coronary Artery, One Artery from Aorta with Autologous Venous Tissue, Open Approach (ICD-10-PCS; 2023-02-06)
PROC: 03BC4ZZ Excision of Left Radial Artery, Percutaneous Endoscopic Approach (ICD-10-PCS; 2023-02-06)
PROC: 06BQ4ZZ Excision of Left Saphenous Vein, Percutaneous Endoscopic Approach (ICD-10-PCS; 2023-02-06)
PROC: 02L70CK Occlusion of Left Atrial Appendage with Extraluminal Device, Open Approach (ICD-10-PCS; 2023-02-06)
PROC: 5A1221Z Performance of Cardiac Output, Continuous (ICD-10-PCS; 2023-02-06)
PROC: B24BZZ4 Ultrasonography of Heart with Aorta, Transesophageal (ICD-10-PCS; 2023-02-06)
PROC: 3E033XZ Introduction of Vasopressor into Peripheral Vein, Percutaneous Approach (ICD-10-PCS; 2023-02-06)
PROC: 30233J1 Transfusion of Nonautologous Serum Albumin into Peripheral Vein, Percutaneous Approach (ICD-10-PCS; 2023-02-06)
PROC: 02UG0JZ Supplement Mitral Valve with Synthetic Substitute, Open Approach (ICD-10-PCS; principal; 2023-02-06 08:00)
PROC: 02100Z9 Bypass Coronary Artery, One Artery from Left Internal Mammary, Open Approach (ICD-10-PCS; 2023-02-06 08:00)
PROC: 02100A3 Bypass Coronary Artery, One Artery from Coronary Artery with Autologous Arterial Tissue, Open Approach (ICD-10-PCS; 2023-02-06 08:00)
PROC: 0210093 Bypass Coronary Artery, One Artery from Coronary Artery with Autologous Venous Tissue, Open Approach (ICD-10-PCS; 2023-02-06 08:00)
DX: I08.1 Rheumatic disorders of both mitral and tricuspid valves (principal); I50.23 Acute on chronic systolic (congestive) heart failure; I31.39 Other pericardial effusion (noninflammatory); D62 Acute posthemorrhagic anemia; J93.83 Other pneumothorax; I50.82 Biventricular heart failure; I11.0 Hypertensive heart disease with heart failure; I25.82 Chronic total occlusion of coronary artery; J45.909 Unspecified asthma, uncomplicated; I25.10 Atherosclerotic heart disease of native coronary artery without angina pectoris; R73.9 Hyperglycemia, unspecified; G43.909 Migraine, unspecified, not intractable, without status migrainosus; E78.5 Hyperlipidemia, unspecified; R00.1 Bradycardia, unspecified; I25.5 Ischemic cardiomyopathy; Z91.199 Patient's noncompliance with other medical treatment and regimen due to unspecified reason; Z87.891 Personal history of nicotine dependence; Z79.82 Long term (current) use of aspirin; Z79.899 Other long term (current) drug therapy
CPT/HCPCS: 71045; 71046; 80048; 80053; 82330; 82805; 83735; 85025; 85027; 85610; 85730; 86850; 86891; 86900; 86901; 86920; 94002; 94640; 94660

== ENCOUNTER 2023-02-12 22:59 | Emergency (ER) | payer MEDICARE, OTHER ==
[2023-02-12 23:12] VITALS: BP 145/80; PULSE 94; RESP 16; TEMP 97.5
--- NOTE | 2023-02-12 23:17 | ED ---
General Adult HPI - General Chief complaint: Recheck/Abnormal Lab/Rx Stated complaint: Post-Op complications, Incision bleeding Time Seen by Provider: 02/12/23 23:08 Source: patient, RN notes reviewed, old records reviewed Mode of arrival: ambulatory Limitations: no limitations - History of Present Illness Initial comments: 62-year-old male who is 6 days postop coronary artery bypass graft. Patient had some drainage from his left anterior chest tube site. This was clear drainage. He has no dyspnea. No fever. States his pain postoperatively is managed quite well at home. - Related Data Home Medications Medication Instructions Recorded Confirmed Famotidine [Pepcid] 20 mg PO QAM 07/04/22 01/29/23 PARoxetine HCL [Paxil] 40 mg PO QAM 07/04/22 01/29/23 Ezetimibe [Zetia] 10 mg PO QAM 09/03/22 01/29/23 Atorvastatin [Lipitor] 80 mg PO QAM 01/29/23 01/29/23 Previous Rx's Medication Instructions Recorded Acetaminophen Tab [Tylenol] 1,000 mg PO Q6HR PRN tab 02/11/23 Aspirin 325 mg PO DAILY #30 tab 02/11/23 Clopidogrel [Plavix] 75 mg PO DAILY #30 tab 02/11/23 Furosemide [Lasix] 20 mg PO DAILY #7 tab 02/11/23 Metoprolol Tartrate [Lopressor] 12.5 mg PO BID #60 tab 02/11/23 Potassium Chloride ER [K-Dur 10] 10 meq PO DAILY #7 tab 02/11/23 Sennosides-Docusate Sodium 2 each PO HS #14 tab 02/11/23 [Senokot-S] Tamsulosin [Flomax] 0.4 mg PO PC-BRKFST #30 cap 02/11/23 Allergies Allergy/AdvReac Type Severity Reaction Status Date / Time No Known Allergies Allergy Verified 02/06/23 05:51 Review of Systems ROS Statement: Those systems with pertinent positive or pertinent negative responses have been documented in the HPI. ROS Other: All systems not noted in ROS Statement are negative. Past Medical History Past Medical History: Heart Failure, Hyperlipidemia, Hypertension Additional Past Medical History / Comment(s): Mitral valve regurgitation, multivessel coronary artery disease, systolic heart failure with impaired ejection fraction was up to 35% History of Any Multi-Drug Resistant Organisms: None Reported Past Surgical History: Appendectomy, Cholecystectomy Additional Past Surgical History / Comment(s): left arm, Past Anesthesia/Blood Transfusion Reactions: No Reported Reaction Past Psychological History: No Psychological Hx Reported Smoking Status: Former smoker Past Alcohol Use History: None Reported Past Drug Use History: None Reported - Past Family History Father Family Medical History: No Reported History Additional Family Medical History / Comment(s): States his dad from old age in his 80s. Mother Family Medical History: No Reported History Additional Family Medical History / Comment(s): States his mother at age 101 from old age. General Exam Limitations: no limitations General appearance: alert, in no apparent distress Head exam: Present: atraumatic, normocephalic Eye exam: Present: normal appearance, PERRL ENT exam: Present: normal exam Neck exam: Present: normal inspection. Absent: tenderness, meningismus Respiratory exam: Present: normal lung sounds bilaterally. Absent: respiratory distress, wheezes Cardiovascular Exam: Present: regular rate, normal rhythm GI/Abdominal exam: Present: soft. Absent: distended Neurological exam: Present: alert, oriented X3 Psychiatric exam: Present: normal affect, normal mood Skin exam: Present: warm, dry, other (Incisions are healing appropriately, no erythema, no purulence. From the left anterior chest tube insertion site there is a minimal amount of serosanguineous drainage without erythema, no purulence.) Course Vital Signs 02/12/23 23:00 Temperature 97.5 F L Pulse Rate 94 Respiratory 16 Rate Blood Pressure 145/80 O2 Sat by Pulse 98 Oximetry Medical Decision Making - Medical Decision Making Was pt. sent in by a medical professional or institution (, PA, [employer]SEM[employer] MACHINE SET UP MECHANIC, urgent care, hospital, or fpc...) When possible be specific @ -No Did you speak to anyone other than the patient for history (EMS, parent, family, police, friend...)? What history was obtained from this source @ -No Did you review nursing and triage notes (agree or disagree)? Why? @ -I reviewed and agree with nursing and triage notes Were old charts reviewed (outside hosp., previous admission, EMS record, old EKG, old radiological studies, urgent care reports/EKG's, fpc records)? Report findings @ -No old charts were reviewed Differential Diagnosis (chest pain, altered mental status, abdominal pain women, abdominal pain men, vaginal bleeding, weakness, fever, dyspnea, syncope, headache, dizziness, GI bleed, back pain, seizure, CVA, palpatations, mental health, musculoskeletal)? @ -[Cellulitis, abscess, postop infection EKG interpreted by me (3pts min.). @ -As above X-rays interpreted by me (1pt min.). @ -None done CT interpreted by me (1pt min.). @ -None done U/S interpreted by me (1pt. min.). @ -None done What testing was considered but not performed or refused? (CT, X-rays, U/S, labs)? Why? @ -None What meds were considered but not given or refused? Why? @ -None Did you discuss the management of the patient with other professionals (professionals i.e. , PA, [employer]SEM[employer] MACHINE SET UP MECHANIC, lab, RT, psych nurse, social sciences lecturer, edi programmer analyst, teacher, electorate officer, medical case worker)? Give summary @ -No Was smoking cessation discussed for >3mins.? @ -No Was critical care preformed (if so, how long)? @ -No Were there social determinants of health that impacted care today? How? (Homelessness, low income, unemployed, alcoholism, drug addiction, transportation, low edu. Level, literacy, decrease access to med. care, [place] [facility], rehab)? @ -No Was there de-escalation of care discussed even if they declined (Discuss DNR or withdrawal of care, Hospice)? DNR status @ -No What co-morbidities impacted this encounter? (DM, HTN, Smoking, COPD, CAD, Cancer, CVA, ARF, Chemo, Hep., AIDS, mental health diagnosis, sleep apnea, morbid obesity)? @ 6 days postop CABG Was patient admitted / discharged? Hospital course, mention meds given and route, prescriptions, significant lab abnormalities, going to OR and other pertinent info. @ -62-year-old male with minimal drainage from left anterior chest tube site insertion site. There is minimal serosanguineous drainage without signs of infection. Patient requesting bandages. Provided with dressing supplies emergency department. Given strict return parameters. Undiagnosed new problem with uncertain prognosis? @ -No Drug Therapy requiring intensive monitoring for toxicity (Heparin, Nitro, Insulin, Cardizem)? @ -No Were any procedures done? @ -No Diagnosis/symptom? @ -[Serosanguineous drainage from chest tube insertion site Acute, or Chronic, or Acute on Chronic? @ -acute Uncomplicated (without systemic symptoms) or Complicated (systemic symptoms)? @ -default Side effects of treatment? @ -No Exacerbation, Progression, or Severe Exacerbation? @ -No Poses a threat to life or bodily function? How? (Chest pain, [place], [place], pneumonia, PE, COPD, DKA, ARF, appy, cholecystitis, CVA, Diverticulitis, Homicidal, Suicidal, threat to staff... and all critical care pts) @ -No Disposition Clinical Impression: Encounter for wound re-check Disposition: HOME SELF-CARE Condition: Good Instructions (If sedation given, give patient instructions): Acute Wound Care (ED) Is patient prescribed a controlled substance at d/c from ED?: No Referrals: Bita Parrish MD [Primary Care Provider] - 1-2 days Rordigo Jeronimo MD [STAFF PHYSICIAN] - 1-2 days Time of Disposition: 23:17
== END 2023-02-12 23:55 | disposition home or self-care (01) ==
LOC: EC 22:59
DX: Z48.00 Encounter for change or removal of nonsurgical wound dressing (principal); E78.5 Hyperlipidemia, unspecified; I11.0 Hypertensive heart disease with heart failure; I25.10 Atherosclerotic heart disease of native coronary artery without angina pectoris; I50.9 Heart failure, unspecified; Z87.891 Personal history of nicotine dependence; Z95.1 Presence of aortocoronary bypass graft; Z79.899 Other long term (current) drug therapy
CPT/HCPCS: 99282

== ENCOUNTER 2023-03-02 03:34 | Emergency (ER) | payer MEDICARE, OTHER ==
[2023-03-02 03:58] VITALS: TEMP 97.5
[2023-03-02 04:26] LABS: Basophils # (A) 0.1 k/uL (0-0.2); Basophils % (A) 1 %; Eosinophils # (A) 0.4 k/uL (0-0.7); Eosinophils % (A) 5 %; HCT 38.1 % (39.0-53.0); HGB 12.5 gm/dL (13.0-17.5); Hypochromasia Slight; Lymphocytes # (A) 1.3 k/uL (1.0-4.8); Lymphocytes % (A) 18 %; MCH 29.3 pg (25.0-35.0); MCHC 32.8 g/dL (31.0-37.0); Mean Platelet Volume 8.5; Monocytes # (A) 0.6 k/uL (0-1.0); Monocytes % (A) 9 %; Neutrophils # (A) 4.6 k/uL (1.3-7.7); Neutrophils % (A) 65 %; Platelet Count 301 k/uL (150-450); RBC 4.26 m/uL (4.30-5.90); RDW 13.3 % (11.5-15.5)
[2023-03-02 04:36] LABS: ALT 32 U/L (4-49); AST 34 U/L (17-59); African American GFR (CKD) >90 (>60 ml/min/1.73 sqM); Albumin 4.2 g/dL (3.5-5.0); Alkaline Phosphatase 133 U/L (38-126); Anion Gap 13 mmol/L; Blood Urea Nitrogen 23 mg/dL (9-20); Calcium 9.6 mg/dL (8.4-10.2); Carbon Dioxide 23 mmol/L (22-30); Chloride 102 mmol/L (98-107); Glucose 103 mg/dL (74-99); Non-African American GFR(CKD) >90 (>60 ml/min/1.73 sqM); Potassium 3.7 mmol/L (3.5-5.1); Sodium 138 mmol/L (137-145); Total Bilirubin 0.5 mg/dL (0.2-1.3); Total Protein 7.1 g/dL (6.3-8.2)
[2023-03-02 05:02] LABS: MCV 89.3 fL (80.0-100.0)
--- NOTE | 2023-03-02 05:49 | ED ---
General Adult HPI - General Chief complaint: Wound/Laceration Stated complaint: Wound drainage Time Seen by Provider: 03/02/23 03:46 Source: patient, RN notes reviewed, old records reviewed Mode of arrival: EMS Limitations: no limitations - History of Present Illness Initial comments: Patient is a 62-year-old male who presents emergency Department over concern for possible discharge from his drain site in his upper abdomen and lower chest. Patient had coronary artery bypass surgery approximately one month ago with Dr. Jeronimo cardiothoracic surgery. States he has been Progressing well but is concerned and states he noticed green discharge from his site. Believes it is still there. Appears to just have a scab over the drainage site. No obvious fluctuance, edema, erythema present. Appears to be healing currently. Patient is adamant that he had discharge at the site. Cleaned up prior to arrival. Presents for further evaluation. Denies fevers or chills. Denies any nausea or vomiting. Patient to follow up with Dr. Jeronimo next week. - Related Data Home Medications Medication Instructions Recorded Confirmed Famotidine [Pepcid] 20 mg PO QAM 07/04/22 01/29/23 PARoxetine HCL [Paxil] 40 mg PO QAM 07/04/22 01/29/23 Ezetimibe [Zetia] 10 mg PO QAM 09/03/22 01/29/23 Atorvastatin [Lipitor] 80 mg PO QAM 01/29/23 01/29/23 Previous Rx's Medication Instructions Recorded Acetaminophen Tab [Tylenol] 1,000 mg PO Q6HR PRN tab 02/11/23 Aspirin 325 mg PO DAILY #30 tab 02/11/23 Clopidogrel [Plavix] 75 mg PO DAILY #30 tab 02/11/23 Furosemide [Lasix] 20 mg PO DAILY #7 tab 02/11/23 Metoprolol Tartrate [Lopressor] 12.5 mg PO BID #60 tab 02/11/23 Potassium Chloride ER [K-Dur 10] 10 meq PO DAILY #7 tab 02/11/23 Sennosides-Docusate Sodium 2 each PO HS #14 tab 02/11/23 [Senokot-S] Tamsulosin [Flomax] 0.4 mg PO PC-BRKFST #30 cap 02/11/23 Allergies Allergy/AdvReac Type Severity Reaction Status Date / Time No Known Allergies Allergy Verified 02/06/23 05:51 Review of Systems ROS Statement: Those systems with pertinent positive or pertinent negative responses have been documented in the HPI. Review of Systems: CONST: Denies fever EYES: Denies blurry vision ENT: Denies nasal congestion C/V: Denies Chest pain RESP: Denies shortness of breath GI: Denies abdominal pain : Denies dysuria SKIN: Endorses possible postop drainage from healing surgical site MSK: Denies joint pain. NEURO: Denies headache ROS Other: All systems not noted in ROS Statement are negative. Past Medical History Past Medical History: Heart Failure, Hyperlipidemia, Hypertension Additional Past Medical History / Comment(s): Mitral valve regurgitation, multivessel coronary artery disease, systolic heart failure with impaired ejection fraction was up to 35% History of Any Multi-Drug Resistant Organisms: None Reported Past Surgical History: Appendectomy, Cholecystectomy Additional Past Surgical History / Comment(s): left arm, Past Anesthesia/Blood Transfusion Reactions: No Reported Reaction Past Psychological History: No Psychological Hx Reported Smoking Status: Former smoker Past Alcohol Use History: None Reported Past Drug Use History: None Reported - Past Family History Father Family Medical History: No Reported History Additional Family Medical History / Comment(s): States his dad from old age in his 80s. Mother Family Medical History: No Reported History Additional Family Medical History / Comment(s): States his mother at age 101 from old age. General Exam - General Exam Comments Initial Comments: General: Appears in no acute distress. HEAD: Normal with no signs of head trauma. EYES: PERRLA, EOMI, conjunctiva normal, no discharge. ENT: Hearing grossly intact, normal oropharynx. RESPIRATORY: Clear breath sounds bilaterally. No wheezes, rales, or rhonchi. C/V: Regular rate and rhythm. S1 and S2 auscultated, no edema, peripheral pulses 2+ and intact throughout ABD: Abd is soft, nontender, nondistended EXT: Normal range of motion, no obvious deformity SKIN: Patient has a scab over the surgical sites were prior chest tubes were in place. No obvious drainage, fluctuance, edema, erythema present. No concern for infection at this time. NEURO: Alert and oriented x 4. Limitations: no limitations Course Vital Signs 03/02/23 03/02/23 03:35 05:51 Temperature 97.5 F L Pulse Rate 83 73 Respiratory 18 18 Rate Blood Pressure 133/95 106/78 O2 Sat by Pulse 99 96 Oximetry Medical Decision Making - Medical Decision Making Was pt. sent in by a medical professional or institution ([facility], [facility], urgent care, hospital, or penitentiary...) When possible be specific @ -No Did you speak to anyone other than the patient for history (EMS, parent, family, police, friend...)? What history was obtained from this source @ -No Did you review nursing and triage notes (agree or disagree)? Why? @ -I reviewed and agree with nursing and triage notes Were old charts reviewed (outside hosp., previous admission, EMS record, old EKG, old radiological studies, urgent care reports/EKG's, penitentiary records)? Report findings @ -Old charts reviewed Differential Diagnosis (chest pain, altered mental status, abdominal pain women, abdominal pain men, vaginal bleeding, weakness, fever, dyspnea, syncope, he adache, dizziness, GI bleed, back pain, seizure, CVA, palpatations, mental health, musculoskeletal)? @ -post operative Infection, cellulitis, abscess. This list is not all inclus west[place]. EKG interpreted by me (3pts min.). @ -As above X-rays interpreted by me (1pt min.). @ -Chest x-ray reveals no obvious acute cardio pulmonary process. CT interpreted by me (1pt min.). @ -None done U/S interpreted by me (1pt. min.). @ -None done What testing was considered but not performed or refused? (CT, X-rays, U/S, labs)? Why? @ -None What meds were considered but not given or refused? Why? @ -None Did you discuss the management of the patient with other professionals (professionals i.e. [facility], [facility], lab, RT, psych nurse, social worker school, musical engineer, teacher, biosecurity officer, high risk case manager)? Give summary @ -Discussed with Dr. Jeronimo the patient's cardiothoracic surgeon who was in agreement with the plan for follow-up in the office. Was smoking cessation discussed for >3mins.? @ -No Was critical care preformed (if so, how long)? @ -No Were there social determinants of health that impacted care today? How? (Homelessness, low income, unemployed, alcoholism, drug addiction, transportation, low edu. Level, literacy, decrease access to med. care, retirement, rehab)? @ -No Was there de-escalation of care discussed even if they declined (Discuss DNR or withdrawal of care, Hospice)? DNR status @ -No What co-morbidities impacted this encounter? (DM, HTN, Smoking, COPD, CAD, Cancer, CVA, ARF, Chemo, Hep., AIDS, mental health diagnosis, sleep apnea, morbid obesity)? @ -None Was patient admitted / discharged? Hospital course, mention meds given and route, prescriptions, significant lab abnormalities, going to OR and other pertinent info. @ -Based on the patient's presentation and physical exam, I do not appreciate any obvious signs of infection at the site that the patient is concerned about. I did discuss this with the patient. Gauze is placed over the site to collect any drainage possible. He was in agreement this plan. We will obtain basic labs, screening EKG, chest x-ray. Vital signs are within except for movements. Patient's labs are unremarkable. Chest x-ray is unremarkable. EKG shows no signs of acute ischemia. After discussion with the patient, we both agreed that I will reach out to cardiothoracic surgery just to inform them of the patient being present in the emergency department. He were in agreement with this plan.I spoke with patient's surgeon, Dr. Jeronimo who was in agreement plan for patient to follow up at his clinic next week. Does not require antibiotics. Discussed with the patient he was in agreement this plan. Strict return precautions di scussed.Patient was observed for multiple hours and there is no drainage from the site. I instructed the patient to follow up with their PCP in the next 1-3 days. I explained that the patient should return to the emergency department if they experience any worsening symptoms. Strict return precautions were discussed with the patient. The patient expressed understanding of these instructions. I answered all questions that the patient had. The patient was discharged home in good condition with their prescriptions and follow up information. Undiagnosed new problem with uncertain prognosis? @ -No Drug Therapy requiring intensive monitoring for toxicity (Heparin, Nitro, Insulin, Cardizem)? @ -No Were any procedures done? @ -No Diagnosis/symptom? @ -Encounter for postoperative wound check Acute, or Chronic, or Acute on Chronic? @ -Acute Uncomplicated (without systemic symptoms) or Complicated (systemic symptoms)? @ -Uncomplicated Side effects of treatment? @ -No Exacerbation, Progression, or Severe Exacerbation? @ -No Poses a threat to life or bodily function? How? (Chest pain, [place], [place], pneumonia, PE, COPD, DKA, ARF, appy, cholecystitis, CVA, Diverticulitis, Homicidal, Suicidal, threat to staff... and all critical care pts) @ -No - Lab Data Result diagrams: 03/02/23 04:17 03/02/23 04:17 Lab Results 03/02/23 03/02/23 Range/Units 04:17 04:17 WBC 7.0 (3.8-10.6) k/uL RBC 4.26 L (4.30-5.90) m/uL Hgb 12.5 L (13.0-17.5) gm/dL Hct 38.1 L (39.0-53.0) % MCV 89.3 D (80.0-100.0) fL MCH 29.3 (25.0-35.0) pg MCHC 32.8 (31.0-37.0) g/dL RDW 13.3 (11.5-15.5) % Plt Count 301 (150-450) k/uL MPV 8.5 Neutrophils % 65 % Lymphocytes % 18 % Monocytes % 9 % Eosinophils % 5 % Basophils % 1 % Neutrophils # 4.6 (1.3-7.7) k/uL Lymphocytes # 1.3 (1.0-4.8) k/uL Monocytes # 0.6 (0-1.0) k/uL Eosinophils # 0.4 (0-0.7) k/uL Basophils # 0.1 (0-0.2) k/uL Hypochromasia Slight Sodium 138 (137-145) mmol/L Potassium 3.7 (3.5-5.1) mmol/L Chloride 102 (98-107) mmol/L Carbon Dioxide 23 (22-30) mmol/L Anion Gap 13 mmol/L BUN 23 H (9-20) mg/dL Creatinine 0.89 (0.66-1.25) mg/dL Est GFR (CKD-EPI)AfAm >90 (>60 ml/min/1.73 sqM) Est GFR (CKD-EPI)NonAf >90 (>60 ml/min/1.73 sqM) Glucose 103 H (74-99) mg/dL Calcium 9.6 (8.4-10.2) mg/dL Total Bilirubin 0.5 (0.2-1.3) mg/dL AST 34 (17-59) U/L ALT 32 (4-49) U/L Alkaline Phosphatase 133 H (38-126) U/L Total Protein 7.1 (6.3-8.2) g/dL Albumin 4.2 (3.5-5.0) g/dL - EKG Data -: EKG Interpreted by Me EKG Comments: 12-lead Electrocardiogram Interpretation Note EKG was reviewed and interpreted by myself. 12-lead ECG performed at 0354 is interpreted by me as revealing normal sinus rhythm at a rate of 0354 beats per minute. [place] is normal.. Intervals 161 ms, QRS ration is 114 ms, QTc is 415 ms.. There were no acute ST or T wave abnormalities to suggest myocardial ischemia or injury. R wave progression across the precordium was satisfactory. By my interpretation this EKG is non-diagnostic for acute ischemia. Similar to prior EKG from 02/06/2023 Disposition Clinical Impression: Encounter for postoperative wound check Disposition: HOME SELF-CARE Condition: Good Is patient prescribed a controlled substance at d/c from ED?: No Referrals: Bita Parrish MD [Primary Care Provider] - 1-2 days Time of Disposition: 06:31
[2023-03-02 07:33] VITALS: BP 119/88; PULSE 77; RESP 20
--- NOTE | 2023-03-02 07:55 | XR ---
EXAMINATION TYPE: XR chest 2V DATE OF EXAM: 03/02/2023 4:05 AM CLINICAL INDICATION:Male, 62 years old with history of protocol; [facility]. History of heart surgery about a month ago, having puslike drainage from chest tube site COMPARISON: 02/11/2023 TECHNIQUE: XR chest 2V. Frontal PA and lateral views of the chest. FINDINGS: Lines/Tubes: EKG leads overlie the chest. Other extrinsic densities are also present. No indwelling lines are seen . Heart/mediastinum: Heart size upper normal. Tortuous aorta with atherosclerotic calcifications. Mul tiple sternotomy wires, mediastinal clips, and prosthetic mitral valve again seen. Pulmonary vascularity: Not increased, Lungs/Pleura: Lungs appear mildly hyperinflated with interstitial coarsening, findings suggestive of COPD/emphysema. No focal consolidation or pneumothorax. Calcific angles appear relatively sharp. Musculoskeletal: No acute osseous abnormality demonstrated in the limits of the exam. Mild degenerat weston changes. Other findings: None. IMPRESSION: No acute abnormality.
== END 2023-03-02 07:16 | disposition home or self-care (01) ==
LOC: EC 03:34
DX: Z48.00 Encounter for change or removal of nonsurgical wound dressing (principal); I11.0 Hypertensive heart disease with heart failure; I25.10 Atherosclerotic heart disease of native coronary artery without angina pectoris; I25.2 Old myocardial infarction; E78.5 Hyperlipidemia, unspecified; I50.20 Unspecified systolic (congestive) heart failure; Z95.1 Presence of aortocoronary bypass graft; Z87.891 Personal history of nicotine dependence; Z79.899 Other long term (current) drug therapy
CPT/HCPCS: 36415; 71046; 80053; 85025; 93005; 99284

== ENCOUNTER 2024-03-08 12:14 | Emergency (ER) | payer MEDICARE, OTHER ==
[2024-03-08 12:19] VITALS: BP 147/87; PULSE 75; RESP 16; TEMP 97.7
--- NOTE | 2024-03-08 12:38 | ED ---
General Adult HPI - General Chief complaint: Wound/Laceration Stated complaint: L hand lac Time Seen by Provider: 03/08/24 12:19 Source: patient, EMS, RN notes reviewed, old records reviewed Mode of arrival: EMS Limitations: no limitations - History of Present Illness Initial comments: 63 yo male presents with left hand injury. Patient slipped on the ice, catching himself with his left hand. He had a laceration with significant bleeding over the thenar eminence. Hemorrhage was controlled by paramedics during transport. Patient denies any other injury, no head or neck trauma. - Related Data Home Medications Medication Instructions Recorded Confirmed Famotidine [Pepcid] 20 mg PO QAM 07/04/22 01/29/23 PARoxetine HCL [Paxil] 40 mg PO QAM 07/04/22 01/29/23 Ezetimibe [Zetia] 10 mg PO QAM 09/03/22 01/29/23 Atorvastatin [Lipitor] 80 mg PO QAM 01/29/23 01/29/23 Previous Rx's Medication Instructions Recorded Acetaminophen Tab [Tylenol] 1,000 mg PO Q6HR PRN tab 02/11/23 Aspirin 325 mg PO DAILY #30 tab 02/11/23 Clopidogrel [Plavix] 75 mg PO DAILY #30 tab 02/11/23 Furosemide [Lasix] 20 mg PO DAILY #7 tab 02/11/23 Metoprolol Tartrate [Lopressor] 12.5 mg PO BID #60 tab 02/11/23 Potassium Chloride ER [K-Dur 10] 10 meq PO DAILY #7 tab 02/11/23 Sennosides-Docusate Sodium 2 each PO HS #14 tab 02/11/23 [Senokot-S] Tamsulosin [Flomax] 0.4 mg PO PC-BRKFST #30 cap 02/11/23 Allergies Allergy/AdvReac Type Severity Reaction Status Date / Time No Known Allergies Allergy Verified 03/08/24 12:20 Review of Systems ROS Statement: Those systems with pertinent positive or pertinent negative responses have been documented in the HPI. ROS Other: All systems not noted in ROS Statement are negative. Past Medical History Past Medical History: Heart Failure, Hyperlipidemia, Hypertension Additional Past Medical History / Comment(s): Mitral valve regurgitation, multivessel coronary artery disease, systolic heart failure with impaired ejection fraction was up to 35% History of Any Multi-Drug Resistant Organisms: None Reported Past Surgical History: Appendectomy, Cholecystectomy Additional Past Surgical History / Comment(s): left arm, Past Anesthesia/Blood Transfusion Reactions: No Reported Reaction Past Psychological History: No Psychological Hx Reported Smoking Status: Former smoker Past Alcohol Use History: None Reported Past Drug Use History: None Reported - Past Family History Father Family Medical History: No Reported History Additional Family Medical History / Comment(s): States his dad from old age in his 80s. Mother Family Medical History: No Reported History Additional Family Medical History / Comment(s): States his mother at age 101 from old age. General Exam Limitations: no limitations General appearance: alert, in no apparent distress Head exam: Present: atraumatic, normocephalic Eye exam: Present: normal appearance, PERRL ENT exam: Present: normal exam Neck exam: Present: normal inspection. Absent: tenderness, meningismus Respiratory exam: Present: normal lung sounds bilaterally. Absent: respiratory distress, wheezes Cardiovascular Exam: Present: regular rate, normal rhythm GI/Abdominal exam: Present: soft. Absent: distended, tenderness, guarding Extremities exam: Present: other (4 cm laceration over the thenar eminence left hand, no active bleeding, no gross deformity, distal pulses intact, normal cap refill, normal range of motion) Neurological exam: Present: alert, oriented X3 Psychiatric exam: Present: normal affect, normal mood Course Vital Signs 03/08/24 12:16 Temperature 97.7 F Pulse Rate 75 Respiratory 16 Rate Blood Pressure 147/87 O2 Sat by Pulse 98 Oximetry Procedures - Laceration Laceration #1 Consent Obtained: verbal consent Indication: laceration Site: hand Size (cm): 5 Description: stellate, irregular Depth: simple, single layer Anesthetic Used: lidocaine 1% Anesthesia Technique: local infiltration Amount (mls): 5 Pre-repair: wound explored, irrigated extensively, deep structures intact Type of Sutures: nylon, vicryl Size of Sutures: 4-0 Number of Sutures: 5 Technique: simple, interrupted Patient Tolerated Procedure: well Medical Decision Making - Medical Decision Making Was pt. sent in by a medical professional or institution (, PA, FENDER MECHANIC APPRENTICE, urgent care, hospital, or retirement...) When possible be specific @ -No Did you speak to anyone other than the patient for history (EMS, parent, family, police, friend...)? What history was obtained from this source @ -No Did you review nursing and triage notes (agree or disagree)? Why? @ -I reviewed and agree with nursing and triage notes Were old charts reviewed (outside hosp., previous admission, EMS record, old EKG, old radiological studies, urgent care reports/EKG's, retirement records)? Report findings @ -No old charts were reviewed Differential Diagnosis: Hand laceration, open fracture, muscle or tendon injury. EKG interpreted by me (3pts min.). @ -As above X-rays interpreted by me (1pt min.). @X-ray of the left hand is negative for displaced fracture or dislocation CT interpreted by me (1pt min.). @ -None done U/S interpreted by me (1pt. min.). @ -None done What testing was considered but not performed or refused? (CT, X-rays, U/S, labs)? Why? @ -None What meds were considered but not given or refused? Why? @ -None Did you discuss the management of the patient with other professionals (professionals i.e. , PA, FENDER MECHANIC APPRENTICE, lab, RT, psych nurse, social media director, radiological technologist, teacher, sewage reticulation drafting officer, case coordinator)? Give summary @ -No Was smoking cessation discussed for >3mins.? @ -No Was critical care preformed (if so, how long)? @ -No Were there social determinants of health that impacted care today? How? (Tara elessness, low income, unemployed, alcoholism, drug addiction, transportation, low edu. Level, literacy, decrease access to med. care, custodial, rehab)? @ -No Was there de-escalation of care discussed even if they declined (Discuss DNR or withdrawal of care, Hospice)? DNR status @ -No What co-morbidities impacted this encounter? (DM, HTN, Smoking, COPD, CAD, Cancer, CVA, ARF, Chemo, Hep., AIDS, mental health diagnosis, sleep apnea, morbid obesity)? @ -None Was patient admitted / discharged? Hospital course, mention meds given and route, prescriptions, significant lab abnormalities, going to OR and other pertinent info. @ -[Laceration repaired with nylon suture, tetanus updated, patient is instructed to return for suture removal. Monitor for signs of infection. Undiagnosed new problem with uncertain prognosis? @ -No Drug Therapy requiring intensive monitoring for toxicity (Heparin, Nitro, Insulin, Cardizem)? @ -No Were any procedures done? @Yes, hand laceration repair Diagnosis/symptom? @ -Hand laceration Acute, or Chronic, or Acute on Chronic? @ -Default Uncomplicated (without systemic symptoms) or Complicated (systemic symptoms)? @ -Default Side effects of treatment? @ -No Exacerbation, Progression, or Severe Exacerbation? @ -No Poses a threat to life or bodily function? How? (Chest pain, [place], [place], pneumonia, PE, COPD, DKA, ARF, appy, cholecystitis, CVA, Diverticulitis, Homicidal, Suicidal, threat to staff... and all critical care pts) @ -No Disposition Clinical Impression: Laceration Disposition: HOME SELF-CARE Condition: Good Instructions (If sedation given, give patient instructions): Laceration (ED), Care For Your Stitches (DC) Additional Instructions: Please return for suture removal in 10 to 14 days Is patient prescribed a controlled substance at d/c from ED?: No Referrals: None,Stated [Primary Care Provider] - 1-2 days Time of Disposition: 13:17
[2024-03-08] MEDS: KETOROLAC 15 MG/ML 1 ML VIAL IM STA (12:48)
[2024-03-08] MEDS: DIPH,PERTUS(ACELL)TETVAC-LF 0.5 ML VIAL IM ONE (12:48)
[2024-03-08] MEDS: LIDOCAINE 1% INJ 10MG/ML (20 ML MDV) SQ ONE (13:03)
--- NOTE | 2024-03-08 13:11 | XR ---
EXAMINATION TYPE: XR hand complete LT DATE OF EXAM: 03/08/2024 CLINICAL HISTORY: Fall with pain TECHNIQUE: Frontal, lateral and oblique images of the left hand are obtained. COMPARISON: None. FINDINGS: There is no acute fracture/dislocation evident in the left hand. Moderate to severe narrow ing and [id number] spurring of base of first metacarpal. Tiny linear density or soft tissue for eign body/possible staple measuring 4 mm along the palmar radial aspect of the distal forearm is seen . IMPRESSION: There is no acute fracture or dislocation in the left hand. [facility], , 03/08/2024 1:09 PM
== END 2024-03-08 13:23 | disposition home or self-care (01) ==
LOC: EC 12:14
DX: S61.412A Laceration without foreign body of left hand, initial encounter (principal); Z87.891 Personal history of nicotine dependence; Z23 Encounter for immunization; W00.0XXA Fall on same level due to ice and snow, initial encounter
CPT/HCPCS: 73130; 90715; 12002; 99283; 90471; 96372; J2003; J1885